=== PATIENT | female | born 1965 | race Caucasian/White ===

== ENCOUNTER 2020-07-02 10:53 | Outpatient (REF) | payer OTHER, SELFPAY | END 2020-07-02 10:54 | disposition home or self-care (01) | LOC: HO.LNP 10:53 | PROVIDERS: Visit Provider Hospitalist | DX: N39.0 Urinary tract infection, site not specified (principal) | CPT/HCPCS: 87086; 87088; 87186 ==

== ENCOUNTER 2020-07-16 09:29 | Outpatient (REF) | payer OTHER, SELFPAY ==
[2020-07-16 18:22] LABS: Glucose Urine UA NEG (NEG); Leukocyte Esterase Urine NEG (NEG); Nitrite Urine NEG (NEG); PH 5.5 (5.0-8.0); Specific Gravity - Urine >= 1.030 (1.005-1.025); Urine Blood 2+ (NEG); Urine Ketones NEG (NEG); Urine Protein NEG (NEG-TRACE)
[2020-07-16 18:29] LABS: Appearance Urine CLOUDY; Color Urine YELLOW
[2020-07-16 18:34] LABS: Amorphous Sediment Urine 3+ /LPF; WBC Urine 0 /HPF (0-4)
== END 2020-07-16 09:30 | disposition home or self-care (01) ==
LOC: HO.LNP 09:29
PROVIDERS: PCP Hospitalist; Referring Provider Hospitalist; Visit Provider Internal Medicine Gastroenterology
DX: R13.10 Dysphagia, unspecified (principal); E66.9 Obesity, unspecified; K21.00 Gastro-esophageal reflux disease with esophagitis, without bleeding
CPT/HCPCS: 81001

== ENCOUNTER 2020-08-14 08:00 | Outpatient (REF) | payer OTHER, SELFPAY ==
[2020-08-14 09:04] LABS: Glucose Urine UA NEG (NEG); Leukocyte Esterase Urine NEG (NEG); Nitrite Urine NEG (NEG); Urine Blood 1+ (NEG); Urine Ketones NEG (NEG); Urine Protein NEG (NEG-TRACE)
[2020-08-14 09:06] LABS: Appearance Urine CLEAR; Color Urine YELLOW
[2020-08-14 09:11] LABS: Mucus Urine 1+ /LPF; Squamous Epithelial Cell Urine 1+ /LPF; WBC Urine 0-2 /HPF (0-4)
== END 2020-08-14 08:01 | disposition home or self-care (01) ==
LOC: HO.LAB 08:00
PROVIDERS: PCP Hospitalist; Visit Provider Internal Medicine Endocrinology, Diabetes & Metabolism
DX: E66.9 Obesity, unspecified (principal); N39.0 Urinary tract infection, site not specified
CPT/HCPCS: 81001; 81003; 82533

== ENCOUNTER 2020-09-30 12:16 | Outpatient (REF) | payer OTHER, SELFPAY ==
[2020-09-30 12:45] LABS: COVID-19 Test Negative (Negative); IDNOW Serial# 55D5AD1C
== END 2020-09-30 12:17 | disposition home or self-care (01) ==
LOC: HO.EMPCOV 12:16
PROVIDERS: Visit Provider Internal Medicine
DX: Z20.828 Contact with and (suspected) exposure to other viral communicable diseases (principal)
CPT/HCPCS: 87635; C9803

== ENCOUNTER 2020-11-29 11:59 | Outpatient (REF) | payer OTHER, SELFPAY ==
[2020-11-29 12:21] LABS: COVID-19 Test Negative (Negative)
== END 2020-11-29 12:00 | disposition home or self-care (01) ==
LOC: HO.EMPCOV 11:59
PROVIDERS: Visit Provider Internal Medicine
DX: Z20.822 Contact with and (suspected) exposure to COVID-19 (principal)
CPT/HCPCS: 36415; 87635; C9803

== ENCOUNTER 2021-01-10 07:31 | Outpatient (REF) | payer OTHER, SELFPAY ==
[2021-01-10 08:27] LABS: COVID-19 Test Negative (Negative); IDNOW Serial# 55D5AD1C
== END 2021-01-10 07:32 | disposition home or self-care (01) ==
LOC: HO.EMPCOV 07:31
PROVIDERS: Visit Provider Internal Medicine
DX: Z20.822 Contact with and (suspected) exposure to COVID-19 (principal)
CPT/HCPCS: 36415; 87635; C9803

== ENCOUNTER 2021-04-06 10:53 | Outpatient (REF) | payer OTHER, SELFPAY | END 2021-04-06 10:54 | disposition home or self-care (01) | LOC: HO.HOSX 10:53 | PROVIDERS: Visit Provider Physician Assistant | DX: Z13.89 Encounter for screening for other disorder (principal) ==

== ENCOUNTER 2021-04-20 07:29 | Outpatient (REF) | payer OTHER, SELFPAY ==
--- NOTE | ~2021-04-20 | XR_ITS ---
EXAMINATION: XR ELBOW, LEFT CLINICAL INFORMATION: M25.522 - Pain in left elbow COMPARISON: None TECHNIQUE: AP, lateral, and oblique views of the left elbow. FINDINGS: There is intra-articular fracture central lateral aspect radial head with depression approximately 1.9 mm. There is intracapsular effusion. The remainder of the bony structures appear intact. No dislocation or destructive process. There is a small exostosis from the anteromedial distal humeral shaft measuring 3 mm thickness by 9 mm in length. This merges with the humeral cortex and is approximately 6 cm proximal to the elbow joint. No periostitis. XR/XR elbow LT min 3V IMPRESSION: 1. Intra-articular fracture lateral radial head with mild depression. 2. Small benign-appearing exostosis anterior medial humeral shaft.
== END 2021-04-20 07:30 | disposition home or self-care (01) ==
LOC: HO.HOSX 07:29
PROVIDERS: Visit Provider Physician Assistant
DX: S52.123D Displaced fracture of head of unspecified radius, subsequent encounter for closed fracture with routine healing (principal)
CPT/HCPCS: 73080

== ENCOUNTER 2021-05-18 07:57 | Outpatient (REF) | payer OTHER, SELFPAY | END 2021-05-18 07:58 | disposition home or self-care (01) | LOC: HO.HOSX 07:57 | PROVIDERS: Visit Provider Physician Assistant | DX: Z13.89 Encounter for screening for other disorder (principal) ==

== ENCOUNTER 2021-06-01 07:27 | Outpatient (REF) | payer OTHER, SELFPAY | END 2021-06-01 07:28 | disposition home or self-care (01) | LOC: HO.HOSX 07:27 | PROVIDERS: Visit Provider Physician Assistant | DX: Z13.89 Encounter for screening for other disorder (principal) ==

== ENCOUNTER 2021-06-03 07:00 | Outpatient (RCR) | payer OTHER, SELFPAY ==
--- NOTE | 2021-06-03 07:25 | MHC.OT.DC ---
[address] [phone] F: [phone] Occupational Therapy Discharge Note Provider: Luis E Benz Diagnosis: Left radial head fx Date of Evaluation: 05/13/21 Date of Discharge: 06/03/21 Treatments to Date: 5 Discharge Status: Achieved Goals Improved Function Independent with HEP Discharge Summary: Minda is about 2 months s/p fall w/ left radial head fx. She is progressing well w/ strength and range, all goals met and Ind w/ home program. No difficulty w/ daily activities, still avoiding heavy lifting. Electronically Signed By: Joanna Rodriguez OTR/L Please Sign and return to therapist, thank you for your referral.
== END 2021-06-03 07:27 | disposition home or self-care (01) ==
LOC: HO.OT 07:00
PROVIDERS: Visit Provider Physician Assistant
DX: S52.122D Displaced fracture of head of left radius, subsequent encounter for closed fracture with routine healing (principal)
CPT/HCPCS: 97110; 97140; 97165

== ENCOUNTER 2021-06-22 08:25 | Outpatient (REF) | payer OTHER, SELFPAY ==
[2021-06-22 09:22] LABS: C Reactive Protein 1.78 mg/dL (< or = 0.50)
[2021-06-22 09:47] LABS: TSH reflex Free T4 1.37 uIU/mL (0.32-4.0)
[2021-06-22 09:51] LABS: Glucose Fasting 112 mg/dL (60-99)
[2021-06-22 09:54] LABS: Erythrocyte Sedimentation Rate 23 MM/HR (0-20)
[2021-06-22 10:32] LABS: Glucose 1 Hour 168 mg/dL
[2021-06-22 11:31] LABS: Appearance Urine CLEAR; Color Urine YELLOW; Glucose Urine UA NEG (NEG); Leukocyte Esterase Urine NEG (NEG); Nitrite Urine NEG (NEG); PH 5.5 (5.0-8.0); Specific Gravity - Urine 1.025 (1.005-1.025); UACC Culture Trigger NO; Urine Blood 2+ (NEG); Urine Ketones NEG (NEG); Urine Protein NEG (NEG-TRACE)
[2021-06-22 12:05] LABS: Glucose 2 Hour 139 mg/dL
[2021-06-22 12:40] LABS: Glucose 3 Hour 122 mg/dL
[2021-06-22 12:48] LABS: Squamous Epithelial Cell Urine TRACE /LPF
[2021-06-22 12:50] LABS: WBC Urine 0-2 /HPF (0-4)
[2021-06-22 12:51] LABS: Bacteria Urine TRACE /LPF; Mucus Urine TRACE /LPF
[2021-06-24 05:25] LABS: Insulin Level Total 7.2 uIU/mL; Thyroid Peroxidase Antibodies <1 IU/mL (<9)
[2021-06-28 16:35] LABS: Vitamin D 25-OH, D2 <4 ng/mL; Vitamin D 25-OH, D3 11 ng/mL; Vitamin D 25-OH, Total 11 ng/mL (30-100)
== END 2021-06-22 08:26 | disposition home or self-care (01) ==
LOC: HO.LAB 08:25
PROVIDERS: PCP Hospitalist; Visit Provider Hospitalist
DX: R63.5 Abnormal weight gain (principal); M06.9 Rheumatoid arthritis, unspecified; S52.122D Displaced fracture of head of left radius, subsequent encounter for closed fracture with routine healing
CPT/HCPCS: 36415; 81001; 82306; 82533; 82951; 83525; 84443; 85652; 86140; 86376

== ENCOUNTER 2021-09-20 17:46 | Outpatient (REF) | payer OTHER, SELFPAY | END 2021-09-20 17:47 | disposition home or self-care (01) | LOC: HO.LNP 17:46 | PROVIDERS: Visit Provider Hospitalist | DX: R31.9 Hematuria, unspecified (principal); N30.90 Cystitis, unspecified without hematuria | CPT/HCPCS: 87086 ==

== ENCOUNTER 2022-03-02 13:18 | Outpatient (REF) | payer OTHER, SELFPAY ==
[2022-03-03 13:10] LABS: Influenza A PCR NEGATIVE (Negative); Influenza B PCR NEGATIVE (Negative); Resp Syncy Virus RNA Qual PCR NEGATIVE (Negative); SARS COV2 PCR INHOUSE NEGATIVE (Negative)
== END 2022-03-02 13:19 | disposition home or self-care (01) ==
LOC: HO.LNP 13:18
PROVIDERS: Visit Provider Hospitalist
DX: R53.83 Other fatigue (principal); R51.9 Headache, unspecified; R61 Generalized hyperhidrosis; Z20.822 Contact with and (suspected) exposure to COVID-19
CPT/HCPCS: 0241U

== ENCOUNTER 2022-03-03 08:01 | Outpatient (REF) | payer OTHER, SELFPAY ==
[2022-03-03 11:42] LABS: MANUAL DIFF FLAG NO
[2022-03-03 11:46] LABS: Basophils Percent Auto 0.5 % (0-2); Eosinophils Absolute Auto 0.1 X10*3/uL (0.0-0.4); Eosinophils Percent Auto 2.1 % (0-4); Hematocrit 40.5 % (37.0-47.0); Hemoglobin 13.1 g/dl (12.0-16.0); Imm Gran Abs Auto 0.02 X10*3/uL (0.00-0.03); Imm Gran Pct Auto 0.3 % (0.0-0.4); Lymphocytes Absolute Auto 1.4 X10*3/uL (1.2-4.9); Lymphocytes Percent Auto 23.4 % (20-40); Mean Corpuscular HGB Conc 32.3 g/dl (31.0-35.0); Mean Corpuscular Hemoglobin 29.4 pg (27.0-33.0); Mean Platelet Volume 10.5 fL (9.4-12.3); Monocytes Absolute Auto 0.4 X10*3/uL (0.1-1.2); Monocytes Percent Auto 5.7 % (2-11); Neutrophils Absolute Auto 4.2 x10*3/uL (2.0-8.3); Platelet Count 256 X10*3/uL (160-400); Red Blood Count 4.45 X10*6/uL (4.20-5.50); Red Cell Distribution Width 11.9 % (11.0-16.0); White Blood Count 6.1 X10*3/uL (4.8-10.8)
[2022-03-03 12:14] LABS: TSH reflex Free T4 1.54 uIU/mL (0.32-4.0)
[2022-03-03 12:21] LABS: Magnesium 1.9 mg/dL (1.6-2.6); Phosphorus 3.3 mg/dL (2.7-4.5)
[2022-03-03 12:28] LABS: Rheumatoid Factor < 15.0 IU/mL (<15.0)
[2022-03-03 12:37] LABS: Erythrocyte Sedimentation Rate 18 MM/HR (0-20)
[2022-03-04 09:06] LABS: Lyme Abs Screen <0.90 index
[2022-03-04 14:26] LABS: CRP High Sensitivity >10.0 mg/L
[2022-03-06 09:47] LABS: Anti Nuclear Antibody Screen NEGATIVE (NEGATIVE)
[2022-03-07 16:21] LABS: TS Negative Control Passed; TS Panel A 0; TS Panel B 0; TS Positive Control Passed; TSpotTB Negative (Negative)
[2022-03-09 00:02] LABS: Cyclic Citrullinated Peptide <16 UNITS
== END 2022-03-03 08:02 | disposition home or self-care (01) ==
LOC: HO.WFDLDS 08:01
PROVIDERS: Visit Provider Hospitalist
DX: R63.5 Abnormal weight gain (principal); R53.83 Other fatigue; R61 Generalized hyperhidrosis; R51.9 Headache, unspecified; K21.00 Gastro-esophageal reflux disease with esophagitis, without bleeding; R70.0 Elevated erythrocyte sedimentation rate; R79.82 Elevated C-reactive protein (CRP); M19.90 Unspecified osteoarthritis, unspecified site; R31.9 Hematuria, unspecified
CPT/HCPCS: 36415; 83735; 84100; 84443; 85025; 85652; 86038; 86039; 86141; 86200; 86431; 86481; 86617; 86618

== ENCOUNTER → 2022-03-16 10:28 | Outpatient (BNVA) | payer OTHER, SELFPAY | PROVIDERS: PCP Hospitalist; Referring Provider Hospitalist; Visit Provider Internal Medicine Cardiovascular Disease | DX: R07.9 Chest pain, unspecified (principal); R00.2 Palpitations | CPT/HCPCS: 93005 ==

== ENCOUNTER → 2022-03-17 08:15 | Outpatient (REF) | payer OTHER, SELFPAY ==
--- NOTE | 2022-03-17 08:19 | CA_ITS ---
Transthoracic Echocardiogram Patient (Last, First, Middle): Carole Darby A Gender: Female Date of : 1965 Age: 57 Procedure Date: 03/17/2022 Procedure Type: Transthoracic Echocardiogram Location: OP Height: 162.56 cm Weight: 97.52 kg BSA: 2.02 m2 Heart Rate: bpm BP: 124 / 80 mmHg Protozoologist: SANJANA Referring MD: Taj Caruso MD Symptoms: R07.9 - Chest pain, unspecified Study Quality: Fair/contrast Conclusions: - Normal left ventricular size and systolic function. There is mildly increased left ventricular wall thickness. The visually estimated ejection fraction is between 55-60%. There is no evidence of regional wall motion abnormalities. Diastolic function is normal for age. - Normal right ventricular cavity size and systolic function. - There is no evidence of pericardial effusion. Findings Procedure Information Contrast agent, definity, is being given per protocol without apparent complications. Left Ventricle Normal left ventricular size and systolic function. There is mildly increased left ventricular wall thickness. The visually estimated ejection fraction is between 55-60%. There is no evidence of regional wall motion abnormalities. Diastolic function is normal for age. Right Ventricle Normal right ventricular cavity size and systolic function. Atria Both atria are normal in size. Aortic Valve The aortic valve structure and function is likely normal. There is no aortic valve stenosis. There is no aortic valve regurgitation. Mitral Valve The mitral valve appears normal. There is mild mitral annular calcification. There is no mitral valve regurgitation. There is no mitral valve stenosis. Pulmonic Valve Normal pulmonic valve structure and function. There is trace pulmonic valve regurgitation. Tricuspid Valve Normal tricuspid valve structure and function. There is trace tricuspid valve regurgitation. Normal right atrial pressure. There is no evidence of pulmonary hypertension. Great Vessels All visible segments of the aorta are normal in size. The visualized portions of the pulmonary artery and branches are normal. Venous The inferior vena cava is normal in size and collapses greater than 50% with inspiration. Pericardium/Pleural There is no evidence of pericardial effusion. Prior Study Comparison No prior study available for comparison. Measurements 2D Linear Measurements IVSd: 1.11 0.6-0.9/0.6-1.0 cm LVIDd: 3.98 3.9-5.3/4.2-5.9 cm LVIDd Index: 1.97 2.4-3.2/2.2-3.1 cm/m2 LVIDs: 2.49 2.0-3.6 cm LVPWd: 0.91 0.7-1.1 cm LA Diam: 3.20 2.7-3.8/3.0-4.0 cm LAIDs Index: 1.58 1.5-2.3 cm/m2 LV Mass: 159.19 67-162/88-224 g LV Mass Index: 78.80 43-95/49-115 g/m2 LVOT Diam: 2.00 3.0+(-)1.3 cm 2D Systolic Function EF 4C: 62.90 >55% EF 2C: 70.90 >55% EF BiP: 66.60 >55% Mitral Valve MV Pk E: 0.69 MV PK A: 0.47 MV Decel Time: 184.00 E/A: 1.50 E'Lateral: 7.94 E'Medial: 7.51 E/E' Med: 9.20 E/E' Lat: 8.70 PHT: 54.00 MVA PHT: 4.07 Decel Bulloch: 3.78 Aortic Valve AoV Pk Karl: 1.19 AoV Mn Karl: 0.89 AoV VTI: 0.25 AoV Pk Grad: 6.00 Aov Mn Grad: 3.00 KATHLEEN Cont.VTI: 2.26 LVOT LVOT Pk Karl: 0.80 LVOT Mn Karl: 0.61 LVOT VTI: 0.18 LVOT Pk Grad: 3.00 LVOT Mn Grad: 2.00 LVOT Diam: 2.00 LVOT Area: 3.14 Diastolic Function MV Pk E: 0.69 MV Pk A: 0.47 E/A: 1.50 E'Medial: 7.51 E/E' Med: 9.20 E' Laterial: 7.94 E/E' Lat: 8.70 Tricuspid Valve TR Pk Karl: 2.44 TR Pk Grad: 24.00 RA Press: 8.00 RVSP: 32.00 Great Vessels Aorta Sinus of Valsalva: 2.79 2.0-3.5 cm Ao Asc: 2.90 2.1-3.4 cm Ao Arch: 2.60 Updated in Other Vendor System with Status of Final Lenin Emmanuel MD electronically signed on 03/20/2022 5:48:13 AM with status of Final
== END ==
LOC: HO.CARD 08:15
PROVIDERS: PCP Hospitalist; Visit Provider Internal Medicine Cardiovascular Disease
DX: R07.9 Chest pain, unspecified (principal)
CPT/HCPCS: 93306; Q9957

== ENCOUNTER → 2022-03-21 08:56 | Outpatient (REF) | payer OTHER, SELFPAY ==
--- NOTE | 2022-03-21 09:00 | CA_ITS ---
Acquisition Time: 2022-03-21 09:10:39 Total Exercise Time: 00:06:51 Test Indications: Chest Pain Medications: PANTOPRAZOLE Protocol: MICK Max HR: 164 BPM 100% of Pred: 164 BPM Max BP: 182/082 mmHG Max Work Load: 8.3 METS Exercise stress test with exercise 6 min 51 sec of Mick protocol, achieving 100% MPHR, with mild to mod sob and request to stop, without chest discomfort, without arrythmia, with normotensive response to exercise, without EKG changes meeting criteria for ischemia. In recovery she did report her symptom of racing heart which correlated with normal sinus tachycardia post exercise. Test reviewed with Dr Caruso Referred By: Taj Caruso Overread By: LALI MOLINA
--- NOTE | 2022-03-21 09:00 | HM_ITS ---
Conclusion: 1. Patient was monitored for total period of 5 days and 22 hours 2. Baseline was normal sinus rhythm with average heart rate 86 beats per minute 3. Total of 706 PACs accounting for 0.08% of total beats account for rare PACs 4. 20 supraventricular runs with longest at 18 beats and fastest at 174 beats per minute 5. No significant pauses or bradycardia noted 6. Patient reported 3 events which correlated with sinus rhythm or sinus tachycardia MTDD
== END ==
LOC: HO.CARD 08:56
PROVIDERS: Visit Provider Internal Medicine Cardiovascular Disease
DX: R07.9 Chest pain, unspecified (principal)
CPT/HCPCS: 93017; 93242

== ENCOUNTER 2022-04-06 15:44 | Outpatient (REF) | payer OTHER, SELFPAY ==
--- NOTE | ~2022-04-06 | XR_ITS ---
EXAMINATION: XR ABDOMEN KUB CLINICAL INDICATION: Right lower quadrant pain. COMPARISON: CT scan of the abdomen and pelvis dated 07/21/2019. TECHNIQUE: AP view of the abdomen. FINDINGS: Penetration is suboptimal. There is a nonobstructive bowel gas pattern. Mild gas and stool are seen within the colon distally to the rectum. A radiopaque density overlies the interpolar left kidney measuring 0.6 cm. Mild multilevel degenerative changes are seen in the thoracolumbar spine. XR/XR KUB IMPRESSION: 1. Nonobstructive bowel gas pattern. No significant colonic stool burden. 2. Possible 0.6 cm left intrarenal calculus.
[2022-04-06 16:13] LABS: Hematocrit 39.1 % (37.0-47.0); Hemoglobin 12.7 g/dl (12.0-16.0); Mean Corpuscular HGB Conc 32.5 g/dl (31.0-35.0); Mean Corpuscular Hemoglobin 29.1 pg (27.0-33.0); Mean Corpuscular Volume 89.7 fL (80.0-98.0); Mean Platelet Volume 9.9 fL (9.4-12.3); Platelet Count 265 X10*3/uL (160-400); Red Blood Count 4.36 X10*6/uL (4.20-5.50); Red Cell Distribution Width 12.1 % (11.0-16.0); White Blood Count 8.4 X10*3/uL (4.8-10.8)
[2022-04-06 16:30] LABS: Alanine Aminotransferase 19 U/L (0-31); Albumin Level 4.3 g/dL (3.5-5.0); Alkaline Phosphatase 94 U/L (39-117); Anion Gap 11 (12-20); Aspartate Amino Transferase 21 U/L (5-31); Bilirubin Total 0.4 mg/dL (0.0-1.0); Blood Urea Nitrogen 15 mg/dL (9-16); Calcium 8.7 mg/dL (8.4-10.2); Carbon Dioxide 29 mmol/L (22-29); Chloride 105 mmol/L (96-108); Estimated Glomerular Filt Rate > 60; Glucose Fasting 102 mg/dL (60-99); Sodium 141 mmol/L (135-145); Total Protein 6.7 g/dL (6.5-8.0)
[2022-04-06 17:42] LABS: Appearance Urine HAZY; Color Urine YELLOW; Glucose Urine UA NEG (NEG); Leukocyte Esterase Urine NEG (NEG); Nitrite Urine NEG (NEG); UACC Culture Trigger NO; Urine Blood 3+ (NEG); Urine Ketones NEG (NEG); Urine Protein NEG (NEG-TRACE)
[2022-04-06 18:17] LABS: WBC Urine 0 /HPF (0-4)
[2022-04-06 18:18] LABS: Bacteria Urine 1+ /LPF; Squamous Epithelial Cell Urine 1+ /LPF
== END 2022-04-06 15:45 | disposition home or self-care (01) ==
LOC: HO.LAB 15:44
PROVIDERS: PCP Hospitalist; Visit Provider Hospitalist
DX: Z00.00 Encounter for general adult medical examination without abnormal findings (principal); R10.31 Right lower quadrant pain; R31.9 Hematuria, unspecified
CPT/HCPCS: 36415; 74018; 80053; 81001; 85027; 87086

== ENCOUNTER 2022-04-12 13:33 | Outpatient (AMB) | payer OTHER, SELFPAY ==
--- NOTE | 2022-04-12 13:36 | MHC.OFFVIS ---
Intake Intake Visit Reasons: 1 week follow up per Dr. Rosen Intake Note: Patient is present for follow up Allergist/Immunologist Physician Required: No Accompanied by: Self / Same As Patient Allergies codeine [CODEINE] Allergy (Intermediate, Verified 07/05/23 11:55) NAUSEA hazelnut [HAZELNUT] Allergy (Unknown, Verified 07/05/23 11:55) UNKNOWN Milk Containing Products (Dairy) [MILK CONTAINING PRODUCTS] Allergy (Unknown, Verified 07/05/23 11:55) UNKNOWN nitrofurantoin [From MACROBID] Allergy (Unknown, Verified 07/05/23 11:55) UNKNOWN Penicillins [PENICILLINS] Allergy (Unknown, Verified 07/05/23 11:55) UNKNOWN sesame seed [SESAME SEED] Allergy (Unknown, Verified 07/05/23 11:55) UNKNOWN Sulfa (Sulfonamide Antibiotics) Allergy (Unknown, Verified 07/05/23 11:55) Unknown sulfamethoxazole [From BACTRIM] Allergy (Unknown, Verified 07/05/23 11:55) UNKNOWN trimethoprim [From BACTRIM] Allergy (Unknown, Verified 07/05/23 11:55) UNKNOWN azithromycin [From Zithromax] Adverse Reaction (Intermediate, Unverified 07/05/23 11:55) diarrhea epinephrine [EPINEPHRINE] Adverse Reaction (Intermediate, Verified 07/05/23 11:55) HEART PALPITATIONS beesting Allergy (Unknown, Uncoded 07/05/23 11:55) Unknown HPI HPI Comments History of Present Illness Details Carole CHAVEZ is a very pleasant female. They are a patient of Dr Byrd. They are seen in the office today for the following urologic conditions. - nephrolithiasis - microscopic hematuria Lower left flank pain Imaging with question of stone but not seen Nephrolithiasis/Urolithiasis:?Bladder biopsy 05/20 chronic with focal acute inflammation ?May be in line with other inflammatory findings she is having ?Use of oxybutynin for 3 months. ? Prior imaging includes?07/[address] (computed tomography) scan of the abdomen/pelvis (stone protocol), right kidney normal, left kidney multiple small 3 mm stone. Left kidney with some degree of thinning [facility] Medical History GERD (gastroesophageal reflux disease) USMAN (obstructive sleep apnea) CAD (coronary artery disease) Microscopic hematuria Cystitis Renal atrophy Recurrent UTI Left radial head fracture Obesity Surgical History S/P repair of paraesophageal hernia History of esophagogastroduodenoscopy (EGD) History of lithotripsy History of skin graft History of cystoscopy History of ankle surgery History of ovarian cystectomy History of tonsillectomy History of surgery History of colonoscopy History of endoscopy Family History Father Liver failure ETOH abuse Diabetes Hypertension Anxiety Mother Hypertension Afib CVD (cardiovascular disease) Emphysema lung Social [facility] Alcohol intake: current Alcohol intake frequency: holidays/special occasions only Patient Tobacco Use Status: Never used Tobacco e-Cigarette/Vaping Use: Never Used Second Hand Smoke Exposure: No service: No Current occupational status: employed 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 [employer] [place] needs: No Hearing needs: No Vision needs: Yes Review of Systems Const All systems reviewed & are unremarkable except as noted in HPI and below Reports no additional complaints Resp Reports no additional complaints GI Reports no additional complaints Reports as per HPI Musc Reports no additional complaints Physical Exam Telemedicine evaluation Appropriate responses Regular breathing rate and rhythm HEENT Head: Yes normal to inspection Ears: hearing grossly normal bilaterally Eyes General: appearance normal, both eyes and all related structures Neck Neck: Yes normal visual inspection Chest Chest palpation & inspection: normal inspection of the chest Resp Effort & Inspection: normal respiratory effort and able to speak in complete sentences Assessment & Plan Assessment & Plan (1) Renal calculi: Code(s): N20.0 - Calculus of kidney Plan Six-month follow-up Patient Instructions: Imaging studies, laboratory and physical exam results were discussed and reviewed in detail. No major barriers to patient understanding were identified. An opportunity to ask questions regarding the treatment plan was provided. All questions were answered. The patient expressed understanding and agreement with the above treatment plan. The patient is aware they should contact our office by phone for worsening of their current condition or the appearance of new urologic symptoms. Compliance is encouraged with any medications and followup testing that is ordered. It is a privilege to participate in the urologic care of your patient. If you have any questions or concerns regarding treatment for the above conditions, or other urologic issues, please do not hesitate to contact me. The office telephone contact is [phone]. This note is constructed using voice recognition software. While every effort has been made to ensure accuracy flatbed company driver errors may have been included. Yours sincerely, Dr Errol Rosen MD, [facility] - Urology Providers of Expert, Compassionate Care for the Genitourinary System Telehealth Telehealth Location of provider rendering services: practice address Location of patient: address on file Patient Identification confirmed using: Name, : Yes Telehealth method: voice only Patient verbally consented to treatment: Yes Patient verbally consented to billing insurance company: Yes Patient informed of any privacy concerns related to visit: Yes Coding Level of Care Code Tele Est Pt Level 3 (24402) Diagnoses Renal calculi N20.0
== END 2022-04-12 16:13 | disposition home or self-care (01) ==
LOC: HO.HUSH 13:33
PROVIDERS: PCP Hospitalist; Visit Provider Urology
DX: N20.0 Calculus of kidney (principal)
CPT/HCPCS: 99499

== ENCOUNTER 2022-05-15 11:41 | Outpatient (REF) | payer OTHER, SELFPAY ==
[2022-05-15 11:57] LABS: MANUAL DIFF FLAG NO
[2022-05-15 12:46] LABS: Basophils Percent Auto 0.5 % (0-2); Eosinophils Absolute Auto 0.1 X10*3/uL (0.0-0.4); Eosinophils Percent Auto 1.4 % (0-4); Hematocrit 40.1 % (37.0-47.0); Hemoglobin 13.3 g/dl (12.0-16.0); Imm Gran Abs Auto 0.03 X10*3/uL (0.00-0.03); Imm Gran Pct Auto 0.3 % (0.0-0.4); Lymphocytes Percent Auto 22.6 % (20-40); Mean Corpuscular HGB Conc 33.2 g/dl (31.0-35.0); Mean Corpuscular Hemoglobin 29.8 pg (27.0-33.0); Mean Corpuscular Volume 89.7 fL (80.0-98.0); Mean Platelet Volume 10.4 fL (9.4-12.3); Monocytes Absolute Auto 0.5 X10*3/uL (0.1-1.2); Monocytes Percent Auto 5.7 % (2-11); Neutrophils Percent Auto 69.5 % (45-73); Platelet Count 262 X10*3/uL (160-400); Red Blood Count 4.47 X10*6/uL (4.20-5.50); Red Cell Distribution Width 11.9 % (11.0-16.0); White Blood Count 8.7 X10*3/uL (4.8-10.8)
[2022-05-15 12:55] LABS: Estimated Average Glucose 111 mg/dL; Hemoglobin A1c % 5.5 %
[2022-05-15 13:08] LABS: Alanine Aminotransferase 16 U/L (0-31); Albumin Level 4.2 g/dL (3.5-5.0); Alkaline Phosphatase 96 U/L (39-117); Anion Gap 13 (12-20); Aspartate Amino Transferase 18 U/L (5-31); Bilirubin Total 0.6 mg/dL (0.0-1.0); Blood Urea Nitrogen 16 mg/dL (9-16); Carbon Dioxide 29 mmol/L (22-29); Chloride 105 mmol/L (96-108); Estimated Glomerular Filt Rate > 60; Glucose Random 98 mg/dL (60-115); Potassium 4.4 mmol/L (3.3-5.1); Sodium 143 mmol/L (135-145); Total Protein 6.8 g/dL (6.5-8.0)
== END 2022-05-15 11:42 | disposition home or self-care (01) ==
LOC: HO.LAB 11:41
PROVIDERS: PCP Hospitalist; Visit Provider Surgery
DX: R10.9 Unspecified abdominal pain (principal); E66.9 Obesity, unspecified; K44.9 Diaphragmatic hernia without obstruction or gangrene; Z88.9 Allergy status to unspecified drugs, medicaments and biological substances
CPT/HCPCS: 36415; 80053; 83036; 84134; 85025

== ENCOUNTER 2022-07-27 15:51 | Outpatient (REF) | payer OTHER, SELFPAY ==
--- NOTE | ~2022-07-27 | US_ITS ---
EXAMINATION: US RETROPERITONEAL LIMITED (RENAL ONLY) CLINICAL INFORMATION: History of left-sided renal stones. Left-sided flank pain.. COMPARISON: CT abdomen and pelvis 07/21/2019 TECHNIQUE: Grayscale imaging and color Doppler exam of the kidneys. FINDINGS: RIGHT KIDNEY: 12 6.3 x 6.3 cm (SAG x AP x TRV). The kidney is normal in size, contour, and echogenicity. Renal cortical thickness is normal. No calculi or suspicious focal parenchymal lesions. No hydronephrosis. There is a cortical cyst at the lower pole the right kidney measuring 1.3 cm unchanged since 2019. Small echogenic focus without posterior acoustic shadowing which may be debris at the lower margin of the cyst. LEFT KIDNEY: 10 x 6 x 5 cm (SAG x AP x TRV). There is thinning of the cortex at the mid upper pole of the kidney similar to prior CAT scan of 2019. There is moderate hydronephrosis with distention renal pelvis and calyces and the renal pelvis. This is new since prior study. No calculi are evident. The small stones seen in the left kidney on the prior CAT scan of 2019 are not apparent on this exam. US/US renal BI IMPRESSION: 1. Moderate hydronephrosis of left kidney. No renal calculi are evident. CT stone study may be helpful for further assessment. 2. Cortical thinning of the left kidney. 3. Small cyst at the lower pole of right kidney unchanged since prior CAT scan of 2019. 4. Small stones seen in the left kidney on the prior CAT scan of 2019 are not apparent on this exam.
== END 2022-07-27 15:52 | disposition home or self-care (01) ==
LOC: HO.US 15:51
PROVIDERS: PCP Hospitalist; Visit Provider Internal Medicine
DX: N20.0 Calculus of kidney (principal)
CPT/HCPCS: 76775

== ENCOUNTER 2022-07-28 16:10 | Outpatient (REF) | payer OTHER, SELFPAY ==
--- NOTE | ~2022-07-28 | CT_ITS ---
Indication: Hematuria EXAMINATION: CT of the abdomen pelvis noncontrast. Comparison is made to previous dated 07/21/2019. This CT examination was performed using dose optimization techniques as appropriate, variously including the following: *Automated exposure control *Adjustment of mA and/or kV according to patient size (this includes techniques or standardized protocols for targeted exams where dose is matched to indication/reason for exam; i.e. extremities or head) *Use of iterative reconstruction technique. Axial imaging with coronal and sagittal reformatted images. Radiation dose 863. Findings; The lung bases are grossly clear. Upper abdomen; Liver is grossly within normal limits. Spleen within normal limits. Gallbladder within normal limits. The pancreas is within normal limits. Area the adrenal glands within normal limits. Right kidney is within normal limits. Left kidney does demonstrate hydronephrosis. Prominent ureter. This leads up to calcification in the distal left ureter. This may be several calculi stacked together. Area measures 9 x 3 mm. Left kidney does demonstrate probable scarring and mildly atrophic compared to right kidney. The bowel pattern is nonobstructing. Some diverticular disease but no evidence for diverticulitis. The appendix is normal. The abdominal wall is felt to be within normal limits. Some atherosclerotic disease. No aneurysmal change. There is no bulky adenopathy here. Once again cystic change in the left adnexa. 5.9 x 4.7 cm. Previously 5.2 x 4 cm. No free fluid in the deep pelvis. Review of the bone windows does not demonstrate a suspicious bony finding. CT/CT kidney stone IMPRESSION: Mild to moderate hydronephrosis on the left caused by a long calculus or several calculi stacked together in the distal left ureter approximately 1 to 2 cm from the UVJ. Cystic left adnexal lesion demonstrating enlargement from previous exam. Ultrasonographic workup recommended. This may be done on an outpatient basis.
== END 2022-07-28 16:11 | disposition home or self-care (01) ==
LOC: HO.CT 16:10
PROVIDERS: PCP Hospitalist; Visit Provider Hospitalist
DX: N20.0 Calculus of kidney (principal); R31.9 Hematuria, unspecified; M54.9 Dorsalgia, unspecified
CPT/HCPCS: 74176

== ENCOUNTER → 2022-08-07 15:20 | Outpatient (BNVA) | payer OTHER, SELFPAY | PROVIDERS: PCP Hospitalist; Visit Provider Urology | DX: N20.0 Calculus of kidney (principal); R31.9 Hematuria, unspecified; N20.1 Calculus of ureter; M54.9 Dorsalgia, unspecified | CPT/HCPCS: 51798 ==

== ENCOUNTER 2022-08-08 13:37 | Day surgery (SDC) | payer OTHER, SELFPAY ==
--- NOTE | ~2022-08-08 | FL_ITS ---
PROCEDURE: Retrograde Urography INDICATION: Cystoscopy FLUOROSCOPY: Fluoroscopy Time: 80.5 seconds Dose: 45.57 mGy Images saved: 2 TECHNIQUE: Multiple intraoperative fluoroscopic images were submitted during reported cystoscopy. Correlation with operative report. Evaluation is limited secondary to fluoroscopic technique. FL/FL guidance in OR IMPRESSION: Fluoroscopy was provided by radiology for this procedure. Please refer to the operative report for further information.
[2022-08-08 13:52] VITALS: BMI 35.6
[2022-08-08 14:31] VITALS: BP 148/85; PULSE 77; RESP 18; TEMP 36.6; O2SAT 99
--- NOTE | 2022-08-08 15:02 | P.CONAN_ITS ---
[facility] Active Problems Active Problems: All Active Problems (Updated 07/27/22 @ 08:59 by Jose Francisco Cannon MD) Blood in urine (Acute) Mid back pain on left side (Acute) Renal calculi (Acute) History of PCOS (Acute) CAD (coronary artery disease) (Acute) Dysphagia (Acute) Obesity (Acute) Hiatal hernia (Acute) Multiple allergies (Acute) Exhaustion (Acute) Right lower quadrant pain (Acute) Palpitations (Acute) Chest pain in adult (Acute) Fatigue (Acute) Osteoarthritis (arthritis due to wear and tear of joints) (Acute) Headache (Acute) Unexplained night sweats (Acute) Physical exam, annual (Acute) Cystitis (Acute) Elevated sed rate (Acute) Elevated C-reactive protein (CRP) (Acute) UTI (urinary tract infection) (Acute) Unintended weight gain (Acute) Closed fracture of head of radius with routine healing (Acute) Left radial head fracture (Acute) GERD with esophagitis (Acute) Vitamin D deficiency (Acute) Hematuria (Acute) Past Medical History Medical History Cystitis Esophageal dysphagia Microscopic hematuria Obesity Recurrent UTI Renal atrophy Family History Family History Father Liver failure ETOH abuse Diabetes Hypertension Anxiety Mother Hypertension Afib CVD (cardiovascular disease) Emphysema lung Surgical History Surgical History History of colonoscopy History of endoscopy History of surgery History of Problems with Anesthesia: No Social History Social History Housing: Condominium Alcohol intake: current Alcohol intake frequency: holidays/special occasions only Patient Tobacco Use Status: Never used Tobacco e-Cigarette/Vaping Use: Never Used Second Hand Smoke Exposure: No Use of substances other than those prescribed or required for medical reasons: No Are you DNR?: No Advance Directives: No Advance Directives Information Provided: Yes Current occupational status: employed 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 [employer] [place] Cognitive needs: No Hearing needs: No Vision needs: Yes Meds Allergies Allergy/AdvReac Type Severity Reaction Status Date / Time codeine [CODEINE] Allergy Intermediate NAUSEA Verified 08/07/22 15:39 hazelnut [HAZELNUT] Allergy Unknown UNKNOWN Verified 08/07/22 15:39 lidocaine Allergy Unknown Unknown Verified 08/07/22 15:39 Milk Containing Products Allergy Unknown UNKNOWN Verified 08/07/22 15:39 [MILK CONTAINING PRODUCTS] nitrofurantoin Allergy Unknown UNKNOWN Verified 08/07/22 15:39 [From MACROBID] penicillin G Allergy Unknown Unknown Verified 08/07/22 15:39 penicillin V Allergy Unknown Unknown Verified 08/07/22 15:39 Penicillins [PENICILLINS] Allergy Unknown UNKNOWN Verified 08/07/22 15:39 sesame seed [SESAME SEED] Allergy Unknown UNKNOWN Verified 08/07/22 15:39 Sulfa (Sulfonamide Allergy Unknown Unknown Verified 08/07/22 15:39 Antibiotics) sulfamethoxazole Allergy Unknown UNKNOWN Verified 08/07/22 15:39 [From BACTRIM] trimethoprim [From BACTRIM] Allergy Unknown UNKNOWN Verified 08/07/22 15:39 epinephrine [EPINEPHRINE] AdvReac Intermediate HEART Verified 08/07/22 15:39 PALPITATIONS beesting Allergy Unknown Unknown Uncoded 05/10/22 15:16 Codeine Sulfate Allergy Unknown Unknown Uncoded 05/10/22 15:16 Hazelnuts Allergy Unknown Unknown Uncoded 05/10/22 15:16 Milk Allergy Unknown Unknown Uncoded 05/10/22 15:16 Sesame seeds Allergy Unknown Unknown Uncoded 05/10/22 15:16 sulfa Allergy Unknown Unknown Uncoded 05/10/22 15:16 Home Medications Medication Instructions Recorded Confirmed Last Taken Type pantoprazole 40 mg tablet,delayed 40 mg PO DAILY 07/02/20 07/27/22 Unknown History release fluorometholone 0.1 % eye drp ophthalmic (eye) 03/16/22 07/27/22 Unknown History drops,suspension melatonin 3 mg disintegrating 3 mg PO BEDTIME PRN 05/19/22 07/27/22 Unknown History tablet Exam Exam Date and Time: August 08, 2022 1502 Height,Weight and Vital Signs: Height 5 ft 3 in Weight 91.172 kg Last Vital Signs Temp 97.9 F 08/08/22 14:31 Pulse 77 08/08/22 14:31 Resp 18 08/08/22 14:31 BP 148/85 H 08/08/22 14:31 Pulse Ox 99 08/08/22 14:31 O2 Del Method 08/08/22 14:31 Airway Mallampati Class: III (Small mouth) TM Dist: >3cm Neck ROM: Full Loose/Missing/Broken Teeth: No Heart: RRR Lungs: CTA Assessment and Plan Assessment Anesthesia Assessment: Anesthesia Plan Discussed and Chart Reviewed Final Anesthetic Review History of Problems with Anesthesia: No NPO: Yes ASA Class: II Final Preanesthetic Review: Meds/Allgs Chart Reviewed, Consent Obtained/Reviewed and Anes Risks/Benef Reviewed Patient Risk: Low Procedure Risk: Low Anesthetic Plan Anesthetic Plan: GA Disposition: Standard PACU
--- NOTE | 2022-08-08 18:17 | HO.ANESPROP2 ---
[facility] Active Problems Active Problems: All Active Problems (Updated 08/08/22 @ 15:43 by Faith San MD) Ureteral stone (Acute) Blood in urine (Acute) Mid back pain on left side (Acute) Renal calculi (Acute) History of PCOS (Acute) CAD (coronary artery disease) (Acute) Dysphagia (Acute) Obesity (Acute) Hiatal hernia (Acute) Multiple allergies (Acute) Exhaustion (Acute) Right lower quadrant pain (Acute) Palpitations (Acute) Chest pain in adult (Acute) Fatigue (Acute) Osteoarthritis (arthritis due to wear and tear of joints) (Acute) Headache (Acute) Unexplained night sweats (Acute) Physical exam, annual (Acute) Cystitis (Acute) Elevated sed rate (Acute) Elevated C-reactive protein (CRP) (Acute) UTI (urinary tract infection) (Acute) Unintended weight gain (Acute) Closed fracture of head of radius with routine healing (Acute) Left radial head fracture (Acute) GERD with esophagitis (Acute) Vitamin D deficiency (Acute) Hematuria (Acute) Past Medical History Medical History Cystitis Esophageal dysphagia Microscopic hematuria Obesity Recurrent UTI Renal atrophy Family History Family History Father Liver failure ETOH abuse Diabetes Hypertension Anxiety Mother Hypertension Afib CVD (cardiovascular disease) Emphysema lung Family history of problems with anesthesia: No Surgical History Surgical History History of colonoscopy History of endoscopy History of surgery History of Problems with Anesthesia: No Social History Social History Housing: Condominium Alcohol intake: current Alcohol intake frequency: holidays/special occasions only Patient Tobacco Use Status: Never used Tobacco e-Cigarette/Vaping Use: Never Used Second Hand Smoke Exposure: No Use of substances other than those prescribed or required for medical reasons: No Are you DNR?: No Advance Directives: No Advance Directives Information Provided: Yes Current occupational status: employed 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[facility] [employer] Cognitive needs: No Hearing needs: No Vision needs: Yes Meds Allergies Allergy/AdvReac Type Severity Reaction Status Date / Time codeine [CODEINE] Allergy Intermediate NAUSEA Verified 08/07/22 15:39 hazelnut [HAZELNUT] Allergy Unknown UNKNOWN Verified 08/07/22 15:39 lidocaine Allergy Unknown Unknown Verified 08/07/22 15:39 Milk Containing Products Allergy Unknown UNKNOWN Verified 08/07/22 15:39 [MILK CONTAINING PRODUCTS] nitrofurantoin Allergy Unknown UNKNOWN Verified 08/07/22 15:39 [From MACROBID] penicillin G Allergy Unknown Unknown Verified 08/07/22 15:39 penicillin V Allergy Unknown Unknown Verified 08/07/22 15:39 Penicillins [PENICILLINS] Allergy Unknown UNKNOWN Verified 08/07/22 15:39 sesame seed [SESAME SEED] Allergy Unknown UNKNOWN Verified 08/07/22 15:39 Sulfa (Sulfonamide Allergy Unknown Unknown Verified 08/07/22 15:39 Antibiotics) sulfamethoxazole Allergy Unknown UNKNOWN Verified 08/07/22 15:39 [From BACTRIM] trimethoprim [From BACTRIM] Allergy Unknown UNKNOWN Verified 08/07/22 15:39 epinephrine [EPINEPHRINE] AdvReac Intermediate HEART Verified 08/07/22 15:39 PALPITATIONS beesting Allergy Unknown Unknown Uncoded 05/10/22 15:16 Codeine Sulfate Allergy Unknown Unknown Uncoded 05/10/22 15:16 Hazelnuts Allergy Unknown Unknown Uncoded 05/10/22 15:16 Milk Allergy Unknown Unknown Uncoded 05/10/22 15:16 Sesame seeds Allergy Unknown Unknown Uncoded 05/10/22 15:16 sulfa Allergy Unknown Unknown Uncoded 05/10/22 15:16 Active Medications: Current Medications Albuterol Sulfate (Albuterol Sulfate (0.083%) 2.5 Mg/3 Ml Vial.Neb) 2.5 mg INHALE ONCE PRN PRN Reason: Wheezing Fentanyl (Fentanyl Citrate/Pf 100 Mcg/2 Ml Vial) 25 mcg IVPUSH Q5M PRN; Protocol PRN Reason: Pain, Moderate (Pain Scale 4-6 Promethazine HCl 6.25 mg/ (Sodium Chloride) 50.25 mls @ 201 mls/hr IV ONCE PRN PRN Reason: Nausea and Vomiting Ondansetron HCl (Ondansetron Hcl 4 Mg/2 Ml Vial) 4 mg IVPUSH ONCE PRN PRN Reason: Nausea and Vomiting Oxycodone HCl (Oxycodone Hcl Immed Release 5 Mg Tablet) 5 mg PO ONCE PRN PRN Reason: Pain, Severe (Pain Scale 7-10) Home Medications Medication Instructions Recorded Confirmed Last Taken Type pantoprazole 40 mg tablet,delayed 40 mg PO DAILY 07/02/20 07/27/22 Unknown History release fluorometholone 0.1 % eye drp ophthalmic (eye) 03/16/22 07/27/22 Unknown History drops,suspension melatonin 3 mg disintegrating 3 mg PO BEDTIME PRN 05/19/22 07/27/22 Unknown History tablet Exam Exam Date and Time: August 08, 20221816 Height,Weight and Vital Signs: Height 5 ft 3 in Weight 91.172 kg Last Vital Signs Temp 97.9 F 08/08/22 14:31 Pulse 77 08/08/22 14:31 Resp 18 08/08/22 14:31 BP 148/85 H 08/08/22 14:31 Pulse Ox 99 08/08/22 14:31 O2 Del Method 08/08/22 14:31 Airway Mallampati Class: II TM Dist: >3cm Neck ROM: Full Assessment and Plan Assessment Anesthesia Assessment: Anesthesia Plan Discussed and Chart Reviewed Final Anesthetic Review Family History of Problems with Anesthesia: No History of Problems with Anesthesia: No NPO: Yes ASA Class: III and Emergency Final Preanesthetic Review: No Changes in Pt Med Stat, Meds/Allgs Chart Reviewed, Consent Obtained/Reviewed and Anes Risks/Benef Reviewed Patient Risk: Intermediate Procedure Risk: Low Anesthetic Plan Anesthetic Plan: GA Disposition: Standard PACU
--- NOTE | 2022-08-08 19:43 | W.PM.OPN ---
Operative Note Operative Note Date of Service: 08/08/22 Narrative: PreOperative Diagnosis:?? Left Ureteral Stones, left hydronephrosis Post Operative Diagnosis:?? Left Ureteral Stones, left hydronephrosis Procedure: - cystoscopy, left retrograde, left ureteroscopy laser lithotripsy multiple distal stones; Ureteral stent insertion, 6 Tanzanian by 24cm Surgeon:?Dr Faith San Anesthesia:? General Indications for procedure: Carole has a h/o kidney stones she has had symptoms of flank pain and had imaging done noting multiple calculi in the distal ureter with moderate hydronephrosis. Imaging: [facility] - 07/28/22 Right kidney is within normal limits. Left kidney? hydronephrosis. Prominent ureter leads up to calcification in the distal left ureter. This may be several calculi stacked together. Area measures 9 x 3 mm. Procedure: After informed consent was verified the patient was brought to the operating placed on the OR table in supine position.? General Anesthesia was administered per protocol.? The patient was placed in lithotomy position, prepped and draped in the usual sterile fashion.? Safety pause time-out and side of surgery confirmed.? Antibiotics confirmed. A 22 Tanzanian cystoscope was inserted transurethrally,. The bladder was visualized.?There is scarring noted in the posterior bladder likely from prior bladder biopsy. There are no suspicious bladder lesions. Both ureteric orifices were in normal position. An open-ended ureteral catheter was passed into the Left ureteral orifice and a retrograde examination was performed. There was a filling defect in the distal ureter and dilatation of the proximal ureter and renal pelvis and calices. A guidewire was passed through the ureteral catheter into the kidney. Initially attempts to pass a ureteral stent over the guidewire met with significant resistance due to the positioning of the stones distally. A balloon dilator was then used to dilate the left intramural ureter. The cystoscope was removed, leaving both guidewires in place. The semi rigid ureteroscope was passed transurethrally to the level of the stones in the distal ureter. Laser lithotripsy of the stone was done using the 365 fiber with a settings 0.8 joules by 6 hertz. There was good fragmentation of the stones. The 0 degree basket was passed through the ureteroscope, stone fragments removed to send for analysis. The ureteroscope was removed. The cystoscope was passed over the safety guidewire. A? 6 Tanzanian by 24 cm stent was placed into the ureter and renal pelvis under fluoroscopy. The bladder was emptied.? The rigid cystoscope was removed. ? The patient tolerated the procedure well and was brought to the recovery room in stable condition. Complications: None Drains: Ureteral stent as dictated above
[2022-08-08 19:56] VITALS: BP 144/79; PULSE 84; RESP 15; TEMP 36.1; O2SAT 100
[2022-08-08 20:01] VITALS: BP 137/84; PULSE 85; RESP 16; O2SAT 96
[2022-08-08 20:06] VITALS: BP 130/62; PULSE 86; RESP 16; O2SAT 97
[2022-08-08 20:11] VITALS: BP 121/55; PULSE 81; RESP 16; O2SAT 96
--- NOTE | 2022-08-08 20:16 | PC.NURSE ---
DR. ALEJANDRO AT BEDSIDE TO EVALUATE PATIENT SORE THROAT AREA. NOTED BLOOD TINGED PETICHIAE ON AIRWAY. MD EVALUATED PATIENT AIRWAY CLEARED TO DISCHARGE.
[2022-08-08 20:26] VITALS: BP 126/86; PULSE 85; RESP 18; TEMP 36.2; O2SAT 96
[2022-08-12 13:02] LABS: Stone Source KIDNEY STONE
== END 2022-08-08 20:50 | disposition home or self-care (01) ==
PROVIDERS: Urology; PCP Hospitalist; Visit Provider Urology
PROC: (CPT 52356; principal; 2022-08-08 15:30)
DX: N13.2 Hydronephrosis with renal and ureteral calculous obstruction (principal); Z87.442 Personal history of urinary calculi; M54.9 Dorsalgia, unspecified; R31.9 Hematuria, unspecified; N26.1 Atrophy of kidney (terminal); Z88.0 Allergy status to penicillin; Z88.2 Allergy status to sulfonamides; Z88.8 Allergy status to other drugs, medicaments and biological substances
CPT/HCPCS: 52356; 82365; 88300; C1726; C1769; C2617; J1100; J1956; J2250; J2405; J3010; Q9967

== ENCOUNTER → 2022-08-21 10:26 | Outpatient (BNVA) | payer OTHER, SELFPAY | PROVIDERS: PCP Hospitalist; Visit Provider Urology | DX: N20.0 Calculus of kidney (principal); N26.1 Atrophy of kidney (terminal); N20.1 Calculus of ureter | CPT/HCPCS: 52310 ==

== ENCOUNTER 2022-08-29 14:31 | Outpatient (REF) | payer OTHER, SELFPAY ==
[2022-08-29 17:17] LABS: Influenza A PCR NEGATIVE (Negative); Influenza B PCR NEGATIVE (Negative); Resp Syncy Virus RNA Qual PCR NEGATIVE (Negative); SARS COV2 PCR INHOUSE POSITIVE (Negative)
== END 2022-08-29 14:32 | disposition home or self-care (01) ==
LOC: HO.LAB 14:31
PROVIDERS: Visit Provider Internal Medicine
DX: R43.9 Unspecified disturbances of smell and taste (principal); Z20.822 Contact with and (suspected) exposure to COVID-19
CPT/HCPCS: 0241U

== ENCOUNTER 2022-09-07 10:21 | Outpatient (REF) | payer OTHER, SELFPAY ==
--- NOTE | ~2022-09-07 | FL_ITS ---
EXAMINATION: XR GI SERIES CLINICAL INFORMATION: Diaphragmatic hernia without obstruction. COMPARISON: CT scan of the abdomen and pelvis July 2019. TECHNIQUE: A double-contrast examination was performed. Fluoroscopic evaluation and multiple spot images were obtained. Barium tablet was also ingested and observed for passage. FINDINGS: Barium tablet passed into the stomach without delay. There is a small hiatal hernia with reflux demonstrated on the examination with the patient in supine position. Contrast extended to the level of the thoracic inlet. Esophageal motility and the swallowing mechanism are normal. No mass, ulceration or stricture. The stomach is normal. The duodenal bulb and sweep are normal. FLUOROSCOPY TIME: 1.3 min 45.710 mGy 10.347 Gy-cm2 29 screen save images FL/FL upper GI series IMPRESSION: Small hiatal hernia with reflux.
== END 2022-09-07 10:22 | disposition home or self-care (01) ==
LOC: HO.XRAY 10:21
PROVIDERS: Visit Provider Surgery
DX: E66.9 Obesity, unspecified (principal); K44.9 Diaphragmatic hernia without obstruction or gangrene; Z88.9 Allergy status to unspecified drugs, medicaments and biological substances
CPT/HCPCS: 74240

== ENCOUNTER → 2022-10-05 13:27 | Outpatient (BNVA) | payer OTHER, SELFPAY | PROVIDERS: PCP Hospitalist; Visit Provider Dietitian, Registered | DX: E66.9 Obesity, unspecified (principal) | CPT/HCPCS: 97802 ==

== ENCOUNTER → 2022-10-09 09:31 | Outpatient (BNVA) | payer OTHER, SELFPAY | PROVIDERS: PCP Hospitalist; Visit Provider Internal Medicine | DX: Z13.89 Encounter for screening for other disorder (principal) ==

== ENCOUNTER 2022-10-12 11:28 | Day surgery (SDC) | payer OTHER, SELFPAY ==
--- NOTE | 2022-10-11 12:22 | HO.ANESPROP2 ---
Documented by User: Sarah Zambrano NP 10/11/22 12:26 HPI - Anesthesia Eval Consult details Narrative: 57yo F for Upper Endoscopy with Balloon Dilitation *Multiple Allergies* PMFSH Active Problems Active Problems: All Active Problems (Updated 10/09/22 @ 11:05 by Prema Bhatt MD) GERD (gastroesophageal reflux disease) (Acute) Esophageal dysphagia (Acute) Influenza (Acute) Adnexal cyst (Acute) Pelvic cyst (Acute) Left renal atrophy (Acute) Vitamin K deficiency (Acute) Ureteral stone (Acute) Blood in urine (Acute) Mid back pain on left side (Acute) Renal calculi (Acute) History of PCOS (Acute) CAD (coronary artery disease) (Acute) Dysphagia (Acute) Obesity (Acute) Hiatal hernia (Acute) Multiple allergies (Acute) Exhaustion (Acute) Right lower quadrant pain (Acute) Palpitations (Acute) Chest pain in adult (Acute) Fatigue (Acute) Osteoarthritis (arthritis due to wear and tear of joints) (Acute) Headache (Acute) Unexplained night sweats (Acute) Physical exam, annual (Acute) Cystitis (Acute) Elevated sed rate (Acute) Elevated C-reactive protein (CRP) (Acute) UTI (urinary tract infection) (Acute) Unintended weight gain (Acute) Closed fracture of head of radius with routine healing (Acute) Left radial head fracture (Acute) GERD with esophagitis (Acute) Vitamin D deficiency (Acute) Hematuria (Acute) Past Medical History Medical History Cystitis Esophageal dysphagia Microscopic hematuria Obesity Recurrent UTI Renal atrophy Family History Family History Father Liver failure ETOH abuse Diabetes Hypertension Anxiety Mother Hypertension Afib CVD (cardiovascular disease) Emphysema lung Family history of problems with anesthesia: No Surgical History Surgical History History of colonoscopy History of endoscopy History of surgery History of Problems with Anesthesia: No Social History [facility] Alcohol intake: current Alcohol intake frequency: holidays/special occasions only Patient Tobacco Use Status: Never used Tobacco e-Cigarette/Vaping Use: Never Used Second Hand Smoke Exposure: No Advance Directives: No Advance Directives Information Provided: Yes Current occupational status: employed 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 [place] Cognitive needs: No Hearing needs: No Vision needs: Yes Meds Allergies Allergy/AdvReac Type Severity Reaction Status Date / Time codeine [CODEINE] Allergy Intermediate NAUSEA Verified 10/09/22 09:44 hazelnut [HAZELNUT] Allergy Unknown UNKNOWN Verified 10/09/22 09:44 Milk Containing Products Allergy Unknown UNKNOWN Verified 10/09/22 09:44 [MILK CONTAINING PRODUCTS] nitrofurantoin Allergy Unknown UNKNOWN Verified 10/09/22 09:44 [From MACROBID] Penicillins [PENICILLINS] Allergy Unknown UNKNOWN Verified 10/09/22 09:44 sesame seed [SESAME SEED] Allergy Unknown UNKNOWN Verified 10/09/22 09:44 Sulfa (Sulfonamide Allergy Unknown Unknown Verified 10/09/22 09:44 Antibiotics) sulfamethoxazole Allergy Unknown UNKNOWN Verified 10/09/22 09:44 [From BACTRIM] trimethoprim [From BACTRIM] Allergy Unknown UNKNOWN Verified 10/09/22 09:44 epinephrine [EPINEPHRINE] AdvReac Intermediate HEART Verified 10/09/22 09:44 PALPITATIONS beesting Allergy Unknown Unknown Uncoded 08/16/22 09:25 Home Medications Medication Instructions Recorded Confirmed Last Taken Type fluorometholone 0.1 % eye drp ophthalmic (eye) 03/16/22 09/15/22 Unknown History drops,suspension melatonin 3 mg disintegrating 3 mg PO BEDTIME PRN 05/19/22 09/15/22 Unknown History tablet levofloxacin 250 mg tablet 250 mg PO DAILY 10/09/22 Unknown History metformin 500 mg tablet,extended 500 mg PO BID 10/09/22 Unknown History release 24 hr Exam Exam Date and Time: October 11, 2022 1222 Pertinent Lab Results Pertinent Lab Results: Laboratory Tests 05/15/22 05/15/22 11:56 11:56 WBC 8.7 Hgb 13.3 Hct 40.1 Plt Count 262 Sodium 143 Potassium 4.4 Chloride 105 Carbon Dioxide 29 BUN 16 Creatinine 0.64 Narrative Narrative: Exercise Stress 03/2022 Protocol: DONNIE ? Max HR: 164 BPM? 100% of? Pred: 164 BPM Max BP: 182/082 mmHG Max Work Load: 8.3 METS ? Exercise stress test with exercise 6 min 51 sec of Donnie protocol, achieving ?100% MPHR, with mild to mod sob and request to stop, without chest discomfort, ?without arrythmia, with normotensive response to exercise, without EKG changes ?meeting criteria for ischemia. In recovery she did report her symptom of racing ?heart which correlated with normal sinus tachycardia post exercise. Test ?reviewed with Dr Caruso ECHO 03/2022 Conclusions: - Normal left ventricular size and systolic function. There is ? mildly increased left ventricular wall thickness.? The visually? estimated ejection fraction is between 55-60%.? There is no? ? ? evidence of regional wall motion abnormalities.? Diastolic ? ? ? function is normal for age.? - Normal right ventricular cavity size and systolic function.? ? - There is no evidence of pericardial effusion.? ?? HOLTER 03/2022 Conclusion: 1. Patient was monitored for total period of 5 days and 22 hours 2. Baseline was normal sinus rhythm with average heart rate 86 beats per minute 3. Total of 706 PACs accounting for 0.08% of total beats account for rare PACs 4. 20 supraventricular runs with longest at 18 beats and fastest at 174 beats per minute 5. No significant pauses or bradycardia noted 6. Patient reported 3 events which correlated with sinus rhythm or sinus tachycardia? Assessment and Plan Assessment Anesthesia Assessment: Chart Reviewed Final Anesthetic Review Family History of Problems with Anesthesia: No History of Problems with Anesthesia: No Documented by User: Margoth Chapman MD 10/12/22 11:53 [facility] Past Medical History Medical History Cystitis Esophageal dysphagia Microscopic hematuria Obesity Recurrent UTI Renal atrophy Family History Family History Father Liver failure ETOH abuse Diabetes Hypertension Anxiety Mother Hypertension Afib CVD (cardiovascular disease) Emphysema lung Surgical History Surgical History History of colonoscopy History of endoscopy History of surgery Social History [facility] Alcohol intake: current Alcohol intake frequency: holidays/special occasions only Patient Tobacco Use Status: Never used Tobacco e-Cigarette/Vaping Use: Never Used Second Hand Smoke Exposure: No Advance Directives: No Advance Directives Information Provided: Yes Current occupational status: employed 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[facility] [place] Cognitive needs: No Hearing needs: No Vision needs: Yes Meds Allergies Allergy/AdvReac Type Severity Reaction Status Date / Time codeine [CODEINE] Allergy Intermediate NAUSEA Verified 10/09/22 09:44 hazelnut [HAZELNUT] Allergy Unknown UNKNOWN Verified 10/09/22 09:44 Milk Containing Products Allergy Unknown UNKNOWN Verified 10/09/22 09:44 [MILK CONTAINING PRODUCTS] nitrofurantoin Allergy Unknown UNKNOWN Verified 10/09/22 09:44 [From MACROBID] Penicillins [PENICILLINS] Allergy Unknown UNKNOWN Verified 10/09/22 09:44 sesame seed [SESAME SEED] Allergy Unknown UNKNOWN Verified 10/09/22 09:44 Sulfa (Sulfonamide Allergy Unknown Unknown Verified 10/09/22 09:44 Antibiotics) sulfamethoxazole Allergy Unknown UNKNOWN Verified 10/09/22 09:44 [From BACTRIM] trimethoprim [From BACTRIM] Allergy Unknown UNKNOWN Verified 10/09/22 09:44 epinephrine [EPINEPHRINE] AdvReac Intermediate HEART Verified 10/09/22 09:44 PALPITATIONS beesting Allergy Unknown Unknown Uncoded 08/16/22 09:25 Home Medications Medication Instructions Recorded Confirmed Last Taken Type fluorometholone 0.1 % eye drp ophthalmic (eye) 03/16/22 09/15/22 Unknown History drops,suspension melatonin 3 mg disintegrating 3 mg PO BEDTIME PRN 05/19/22 09/15/22 Unknown History tablet levofloxacin 250 mg tablet 250 mg PO DAILY 10/09/22 Unknown History metformin 500 mg tablet,extended 500 mg PO BID 10/09/22 Unknown History release 24 hr Exam Airway Mallampati Class: II TM Dist: >3cm Neck ROM: Full Heart: rrr Lungs: cta Assessment and Plan Final Anesthetic Review ASA Class: III Final Preanesthetic Review: No Changes in Pt Med Stat, Meds/Allgs Chart Reviewed and Consent Obtained/Reviewed Patient Risk: Low Procedure Risk: Intermediate Anesthetic Plan Anesthetic Plan: MAC: and Agree w/ Assess. and Plan Disposition: Standard PACU
[2022-10-12] MEDS: Lactated Ringers 1,000 ML 100 ML IVCONT ×2 (11:49→12:19)
[2022-10-12 11:51] VITALS: BMI 36.7
[2022-10-12 11:56] VITALS: BP 136/78; PULSE 82; RESP 18; TEMP 36.6; O2SAT 98
[2022-10-12 12:18] LABS: Glucose, Whole Blood 101 mg/dL (60-115)
--- NOTE | 2022-10-12 12:39 | MHC.SHP ---
Pre-Procedural Eval Section A Date of Service: 10/12/22 The patient is an INPATIENT: No The History & Physical has been completed within 30 days and I have reviewed it.: Yes Section B Chief Complaint: Dysphagia, unspecified Allergies: Allergies Allergy/AdvReac Type Severity Reaction Status Date / Time codeine [CODEINE] Allergy Intermediate NAUSEA Verified 10/09/22 09:44 hazelnut [HAZELNUT] Allergy Unknown UNKNOWN Verified 10/09/22 09:44 Milk Containing Products Allergy Unknown UNKNOWN Verified 10/09/22 09:44 [MILK CONTAINING PRODUCTS] nitrofurantoin Allergy Unknown UNKNOWN Verified 10/09/22 09:44 [From MACROBID] Penicillins [PENICILLINS] Allergy Unknown UNKNOWN Verified 10/09/22 09:44 sesame seed [SESAME SEED] Allergy Unknown UNKNOWN Verified 10/09/22 09:44 Sulfa (Sulfonamide Allergy Unknown Unknown Verified 10/09/22 09:44 Antibiotics) sulfamethoxazole Allergy Unknown UNKNOWN Verified 10/09/22 09:44 [From BACTRIM] trimethoprim [From BACTRIM] Allergy Unknown UNKNOWN Verified 10/09/22 09:44 epinephrine [EPINEPHRINE] AdvReac Intermediate HEART Verified 10/09/22 09:44 PALPITATIONS beesting Allergy Unknown Unknown Uncoded 08/16/22 09:25 Plan Diagnosis/Plan: Unchanged I have reviewed the history and physical and performed a pertinent physical examination on my patient. No changes have occurred unless specified. Time Spent With Patient Time: Total time managing care of this patient today ____ minutes.
--- NOTE | 2022-10-12 12:40 | W.PM.OPN ---
Operative Note Operative Note Date of Service: 10/12/22 Narrative: Procedure: Esophagogastroduodenoscopy Endoscopist: Prema Bhatt MD Indication: GERD, dysphagia Anesthesia Provider: Dr Justin? Adela Anesthesia Type: MAC ?? EGD Procedure:?? The procedure, indications, preparation and potential complications were reviewed with the patient, who indicated understanding and gave written informed consent to proceed. A physical exam was performed. The endoscope was introduced through the mouth, and advanced to the second part of duodenum. However shortly after the procedure started within a few minutes, patient went into bronchospasm leading to hypoxia with O2 sats in 40s. The procedure was then terminated. Please see anesthesia flow-sheet for further details. Recommendations: - Was briefly able to note esophagitis, gastritis and duodenitis but extent and severity could not be assessed due to above. - Likely has reflux to thoracic inlet causing reactive airway - Pulmonology referral - EGD will be rescheduled and pt was educated will likely need to be done with GEA - Cont PPI in the meantime - Wedge pillow at night
--- NOTE | 2022-10-12 12:50 | PC.NURSE ---
patient states has not taken metformin in approx. 2-3 weeks states awaiting lab results and f/u with regarding medication.
[2022-10-12 12:52] VITALS: BP 109/58; PULSE 80; RESP 18; TEMP 37; O2SAT 97
[2022-10-12 13:07] VITALS: BP 124/69; PULSE 85; RESP 18; TEMP 37; O2SAT 97
== END 2022-10-12 14:01 | disposition home or self-care (01) ==
PROVIDERS: PCP Hospitalist; Visit Provider Internal Medicine
PROC: (CPT 43235; principal; 2022-10-12 12:40)
DX: R13.10 Dysphagia, unspecified (principal); Z53.8 Procedure and treatment not carried out for other reasons; K21.9 Gastro-esophageal reflux disease without esophagitis; K91.81 Other intraoperative complications of digestive system; J98.01 Acute bronchospasm; R09.02 Hypoxemia; Y65.8 Other specified misadventures during surgical and medical care; Y73.3 Surgical instruments, materials and gastroenterology and urology devices (including sutures) associated with adverse incidents; Y92.234 Operating room of hospital as the place of occurrence of the external cause; Z87.19 Personal history of other diseases of the digestive system; K20.80 Other esophagitis without bleeding; K29.80 Duodenitis without bleeding; K29.70 Gastritis, unspecified, without bleeding; K44.9 Diaphragmatic hernia without obstruction or gangrene; E66.9 Obesity, unspecified; Z79.899 Other long term (current) drug therapy; Z88.0 Allergy status to penicillin; Z88.2 Allergy status to sulfonamides; Z88.8 Allergy status to other drugs, medicaments and biological substances
CPT/HCPCS: 43235; 82947; J1100

== ENCOUNTER 2022-10-26 15:39 | Outpatient (REF) | payer OTHER, SELFPAY ==
--- NOTE | ~2022-10-26 | US_ITS ---
EXAMINATION: US PELVIS CLINICAL INFORMATION: Left lower quadrant pain COMPARISON: None TECHNIQUE: Ultrasound of the pelvis is performed using both transabdominal and transvaginal transducers along with Doppler. Transvaginal imaging is performed due to inadequate visualization transabdominally. FINDINGS: Uterus: The uterus is anteverted, anteflexed and measures 4.3 cm in length, 1.7 mL in AP and 2.8 cm and transverse dimension. There is a trace fluid within the endocervical canal. A small myometrial cyst is seen measuring 0.3 x 0.1 x 0.4 cm. The double wall endometrial thickness is 0.26 cm. The uterus is smooth in contour and has normal myometrial echogenicity. No visible fibroid. Adnexa: Both ovaries are visualized. There is normal color flow to the adnexa. There is no ovarian torsion. There is no pelvic ascites or fluid collection. Right ovary measures 1.4 x 1.1 x 1.1 cm and volume 0.9 mL. It appears unremarkable. Left ovary is not visualized. There is anechoic cyst in the left adnexa measuring 4.8 x 5.1 x 4.3 cm. There is no free fluid in the cul-de-sac. US/US pelvic and transvaginal IMPRESSION: 1. Small myometrial cyst and endocervical fluid. 2. Left ovary is not seen. Unremarkable right ovary 3. There is no free fluid in the cul-de-sac. 4. Left adnexal cyst measuring 5.1 cm
== END 2022-10-26 15:40 | disposition home or self-care (01) ==
LOC: HO.US 15:39
PROVIDERS: Visit Provider Internal Medicine
DX: N94.9 Unspecified condition associated with female genital organs and menstrual cycle (principal)
CPT/HCPCS: 76830; 76856

== ENCOUNTER → 2022-11-02 11:04 | Outpatient (BNVA) | payer OTHER, SELFPAY | PROVIDERS: PCP Hospitalist; Visit Provider Internal Medicine Pulmonary Disease | DX: Z13.89 Encounter for screening for other disorder (principal) ==

== ENCOUNTER 2022-11-02 14:02 | Outpatient (REF) | payer OTHER, SELFPAY ==
--- NOTE | 2022-11-02 15:01 | PFT_ITS ---
FLOWS: FEV1 67% of predicted at 1.71 L. FVC 62% of predicted at 1.72 L. FEV1 to FVC ratio of 0.99. No bronchodilator response. LUNG VOLUMES: Total lung capacity 65% of predicted at 3.21 L. Residual volume 69% of predicted at 1.30 L. Slow vital capacity 63% of predicted at 1.92 L. Expiratory reserve volume 7% of predicted at 0.07 L. Diffusion capacity is mildly decreased, diffusion capacity corrected to normal after adjustment for alveolar ventilation. IMPRESSION: Moderate restrictive ventilatory defect with no bronchodilator response. Decreased expiratory reserve volume suggests extrathoracic restriction likely secondary to abdominal obesity. MD NANCY Weber/MODL / [id number]
== END 2022-11-02 14:03 | disposition home or self-care (01) ==
LOC: HO.RESP 14:02
PROVIDERS: PCP Hospitalist; Visit Provider Internal Medicine Pulmonary Disease
DX: R06.02 Shortness of breath (principal); J45.909 Unspecified asthma, uncomplicated
CPT/HCPCS: 94060; 94727; 94729

== ENCOUNTER 2022-11-06 16:01 | Outpatient (REF) | payer OTHER, SELFPAY ==
--- NOTE | ~2022-11-06 | US_ITS ---
EXAMINATION: US RETROPERITONEAL LIMITED (RENAL ONLY) CLINICAL INFORMATION: Calculus of kidney.. COMPARISON: CT kidneys 07/28/2022 TECHNIQUE: Routine grayscale imaging of kidneys is performed. FINDINGS: RIGHT KIDNEY: 12.3 x 5.9 x 5.0 cm (SAG x AP x TRV). The kidney is normal in size, contour, and echogenicity. Renal cortical thickness is normal. No calculi or focal parenchymal lesions. There is mild pelvic fullness. There is an echogenic complex cyst lower pole measuring 1.9 x 2.0 x 2.0 cm and peripheral calcification. LEFT KIDNEY: 9.5 x 4.9 x 4.6 cm (SAG x AP x TRV). The kidney is normal in size, contour, and echogenicity. There is mild cortical thinning unchanged since previous CT kidney exam. No calculi or focal parenchymal lesions. No hydronephrosis. US/US renal BI IMPRESSION: Complex cyst lower pole right kidney. Mild pelvic fullness. Mild cortical thickening left kidney.
== END 2022-11-06 16:02 | disposition home or self-care (01) ==
LOC: HO.US 16:01
PROVIDERS: PCP Hospitalist; Visit Provider Hospitalist
DX: N20.0 Calculus of kidney (principal); N26.1 Atrophy of kidney (terminal)
CPT/HCPCS: 76775

== ENCOUNTER → 2022-11-14 11:00 | Outpatient (BNVA) | payer OTHER, SELFPAY | PROVIDERS: PCP Hospitalist; Visit Provider Internal Medicine | DX: Z13.89 Encounter for screening for other disorder (principal) ==

== ENCOUNTER 2022-11-21 16:26 | Outpatient (REF) | payer OTHER, SELFPAY ==
[2022-11-22 15:05] LABS: Influenza A PCR NEGATIVE (Negative); Influenza B PCR NEGATIVE (Negative); Resp Syncy Virus RNA Qual PCR NEGATIVE (Negative); SARS COV2 PCR INHOUSE NEGATIVE (Negative)
== END 2022-11-21 16:27 | disposition home or self-care (01) ==
LOC: HO.LAB 16:26
PROVIDERS: Visit Provider Hospitalist
DX: Z20.822 Contact with and (suspected) exposure to COVID-19 (principal); J11.1 Influenza due to unidentified influenza virus with other respiratory manifestations; R51.9 Headache, unspecified
CPT/HCPCS: 0241U

== ENCOUNTER → 2022-11-22 10:54 | Outpatient (BNVA) | payer OTHER, SELFPAY | PROVIDERS: PCP Hospitalist; Visit Provider Internal Medicine Pulmonary Disease | DX: Z13.89 Encounter for screening for other disorder (principal) ==

== ENCOUNTER → 2022-11-23 11:59 | Outpatient (REF) | payer OTHER, SELFPAY | LOC: HO.SL 11:59 | PROVIDERS: PCP Hospitalist; Visit Provider Internal Medicine Pulmonary Disease | DX: G47.33 Obstructive sleep apnea (adult) (pediatric) (principal) | CPT/HCPCS: 95806 ==

== ENCOUNTER 2022-12-05 11:10 | Outpatient (REF) | payer OTHER, SELFPAY | END 2022-12-05 11:11 | disposition home or self-care (01) | LOC: HO.LNP 11:10 | PROVIDERS: PCP Hospitalist; Visit Provider Obstetrics & Gynecology | DX: Z13.89 Encounter for screening for other disorder (principal) ==

== ENCOUNTER 2022-12-05 12:02 | Outpatient (REF) | payer OTHER, SELFPAY ==
[2022-12-07 10:03] LABS: CA-125 7 U/mL (<35)
== END 2022-12-05 12:03 | disposition home or self-care (01) ==
LOC: HO.LAB 12:02
PROVIDERS: PCP Hospitalist; Referring Provider Hospitalist; Visit Provider Obstetrics & Gynecology
DX: N83.209 Unspecified ovarian cyst, unspecified side (principal); R31.29 Other microscopic hematuria
CPT/HCPCS: 36415; 86304; 87086

== ENCOUNTER → 2022-12-06 11:18 | Outpatient (BNVA) | payer OTHER, SELFPAY | PROVIDERS: PCP Hospitalist; Visit Provider Internal Medicine Pulmonary Disease | DX: Z13.89 Encounter for screening for other disorder (principal) ==

== ENCOUNTER → 2022-12-11 14:21 | Outpatient (BNVA) | payer OTHER, SELFPAY | PROVIDERS: PCP Hospitalist; Visit Provider Surgery | DX: Z13.89 Encounter for screening for other disorder (principal) ==

== ENCOUNTER 2022-12-19 10:55 | Outpatient (REF) | payer OTHER, SELFPAY | END 2022-12-19 10:56 | disposition home or self-care (01) | LOC: HO.LNP 10:55 | PROVIDERS: PCP Hospitalist; Visit Provider Obstetrics & Gynecology | DX: R87.618 Other abnormal cytological findings on specimens from cervix uteri (principal); N83.209 Unspecified ovarian cyst, unspecified side | CPT/HCPCS: 58100; 88305 ==

== ENCOUNTER 2022-12-25 10:38 | Outpatient (REF) | payer OTHER, SELFPAY | END 2022-12-25 10:39 | disposition home or self-care (01) | LOC: HO.LNP 10:38 | PROVIDERS: Visit Provider Obstetrics & Gynecology | DX: R87.618 Other abnormal cytological findings on specimens from cervix uteri (principal) | CPT/HCPCS: 58100; 88305 ==

== ENCOUNTER → 2022-12-28 12:48 | Day surgery (SDC) | payer OTHER, SELFPAY ==
--- NOTE | 2022-12-27 08:41 | HO.ANESPROP2 ---
Documented by User: Sarah Zambrano NP 12/27/22 08:46 HPI - Anesthesia Eval Consult details Narrative: 57yo F for Upper Endo Armstrong PH s/p attempted EGD 10/2022 with MAC - likely severe reflux caused bronchospasm, pt to repeat under GA *Multiple Allergies* PMFSH Active Problems Active Problems: All Active Problems (Updated 12/22/22 @ 13:04 by Carolyn Quintana, PATIENCE) Vitamin D deficiency (Acute) Elevated C-reactive protein (CRP) (Acute) Elevated sed rate (Acute) Unexplained night sweats (Acute) Headache (Acute) Osteoarthritis (arthritis due to wear and tear of joints) (Acute) Chest pain in adult (Acute) Palpitations (Acute) Multiple allergies (Acute) Hiatal hernia (Acute) Obesity (Acute) Dysphagia (Acute) CAD (coronary artery disease) (Acute) History of PCOS (Acute) Renal calculi (Acute) Ureteral stone (Acute) Vitamin K deficiency (Acute) Left renal atrophy (Acute) Pelvic cyst (Acute) Adnexal cyst (Acute) GERD (gastroesophageal reflux disease) (Acute) USMAN (obstructive sleep apnea) (Acute) BMI 36.0-36.9,adult (Acute) Bronchitis (Acute) Ovarian cyst (Acute) Microscopic hematuria (Acute) Abnormal Pap smear of cervix (Acute) Restrictive airway disease (Acute) Unexplained endometrial cells on cervical cytology (Acute) Chronic fatigue (Acute) Esophageal dysphagia (Acute) Past Medical History Medical History CAD (coronary artery disease) Cystitis Esophageal dysphagia GERD (gastroesophageal reflux disease) Left radial head fracture Microscopic hematuria Obesity USMAN (obstructive sleep apnea) Recurrent UTI Renal atrophy Family History Family History Father Liver failure ETOH abuse Diabetes Hypertension Anxiety Mother Hypertension Afib CVD (cardiovascular disease) Emphysema lung Family history of problems with anesthesia: No Surgical History Surgical History History of ankle surgery History of colonoscopy History of cystoscopy History of endoscopy History of esophagogastroduodenoscopy (EGD) History of lithotripsy History of ovarian cystectomy History of skin graft History of surgery History of tonsillectomy History of Problems with Anesthesia: No Social History Social [facility] Alcohol intake: current Alcohol intake frequency: holidays/special occasions only Patient Tobacco Use Status: Never used Tobacco e-Cigarette/Vaping Use: Never Used Second Hand Smoke Exposure: No Are you DNR?: No Advance Directives: No Advance Directives Information Provided: Yes Nutrition Risks: No Nutritional Risk service: No Current occupational status: employed 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[employer] [facility] [place] Cognitive needs: No Hearing needs: No Vision needs: Yes Meds Allergies Allergy/AdvReac Type Severity Reaction Status Date / Time codeine [CODEINE] Allergy Intermediate NAUSEA Verified 12/25/22 10:42 hazelnut [HAZELNUT] Allergy Unknown UNKNOWN Verified 12/25/22 10:42 Milk Containing Products Allergy Unknown UNKNOWN Verified 12/25/22 10:42 [MILK CONTAINING PRODUCTS] nitrofurantoin Allergy Unknown UNKNOWN Verified 12/25/22 10:42 [From MACROBID] Penicillins [PENICILLINS] Allergy Unknown UNKNOWN Verified 12/25/22 10:42 sesame seed [SESAME SEED] Allergy Unknown UNKNOWN Verified 12/25/22 10:42 Sulfa (Sulfonamide Allergy Unknown Unknown Verified 12/25/22 10:42 Antibiotics) sulfamethoxazole Allergy Unknown UNKNOWN Verified 12/25/22 10:42 [From BACTRIM] trimethoprim [From BACTRIM] Allergy Unknown UNKNOWN Verified 12/25/22 10:42 epinephrine [EPINEPHRINE] AdvReac Intermediate HEART Verified 12/25/22 10:42 PALPITATIONS beesting Allergy Unknown Unknown Uncoded 12/19/22 11:12 Home Medications Medication Instructions Recorded Confirmed Last Taken Type melatonin 3 mg disintegrating 3 mg PO BEDTIME PRN Insomnia 05/19/22 12/22/22 Unknown History tablet metformin 500 mg tablet,extended 500 mg PO BID 10/09/22 12/22/22 Unknown History release 24 hr Exam Exam Date and Time: December 27, 2022 0841 Pertinent Lab Results Pertinent Lab Results: Laboratory Tests 05/15/22 05/15/22 11:56 11:56 WBC 8.7 Hgb 13.3 Hct 40.1 Plt Count 262 Sodium 143 Potassium 4.4 Chloride 105 Carbon Dioxide 29 BUN 16 Creatinine 0.64 Narrative Narrative: Exercise Stress 03/2022 Protocol: DONNIE ? Max HR: 164 BPM? 100% of? Pred: 164 BPM Max BP: 182/082 mmHG Max Work Load: 8.3 METS ? Exercise stress test with exercise 6 min 51 sec of Donnie protocol, achieving ?100% MPHR, with mild to mod sob and request to stop, without chest discomfort, ?without arrythmia, with normotensive response to exercise, without EKG changes ?meeting criteria for ischemia. In recovery she did report her symptom of racing ?heart which correlated with normal sinus tachycardia post exercise. Test ?reviewed with Dr Caruso ECHO 03/2022 Conclusions: - Normal left ventricular size and systolic function. There is ? mildly increased left ventricular wall thickness.? The visually? estimated ejection fraction is between 55-60%.? There is no? ? ? evidence of regional wall motion abnormalities.? Diastolic ? ? ? function is normal for age.? - Normal right ventricular cavity size and systolic function.? ? - There is no evidence of pericardial effusion.? ?? HOLTER 03/2022 Conclusion: 1. Patient was monitored for total period of 5 days and 22 hours 2. Baseline was normal sinus rhythm with average heart rate 86 beats per minute 3. Total of 706 PACs accounting for 0.08% of total beats account for rare PACs 4. 20 supraventricular runs with longest at 18 beats and fastest at 174 beats per minute 5. No significant pauses or bradycardia noted 6. Patient reported 3 events which correlated with sinus rhythm or sinus tachycardia? Assessment and Plan Assessment Anesthesia Assessment: Chart Reviewed Final Anesthetic Review Family History of Problems with Anesthesia: No History of Problems with Anesthesia: No Documented by User: Courtney Larsen MD 12/28/22 14:00 [facility] Past Medical History Medical History CAD (coronary artery disease) Cystitis Esophageal dysphagia GERD (gastroesophageal reflux disease) Left radial head fracture Microscopic hematuria Obesity USMAN (obstructive sleep apnea) Recurrent UTI Renal atrophy Family History Family History Father Liver failure ETOH abuse Diabetes Hypertension Anxiety Mother Hypertension Afib CVD (cardiovascular disease) Emphysema lung Surgical History Surgical History History of ankle surgery History of colonoscopy History of cystoscopy History of endoscopy History of esophagogastroduodenoscopy (EGD) History of lithotripsy History of ovarian cystectomy History of skin graft History of surgery History of tonsillectomy Social History Social History Housing: [facility] Alcohol intake: current Alcohol intake frequency: holidays/special occasions only Patient Tobacco Use Status: Never used Tobacco e-Cigarette/Vaping Use: Never Used Second Hand Smoke Exposure: No Are you DNR?: No Advance Directives: No Advance Directives Information Provided: Yes Nutrition Risks: No Nutritional Risk service: No Current occupational status: employed 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[employer] [facility] [place] Cognitive needs: No Hearing needs: No Vision needs: Yes Meds Allergies Allergy/AdvReac Type Severity Reaction Status Date / Time codeine [CODEINE] Allergy Intermediate NAUSEA Verified 12/25/22 10:42 hazelnut [HAZELNUT] Allergy Unknown UNKNOWN Verified 12/25/22 10:42 Milk Containing Products Allergy Unknown UNKNOWN Verified 12/25/22 10:42 [MILK CONTAINING PRODUCTS] nitrofurantoin Allergy Unknown UNKNOWN Verified 12/25/22 10:42 [From MACROBID] Penicillins [PENICILLINS] Allergy Unknown UNKNOWN Verified 12/25/22 10:42 sesame seed [SESAME SEED] Allergy Unknown UNKNOWN Verified 12/25/22 10:42 Sulfa (Sulfonamide Allergy Unknown Unknown Verified 12/25/22 10:42 Antibiotics) sulfamethoxazole Allergy Unknown UNKNOWN Verified 12/25/22 10:42 [From BACTRIM] trimethoprim [From BACTRIM] Allergy Unknown UNKNOWN Verified 12/25/22 10:42 epinephrine [EPINEPHRINE] AdvReac Intermediate HEART Verified 12/25/22 10:42 PALPITATIONS beesting Allergy Unknown Unknown Uncoded 12/19/22 11:12 Home Medications Medication Instructions Recorded Confirmed Last Taken Type melatonin 3 mg disintegrating 3 mg PO BEDTIME PRN Insomnia 05/19/22 12/22/22 Unknown History tablet metformin 500 mg tablet,extended 500 mg PO BID 10/09/22 12/22/22 Unknown History release 24 hr Exam Airway Mallampati Class: II TM Dist: >3cm Neck ROM: Full Heart: rr Lungs: cta Assessment and Plan Final Anesthetic Review NPO: Yes ASA Class: II Final Preanesthetic Review: No Changes in Pt Med Stat, Meds/Allgs Chart Reviewed, Consent Obtained/Reviewed and Anes Risks/Benef Reviewed Patient Risk: Low Procedure Risk: Low Anesthetic Plan Anesthetic Plan: MAC: Disposition: Standard PACU
--- NOTE | 2022-12-28 13:08 | MHC.SHP ---
Pre-Procedural Eval Section A Date of Service: 12/28/22 Section B Chief Complaint: Dysphagia, unspecified Details of Present Illness: PMH: Cystitis Esophageal dysphagia Microscopic hematuria Obesity Recurrent UTI Renal atrophy Surgical History: History of colonoscopy History of endoscopy History of surgery Present Medications: see Short Stay Collaborative assessment Allergies: Allergies Allergy/AdvReac Type Severity Reaction Status Date / Time codeine [CODEINE] Allergy Intermediate NAUSEA Verified 12/25/22 10:42 hazelnut [HAZELNUT] Allergy Unknown UNKNOWN Verified 12/25/22 10:42 Milk Containing Products Allergy Unknown UNKNOWN Verified 12/25/22 10:42 [MILK CONTAINING PRODUCTS] nitrofurantoin Allergy Unknown UNKNOWN Verified 12/25/22 10:42 [From MACROBID] Penicillins [PENICILLINS] Allergy Unknown UNKNOWN Verified 12/25/22 10:42 sesame seed [SESAME SEED] Allergy Unknown UNKNOWN Verified 12/25/22 10:42 Sulfa (Sulfonamide Allergy Unknown Unknown Verified 12/25/22 10:42 Antibiotics) sulfamethoxazole Allergy Unknown UNKNOWN Verified 12/25/22 10:42 [From BACTRIM] trimethoprim [From BACTRIM] Allergy Unknown UNKNOWN Verified 12/25/22 10:42 epinephrine [EPINEPHRINE] AdvReac Intermediate HEART Verified 12/25/22 10:42 PALPITATIONS beesting Allergy Unknown Unknown Uncoded 12/19/22 11:12 Review of Systems Review of Systems Comment: Ten point ROS negative Exam Exam Comment: Gen appear: No acute distress HEENT: no icterus Chest: No overt resp distress Abd: soft, nontender, nondistended Psych: Stable affect, answering questions appropriately Neuro: A/Ox3 noted to move all extremities spontaneously Ext: no peripheral edema Plan I have reviewed the history and physical and performed a pertinent physical examination on my patient. No changes have occurred unless specified. Time Spent With Patient Time: Total time managing care of this patient today ____ minutes.
[2022-12-28 13:11] VITALS: BMI 36.7
[2022-12-28] MEDS: Lactated Ringers 1,000 ML 100 ML IVCONT (13:26)
[2022-12-28 13:36] VITALS: BP 136/91; PULSE 89; RESP 18; TEMP 37; O2SAT 98
[2022-12-28 13:46] LABS: Glucose, Whole Blood 85 mg/dL (60-115)
--- NOTE | 2022-12-28 14:59 | P.OP_ITS ---
Operative Note Operative Note Date of Service: 12/28/22 Narrative: Procedure: Esophagogastroduodenoscopy Endoscopist: Prema Bhatt MD Indication: GERD Anesthesia Provider: Dr Courtney Larsen Anesthesia Type: General anesthesia ?? EGD Procedure:?? The procedure, indications, preparation and potential complications were re viewed with the patient, who indicated understanding and gave written informed consent to proceed. A physical exam was performed. The patient was electively intubated for airway protection the anesthesiologist. The endoscope was introduced through the mouth, and advanced to the second part of duodenum. The mucosa was carefully examined on slow withdrawal of the endoscope. The patient tolerated the procedure well. There were no immediate complications.? ? EGD Findings:? * Esophagus:? Normal mucosa noted in the entire esophagus. The Z line was at 36 cm. Middle and lower esophagus forceps biopsies were obtained to rule out eosinophilic esophagitis. * Stomach:? Normal mucosa was noted in the stomach. * Duodenum:? Normal mucosa was noted in the whole of the examined duodenum. Additional intervention: The Armstrong capsule was then prepped in the usual fashion and synced with its recorder. The capsule was then deployed at 30 cm (i.e 6 cm above GEJ). The correct capsule placement was then confirmed endoscopically as well. Initial pH check was 4.8. ? EGD Impressions:? * Normal esophagus (biopsy) (Armstrong capsule) * Normal stomach (biopsy) * Normal duodenum (biopsy) ?? Recommendations:?? * Patient has been instructed on symptom monitoring and diary keeping. * She is to CONTINUE PPI therapy on this test. * Results will be available to review within 7-10 days of return of equipment. Above has been reviewed with the patient.
[2022-12-28 15:08] VITALS: BP 107/59; PULSE 78; RESP 12; TEMP 36.1; O2SAT 100
[2022-12-28 15:13] VITALS: BP 110/64; PULSE 84; RESP 16; O2SAT 97
[2022-12-28 15:18] VITALS: BP 103/56; PULSE 85; RESP 16; O2SAT 96
[2022-12-28 15:23] VITALS: BP 106/53; PULSE 82; RESP 16; O2SAT 96
[2022-12-28 15:39] VITALS: BP 113/65; PULSE 72; RESP 16; TEMP 36.1; O2SAT 97
== END | disposition home or self-care (01) ==
PROVIDERS: PCP Hospitalist; Visit Provider Internal Medicine
PROC: (CPT 43239; principal; 2022-12-28 14:40)
DX: R13.10 Dysphagia, unspecified (principal); K21.9 Gastro-esophageal reflux disease without esophagitis; G47.33 Obstructive sleep apnea (adult) (pediatric); N26.1 Atrophy of kidney (terminal); N30.90 Cystitis, unspecified without hematuria; R31.29 Other microscopic hematuria; I25.10 Atherosclerotic heart disease of native coronary artery without angina pectoris; R07.9 Chest pain, unspecified; R70.0 Elevated erythrocyte sedimentation rate; E66.9 Obesity, unspecified; Z68.36 Body mass index [BMI] 36.0-36.9, adult; Z79.84 Long term (current) use of oral hypoglycemic drugs; Z79.899 Other long term (current) drug therapy; Z88.0 Allergy status to penicillin; Z88.2 Allergy status to sulfonamides; Z88.8 Allergy status to other drugs, medicaments and biological substances; Z87.442 Personal history of urinary calculi
CPT/HCPCS: 43239; 82947; 88305; J0330; J1100; J2250; J2370; J2405; J2765; J3010

== ENCOUNTER → 2023-01-05 09:36 | Outpatient (BNVA) | payer OTHER, SELFPAY | PROVIDERS: PCP Hospitalist; Visit Provider Surgery | DX: K44.9 Diaphragmatic hernia without obstruction or gangrene (principal); K21.9 Gastro-esophageal reflux disease without esophagitis; R13.10 Dysphagia, unspecified | CPT/HCPCS: 99202 ==

== ENCOUNTER → 2023-01-09 10:25 | Outpatient (BNVA) | payer OTHER, SELFPAY | PROVIDERS: PCP Hospitalist; Visit Provider Obstetrics & Gynecology | DX: Z13.89 Encounter for screening for other disorder (principal) ==

== ENCOUNTER 2023-01-19 10:15 | Day surgery (SDC) | payer OTHER, SELFPAY ==
[2023-01-16 11:31] VITALS: BMI 36.7
--- NOTE | 2023-01-18 09:55 | HO.ANESPROP2 ---
Documented by User: Sraah Zambrano NP 01/18/23 09:56 HPI - Anesthesia Eval Consult details Narrative: 57yo F for D&C Hysteroscopy ,possible myomectomy/polypectomy s/p EGD 01/05/23 with GA (bronchospasm with previous EGD/MAC) *Multiple Allergies* PMFSH Active Problems Active Problems: All Active Problems (Updated 01/16/23 @ 14:50 by Veronica Fields NP) USMAN (obstructive sleep apnea) (Acute) Cystitis (Acute) Hiatal hernia (Acute) Dysphagia (Acute) GERD (gastroesophageal reflux disease) (Acute) CAD (coronary artery disease) (Acute) Palpitations (Acute) Restrictive airway disease (Acute) Bronchitis (Acute) USMAN (obstructive sleep apnea) (Acute) BMI 36.0-36.9,adult (Acute) Obesity (Acute) History of PCOS (Acute) Osteoarthritis (arthritis due to wear and tear of joints) (Acute) Multiple allergies (Acute) Headache (Acute) Vitamin D deficiency (Acute) Vitamin K deficiency (Acute) Elevated C-reactive protein (CRP) (Acute) Elevated sed rate (Acute) Unexplained night sweats (Acute) Renal calculi (Acute) Ureteral stone (Acute) Left renal atrophy (Acute) Pelvic cyst (Acute) Adnexal cyst (Acute) Ovarian cyst (Acute) Microscopic hematuria (Acute) Abnormal Pap smear of cervix (Acute) Unexplained endometrial cells on cervical cytology (Acute) Chronic fatigue (Acute) Past Medical History Medical History (Updated 01/16/23 @ 14:50 by Veronica Fields NP) CAD (coronary artery disease) Cystitis GERD (gastroesophageal reflux disease) Left radial head fracture Microscopic hematuria Obesity USMAN (obstructive sleep apnea) Recurrent UTI Renal atrophy Family History Family History Father Liver failure ETOH abuse Diabetes Hypertension Anxiety Mother Hypertension Afib CVD (cardiovascular disease) Emphysema lung Family history of problems with anesthesia: No Surgical History Surgical History History of ankle surgery History of colonoscopy History of cystoscopy History of endoscopy History of esophagogastroduodenoscopy (EGD) History of lithotripsy History of ovarian cystectomy History of skin graft History of surgery History of tonsillectomy History of Problems with Anesthesia: No Social History Social History Housing: Condominium Alcohol intake: current Alcohol intake frequency: holidays/special occasions only Patient Tobacco Use Status: Never used Tobacco e-Cigarette/Vaping Use: Never Used Second Hand Smoke Exposure: No Use of substances other than those prescribed or required for medical reasons: No Are you DNR?: No Advance Directives: No Advance Directives Information Provided: Yes service: No Current occupational status: employed 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[employer] [place] needs: No Hearing needs: No Vision needs: Yes Meds Allergies Allergy/AdvReac Type Severity Reaction Status Date / Time codeine [CODEINE] Allergy Intermediate NAUSEA Verified 01/16/23 14:45 hazelnut [HAZELNUT] Allergy Unknown UNKNOWN Verified 01/16/23 14:45 Milk Containing Products Allergy Unknown UNKNOWN Verified 01/16/23 14:45 [MILK CONTAINING PRODUCTS] nitrofurantoin Allergy Unknown UNKNOWN Verified 01/16/23 14:45 [From MACROBID] Penicillins [PENICILLINS] Allergy Unknown UNKNOWN Verified 01/16/23 14:45 sesame seed [SESAME SEED] Allergy Unknown UNKNOWN Verified 01/16/23 14:45 Sulfa (Sulfonamide Allergy Unknown Unknown Verified 01/16/23 14:45 Antibiotics) sulfamethoxazole Allergy Unknown UNKNOWN Verified 01/16/23 14:45 [From BACTRIM] trimethoprim [From BACTRIM] Allergy Unknown UNKNOWN Verified 01/16/23 14:45 epinephrine [EPINEPHRINE] AdvReac Intermediate HEART Verified 01/16/23 14:45 PALPITATIONS beesting Allergy Unknown Unknown Uncoded 01/16/23 14:45 Home Medications Medication Instructions Recorded Confirmed Last Taken Type melatonin 3 mg disintegrating 3 mg PO BEDTIME PRN Insomnia 05/19/22 01/05/23 Unknown History tablet metformin 500 mg tablet,extended 500 mg PO BID 10/09/22 01/05/23 Unknown History release 24 hr Exam Exam Date and Time: January 18, 2023 0955 Height,Weight and Vital Signs: Height 5 ft 4 in Weight 97.069 kg Pertinent Lab Results Pertinent Lab Results: Laboratory Tests 05/15/22 05/15/22 11:56 11:56 WBC 8.7 Hgb 13.3 Hct 40.1 Plt Count 262 Sodium 143 Potassium 4.4 Chloride 105 Carbon Dioxide 29 BUN 16 Creatinine 0.64 Narrative Narrative: Exercise Stress 03/2022 Protocol: DONNIE ? Max HR: 164 BPM? 100% of? Pred: 164 BPM Max BP: 182/082 mmHG Max Work Load: 8.3 METS ? Exercise stress test with exercise 6 min 51 sec of Donnie protocol, achieving ?100% MPHR, with mild to mod sob and request to stop, without chest discomfort, ?without arrythmia, with normotensive response to exercise, without EKG changes ?meeting criteria for ischemia. In recovery she did report her symptom of racing ?heart which correlated with normal sinus tachycardia post exercise. Test ?reviewed with Dr Caruso ECHO 03/2022 Conclusions: - Normal left ventricular size and systolic function. There is ? mildly increased left ventricular wall thickness.? The visually? estimated ejection fraction is between 55-60%.? There is no? ? ? evidence of regional wall motion abnormalities.? Diastolic ? ? ? function is normal for age.? - Normal right ventricular cavity size and systolic function.? ? - There is no evidence of pericardial effusion.? ?? HOLTER 03/2022 Conclusion: 1. Patient was monitored for total period of 5 days and 22 hours 2. Baseline was normal sinus rhythm with average heart rate 86 beats per minute 3. Total of 706 PACs accounting for 0.08% of total beats account for rare PACs 4. 20 supraventricular runs with longest at 18 beats and fastest at 174 beats per minute 5. No significant pauses or bradycardia noted 6. Patient reported 3 events which correlated with sinus rhythm or sinus tachycardia? Assessment and Plan Assessment Anesthesia Assessment: Chart Reviewed Final Anesthetic Review Family History of Problems with Anesthesia: No History of Problems with Anesthesia: No Documented by User: Almas Aquino MD 01/19/23 12:39 [facility] Past Medical History Medical History (Updated 01/16/23 @ 14:50 by Veronica Fields NP) CAD (coronary artery disease) Cystitis GERD (gastroesophageal reflux disease) Left radial head fracture Microscopic hematuria Obesity USMAN (obstructive sleep apnea) Recurrent UTI Renal atrophy Family History Family History Father Liver failure ETOH abuse Diabetes Hypertension Anxiety Mother Hypertension Afib CVD (cardiovascular disease) Emphysema lung Surgical History Surgical History History of ankle surgery History of colonoscopy History of cystoscopy History of endoscopy History of esophagogastroduodenoscopy (EGD) History of lithotripsy History of ovarian cystectomy History of skin graft History of surgery History of tonsillectomy Social History [facility] Alcohol intake: current Alcohol intake frequency: holidays/special occasions only Patient Tobacco Use Status: Never used Tobacco e-Cigarette/Vaping Use: Never Used Second Hand Smoke Exposure: No Use of substances other than those prescribed or required for medical reasons: No Are you DNR?: No Advance Directives: No Advance Directives Information Provided: Yes service: No Current occupational status: employed 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[employer] [place] Cognitive needs: No Hearing needs: No Vision needs: Yes Meds Allergies Allergy/AdvReac Type Severity Reaction Status Date / Time codeine [CODEINE] Allergy Intermediate NAUSEA Verified 01/16/23 14:45 hazelnut [HAZELNUT] Allergy Unknown UNKNOWN Verified 01/16/23 14:45 Milk Containing Products Allergy Unknown UNKNOWN Verified 01/16/23 14:45 [MILK CONTAINING PRODUCTS] nitrofurantoin Allergy Unknown UNKNOWN Verified 01/16/23 14:45 [From MACROBID] Penicillins [PENICILLINS] Allergy Unknown UNKNOWN Verified 01/16/23 14:45 sesame seed [SESAME SEED] Allergy Unknown UNKNOWN Verified 01/16/23 14:45 Sulfa (Sulfonamide Allergy Unknown Unknown Verified 01/16/23 14:45 Antibiotics) sulfamethoxazole Allergy Unknown UNKNOWN Verified 01/16/23 14:45 [From BACTRIM] trimethoprim [From BACTRIM] Allergy Unknown UNKNOWN Verified 01/16/23 14:45 epinephrine [EPINEPHRINE] AdvReac Intermediate HEART Verified 01/16/23 14:45 PALPITATIONS beesting Allergy Unknown Unknown Uncoded 01/16/23 14:45 Home Medications Medication Instructions Recorded Confirmed Last Taken Type melatonin 3 mg disintegrating 3 mg PO BEDTIME PRN Insomnia 05/19/22 01/05/23 Unknown History tablet metformin 500 mg tablet,extended 500 mg PO BID 10/09/22 01/05/23 Unknown History release 24 hr Exam Airway Heart: rrr Lungs: cta Assessment and Plan Final Anesthetic Review NPO: Yes ASA Class: III Final Preanesthetic Review: No Changes in Pt Med Stat, Meds/Allgs Chart Reviewed, Consent Obtained/Reviewed and Anes Risks/Benef Reviewed Patient Risk: Intermediate Procedure Risk: Intermediate Anesthetic Plan Anesthetic Plan: GA and Agree w/ Assess. and Plan Disposition: Standard PACU
[2023-01-19] VITALS (7 sets, daily range): BP systolic 122–152; BP diastolic 57–84; PULSE 71–80; RESP 15–18; TEMP 36.3–37.3; O2SAT 97–98; BMI 36.8
[2023-01-19 11:02] LABS: Glucose, Whole Blood 104 mg/dL (60-115)
[2023-01-19] MEDS: Lactated Ringers 1,000 ML 100 ML IVCONT (11:13)
--- NOTE | 2023-01-19 12:06 | MHC.SHP ---
Pre-Procedural Eval Section A Date of Service: 01/19/23 The patient is an INPATIENT: No Changes since office visit: No Cold of Flu in the past 2 weeks, No New Medical Problems, No Changes in Medication and No Patient answered all questions The History & Physical has been completed within 30 days and I have reviewed it.: Yes Section B Chief Complaint: Other abnormal cytological findings on specimens Allergies: Allergies Allergy/AdvReac Type Severity Reaction Status Date / Time codeine [CODEINE] Allergy Intermediate NAUSEA Verified 01/16/23 14:45 hazelnut [HAZELNUT] Allergy Unknown UNKNOWN Verified 01/16/23 14:45 Milk Containing Products Allergy Unknown UNKNOWN Verified 01/16/23 14:45 [MILK CONTAINING PRODUCTS] nitrofurantoin Allergy Unknown UNKNOWN Verified 01/16/23 14:45 [From MACROBID] Penicillins [PENICILLINS] Allergy Unknown UNKNOWN Verified 01/16/23 14:45 sesame seed [SESAME SEED] Allergy Unknown UNKNOWN Verified 01/16/23 14:45 Sulfa (Sulfonamide Allergy Unknown Unknown Verified 01/16/23 14:45 Antibiotics) sulfamethoxazole Allergy Unknown UNKNOWN Verified 01/16/23 14:45 [From BACTRIM] trimethoprim [From BACTRIM] Allergy Unknown UNKNOWN Verified 01/16/23 14:45 epinephrine [EPINEPHRINE] AdvReac Intermediate HEART Verified 01/16/23 14:45 PALPITATIONS beesting Allergy Unknown Unknown Uncoded 01/16/23 14:45 Plan Diagnosis/Plan: Unchanged I have reviewed the history and physical and performed a pertinent physical examination on my patient. No changes have occurred unless specified. Time Spent With Patient Time: Total time managing care of this patient today ____ minutes.
--- NOTE | 2023-01-19 12:54 | P.BOP_ITS ---
Brief Operative Note Date of Service: 01/19/23 Pre-op diagnosis: Unexplained endometrial cells on cytology with endometrial polyp on EMB pathology Post-op diagnosis: same (Endometrial polyp) Procedure: Hysteroscopy D&C, endocervical curettage, Polypectomy Surgeon: Gabino House MD Anesthesia: GLMA Was an [employer] used for this Procedure?: No Estimated blood loss (mL): 0 Pathology: other (Endometrial Scrapping. Endocervical curettage, Polyp) Condition: stable Disposition: PACU
--- NOTE | 2023-01-19 12:55 | P.OP_ITS ---
Operative Note Operative Note Date of Service: 01/19/23 Narrative: Preop Diagnosis: Unexplained endometrial cells on cytology with Endometrial polyp on EMB pathology Operation: Diagnostic Hysteroscopy, endocervical curettage, Dilataion & Curettage and polypectomy Post Op Diagnosis: Endometrial Polyp QBL: Minimal Anesthesia: GLMA Surgeon: Gabino House MD Senior Payroll Administrator: None Complication: None Pathology: Endometrial Scrapings, endocervical curettage, Endometrial polyp Procedure: The patient was put in the dorsal lithotomy position, scrubbed, and draped in the usual manner. A sterile speculum was inserted in the patient's vagina. The anterior lip of the cervix was grasped with a single tooth tenaculum. The cervix was dilated up to 5 mm, then the scope was inserted in the patient's uterus. Inspection revealed endometrial polyp. The Myosure Reach device was used; it was introduced through the operative channel and polypectomy done with no complications. The scope was then taken out from the uterine cavity, sharp curettings was carried on with minimal to moderate amount of tissu es retrieved, then endocervical curettage was carried on from the 4 quadrants of the endocervical. At the end of the procedure, all instruments were taken out of the patient uterine and vaginal cavity. The single tooth tenaculum was removed and homeostasis was assured using pressure,. The patient tolerated the procedure well and was transferred to the PACU in a stable condition.
== END 2023-01-19 14:00 | disposition home or self-care (01) ==
PROVIDERS: PCP Hospitalist; Visit Provider Obstetrics & Gynecology
PROC: 0UDB8ZZ Extraction of Endometrium, Via Natural or Artificial Opening Endoscopic (ICD-10-PCS; CPT 58558; principal; 2023-01-19 12:30)
DX: N84.0 Polyp of corpus uteri (principal); I25.10 Atherosclerotic heart disease of native coronary artery without angina pectoris; K21.9 Gastro-esophageal reflux disease without esophagitis; N26.1 Atrophy of kidney (terminal); Z87.440 Personal history of urinary (tract) infections; R31.29 Other microscopic hematuria; N30.90 Cystitis, unspecified without hematuria; Z87.442 Personal history of urinary calculi; G47.33 Obstructive sleep apnea (adult) (pediatric); E66.9 Obesity, unspecified; Z68.36 Body mass index [BMI] 36.0-36.9, adult; Z79.84 Long term (current) use of oral hypoglycemic drugs; Z79.899 Other long term (current) drug therapy; Z88.0 Allergy status to penicillin; Z88.2 Allergy status to sulfonamides; Z88.8 Allergy status to other drugs, medicaments and biological substances
CPT/HCPCS: 58558; 82947; 88305; J3010

== ENCOUNTER 2023-01-26 11:25 | Outpatient (REF) | payer OTHER, SELFPAY ==
--- NOTE | ~2023-01-26 | US_ITS ---
EXAMINATION: US PELVIS CLINICAL INFORMATION: Ovarian cyst COMPARISON: None available. TECHNIQUE: Ultrasound of the pelvis is performed using both transabdominal and transvaginal transducers along with Doppler. Transvaginal imaging is performed due to inadequate visualization transabdominally. FINDINGS: UTERUS: The uterus is anteverted, anteflexed and measures 5.3 x 1.8 x 2.9 cm. The double wall endometrial thickness is 0.4 cm. The uterus is smooth in contour and has normal myometrial echogenicity. No visible fibroid. There is a small nabothian cyst in the lower uterine segment measuring 0.3 x 0.3 x 0.4 cm. There is small amount of fluid in the lower endometrial canal. ADNEXA: Both ovaries are not visualized. There is an anechoic cyst, left adnexa, measuring 5.9 x 4.3 x 4.6 cm. It probably is an ovarian cyst. Previously measured 4.8 x 5.1 x 4.3 cm. The ovary itself is not seen. US/US pelvic and transvaginal IMPRESSION: 1. Both ovaries are not seen with certainty. 2. There is a left adnexal cyst, minimally increased, likely left ovarian cyst. 3. Small amount of free fluid in the lower uterine segment. 4. Small nabothian cysts in the lower uterine segment with largest cyst measuring 0.3 x 0.3 x 0.4 cm.
== END 2023-01-26 11:26 | disposition home or self-care (01) ==
LOC: HO.US 11:25
PROVIDERS: PCP Hospitalist; Visit Provider Obstetrics & Gynecology
DX: N83.209 Unspecified ovarian cyst, unspecified side (principal)
CPT/HCPCS: 76830; 76856

== ENCOUNTER → 2023-01-31 15:15 | Outpatient (BNVA) | payer OTHER, SELFPAY | PROVIDERS: PCP Hospitalist; Visit Provider Urology ==

== ENCOUNTER 2023-02-06 08:39 | Outpatient (REF) | payer OTHER, SELFPAY | END 2023-02-06 08:40 | disposition home or self-care (01) | LOC: HO.LNP 08:39 | PROVIDERS: PCP Hospitalist; Visit Provider Obstetrics & Gynecology | DX: R31.29 Other microscopic hematuria (principal); R87.618 Other abnormal cytological findings on specimens from cervix uteri; N94.9 Unspecified condition associated with female genital organs and menstrual cycle | CPT/HCPCS: 87086 ==

== ENCOUNTER → 2023-02-20 10:04 | Outpatient (BNVA) | payer OTHER, SELFPAY | PROVIDERS: PCP Hospitalist; Referring Provider Hospitalist; Visit Provider Internal Medicine ==

== ENCOUNTER → 2023-02-28 14:26 | Outpatient (BNVA) | payer OTHER, SELFPAY | PROVIDERS: PCP Hospitalist; Visit Provider Internal Medicine Pulmonary Disease ==

== ENCOUNTER 2023-05-03 07:45 | Outpatient (AMB) | payer OTHER, SELFPAY ==
--- NOTE | 2023-05-03 07:47 | A.OFFPC_ITS ---
Intake Visit Reasons: sore throat, congested Allergies codeine [CODEINE] Allergy (Intermediate, Verified 02/28/23 14:30) NAUSEA hazelnut [HAZELNUT] Allergy (Unknown, Verified 02/28/23 14:30) UNKNOWN Milk Containing Products (Dairy) [MILK CONTAINING PRODUCTS] Allergy (Unknown, Verified 02/28/23 14:30) UNKNOWN nitrofurantoin [From MACROBID] Allergy (Unknown, Verified 02/28/23 14:30) UNKNOWN Penicillins [PENICILLINS] Allergy (Unknown, Verified 02/28/23 14:30) UNKNOWN sesame seed [SESAME SEED] Allergy (Unknown, Verified 02/28/23 14:30) UNKNOWN Sulfa (Sulfonamide Antibiotics) Allergy (Unknown, Verified 02/28/23 14:30) Unknown sulfamethoxazole [From BACTRIM] Allergy (Unknown, Verified 02/28/23 14:30) UNKNOWN trimethoprim [From BACTRIM] Allergy (Unknown, Verified 02/28/23 14:30) UNKNOWN epinephrine [EPINEPHRINE] Adverse Reaction (Intermediate, Verified 02/28/23 14:30) HEART PALPITATIONS beesting Allergy (Unknown, Uncoded 02/20/23 10:11) Unknown Tobacco use date assessed: 01/16/23 HPI sore throat, congested HPI Details 58-year-old obese female with nephrolithiasis mild obstructive sleep apnea coronary artery disease GERD coming in for an acute problem. This is 1st time seeing. Three days of feverish sore throat with hoarseness. No shortness of breath no bowel bladder symptoms. This is printed for consultation. [facility] Medical History (Updated 05/03/23 @ 08:48 by Tirso Edwards MD) CAD (coronary artery disease) Cystitis GERD (gastroesophageal reflux disease) Left radial head fracture Microscopic hematuria Obesity USMAN (obstructive sleep apnea) Recurrent UTI Renal atrophy Surgical History (Updated 05/03/23 @ 08:42 by Tirso Edwards MD) History of ankle surgery History of colonoscopy History of cystoscopy History of endoscopy History of esophagogastroduodenoscopy (EGD) History of lithotripsy History of ovarian cystectomy History of skin graft History of surgery History of tonsillectomy S/P repair of paraesophageal hernia Family History Father Liver failure ETOH abuse Diabetes Hypertension Anxiety Mother Hypertension Afib CVD (cardiovascular disease) Emphysema lung Social History Housing: Condominium Alcohol intake: current Alcohol intake frequency: holidays/special occasions only Patient Tobacco Use Status: Never used Tobacco e-Cigarette/Vaping Use: Never Used Second Hand Smoke Exposure: No service: No Current occupational status: employed 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 [employer] [facility] [place] Cognitive needs: No Hearing needs: No Vision needs: Yes Questionnaire Thrive Questionnaire Date Thrive assessed: 11/14/22 JANETH-7 AMB Questionnaire JANETH-7 Date JANETH - 7 assessed: 11/14/22 Source: Developed by Drs. Anjum Spivey, Rose Maher, Bright Nguyen and colleagues, with an educational rodri from [employer]. Physical exam (Primary Care) Tobacco/Smoking Status: Tobacco use Status Tobacco use date assessed 01/16/23 05/03/23 07:47 Patient Tobacco Use Status Never used Tobacco 05/03/23 07:47 e-Cigarette/Vaping Use Never Used 05/03/23 07:47 Thrive Assessment: Date of Thrive Assessment Date Thrive assessed 11/14/22 05/03/23 07:47 Const Other: Posterior pharyngeal wall erythematous with swelling General: alert; No acute distress Eyes Conjunctivae: conjunctivae normal Results AMB Rapid Strep AMB Rapid Strep Negative Last Edit by Marleni Lamar CMA on 05/03/23 07:48 Results Reviewed Results Reviewed: Laboratory Last Values Strep Scn Rapid Clinic Negative 05/03/23 07:47 Assessment and Plan Assessment & Plan (1) Sore throat: Code(s): J02.9 - Acute pharyngitis, unspecified Plan: Will send patient for testing Orders: Orders SARS-COV-2 IgG Lionel, Semi-Qnt Today J02.9 - Acute pharyngitis, unspecified AMB Rapid Strep Screen Today Z13.9 - Encounter for screening, unspecified Coding Level of Care Code Est Pt Level 3 (52624) Diagnoses Sore throat J02.9
== END 2023-05-03 09:27 | disposition home or self-care (01) ==
LOC: HO.HMGH 07:45
PROVIDERS: PCP Hospitalist; Visit Provider Internal Medicine
DX: Z13.9 Encounter for screening, unspecified (principal); J02.9 Acute pharyngitis, unspecified
CPT/HCPCS: 87880; 99213

== ENCOUNTER 2023-05-03 09:17 | Outpatient (REF) | payer OTHER, SELFPAY ==
[2023-05-03 10:28] LABS: Influenza A PCR NEGATIVE (Negative); Influenza B PCR NEGATIVE (Negative); Resp Syncy Virus RNA Qual PCR NEGATIVE (Negative); SARS COV2 PCR INHOUSE NEGATIVE (Negative)
== END 2023-05-03 09:18 | disposition home or self-care (01) ==
LOC: HO.LAB 09:17
PROVIDERS: PCP Hospitalist; Visit Provider Internal Medicine
DX: J02.9 Acute pharyngitis, unspecified (principal); R09.89 Other specified symptoms and signs involving the circulatory and respiratory systems; Z20.822 Contact with and (suspected) exposure to COVID-19
CPT/HCPCS: 0241U

== ENCOUNTER 2023-05-11 09:15 | Outpatient (REF) | payer OTHER, SELFPAY ==
--- NOTE | ~2023-05-11 | XR_ITS ---
EXAMINATION: XR LUMBOSACRAL SPINE CLINICAL INFORMATION: Low back pain COMPARISON: CT abdomen pelvis July 20, 2022 TECHNIQUE: Three views of the lumbosacral spine. FINDINGS: There is minimal levoscoliosis of the lumbar spine which is possibly positional. Lumbar vertebral body heights are maintained. There is mild narrowing of the L5/S1 disc space height. There are degenerative changes of the posterior elements of the lower lumbar spine. Sacroiliac joints are symmetric. XR/XR lumbar spine 2-3V IMPRESSION: Mild degenerative changes of the lower lumbar spine. No compression deformity.
== END 2023-05-11 09:16 | disposition home or self-care (01) ==
LOC: HO.XRAY 09:15
PROVIDERS: PCP Internal Medicine; Visit Provider Internal Medicine
DX: M54.50 Low back pain, unspecified (principal); Z91.81 History of falling
CPT/HCPCS: 72100

== ENCOUNTER 2023-06-01 08:29 | Outpatient (AMB) | payer OTHER, SELFPAY ==
--- NOTE | 2023-06-01 08:33 | A.OFFVIS_ITS ---
Intake Vital Signs 06/01/23 08:34 Height 5 ft 4 in Weight 183 lb BMI 31.4 BP 120/80 Blood Pressure Location Lt brachial Position Sitting Pulse 77 Intake Visit Reasons: 1 year follow up Intake Note: 1 year follow-up with ekg feeling good Sustainable Landscape Architect Required: No Allergies codeine [CODEINE] Allergy (Intermediate, Verified 02/28/23 14:30) NAUSEA hazelnut [HAZELNUT] Allergy (Unknown, Verified 02/28/23 14:30) UNKNOWN Milk Containing Products (Dairy) [MILK CONTAINING PRODUCTS] Allergy (Unknown, Verified 02/28/23 14:30) UNKNOWN nitrofurantoin [From MACROBID] Allergy (Unknown, Verified 02/28/23 14:30) UNKNOWN Penicillins [PENICILLINS] Allergy (Unknown, Verified 02/28/23 14:30) UNKNOWN sesame seed [SESAME SEED] Allergy (Unknown, Verified 02/28/23 14:30) UNKNOWN Sulfa (Sulfonamide Antibiotics) Allergy (Unknown, Verified 02/28/23 14:30) Unknown sulfamethoxazole [From BACTRIM] Allergy (Unknown, Verified 02/28/23 14:30) UNKNOWN trimethoprim [From BACTRIM] Allergy (Unknown, Verified 02/28/23 14:30) UNKNOWN azithromycin [From Zithromax] Adverse Reaction (Intermediate, Unverified 05/10/23 11:59) diarrhea epinephrine [EPINEPHRINE] Adverse Reaction (Intermediate, Verified 02/28/23 14:30) HEART PALPITATIONS beesting Allergy (Unknown, Uncoded 02/20/23 10:11) Unknown Medication List - Last Reconciled 06/01/23 by Taj Caruso MD pyridoxine (vitamin B6) 100 mg PO DAILY rosuvastatin 20 mg PO DAILY HPI HPI Comments History of Present Illness Details Carole comes for follow-up. She is in good state of health at this point time since her surgery for hiatal hernia. She says she feels a lot better. A lot of for gastric symptoms have improved. She does not have any significant cardiac symptoms at this point time. She has lost about 30 lb and exercise on a regular basis. Comes for follow-up. No recent lipid panel. Uses a CPAP regularly. Also tries to walk about 3 miles every other day. [facility] Medical History CAD (coronary artery disease) Cystitis GERD (gastroesophageal reflux disease) Left radial head fracture Microscopic hematuria Obesity USMAN (obstructive sleep apnea) Recurrent UTI Renal atrophy Surgical History History of ankle surgery History of colonoscopy History of cystoscopy History of endoscopy History of esophagogastroduodenoscopy (EGD) History of lithotripsy History of ovarian cystectomy History of skin graft History of surgery History of tonsillectomy S/P repair of paraesophageal hernia Family History Father Liver failure ETOH abuse Diabetes Hypertension Anxiety Mother Hypertension Afib CVD (cardiovascular disease) Emphysema lung Social [facility] Alcohol intake: current Alcohol intake frequency: holidays/special occasions only Patient Tobacco Use Status: Never used Tobacco e-Cigarette/Vaping Use: Never Used Second Hand Smoke Exposure: No service: No Current occupational status: employed 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 [employer] [facility] [place] Cognitive needs: No Hearing needs: No Vision needs: Yes Review of Systems Const Denies chills, Denies fatigue, Denies fever(s), Denies frequent falls, Denies weakness, Denies weight gain and Denies weight loss ENT Denies dizziness Card Denies chest pain, Denies leg edema, Denies lightheadedness, Denies palpitations, Denies dyspnea, Denies dyspnea on exertion, Denies orthopnea and Denies other (loss of consciousness) Resp Denies cough, Denies dyspnea and Denies dyspnea on exertion GI Denies hematochezia and Denies change in stool character Musc Denies abnormal gait, Denies muscle weakness, Denies numbness, Denies radiating pain into limb and Denies tingling Neuro Denies Abnormal speech present, Denies abnormal gait, Denies dizziness, Denies f requent falls, Denies numbness, Denies tingling and Denies weakness Endo Denies fatigue and Denies palpitations Physical Exam Vital Signs: Last Vital Signs Pulse 77 06/01/23 08:34 BP 120/80 06/01/23 08:34 BMI result Body Mass Index 31.4 Const General: cooperative, comfortable, no acute distress, alert, awake, Physically active and well groomed Nutritional Appearance: overweight Orientation/consciousness: patient oriented x3 Limitations: no limitations Neck Neck: Yes trachea midline, Yes supple and Yes no JVD Resp Effort & Inspection: normal respiratory effort Auscultation: clear to auscultation bilaterally Cardio Jugular venous distension: no JVD Palpation: normal PMI Rate: regular rate Rhythm: regular rhythm Heart sounds: S1 normal heart sound present, S2 normal heart sound present, no click, no gallops, no murmurs and no rubs Neuro General: patient oriented x3 and no focal motor deficits Speech: No Abnormal speech present Extrem General: Yes no clubbing, cyanosis or edema Office Procedures EKG Details: EKG shows normal sinus rhythm with rightward axis otherwise normal EKG [id number], Complete Assessment & Plan Assessment & Plan (1) CAD (coronary artery disease): Comment: Elevated coronary calcium score in the LAD of 17 suggestive underlying atherosclerosis. Nonobstructive as a stress test is normal Code(s): I25.10 - Atherosclerotic heart disease of [place] coronary artery without angina pectoris Plan: CAD with nonobstructive disease stable with no cardiac symptoms. Continue aggressive risk factor modification. Agree with high-intensity statin therapy. Advised lipid panel near future with target goal LDL closer to 60 mg/dL. Continue maintain heart healthy lifestyle and continue participate in weight loss program as as regular physical activity. Importance of this was discussed with her in details. She understands and agrees. Will follow up in the clinic in couple years. Thank you for allowing me to partake in the care Coding Level of Care Code Est Pt Level 3 (73448) Diagnoses CAD (coronary artery disease) I25.10 CPT Codes EKG - CPT: 40381-[id number], Complete ([id number])
[2023-06-01 08:34] VITALS: BP 120/80; PULSE 77; BMI 31.4
== END 2023-06-01 08:55 | disposition home or self-care (01) ==
PROVIDERS: PCP Internal Medicine; Referring Provider Internal Medicine; Visit Provider Internal Medicine Cardiovascular Disease
DX: I25.10 Atherosclerotic heart disease of native coronary artery without angina pectoris (principal)
CPT/HCPCS: 93010; 99213

== ENCOUNTER → 2023-06-01 08:29 | Outpatient (BNVA) | payer OTHER, SELFPAY | PROVIDERS: PCP Internal Medicine; Referring Provider Internal Medicine; Visit Provider Internal Medicine Cardiovascular Disease | DX: I25.10 Atherosclerotic heart disease of native coronary artery without angina pectoris (principal) | CPT/HCPCS: 93005 ==

== ENCOUNTER 2023-06-13 17:00 | Outpatient (RCR) | payer OTHER, SELFPAY ==
--- NOTE | 2023-05-15 13:50 | MHC.PT.EP ---
[facility] [place] [facility] [place] [facility] [place] Office [address] Samuel Dwyer [address] [phone] F: [phone] F: [phone] F: [phone] F: [phone] Physical Therapy Plan of Care Date of Evaluation: Date of Surgery: N/A Diagnosis: Low back pain, unspecified Assessment: Pt is a very pleasant and motivated 58yo F who presents to PT with R low back pain after slipping last Sunday. She presents to PT with current impairments in pain, decreased lumbar ROM, soft tissue restrictions, decreased core stabilization, decreased hip/glute strength, impaired posture and impaired gait mechanics. She is limited functionally by sitting>standing, getting in/out of bed, walking on an incline, stairs, and bending. She is an excellent candidate for skilled PT in order to address current impairments to facilitate return to PLOF. She is recommended to be seen 2x/week for 4 weeks and will be reassessed at that time. Frequency and Duration: The patient will be seen 2x/week for 4 weeks Short Term Goals: Pt will be I with HEP to promote self management of symptoms Pt will demonstrate improvements in postural awareness noted throughout the day Pt will perform sit<>stands with proper technique with pain < 3/10 Director Trust Goals: Pt will achieve full, pain-free ROM all planes of lumbar spine Pt will perform supine<>sit with log roll technique independently with pain < 2/10 Pt will demonstrate improvements in function as evidenced by statistically significant improvement in Modified Oswestry Low Back Pain Disability Index Questionnaire Treatment Plan: Modalities to reduce pain, spasms and effusion. Manual therapy to restore motion and function. Therapeutic exercise to improve strength and flexibility. Neuromuscular re-education for posture and balance. Therapeutic activities to return to functional activities of daily living. Electronically signed by: Patricia Choudhury, PT, DPT Please sign and return to therapist. Thank you for your referral.
--- NOTE | 2023-06-13 18:04 | MHC.PT.DC ---
[facility] [place] [facility] [place] Office [place] Office [address] Samuel Dwyer [address] [phone] F: [phone] F: [phone] F: [phone] F: [phone] Physical Therapy Discharge Report Diagnosis: Low back pain, unspecified Date of Surgery: N/A Date of Evaluation: 05/15/23 Date of Discharge: 06/13/23 Treatments to Date: 9 Cancellations to Date: No Shows to Date: Discharge Status: Achieved Goals Improved Function Independent with HEP Discharge Summary: The patient overall has minimal to no low back pain. She is able to perform bed mobility with little difficulty or pain at this time. She is independent with her home exercise program which we reviewed today. She reported she no longer uses the TENS machine and uses her heating pad less often. Her gait assessment today reveals improved left lateral pelvic shift but still some hesitancy of left leg during heel strike which improved with verbal cueing. She is discharged from this physical therapy plan of care to her home exercise program at this time. Electronically signed by: Geena Dc PT, DPT Please sign and return to therapist. Thank you for your referral.
== END 2023-06-13 18:04 | disposition home or self-care (01) ==
LOC: HO.PT 17:00
PROVIDERS: PCP Internal Medicine; Visit Provider Internal Medicine
DX: M54.50 Low back pain, unspecified (principal)
CPT/HCPCS: 97014; 97110; 97112; 97140; 97161

== ENCOUNTER 2023-07-05 11:54 | Outpatient (AMB) | payer OTHER, SELFPAY ==
--- NOTE | 2023-07-05 11:54 | MHC.OFFVIS ---
Intake Intake Visit Reasons: u/s results Drainage Design Coordinator Required: No Information Interpreted: non-clinical & clinical Allergies codeine [CODEINE] Allergy (Intermediate, Verified 07/05/23 11:55) NAUSEA hazelnut [HAZELNUT] Allergy (Unknown, Verified 07/05/23 11:55) UNKNOWN Milk Containing Products (Dairy) [MILK CONTAINING PRODUCTS] Allergy (Unknown, Verified 07/05/23 11:55) UNKNOWN nitrofurantoin [From MACROBID] Allergy (Unknown, Verified 07/05/23 11:55) UNKNOWN Penicillins [PENICILLINS] Allergy (Unknown, Verified 07/05/23 11:55) UNKNOWN sesame seed [SESAME SEED] Allergy (Unknown, Verified 07/05/23 11:55) UNKNOWN Sulfa (Sulfonamide Antibiotics) Allergy (Unknown, Verified 07/05/23 11:55) Unknown sulfamethoxazole [From BACTRIM] Allergy (Unknown, Verified 07/05/23 11:55) UNKNOWN trimethoprim [From BACTRIM] Allergy (Unknown, Verified 07/05/23 11:55) UNKNOWN azithromycin [From Zithromax] Adverse Reaction (Intermediate, Unverified 07/05/23 11:55) diarrhea epinephrine [EPINEPHRINE] Adverse Reaction (Intermediate, Verified 07/05/23 11:55) HEART PALPITATIONS beesting Allergy (Unknown, Uncoded 07/05/23 11:55) Unknown Post menopausal: Yes HPI HPI Comments History of Present Illness Details The patient scheduled tele health visit for a 2nd opinion regarding the results of pelvic ultrasound done in [place], [place] on 06/18/2023 which showed a normal appearance to the uterus and endometrium right ovary unremarkable and left ovary replaced by large simple ovarian cyst measuring 6.5 x 4.5 x 4.9 cm. OVA1 done at [place] , [place] 125 was 8.1, the OVA1 results was in the low risk= 2.3% for ovarian malignant. Patient saw a rail track layer who recommended laparoscopic of bilateral salpingo oophorectomy. The patient has been complaining of pelvic pain , more so on the left side with no other associated symptoms REPLACED BY [facility] Medical History GERD (gastroesophageal reflux disease) USMAN (obstructive sleep apnea) CAD (coronary artery disease) Microscopic hematuria Cystitis Renal atrophy Recurrent UTI Left radial head fracture Obesity Surgical History S/P repair of paraesophageal hernia History of esophagogastroduodenoscopy (EGD) History of lithotripsy History of skin graft History of cystoscopy History of ankle surgery History of ovarian cystectomy History of tonsillectomy History of surgery History of colonoscopy History of endoscopy Family History Father Liver failure ETOH abuse Diabetes Hypertension Anxiety Mother Hypertension Afib CVD (cardiovascular disease) Emphysema lung Social History [facility]: [facility] Alcohol intake: current Alcohol intake frequency: holidays/special occasions only Patient Tobacco Use Status: Never used Tobacco e-Cigarette/Vaping Use: Never Used Second Hand Smoke Exposure: No service: No Current occupational status: employed 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 [employer] [facility] [place] Cognitive needs: No Hearing needs: No Vision needs: Yes Review of Systems Const All systems reviewed & are unremarkable except as noted in HPI and below Reports as per HPI and Reports no additional complaints GI Reports no additional complaints Reports no additional complaints Assessment & Plan Assessment & Plan (1) Ovarian cyst: Code(s): N83.209 - Unspecified ovarian cyst, unspecified side Plan: Discussed with the patient the the finding on a pelvic ultrasound showing a simple ovarian cyst with no evidence of suspicious features, with a size of less than 10 cm that has grown over the last few months. Discussed the patient the limitation of pelvic ultrasound to differentiate between benign and malignant ovarian cyst. Explained to the patient that pelvic Ultrasound characteristics of benign masses include simple appearance: thin, smooth cervantes; and the absence of solid components, septations, or internal blood flow on color Doppler ultrasound imaging. These simple cysts are highly likely to be benign in any age group. Studies have shown that spontaneous resolution occurs in more than 2/3 of cases. Simple cysts are almost always universally benign, regardless of menopausal status or cyst size, with malignancy rates in most series of 0?1%. CA 125=8.1, part of OVA1 done on 06/26/2023, ovarian cancer serum marker test, is indicated to evaluate like with of malignancy and need for surgery. Elevated levels in combination with other findings can be useful to distinguish between benign and malignant adnexal masses. Specificity and positive predictive value of CA 125 levels are consistently higher in postmenopausal woman compared to premenopausal woman. Although CA 125 level measurement is less valuable in predicting cancer risk in premenopausal woman thin in postmenopausal woman extreme values increase suspicion for a malignant process. The overall sensitivity of [place] 125 in distinguish in benign from malignant adnexal mass ranges be 61-91 % and negative for active value ranges from 67-90%. OVA1 done at [place] was in the low risk = 2.3%, it has the sensitivity of 79% and specificity of 82%. Since the patient is having pain and the ovarian cyst have grown over the last few months, recommend laparoscopic bilateral salpingo oophorectomies with frozen section in a tertiary care center where customer solutions teammate Oncology service are available. All questions answered, the patient verbalized understanding. I spent a total of 20 minutes reviewing the chart, talking to the patient via video and documenting in the medical record. Telehealth Telehealth Location of provider rendering services: practice address Location of patient: other (work) Patient Identification confirmed using: Name, : Yes Telehealth method: video Patient verbally consented to treatment: Yes Patient verbally consented to billing insurance company: Yes Patient informed of any privacy concerns related to visit: Yes Coding Level of Care Code Tele Est Pt Level 3 (53241) Diagnoses Ovarian cyst N83.209
== END 2023-07-05 15:18 | disposition home or self-care (01) ==
LOC: HO.HWS 11:54
PROVIDERS: PCP Internal Medicine; Visit Provider Obstetrics & Gynecology
DX: N83.209 Unspecified ovarian cyst, unspecified side (principal)
CPT/HCPCS: 99213

== ENCOUNTER → 2023-07-05 11:54 | Outpatient (BNVA) | payer OTHER, SELFPAY | PROVIDERS: PCP Internal Medicine; Visit Provider Obstetrics & Gynecology ==

== ENCOUNTER 2024-02-05 16:37 | Outpatient (AMB) | payer OTHER, SELFPAY ==
[2024-02-05 16:45] VITALS: BP 104/62; PULSE 77; O2SAT 98; BMI 27.6
--- NOTE | 2024-02-05 16:45 | A.OFFPC_ITS ---
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 : No Allergies codeine [CODEINE] Allergy (Intermediate, Verified 02/05/24 16:45) NAUSEA hazelnut [HAZELNUT] Allergy (Unknown, Verified 02/05/24 16:45) UNKNOWN Milk Containing Products (Dairy) [MILK CONTAINING PRODUCTS] Allergy (Unknown, Verified 02/05/24 16:45) UNKNOWN nitrofurantoin [From MACROBID] Allergy (Unknown, Verified 02/05/24 16:45) UNKNOWN Penicillins [PENICILLINS] Allergy (Unknown, Verified 02/05/24 16:45) UNKNOWN sesame seed [SESAME SEED] Allergy (Unknown, Verified 02/05/24 16:45) UNKNOWN Sulfa (Sulfonamide Antibiotics) Allergy (Unknown, Verified 02/05/24 16:45) Unknown sulfamethoxazole [From BACTRIM] Allergy (Unknown, Verified 02/05/24 16:45) UNKNOWN trimethoprim [From BACTRIM] Allergy (Unknown, Verified 02/05/24 16:45) UNKNOWN azithromycin [From Zithromax] Adverse Reaction (Intermediate, Verified 02/05/24 16:45) diarrhea epinephrine [EPINEPHRINE] Adverse Reaction (Intermediate, Verified 02/05/24 16:45) HEART PALPITATIONS beesting Allergy (Unknown, Uncoded 02/05/24 16:45) Unknown Medication List - Last Reconciled 02/05/24 by Tirso Edwards MD cholecalciferol (vitamin D3) 25 mcg PO DAILY coenzyme Q10 (Co Q-10) 10 mg PO TID mecobalamin (vitamin B12) 1,000 mcg PO DAILY pyridoxine (vitamin B6) 100 mg PO DAILY Tobacco use date assessed: 02/05/24 Dental Screening Dental Screen Date: 02/05/24 Did you have a dental visit in the last 12 months?: Yes Did you have a dental problem in the last 6 months where you did not have access to dental care?: No Was dental information given to patient?: Patient has dentist 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 Review of the notes had blood work for CA 125 8.1 2.3% risk of malignancy. 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 Patient also sees cardiology history of hiatal hernia surgery obstructive sleep apnea on CPAP coronary artery calcium score of lad 17 suggestive of atherosclerosis nonobstructive stress test target LDL of closer to 60 mg noted also on x-ray done in May 2023 mild degenerative lumbar spine no compression deformity.. March 2023 note from the thoracic surgeon 02/07/2023 the [facility] laparoscopic paraesophageal hernia repair with Randall fundoplication patient also follows up with Pulmonary January 2023 for the obstructive sleep apnea. Patient also has seen Urology left hydronephrosis due to obstructing distal ureteral stone August 2022 status post ureteroscopy laser lithotripsy and stent placement any sent removal March 2023. Advised to limit low oxalate diet green leafy vegetables not Tea and was advised to take B6 100 mg once a day. September 03, 2023 [facility] Medical History (Updated 02/05/24 @ 17:12 by Tirso Edwards MD) Ureteral stone Renal calculi Sore throat USMAN (obstructive sleep apnea) Cystitis Dysphagia Palpitations Restrictive airway disease Bronchitis BMI 36.0-36.9,adult Multiple allergies Headache Vitamin K deficiency Elevated C-reactive protein (CRP) Elevated sed rate Unexplained night sweats Pelvic cyst Adnexal cyst Microscopic hematuria Abnormal Pap smear of cervix Unexplained endometrial cells on cervical cytology Chronic fatigue GERD (gastroesophageal reflux disease) CAD (coronary artery disease) Microscopic hematuria Renal atrophy Recurrent UTI Left radial head fracture Obesity Surgical History (Updated 02/05/24 @ 17:12 by Tirso Edwards MD) S/P DONNA-BSO S/P repair of paraesophageal hernia History of esophagogastroduodenoscopy (EGD) History of lithotripsy History of skin graft History of cystoscopy History of ankle surgery History of ovarian cystectomy History of tonsillectomy History of surgery History of colonoscopy History of endoscopy Family History (Updated 02/05/24 @ 17:14 by Tirso Edwards MD) Father Liver failure ETOH abuse Diabetes Hypertension Anxiety Prostate cancer Mother Hypertension Afib CVD (cardiovascular disease) Emphysema lung Melanoma Paternal Aunt Breast cancer Social History (Updated 02/05/24 @ 17:15 by Tirso Edwards MD) Housing: Condominium Alcohol intake: current Alcohol intake frequency: holidays/special occasions only Comment: 2 glasses in a month Patient Tobacco Use Status: Never used Tobacco Years Smoked: smoked in college. 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 [id number] - PHQ-9 Billing: Patient declined-do not bill Source: Developed by Drs. Anjum Spivey, Rose Maher, Bright Nguyen and colleagues, with an educational rodri from [employer]. Thrive Questionnaire Date Thrive assessed: 02/05/24 I am a: Patient What is your living situation today?: I have a steady place to live Within the past 12 months, did the food you bought not last and you didn't have the money to get more?: Never true Within the past 12 months, did you worry whether your food would run out before you got money to buy more?: Never true Do you have trouble paying for medicines?: No Do you have trouble getting transportation to medical appointments?: No Do you have trouble paying your heating and electricity bill?: No Do you have trouble taking care of your child, family member or friend?: No Do you have trouble with day-to-day activities such as bathing, preparing meals, shopping, managing finances, etc.?: No Are you currently unemployed and looking for a job?: No Are you interested in more education?: No Please select the resources that you would like help with: None THRIVE Score: 0 AUDIT C Alcohol Use Questionnaire (AUDIT-C) 1. How often do you have a drink containing alcohol?: Monthly or less 2. How many drinks containing alcohol do you have on a typical day when you are drinking?: 1 or 2 3. How often do you have six or more drinks on one occasion?: Never Total Score: 1 JANETH-7 AMB Questionnaire JANETH-7 Date JANETH - 7 assessed: 02/05/24 Source: Developed by Drs. Anjum Spivey, Rose Maher, Bright Nguyen and colleagues, with an educational rodri from [employer]. JNAETH-7 Assessment Billing JANETH-7 Assessment Tool: pt declined-do not bill Physical exam (Primary Care) Vital Signs: Last Vital Signs Pulse 77 02/05/24 16:45 BP 104/62 02/05/24 16:45 Pulse Ox 98 02/05/24 16:45 Oxygen Delivery Method Room Air 02/05/24 16:45 BMI result Body Mass Index 27.6 Tobacco/Smoking Status: Tobacco use Status Tobacco use date assessed 02/05/24 02/05/24 16:46 Patient Tobacco Use Status Never used Tobacco 02/05/24 17:15 e-Cigarette/Vaping Use Never Used 02/05/24 17:15 Thrive Assessment: Date of Thrive Assessment Date Thrive assessed 02/05/24 02/05/24 16:48 Const General: alert; No acute distress Eyes Conjunctivae: conjunctivae normal Resp Auscultation: clear to auscultation bilaterally Cardio Rate: regular rate Rhythm: regular rhythm GI Inspection: Yes normal to inspection Extrem General: Yes normal to inspection and No edema Immunizations pneumoc 20-chanelle conj-dip cr(PF) 0.5 mL IM syringe Performing Provider: Tirso Edwards MD Performing Location: [facility] Administered by: DAKOTA Choi on 02/05/24 17:40 Dose Route Admin Location Dispensed Lot Number Expiration Date NDC Tripoler 0.5 mL IM Left Deltoid 0.5 mL [id number] 01/29/25 [employer] VIS Given Date VIS Provided VIS Publication Date 02/05/24 Single Vaccine 21 Eligibility Eligibility Date Funding Source Not [facility] Eligible 02/05/24 Private Assessment and Plan Assessment & Plan (1) Ovarian cyst: Code(s): N83.209 - Unspecified ovarian cyst, unspecified side Plan: Patient has been follow-up with gynecology and has a planned laparoscopic bilateral salpingo-oophorectomy (2) USMAN (obstructive sleep apnea): Comment: (Mild USMAN with AHI 12 with significant hypoxemia- 12/01/22 sleep test) Since loss of weight - no more CPAP 01/2024 Code(s): G47.33 - Obstructive sleep apnea (adult) (pediatric) Plan: Continue to use the CPAP more than 4 hours a night and benefits from this. (3) CAD (coronary artery disease): Comment: Elevated coronary calcium score in the LAD of 17 suggestive underlying atherosclerosis. Nonobstructive as a stress test is normal Code(s): I25.10 - Atherosclerotic heart disease of [place] coronary artery without angina pectoris Plan: Control the cholesterol, weight, blood pressure (4) GERD (gastroesophageal reflux disease): Code(s): K21.9 - Gastro-esophageal reflux disease without esophagitis Plan: Avoid the foods that causes that usually spicy foods, tomato products, juices, coffee, soda and foods that your sensitive to. After eating do not lie down, allow 3-4 hours before in lie down. And keep the head of bed above 30 degrees to avoid the acid from going up. (5) History of renal calculi: Code(s): Z87.442 - Personal history of urinary calculi Plan: Advised to keep well hydrated take vitamin B6 discussed about avoidance of high oxalate food. (6) S/P repair of paraesophageal hernia: Comment: January 2023 Randall Fundoplication Code(s): Z98.890 - Other specified postprocedural states; Z87.19 - Personal history of other diseases of the digestive system Orders: Orders Comprehensive Met. Panel Today I25.10 - Atherosclerotic heart disease of [place] coronary artery without angina pectoris Free T4 (Free Thyroxine) Today I25.10 - Atherosclerotic heart disease of [place] coronary artery without angina pectoris Hepatitis B,C Profile Today I25.10 - Atherosclerotic heart disease of [place] coronary artery without angina pectoris, R79.89 - Other specified abnormal findings of blood chemistry CRP High Sensitivity Today I25.10 - Atherosclerotic heart disease of [place] coronary artery without angina pectoris Erythrocyte Sedimentation Rate Today I25.10 - Atherosclerotic heart disease of [place] coronary artery without angina pectoris Hemoglobin A1c Today I25.10 - Atherosclerotic heart disease of [place] coronary artery without angina pectoris Complete Blood Count Auto Diff Today I25.10 - Atherosclerotic heart disease of [place] coronary artery without angina pectoris Lipid Panel Today E78.00 - Pure hypercholesterolemia, unspecified, I25.10 - Atherosclerotic heart disease of [place] coronary artery without angina pectoris Thyroid Stimulating Hormone Today I25.10 - Atherosclerotic heart disease of [place] coronary artery without angina pectoris Vitamin B12 and Folate Today I25.10 - Atherosclerotic heart disease of [place] coronary artery without angina pectoris Vitamin D 25-OH Total Today I25.10 - Atherosclerotic heart disease of [place] coronary artery without angina pectoris UA CC w/rflx Micro + Cult Today I25.10 - Atherosclerotic heart disease of [place] coronary artery without angina pectoris, R30.0 - Dysuria Pneumococcal 20 Immunization Today Z23 - Encounter for immunization Medications: New pneumoc 20-chanelle conj-dip cr(PF) 0.5 mL IM ONCE 0.5 mL 0RF Z23 - Encounter for immunization Coding Level of Care Code New Pt Level 4 (59717) Diagnoses Ovarian cyst N83.209 USMAN (obstructive sleep apnea) G47.33 CAD (coronary artery disease) I25.10 GERD (gastroesophageal reflux disease) K21.9 History of renal calculi Z87.442 S/P repair of paraesophageal hernia Z98.890; Z87.19
== END 2024-02-05 17:42 | disposition home or self-care (01) ==
PROVIDERS: PCP Internal Medicine; Visit Provider Internal Medicine
DX: Z23 Encounter for immunization (principal); N83.209 Unspecified ovarian cyst, unspecified side; G47.33 Obstructive sleep apnea (adult) (pediatric); I25.10 Atherosclerotic heart disease of native coronary artery without angina pectoris; K21.9 Gastro-esophageal reflux disease without esophagitis; Z87.442 Personal history of urinary calculi; Z87.19 Personal history of other diseases of the digestive system
CPT/HCPCS: 90471; 90677; 99214

== ENCOUNTER 2024-03-17 08:41 | Outpatient (REF) | payer OTHER, SELFPAY ==
[2024-03-17 09:12] LABS: MANUAL DIFF FLAG NO
[2024-03-17 09:31] LABS: Basophils Percent Auto 0.4 % (0-2); Eosinophils Absolute Auto 0.1 X10*3/uL (0.0-0.4); Eosinophils Percent Auto 1.3 % (0-4); Hematocrit 41.5 % (37.0-47.0); Hemoglobin 13.8 g/dl (12.0-16.0); Imm Gran Abs Auto 0.01 X10*3/uL (0.00-0.03); Imm Gran Pct Auto 0.2 % (0.0-0.4); Lymphocytes Absolute Auto 1.3 X10*3/uL (1.2-4.9); Lymphocytes Percent Auto 24.9 % (20-40); Mean Corpuscular HGB Conc 33.3 g/dl (31.0-35.0); Mean Corpuscular Hemoglobin 30.1 pg (27.0-33.0); Mean Corpuscular Volume 90.4 fL (80.0-98.0); Mean Platelet Volume 10.3 fL (9.4-12.3); Monocytes Absolute Auto 0.3 X10*3/uL (0.1-1.2); Monocytes Percent Auto 5.4 % (2-11); Neutrophils Absolute Auto 3.5 x10*3/uL (2.0-8.3); Neutrophils Percent Auto 67.8 % (45-73); Platelet Count 238 X10*3/uL (160-400); Red Blood Count 4.59 X10*6/uL (4.20-5.50); Red Cell Distribution Width 11.8 % (11.0-16.0); White Blood Count 5.2 X10*3/uL (4.8-10.8)
[2024-03-17 09:40] LABS: Estimated Average Glucose 111 mg/dL; Hemoglobin A1c % 5.5 % (<6.0)
[2024-03-17 10:08] LABS: Alanine Aminotransferase 10 U/L (0-31); Albumin Level 4.2 g/dL (3.5-5.0); Alkaline Phosphatase 97 U/L (39-117); Anion Gap 11 (12-20); Aspartate Amino Transferase 16 U/L (5-31); Bilirubin Total 0.6 mg/dL (0.0-1.0); Blood Urea Nitrogen 16 mg/dL (9-16); Calcium 9.2 mg/dL (8.4-10.2); Carbon Dioxide 28 mmol/L (22-29); Chloride 108 mmol/L (96-108); Cholesterol 185 mg/dL (<200); Estimated Glomerular Filt Rate > 60; Glucose Random 108 mg/dL (60-115); HDL Cholesterol 62 mg/dL (>40); LDL Cholesterol Calculated 108 mg/dL (<100); Potassium 4.3 mmol/L (3.3-5.1); Sodium 143 mmol/L (135-145); Triglycerides 76 mg/dL (<150)
[2024-03-17 10:11] LABS: Erythrocyte Sedimentation Rate 14 MM/HR (0-20)
[2024-03-17 10:17] LABS: Free T4 (Free Thyroxine) 0.95 ng/dL (0.71-1.85); HBS Num1 88.65 mIU/mL (0-7.99); HBc Num1 0.15 S/CO (0.00-0.79); HBsAGNum1 0.24 S/CO (0.00-0.99); Hepatitis B Core Antibody Nonreactive (Nonreactive); Hepatitis B Surface Antigen Negative (Negative); Thyroid Stimulating Hormone 1.02 uIU/mL (0.32-4.0); Vitamin D 25-OH Total 26.2 ng/mL (>30); ~HepC Num1 0.09 S/CO (0.00-0.79); ~Hepatitis B Surface Antibody REACTIVE (Nonreactive); ~Hepatitis C Antibody Nonreactive (Nonreactive)
[2024-03-17 10:53] LABS: Vitamin B12 538 pg/mL (200-900)
[2024-03-17 11:05] LABS: Appearance Urine Cloudy; Color Urine Yellow; Glucose Urine UA Negative (Negative); Leukocyte Esterase Urine Small (1+) (Negative); Nitrite Urine Negative (Negative); UMIC TRIGGER UACC YES; Urine Blood Moderate (2+) (Negative); Urine Ketones Negative (Negative); Urine Protein Negative (Neg-Trace)
[2024-03-17 11:18] LABS: Bacteria Urine None Seen (None Seen); Calcium Oxalate Crystals Urine Present; Hyaline Casts Urine 0-2 /LPF (0-2); RBC Urine 0-2 /HPF (0-2); UACC Culture Trigger YES; WBC Urine 0-5 /HPF (0-5)
[2024-03-18 11:59] LABS: CRP High Sensitivity 7.3 mg/L
== END 2024-03-17 08:42 | disposition home or self-care (01) ==
LOC: HO.LAB 08:41
PROVIDERS: Absent Provider Internal Medicine; PCP Internal Medicine; Visit Provider Internal Medicine Cardiovascular Disease
DX: I25.10 Atherosclerotic heart disease of native coronary artery without angina pectoris (principal); E78.00 Pure hypercholesterolemia, unspecified; R79.89 Other specified abnormal findings of blood chemistry
CPT/HCPCS: 36415; 80053; 80061; 81001; 81003; 82306; 82607; 82746; 83036; 84439; 84443; 85025; 85652; 86141; 86704; 86706; 86803; 87086; 87340

== ENCOUNTER 2024-03-28 09:21 | Outpatient (AMB) | payer OTHER, SELFPAY ==
--- NOTE | 2024-03-28 09:22 | A.OFFPC_ITS ---
Vital Signs 03/28/24 09:23 Height 5 ft 4 in Weight 158 lb BMI 27.1 BP 100/68 Blood Pressure Location Lt brachial Position Sitting Pulse 71 Pulse Source Pulse Oximeter Pulse Oximetry (%) 99 Oxygen Delivery Method Room Air Intake Visit Reasons: follow up on labs Intake Note: frozen shoulder, massages, inflimation. 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 Allergies codeine [CODEINE] Allergy (Intermediate, Verified 03/28/24 09:23) NAUSEA hazelnut [HAZELNUT] Allergy (Unknown, Verified 03/28/24 09:23) UNKNOWN Milk Containing Products (Dairy) [MILK CONTAINING PRODUCTS] Allergy (Unknown, Verified 03/28/24 09:23) UNKNOWN nitrofurantoin [From MACROBID] Allergy (Unknown, Verified 03/28/24 09:23) UNKNOWN Penicillins [PENICILLINS] Allergy (Unknown, Verified 03/28/24 09:23) UNKNOWN sesame seed [SESAME SEED] Allergy (Unknown, Verified 03/28/24 09:23) UNKNOWN Sulfa (Sulfonamide Antibiotics) Allergy (Unknown, Verified 03/28/24 09:23) Unknown sulfamethoxazole [From BACTRIM] Allergy (Unknown, Verified 03/28/24 09:23) UNKNOWN trimethoprim [From BACTRIM] Allergy (Unknown, Verified 03/28/24 09:23) UNKNOWN azithromycin [From Zithromax] Adverse Reaction (Intermediate, Verified 03/28/24 09:23) diarrhea epinephrine [EPINEPHRINE] Adverse Reaction (Intermediate, Verified 03/28/24 09:23) HEART PALPITATIONS beesting Allergy (Unknown, Uncoded 03/28/24 09:23) Unknown Tobacco use date assessed: 02/05/24 Dental Screening Dental Screen Date: 02/05/24 HPI follow up on labs HPI Details 59-year-old overweight female with a his tory of obstructive sleep apnea coronary artery disease GERD history of renal calculi coming in for follow-up. Patient has had repair of the paraesophageal hernia also last seen in 02/05/2024. Blood work done and is here for follow-up. Up-to-date with colonoscopy up-to-date with mammogram. [facility] Medical History (Updated 03/28/24 @ 10:11 by Tirso Edwards MD) Ureteral stone Renal calculi Sore throat USMAN (obstructive sleep apnea) Cystitis Dysphagia Palpitations Restrictive airway disease Bronchitis BMI 36.0-36.9,adult Multiple allergies Headache Vitamin K deficiency Elevated C-reactive protein (CRP) Elevated sed rate Unexplained night sweats Pelvic cyst Adnexal cyst Microscopic hematuria Abnormal Pap smear of cervix Unexplained endometrial cells on cervical cytology Chronic fatigue GERD (gastroesophageal reflux disease) CAD (coronary artery disease) Microscopic hematuria Renal atrophy Recurrent UTI Left radial head fracture Obesity Surgical History (Updated 02/05/24 @ 17:12 by Tirso Edwards MD) S/P DONNA-BSO S/P repair of paraesophageal hernia History of esophagogastroduodenoscopy (EGD) History of lithotripsy History of skin graft History of cystoscopy History of ankle surgery History of ovarian cystectomy History of tonsillectomy History of surgery History of colonoscopy History of endoscopy Family History (Updated 02/05/24 @ 17:14 by Tirso Edwards MD) Father Liver failure ETOH abuse Diabetes Hypertension Anxiety Prostate cancer Mother Hypertension Afib CVD (cardiovascular disease) Emphysema lung Melanoma Paternal Aunt Breast cancer Social History (Updated 02/05/24 @ 17:15 by Tirso Edwards MD) Housing: Condominium Alcohol intake: current Alcohol intake frequency: holidays/special occasions only Comment: 2 glasses in a month Patient Tobacco Use Status: Never used Tobacco Years Smoked: smoked in college. 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 How often do you have a drink containing alcohol?: Monthly or less 2. How many drinks containing alcohol do you have on a typical day when you are drinking?: 1 or 2 3. How often do you have six or more drinks on one occasion?: Never Total Score: 1 JANETH-7 AMB Questionnaire JANETH-7 Date JANETH - 7 assessed: 02/05/24 Source: Developed by Drs. Anjum Spivey, Rose Maher, Bright Nguyen and colleagues, with an educational rodri from [employer]. Physical exam (Primary Care) Vital Signs: Last Vital Signs Pulse 71 03/28/24 09:23 BP 100/68 03/28/24 09:23 Pulse Ox 99 03/28/24 09:23 Oxygen Delivery Method Room Air 03/28/24 09:23 BMI result Body Mass Index 27.1 Tobacco/Smoking Status: Tobacco use Status Tobacco use date assessed 02/05/24 03/28/24 09:23 Patient Tobacco Use Status Never used Tobacco 03/28/24 09:23 e-Cigarette/Vaping Use Never Used 03/28/24 09:23 Thrive Assessment: Date of Thrive Assessment Date Thrive assessed 02/05/24 03/28/24 09:23 Const General: alert; No acute distress Eyes Conjunctivae: conjunctivae normal Resp Auscultation: clear to auscultation bilaterally Cardio Rate: regular rate Rhythm: regular rhythm GI Inspection: Yes normal to inspection Extrem General: Yes normal to inspection and No edema Assessment and Plan Assessment & Plan (1) CAD (coronary artery disease): Comment: Elevated coronary calcium score in the LAD of 17 suggestive underlying atherosclerosis. Nonobstructive as a stress test is normal Code(s): I25.10 - Atherosclerotic heart disease of [place] coronary artery without angina pectoris Plan: Control the cholesterol, weight, blood pressure and has started to take the rosuvastatin again to get LDL low. (2) GERD (gastroesophageal reflux disease): Code(s): K21.9 - Gastro-esophageal reflux disease without esophagitis Plan: Avoid the foods that causes that usually spicy foods, tomato products, juices, coffee, soda and foods that your sensitive to. After eating do not lie down, allow 3-4 hours before in lie down. And keep the head of bed above 30 degrees to avoid the acid from going up. (3) Hypercholesterolemia: Code(s): E78.00 - Pure hypercholesterolemia, unspecified Plan: Avoid fried foods, chicken skin, eggs, butter margarine, pastries and meat. Be it pork or beef they have a lot of cholesterol LDL goal of less than 70 and triglyceride of less than 150. Patient has started rosuvastatin. (4) Hematuria: Code(s): R31.9 - Hematuria, unspecified Plan: Patient denies any urinary symptoms. With the hematuria will send in for cytology (5) Strain of left trapezius muscle: Code(s): S46.812A - Strain of other muscles, fascia and tendons at shoulder and upper arm level, left arm, initial encounter Orders: Orders Lipid Panel 3 Months E78.00 - Pure hypercholesterolemia, unspecified Comprehensive Met. Panel 3 Months E78.00 - Pure hypercholesterolemia, unspecified Urine Cytology Today R31.9 - Hematuria, unspecified Medications: Refilled rosuvastatin 20 mg PO DAILY 90 tabs 3RF Coding Level of Care Code Est Pt Level 4 (23796) Diagnoses CAD (coronary artery disease) I25.10 GERD (gastroesophageal reflux disease) K21.9 Hypercholesterolemia E78.00 Hematuria R31.9 Strain of left trapezius muscle S46.811D
[2024-03-28 09:23] VITALS: BP 100/68; PULSE 71; O2SAT 99; BMI 27.1
== END 2024-03-28 13:59 | disposition home or self-care (01) ==
PROVIDERS: PCP Internal Medicine; Visit Provider Internal Medicine
DX: I25.10 Atherosclerotic heart disease of native coronary artery without angina pectoris (principal); K21.9 Gastro-esophageal reflux disease without esophagitis; E78.00 Pure hypercholesterolemia, unspecified; R31.9 Hematuria, unspecified; S46.812A Strain of other muscles, fascia and tendons at shoulder and upper arm level, left arm, initial encounter
CPT/HCPCS: 99214

== ENCOUNTER 2024-05-12 13:34 | Outpatient (AMB) | payer OTHER, SELFPAY ==
--- NOTE | 2024-05-12 13:44 | A.OFFVIS_ITS ---
Vital Signs 05/12/24 13:46 Height 5 ft 4 in Weight 154 lb 5.177 oz BMI 26.5 BP 143/74 H Blood Pressure Location Lt brachial Position Sitting Pulse 84 Intake Visit Reasons: 1 year f/u GERD Intake Note: Carole presents in the office as a 1 year follow up. CC: She states that she loves to eat salad but she finds that she will get LLQ pains - she then will get diarrhea until the pain passes. She states that she notices when she has salads and this occurs. She avoids milk and gluten. Not sure if she has diverticulitis. Since hernia and hysterectomy surgery she is not able to eat as much. First Aid Trainer Required: No Allergies codeine [CODEINE] Allergy (Intermediate, Verified 05/12/24 13:47) NAUSEA hazelnut [HAZELNUT] Allergy (Unknown, Verified 05/12/24 13:47) UNKNOWN Milk Containing Products (Dairy) [MILK CONTAINING PRODUCTS] Allergy (Unknown, Verified 05/12/24 13:47) UNKNOWN nitrofurantoin [From MACROBID] Allergy (Unknown, Verified 05/12/24 13:47) UNKNOWN Penicillins [PENICILLINS] Allergy (Unknown, Verified 05/12/24 13:47) UNKNOWN sesame seed [SESAME SEED] Allergy (Unknown, Verified 05/12/24 13:47) UNKNOWN Sulfa (Sulfonamide Antibiotics) Allergy (Unknown, Verified 05/12/24 13:47) Unknown sulfamethoxazole [From BACTRIM] Allergy (Unknown, Verified 05/12/24 13:47) UNKNOWN trimethoprim [From BACTRIM] Allergy (Unknown, Verified 05/12/24 13:47) UNKNOWN azithromycin [From Zithromax] Adverse Reaction (Intermediate, Verified 05/12/24 13:47) diarrhea epinephrine [EPINEPHRINE] Adverse Reaction (Intermediate, Verified 05/12/24 13:47) HEART PALPITATIONS beesting Allergy (Unknown, Uncoded 05/12/24 13:47) Unknown HPI Comments Details: This is of 57-year-old female with PMH of erosive GERD with HH s/p fundoplicat ion 01/2023 who is here to follow-up for lower abd sx. 05/12/24: Here for follow up. Reports LLQ pain after eating salads. With that also gets massive diarrhea within 20-30 mins. reports bloating with this. As soon as she has BM sx resolves. Has been noticing this on and off for almost a year. Avoiding salads for the past 6 months. Last colonoscopy 2019: Hyperplastic rectal polyp. [facility] Medical History Hx of hiatal hernia Ureteral stone Renal calculi Sore throat USMAN (obstructive sleep apnea) Cystitis Dysphagia Palpitations Restrictive airway disease Bronchitis BMI 36.0-36.9,adult Multiple allergies Headache Vitamin K deficiency Elevated C-reactive protein (CRP) Elevated sed rate Unexplained night sweats Pelvic cyst Adnexal cyst Microscopic hematuria Abnormal Pap smear of cervix Unexplained endometrial cells on cervical cytology Chronic fatigue GERD (gastroesophageal reflux disease) CAD (coronary artery disease) Microscopic hematuria Renal atrophy Recurrent UTI Left radial head fracture Obesity Surgical History Hx of hysterectomy S/P DONNA-BSO S/P repair of paraesophageal hernia History of esophagogastroduodenoscopy (EGD) History of lithotripsy History of skin graft History of cystoscopy History of ankle surgery History of ovarian cystectomy History of tonsillectomy History of surgery History of colonoscopy History of endoscopy Family History Father Liver failure ETOH abuse Diabetes Hypertension Anxiety Prostate cancer Mother Hypertension Afib CVD (cardiovascular disease) Emphysema lung Melanoma Paternal Aunt Breast cancer Social History Housing: Condominium Alcohol intake: current Alcohol intake frequency: holidays/special occasions only Comment: 2 glasses in a month Patient Tobacco Use Status: Never used Tobacco Years Smoked: smoked in college. 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[facility] [place] Cognitive needs: No Hearing needs: No Vision needs: Yes Review of Systems Const All systems reviewed & are unremarkable except as noted in HPI and below Physical Exam Vital Signs: Last Vital Signs Pulse 84 05/12/24 13:46 BP 143/74 H 05/12/24 13:46 BMI result Body Mass Index 26.5 No apparent distress Nonicteric Abdomen soft, nondistended Alert and oriented x3, normal gait Assessment & Plan Assessment & Plan (1) LLQ abdominal pain: Code(s): R10.32 - Left lower quadrant pain Category: Medical (2) Bloating: Code(s): R14.0 - Abdominal distension (gaseous) Category: Medical (3) Diarrhea: Code(s): R19.7 - Diarrhea, unspecified Category: Medical Plan DDx include SIBO, IBS, diverticulosis, food intolerance. Plan: - Trial of rifaximin which will help with both SIBO and IBS-D - If no improvement, will proceed with colo for luminal eval Follow up contingent on above Medications: New rifaximin 550 mg PO TID 14 days 42 tabs 0RF Coding Level of Care Code Est Pt Level 4 (20491) Diagnoses LLQ abdominal pain R10.32 Bloating R14.0 Diarrhea R19.7
[2024-05-12 13:46] VITALS: BP 143/74; PULSE 84; BMI 26.5
== END 2024-05-12 14:22 | disposition home or self-care (01) ==
PROVIDERS: PCP Internal Medicine; Visit Provider Internal Medicine
DX: R10.32 Left lower quadrant pain (principal); R14.0 Abdominal distension (gaseous); R19.7 Diarrhea, unspecified
CPT/HCPCS: 99214

== ENCOUNTER → 2024-05-12 13:34 | Outpatient (BNVA) | payer OTHER, SELFPAY | PROVIDERS: PCP Internal Medicine; Visit Provider Internal Medicine ==

== ENCOUNTER 2024-06-30 16:00 | Outpatient (RCR) | payer OTHER, SELFPAY ==
--- NOTE | 2024-05-21 16:19 | MHC.PT.EP ---
[facility] [place] [facility] [place] [facility] [place] Office [address] Samuel Dwyer [address] [phone] F: [phone] F: [phone] F: [phone] F: [phone] Physical Therapy Plan of Care Date of Evaluation: 05/21/24 Date of Surgery: N/A Diagnosis: Neck Pain (L trapezius strain) (RS) Assessment: Pt tolerated PT session well. Pt presents w/ L sided neck pain which has been ongoing for about 9 weeks. Though pain is mild, pt has difficulty w/ completing occupational duties such as turning head to make phone calls, speaking into phone (has to use speaker), and driving to work. Pt also has difficulty w/ personal care such as drying hair as well as ADLs such as putting items away in higher cabinets and lifting items off floor, pt also mentions difficulty sleeping. Postural assessment reveals forward head posture, rounded shoulders, increased thoracic kyphosis, and L shoulder/scapular elevation. Cervical flexion to the L as well as cervical extension produced pain, shoulder motions such as GH flexion and ER also produced mild neck pain. STM revealed tightness in L suboccipitals, scalenes, and SCM, as well as UT B, pt had trigger point in L suboccipitals, which was TTP, though pain subsided w/ additional massage. Pt was educated on gentle posture improving exercises, pt has limited scapular mobility and needed many verbal and tactile cues to adduct scapula, pt was also able to do chin tucks and UT stretch w/o pain. Pt was given printout of HEP, pt was educated on maintaining proper posture at computer/avoided excessive cervical flexion. Pt had no further questions. Future sessions will include STM, periscapular strengthening, and cervical musc strengthening to improve posture/reduce neck pain. Frequency and Duration: The patient will be seen 2 x week 6 weeks Short Term Goals: In 2 weeks: Pt will improve NDI score by at least 7.5% to allow for improved ability to put dishes/items away in higher shelf in household. Pt will report pain no higher than 2/10 at worst to allow for improved ability to sleep soundly throughout the night. Pt will improve neck lateral flexion to L ROM by 5 degrees to allow for improved ability to answer phone at work. Field Representative Goals: In 3 weeks: Pt will be pain free to allow for improved ability to drive/check blind spots. Pt will have 5/5 strength B in UE to allow for improved ability to complete personal care (doing hair, etc.) Pt will have cervical ROM WNLs to allow for improved ability to reach for items on floor. Treatment Plan: Modalities to reduce pain, spasms and effusion. Manual therapy to restore motion and function. Therapeutic exercise to improve strength and flexibility. Neuromuscular re-education for posture and balance. Therapeutic activities to return to functional activities of daily living. Electronically signed by: Lito Montero, PT, DPT Please sign and return to therapist. Thank you for your referral.
--- NOTE | 2024-09-05 15:06 | MHC.PT.DC ---
[facility] [place] Office [place] Office [place] Office [address] Samuel Dwyer [address] [phone] F: [phone] F: [phone] F: [phone] F: [phone] Physical Therapy Discharge Report Diagnosis: Neck Pain (L trapezius strain) (RS) Date of Surgery: N/A Date of Evaluation: 05/21/24 Date of Discharge: 09/05/24 Treatments to Date: 7 Cancellations to Date: 1 No Shows to Date: 1 Discharge Status: Independent with HEP Patient Elected to Stop Discharge Summary: Carole reported reduction of pain and demonstrated improved cervical mobility with PT interventions. She was last treated in PT on 06/30/24. The assessment on that date reads, As last session was most helpful, I continued with modalities and manual therapy. She had reduced tenderness and reduced tissue tension in L upper cervical spine, improved joint mobility into sidebending and rotation. She does not c/o pain with active cervical rotation to end session. She ceased attending after this visit and is discharged from PT at this time. Electronically signed by: Lito Montero, PT, DPT Please sign and return to therapist. Thank you for your referral.
== END 2024-09-05 15:05 | disposition home or self-care (01) ==
LOC: HO.PT 16:00
PROVIDERS: PCP Internal Medicine; Visit Provider Internal Medicine
DX: M54.2 Cervicalgia (principal)
CPT/HCPCS: 97110; 97140; 97161; 97535

== ENCOUNTER 2024-11-07 14:35 | Outpatient (REF) | payer OTHER, SELFPAY ==
--- OUTSIDE RECORDS SUMMARY | 2024-11-07 15:39 | XMS_ITS | Encounter Summary ---
Author Organization [facility] [employer] and [facility] Address [address] [place] [phone] Care Team Providers Care Instructor Ground Services Name Role Phone Mary Spencer Primary Care Provider Encounter Details Date Type Department Care Team (Late Contact Info) Description 05/11/2016 Scanned Document [facility] [id number] [place] [address] External, Provider Social History Tobacco Use Types Packs/Day Years Used Date Smoking Tobacco: Never Alcohol Use Standard Drinks/Week Comments No 0 (1 standard drink = 0.6 oz pur e alcohol) 1-2 times per month or less Comments Unknown Sex and Gender Information Value Date Recorded Sex Assigned at Not on file Legal Sex Female 8:04 AM EST Gender Identity Not on file Sexual Orientation Not on file documented as of this encounter Plan of Treatment Upcoming Encounters Date Type Department Care Team (Late Contact Info) Description 01/09/2025 1:00 PM EDT Procedure visit [facility] Center at [address] [place] [address] 01/09/2025 3:45 PM EDT Appointment [facility] [place] [facility] [address] [place] [address] Maggie Obando MD 60 [facility] [address] [place] [address] documented as of this encounter Procedures Procedure Name Priority Date/Time Associated Diagnosis Comments STONERISK(R) DIAGNOSTIC PROF ILE (LMW Q) Routine 07/06/2013 documented in this encounter Results * Stonerisk(R) diagnostic profile (Q) (07/06/2013) Urine specimen (specimen) us Provider External URINE ORDERABLES Final Result Performing Organization Address City/State/[facility] [[email or web address]] Co de Phone Number [facility] documented in this encounter Visit Diagnoses Not on filedocumented in this encounter Care Teams Instructor Ground Services Relationship Specialty Start Date End Date Mary Spencer PA PCP - General Internal Medicine 08/03/15 documented as of this encounter
--- OUTSIDE RECORDS SUMMARY | 2024-11-07 15:39 | XMS_ITS | Clinical Summary ---
Author Organization [facility] Address [address] [place] [address] Care Team Providers Care Preform Machine Operator Name Role Phone Demetra Pantoja MD Primary Care Provider [phone] Allergies Active Allergy Reactions Criticality Noted Date Comments Codeine Vomiting 03/18/2014 Hazelnut Other 04/04/2021 Milk Other 04/04/2021 Oxycodone Vomiting 03/18/2014 Penicillins Hives,Itching 03/18/2014 Sesame Seed Other 04/04/2021 Sulfa (Sulfonamide Antibiotics) Fever,Hives Sulfamethoxazole-Trimethoprim Other 2013 Medications No known medications Immunizations Immunization Administration Dates Next Due TD (ADULT), 5 LF TETANUS TOX OID, PRESERVATIVE FREE, ABSORBED 08/22/2006 Social History Tobacco Use Types Packs/Day Years Used Date Smoking Tobacco: Never Smokeless Tobacco: Never Comments Unknown Sex and Gender Information Value Date Recorded Sex Assigned at Not on file Legal Sex Female 1:23 PM EST Gender Identity Not on file Sexual Orientation Not on file Last Filed Vital Signs Vital Sign Reading Time Taken Comments Blood Pressure 132/87 04/04/2021 9:41 AM EDT Pulse 87 04/04/2021 9:41 AM EDT Temperature 36.8 ??C (98.2 ??F) 04/04/2021 9:41 AM ED T Respiratory Rate - - Oxygen Saturation 97% 04/04/2021 9:41 AM EDT Inhaled Oxygen Concentration - - Weight 91.6 kg (202 lb) 04/04/2021 9:41 AM EDT Height 162.6 cm (5' 4 ) 04/04/2021 9:41 AM EDT Body Mass Index 34.67 04/04/2021 9:41 AM EDT Plan of Treatment Health Maintenance Due Date Last Done Comments CT Colonography 1966 FIT-DNA 1966 FIT 1966 FOBT 1966 Mammogram 1966 Sigmoidoscopy 1966 Annual Physical Exam 1984 Pap Smear 1987 Cervical Cancer Screening 1996 HPV/Cotest 1996 Pneumococcal Vaccine: 50+ Years (1 of 1 - PCV) 2016 Zoster Vaccines (1 of 2) 2016 Tdap and Td Vaccines Adult 08/22/2016 08/22/2006 Colonoscopy 04/19/2022 04/19/2012 Colorectal Cancer Screening 04/19/2022 COVID-19 Vaccine (3 - 2023-2 5 season) 2024 01/21/2021, 12/29/2020 Influenza Vaccine (#1) 2024 10/01/2014 HIB Vaccines Aged Out No longer eligi ble based on patient's age to complete this topic HPV Vaccines Aged Out No longer eligi ble based on patient's age to complete this topic Hepatitis A Vaccines Aged Out No long er eligible based on patient's age to complete this topic IPV Vaccines Aged Out No longer eligi ble based on patient's age to complete this topic Meningococcal Vaccine Aged Out No malcolm grace eligible based on patient's age to complete this topic Pneumococcal Vaccine: Peds ( 0 to 5 Yrs) and At-Risk Pts (6 to 49 Yrs) Aged Out No longer eligible b ased on patient's age to complete this topic RSV <20 Months Aged Out No longer eddie gible based on patient's age to complete this topic Procedures Procedure Name Priority Date/Time Associated Diagnosis Comments COLONOSCOPY Routine 04/19/2012 12:00 AM EDT from Last 3 Months or Most Recently Relevant to Health Maintenance Results * Colonoscopy (04/19/2012 12:00 AM EDT) Anatomical Region Laterality Modality Endoscopy 04/19/2012 Result [facility] MD GI PROCEDURE OR DERABLES Final Result from Last 3 Months or Most Recently Relevant to Health Maintenance Insurance [facility] Care Teams Preform Machine Operator Relationship Specialty Start Date End Date Demetra Pantoja MD [address] [place] [phone] PCP - General 10/06/19
--- OUTSIDE RECORDS SUMMARY | 2024-11-07 15:39 | XMS_ITS | Encounter Summary ---
Author Organization [facility] [email or web address] and [facility] Address [address] [place] [phone] Care Team Providers Care Second Floor Operator Name Role Phone Mary Spencer Primary Care Provider Encounter Details Date Type Department Care Team (Late Contact Info) Description 05/04/2016 Scanned Document [facility] 789 [facility] [address] [place] [address] External, Provider Social History Tobacco Use Types Packs/Day Years Used Date Smoking Tobacco: Never Alcohol Use Standard Drinks/Week Comments No 0 (1 standard drink = 0.6 oz pur e alcohol) Comments Unknown Sex and Gender Information Value Date Recorded Sex Assigned at Not on file Legal Sex Female 8:04 AM EST Gender Identity Not on file Sexual Orientation Not on file documented as of this encounter Plan of Treatment Upcoming Encounters Date Type Department Care Team (Late Contact Info) Description 01/09/2025 1:00 PM EDT Procedure visit [facility] at [address] [place] [address] 01/09/2025 3:45 PM EDT Appointment [facility] [place] [facility] [address] [place] [address] Maggie Obando MD 60 [facility] [address] [place] [address] documented as of this encounter Visit Diagnoses Not on filedocumented in this encounter Care Teams Second Floor Operator Relationship Specialty Start Date End Date Mary Spencer PA PCP - General Internal Medicine 08/03/15 documented as of this encounter
--- OUTSIDE RECORDS SUMMARY | 2024-11-07 15:39 | XMS_ITS | Encounter Summary ---
Author Organization [facility] [employer] and [facility] Address [address] [place] [phone] Care Team Providers Care Actuarial Internship Name Role Phone Mary Spencer Primary Care Provider Encounter Details Date Type Department Care Team (Late st Contact Info) Description 08/04/2016 Scanned Document [facility] 789 [facility] [address] [place] [address] Kelsey Hutchinson MD [address] [place] [phone] Social History Tobacco Use Types Packs/Day Years [...] Encounters Date Type Department Care Team (Late st Contact Info) Description 01/09/2025 1:00 PM EDT Procedure visit [facility] at [address] [place] [address] 01/09/2025 3:45 PM EDT Appointment [facility] [address] [place] [phone] Maggie Obando MD 60 [facility] [address] [place] [address] documented as of this encounter Procedures Procedure Name Priority Date/Time Associated Diagnosis Comments LAB SCAN Routine 07/17/2016 documented in this encounter Results * Lab Scan (07/17/2016) Blood specimen (specimen) us Kelsey Hutchinson MD LAB BLOOD ORDERABLES Final Resul t Performing Organization Address City/State/[facility] Co de Phone Number [facility] [place], [place], [facility] documented in this encounter Visit Diagnoses Not on filedocumented in this encounter Care Teams Actuarial Internship Relationship Specialty Start Date End Date Mary Spencer PA PCP - General Internal Medicine 08/03/15 documented as of this encounter
--- OUTSIDE RECORDS SUMMARY | 2024-11-07 15:39 | XMS_ITS | Encounter Summary ---
Author Organization [facility] [employer] and [facility] Address [address] [place] [phone] Care Team Providers Care Embryology Teacher Name Role Phone Mary Spencer Primary Care Provider Encounter Details Date Type Department Care Team (Late Contact Info) Description 09/01/2016 Scanned Document [facility] [phone] [place] [address] External, Provider Social History Tobacco Use Types [...] PM EDT Procedure visit [facility] Center at [address] [place] [address] 01/09/2025 3:45 PM EDT Appointment [facility] [address] [place] [address] Maggie Obando MD 60 [facility] 201 [place] [address] documented as of this encounter Procedures Procedure Name Priority Date/Time Associated Diagnosis Comments LAB SCAN Routine 01/21/2014 documented in this encounter Results * Lab Scan (01/21/2014) Blood specimen (specimen) us Provider External LAB BLOOD ORDERABLES Final Res ult Performing Organization Address [facility] Co de Phone Number [facility] documented in this encounter Visit Diagnoses Not on filedocumented in this encounter Care Teams Embryology Teacher Relationship Specialty Start Date End Date Mary Spencer PA PCP - General Internal Medicine 08/03/15 documented as of this encounter
--- OUTSIDE RECORDS SUMMARY | 2024-11-07 15:39 | XMS_ITS | Encounter Summary ---
Author Organization [facility] [employer] and [facility] Address [address] [place] [phone] Care Team Providers Care Kier Boiler Name Role Phone Mary Spencer Primary Care Provider Encounter Details Date Type Department Care Team (Late Contact Info) Description 09/11/2016 Scanned Document [facility] [phone] [place] [address] External, Provider Social History Tobacco Use Types [...] PM EDT Procedure visit [facility] Center at [address] [place] [address] 01/09/2025 3:45 PM EDT Appointment [facility] [address] [place] [address] Maggie Obando MD 60 [facility] 201 [place] [address] documented as of this encounter Procedures Procedure Name Priority Date/Time Associated Diagnosis Comments ZZZCTX COLLAGEN C-TELOPEPTIDE (BH) Routine 07/19/2016 documented in this encounter Results * CTX collagen C-telopeptide (BH) (07/19/2016) Blood specimen (specimen) us Provider External LAB BLOOD ORDERABLES Final Res ult Performing Organization Address City/State/[facility] Co de Phone Number [facility] documented in this encounter Visit Diagnoses Not on filedocumented in this encounter Care Teams Kier Boiler Relationship Specialty Start Date End Date Mary Spencer PA PCP - General Internal Medicine 08/03/15 documented as of this encounter
--- OUTSIDE RECORDS SUMMARY | 2024-11-07 15:39 | XMS_ITS | Clinical Summary ---
Author Organization [facility] Address [address] [place] [address] Care Team Providers Care Mobile Sales Assistant Name Role Phone Unavailable Primary Care Provider Unavailabl e Social History Tobacco Use Types Packs/Day Years Used Date Smoking Tobacco: Never Assessed Sex and Gender Information Value Date Recorded Sex Assigned at Not on file Gender Identity Not on file Sexual Orientation Not on file Plan of Treatment Health Maintenance Due Date Last Done Comments Hepatitis C Virus Screening 1966 HIV Screening 1979 DTaP/Tdap/Td Vaccines (1 - Tdap) 1985 Hepatitis B Vaccines (1 of 3 - 19+ 3-dose series) 1985 Pneumococcal Vaccines 50+ (1 of 1 - PCV) 2016 Zoster (Shingles) Vaccine (1 of 2) 2016 COVID-19 Vaccine ( - 2023-2 5 season) 2024 Pneumococcal Vaccine: Pediat ally (0-5 Years) and At-Risk Patients (6 to 49 Years) Aged Out No longer eligible b ased on patient's age to complete this topic
--- OUTSIDE RECORDS SUMMARY | 2024-11-07 15:39 | XMS_ITS | Encounter Summary ---
Author Organization [facility] [employer] and [facility] Address [address] [place] [phone] Care Team Providers Care Machine Engraver Name Role Phone Mary Spencer Primary Care Provider Encounter Details Date Type Department Care Team (Late Contact Info) Description 06/20/2016 Scanned Document [facility] [phone] [place] [address] External, Provider Social History Tobacco Use Types [...] PM EDT Procedure visit Bone Center at [address] [place] [address] 01/09/2025 3:45 PM EDT Appointment [facility] [place] [facility] [address] [place] [address] Maggie Obando MD 60 [facility] [address] [place] [address] documented as of this encounter Procedures Procedure Name Priority Date/Time Associated Diagnosis Comments LAB SCAN Routine 12/09/2015 BONE DENSITY RESULT SCAN Routine 09/28/2015 documented in this encounter Results * Lab Scan (12/09/2015) Blood specimen (specimen) us Provider External LAB BLOOD ORDERABLES Final Res ult Performing Organization Address [facility] Co de Phone Number [facility] * Bone Density Result Scan (09/28/2015) us Provider External IMG SCAN REPORTS Final Result Performing Organization Address [facility] de Phone Number [facility] documented in this encounter Visit Diagnoses Not on filedocumented in this encounter Care Teams Machine Engraver Relationship Specialty Start Date End Date Mary Spencer PA PCP - General Internal Medicine 08/03/15 documented as of this encounter
--- OUTSIDE RECORDS SUMMARY | 2024-11-07 15:39 | XMS_ITS | Clinical Summary ---
Author Organization [facility] 111 [facility] Address [address] [place] [address] Care Team Providers Care Clay Press Operator Name Role Phone Mary Spencer Primary Care Provider Allergies Active Allergy Reactions Criticality Noted Date Comments Codeine Nausea And Vomiting,Vomiting 04/13/2011 Hazelnut GI Upset,Other (See Comments) Medium 04/04/2021 Lactose GI Upset 08/27/2023 Metronidazole Nausea,Headache Low 08/27/2023 Milk Other (See Comments) Medium 04/04/2021 Oxycodone Nausea And Vomiting,Vomiting 11/07/2011 Penicillins Hives,Itching High 04/13/2011 Sesame Seed GI Upset,Other (See Comments) Medium 04/04/2021 Sulfa (Sulfonamide Antibiotics) Hives,Fever High 04/13/2011 Sulfamethoxazole-Trimethoprim Hives,Othe r (See Comments) High 04/13/2011 No SOB Medications lactobacillus rhamnosus, GG, (CULTURELLE) 10 billion cell capsule Take 1 capsule by mouth daily. Active rosuvastatin (CRESTOR) 20 mg tablet Take 1 tablet (20 mg total) by mouth daily. Active pyridoxine HCl, vitamin B6, (VITAMIN B-6 ORAL) Take by mouth. Active calcium carbonate/vitam in D3 (VITAMIN D-3 ORAL) Take by mouth. Active Active Problems Problem Noted Date Diagnosed Date Osteopenia 05/11/2016 Family History Medical History Relation Name Comments Hip fracture Father Nephrolithiasis Father Osteoporosis Mother Lupus Sister Relation Name Status Comments Father Mother Sister Social History Tobacco Use Types Packs/Day Years Used Date Smoking Tobacco: Never Alcohol Use Standard Drinks/Week Comments No 0 (1 standard drink = 0.6 oz pur e alcohol) 1-2 times per month or less Interpersonal Safety Answer Date Record ed Is there anyone in your life that is hurting or threatening you in anyway? Not on file 09/03/2023 Physical Indicators of Abuse No evidence of phys ical abuse 09/03/2023 Comments Unknown Sex and Gender Information Value Date Recorded Sex Assigned at Not on file Legal Sex Female 8:04 AM EST Gender Identity Not on file Sexual Orientation Not on file Last Filed Vital Signs Vital Sign Reading Time Taken Comments Blood Pressure 121/70 09/03/2023 2:30 PM EST Pulse 71 09/03/2023 2:30 PM EST Temperature 36.7 ??C (98 ??F) 09/03/2023 2:30 PM EST Respiratory Rate 18 09/03/2023 2:30 PM EST Oxygen Saturation 98% 09/03/2023 2:30 PM EST Inhaled Oxygen Concentration - - Weight 77.1 kg (170 lb) 09/03/2023 6:51 AM EST Height 162.6 cm (5' 4 ) 09/03/2023 6:51 AM EST Body Mass Index 29.18 09/03/2023 6:51 AM EST Plan of Treatment Upcoming Encounters Date Type Department Care Team (Late st Contact Info) Description 01/09/2025 1:00 PM EDT Procedure visit [facility] at [address] [address] 01/09/2025 3:45 PM EDT Appointment [facility] [address] [place] [address] Maggie Obando MD 60 [facility] 201 [place] [address] Health Maintenance Due Date Last Done Comments HIV screening 1979 Hepatitis C screening 1984 Tetanus adult (Td q 10,TDAP once) 1986 Lipid disorder screening 2006 Colon cancer screening, Colonoscopy 2011 Shingles vaccine (Shingrix) (1 of 2 - Shingrix (RZV) 2 Dose Standard Series) 2016 Diabetes screening 06/03/2016 06/03/2013, 04/13/2011 Influenza vaccine 05/01/2024 08/01/2018, , 10/01/2014 Covid-19 vaccine series ( season) 2024 01/21/2021, 12/30/2020, 12/29/2020, Additional history exists Breast cancer screening 01/03/2026 01/04/20 24, 12/29/2022, 09/19/2021, Additional history exists Cervical cancer screening 11/13/2027 11/13/2022, 05/2015 RSV Discussion (1 - 1-dose 75+ series) 2041 Meningococcal Vaccine Aged Out No malcolm grace eligible based on patient's age to complete this topic Pneumococcal Vaccine Aged Out No long er eligible based on patient's age to complete this topic Procedures Procedure Name Priority Date/Time Associated Diagnosis Comments MAMMO SCREENING MOMO BILATERAL Routine 01/04/2024 4:02 PM EDT Encounter for screening mammogram for malignant neoplasm of breast CYTOLOGY ARTIFICIAL CANDY MAKER CASES () Routine 09/07/2015 8:10 PM EST GLUCOSE (BH GH LMW Q Y) Routine 06/03/2013 10:25 AM EDT from Last 3 Months or Most Recently Relevant to Health Maintenance Results * Mammography Screening Momo Bilateral (01/04/2024 4:02 PM EDT) Anatomical Region Laterality Modality Breast Bilateral Mammography Impressions 01/28/2024 2:31 PM EDT BI-RADS 2 - Benign There is no mammographic evidence of malignancy. ?? RECOMMENDATION: Screening mammogram in 1 year is recommended. The patient was informed by letter of the results. Patricia Ramos MD Narrative 01/28/2024 2:31 PM EDT EXAM: Mammography Screening Momo Bilateral on 01/04/24 INDICATION: Screening TECHNIQUE: Digital breast tomosynthesis was performed and used in the interpretation of images. C-View (synthesized 2D) mammography was utilized. Current study was evaluated with a Computer Aided Detection (CAD) system. COMPARISON: 12/29/2022 Mammography Screening Momo Bilateral, 09/19/2021 Mammography Screening Momo Bilateral, 08/27/2020 Mammography Screening Momo Bilateral, and 05/03/2019 Mammography Screening Momo Bilateral BREAST DENSITY: The breasts have scattered areas of fibroglandular density. FINDINGS: Bilateral Biopsy clip is present in the left breast. ??There are stable bilateral circumscribed masses. ??There is no evidence of suspicious masses, calcifications, or other abnormal findings. ?? us Maggie Obando MD IM MAMMOGRAPHY ORDERABLE S Final Result * Cytology bmw service technician cases () (09/07/2015 8:10 PM EST) Cytology Computer Equipment Installer Cases ?CYTOLOGY REPORT ? Procedures/Addenda Attached Patient: NANCY CHAVEZ ?MR #: [id number] ?Submitted by: Megan Perez M.D. FINAL DIAGNOSIS SUREPATH PAP SMEAR: ? Primary Diagnosis: ? NEGATIVE FOR INTRAEPITHELIAL LESION OR MALIGNANCY. ? Additional Findings: NO ENDOCERVICAL CELLS SEEN. CYTOLYSIS PRESENT. HIGH RISK HPV CO-TESTING HAS BEEN PERFORMED AND THE RESULT IS NEGATIVE. Specimen Adequacy: THIS SPECIMEN IS SATISFACTORY FOR EVALUATION. ? This specimen was manually screened with the assistance of the [employer]AFINOS) [employer] Imaging System. Recommendation: According to the current ASCCP guidelines for managing abnormal cervical cancer screening tests, women, with negative cytology (including those lacking an adequate endocervical/trans itional zone component) and negative HPV as well as a history of negative screens, should be followed according to the routine screening schedule such as 3 year screening with cytology alone or every 5 years with cytology and high risk HPV cotesting. ??(Jose Raul et al. J Low Genital Tract Disease. 2013; 17: S1) NOTE: ??Cervical/vaginal cytology is a screening tool for cervical carcinoma and its precursor lesions with an inherent false negative rate. ??It is an inaccurate test for detection of endometrial lesions and should not be used to evaluate suspected endometrial abnormalities. ??(The [employer] System, 2001) ?? 09/10/2015 12:46 ?* Report Electronically Signed Out * ? This electronic signature indicates that the pathologist has personally reviewed the available gross and/or microscopic material and has based the diagnosis on that evaluation. ? Specimen(s) Received: SUREPATH PAP SMEAR Clinical History and Impression: {Not Available} ?? Procedures/Addenda MOLECULAR DX: HR HPV SCREENING ? Ordered: ? 09/07/2015 ? Status: ? Signed Out ? Reported: ? 09/10/2015 ? Pathologist: ? [facility] ? Interpretation Specimen: SUREPATH PAP SMEAR BELOW CUTOFF FOR HIGH RISK HPV HPV types 16, 18, 31, 33, 35, 39, 45, 51, 52, 56, 58, 59, 66, and 68 DNA were either considered NEGATIVE, undetectable,or below the pre-set threshold. This test was performed at [facility] Department of Pathology, [address] [place] [id number], CLIA# [id number] using the Yola christy 4800 HPV Test System and is only approved by the Food and Drug Administration (FDA) for use oncervicalspecimen s collected in Cytyc Preservcyt Solution (ThinPrep). When using ThinPrep liquid based samples for non-cervical specimens, SurePath liquid based samples, or formalin fixed paraffin embedded tissue, the performance characteristics have been determined by [facility]. Although testing on samples that are not cervical in origin, and/or in any other medium besides ThinPrep, has not been cleared or approved by the FDA, the FDA has determined that such clearance or approval is not necessary. ? [facility] 09/07/2015 8:10 PM EST Comment:SUREPATH PAP SMEAR+ HPV us Megan Perez MD PATHOLOGY/CYTOLOGY ORDERABLES Final Result Performing Organization Address City/[facility]/ZIP Co de Phone Number [facility] Department of Pathology [address] [place] [address] [place] [phone] * Glucose ( GH Q YH) (06/03/2013 10:25 AM EDT) Glucose 100 70 - 100 mg/dL [facility] 06/03/2013 10:2 5 AM EDT Narrative [facility] - 06/03/2013 3:45 PM EDT Performed by: [facility] [address] [place] [address] ??(CLIA #[id number], [id number]) us Jocelin Alcantara MD LAB BLOOD ORDERABLES F inal Result Performing Organization Address City/[facility] Co de Phone Number [facility] [address] [place] [phone] from Last 3 Months or Most Recently Relevant to Health Maintenance Insurance BS Care Teams Clay Press Operator Relationship Specialty Start Date End Date Mary Spencer PA PCP - General Internal Medicine 08/03/15
--- OUTSIDE RECORDS SUMMARY | 2024-11-07 15:39 | XMS_ITS | Encounter Summary ---
Author Organization [facility] [employer] and [facility] Address [address] [place] [phone] Care Team Providers Care Oil Plant Operator Name Role Phone Mary Spencer Primary Care Provider Encounter Details Date Type Department Care Team (Late Contact Info) Description 12/10/2015 Scanned Document [facility] [phone] [place] [address] External, Provider Social History Tobacco Use Types [...] PM EDT Procedure visit Bone Center at [address] [place] [address] 01/09/2025 3:45 PM EDT Appointment [facility] [place] [facility] [address] [place] [address] Maggie Obando MD 60 [facility] 201 [place] [address] documented as of this encounter Visit Diagnoses Not on filedocumented in this encounter Care Teams Oil Plant Operator Relationship Specialty Start Date End Date Mary Spencer PA PCP - General Internal Medicine 08/03/15 documented as of this encounter
[2024-11-07 18:02] LABS: Appearance Urine Cloudy; Color Urine Yellow; Glucose Urine UA Negative (Negative); Leukocyte Esterase Urine Small (1+) (Negative); Nitrite Urine Negative (Negative); PH 5.5 (5.0-9.0); UMIC TRIGGER UACC YES; Urine Blood Moderate (2+) (Negative); Urine Ketones Negative (Negative); Urine Protein 30 (1+) mg/dL (Neg-Trace)
[2024-11-07 18:28] LABS: Bacteria Urine None Seen (None Seen); Calcium Oxalate Crystals Urine Present; Hyaline Casts Urine 0-2 /LPF (0-2); RBC Urine >20 /HPF (0-2); Squamous Epithelial Cell Urine 0-2 /HPF (0-2); UACC Culture Trigger YES; WBC Urine >50 /HPF (0-5)
== END 2024-11-07 14:36 | disposition home or self-care (01) ==
LOC: HO.LAB 14:35
PROVIDERS: PCP Internal Medicine; Visit Provider Nurse Practitioner Family
DX: R39.15 Urgency of urination (principal); R35.0 Frequency of micturition; R31.9 Hematuria, unspecified; N83.202 Unspecified ovarian cyst, left side; Z87.442 Personal history of urinary calculi
CPT/HCPCS: 81001; 81003; 87086; 96127

== ENCOUNTER 2024-11-07 14:54 | Outpatient (AMB) | payer OTHER, SELFPAY ==
[2024-11-07 14:56] VITALS: BP 110/74; PULSE 63; TEMP 36.2; O2SAT 97; BMI 26.2
--- NOTE | 2024-11-07 14:56 | MHC.PC.OV ---
Vital Signs 11/07/24 14:56 Height 5 ft 4 in Weight 152 lb 6 oz BMI 26.2 BP 110/74 Blood Pressure Location Lt brachial Position Sitting Pulse 63 Pulse Source Pulse Oximeter Temp 97.1 F Temp Source Temporal Artery Scan Pulse Oximetry (%) 97 Oxygen Delivery Method Room Air Intake Visit Reasons: uti Intake Note: Pt is here for UTI symptoms for the past few days. Meat Products Demonstrator Required: No Accompanied by: Self / Same As Patient Allergies codeine [CODEINE] Allergy (Intermediate, Verified 11/07/24 14:56) NAUSEA hazelnut [HAZELNUT] Allergy (Unknown, Verified 11/07/24 14:56) UNKNOWN Milk Containing Products (Dairy) [MILK CONTAINING PRODUCTS] Allergy (Unknown, Verified 11/07/24 14:56) UNKNOWN nitrofurantoin [From MACROBID] Allergy (Unknown, Verified 11/07/24 14:56) UNKNOWN Penicillins [PENICILLINS] Allergy (Unknown, Verified 11/07/24 14:56) UNKNOWN sesame seed [SESAME SEED] Allergy (Unknown, Verified 11/07/24 14:56) UNKNOWN Sulfa (Sulfonamide Antibiotics) Allergy (Unknown, Verified 11/07/24 14:56) Unknown sulfamethoxazole [From BACTRIM] Allergy (Unknown, Verified 11/07/24 14:56) UNKNOWN trimethoprim [From BACTRIM] Allergy (Unknown, Verified 11/07/24 14:56) UNKNOWN azithromycin [From Zithromax] Adverse Reaction (Intermediate, Verified 11/07/24 14:56) diarrhea epinephrine [EPINEPHRINE] Adverse Reaction (Intermediate, Verified 11/07/24 14:56) HEART PALPITATIONS beesting Allergy (Unknown, Uncoded 11/07/24 14:56) Unknown Tobacco use date assessed: 11/07/24 Dental Screening Dental Screen Date: 11/07/24 Did you have a dental visit in the last 12 months?: Yes Did you have a dental problem in the last 6 months where you did not have access to dental care?: No Was dental information given to patient?: Patient has dentist HPI HPI Comments History of Present Illness Details 59 y/o female patient who presents to the clinic for the same day visit. Pt c/o urinary frequency and urgency. Pt also c/o foul odor urine and cloudy in color. There is slight blood in the urine also. Denies fevers, chills, nausea, vomiting, low back pain or abdominal cramping. H/o Endometrial Bx, D&C and Polypectomy 12/2022. Pelvic U/S 12/2022 showed: IMPRESSION: 1. Both ovaries are not seen with certainty. 2. There is a left adnexal cyst, minimally increased, likely left ovarian cyst. 3. Small amount of free fluid in the lower uterine segment. 4. Small nabothian cysts in the lower uterine segment with largest cyst measuring 0.3 x 0.3 x 0.4 cm. H/o Hematuria, work up with Renal U/S showed: IMPRESSION: Complex cyst lower pole right kidney. Mild pelvic fullness. Mild cortical thickening left kidney. Pt asking to have repeat U/S pelvic to r/o cysts, tumors or Fibroids. [facility] Medical History Hx of hiatal hernia Ureteral stone Renal calculi Sore throat USMAN (obstructive sleep apnea) Cystitis Dysphagia Palpitations Restrictive airway disease Bronchitis BMI 36.0-36.9,adult Multiple allergies Headache Vitamin K deficiency Elevated C-reactive protein (CRP) Elevated sed rate Unexplained night sweats Pelvic cyst Adnexal cyst Microscopic hematuria Abnormal Pap smear of cervix Unexplained endometrial cells on cervical cytology Chronic fatigue GERD (gastroesophageal reflux disease) CAD (coronary artery disease) Microscopic hematuria Renal atrophy Recurrent UTI Left radial head fracture Obesity Surgical History Hx of hysterectomy S/P DONNA-BSO S/P repair of paraesophageal hernia History of esophagogastroduodenoscopy (EGD) History of lithotripsy History of skin graft History of cystoscopy History of ankle surgery History of ovarian cystectomy History of tonsillectomy History of surgery History of colonoscopy History of endoscopy Family History Father Liver failure ETOH abuse Diabetes Hypertension Anxiety Prostate cancer Mother Hypertension Afib CVD (cardiovascular disease) Emphysema lung Melanoma Paternal Aunt Breast cancer Social History [facility] Alcohol intake: current Alcohol intake frequency: holidays/special occasions only Comment: 2 glasses in a month Patient Tobacco Use Status: Never used Tobacco Years Smoked: smoked in college. 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 [employer] [facility] Cognitive needs: No Hearing needs: No Vision needs: Yes Questionnaire PHQ-9 Over the last 2 weeks, how often have you been bothered by any of the following problems? 35599 - PHQ-9 Billing: Patient declined-do not bill Source: Developed by Drs. Anjum Spivey, Rose Maher, Bright Nguyen and colleagues, with an educational rodri from [employer]. Thrive Questionnaire Date Thrive assessed: 11/07/24 I am a: Patient What is your living situation today?: I have a steady place to live Within the past 12 months, did the food you bought not last and you didn't have the money to get more?: Never true Within the past 12 months, did you worry whether your food would run out before you got money to buy more?: Never true Do you have trouble paying for medicines?: No Do you have trouble getting transportation to medical appointments?: No Do you have trouble paying your heating and electricity bill?: No Do you have trouble taking care of your child, family member or friend?: No Do you have trouble with day-to-day activities such as bathing, preparing meals, shopping, managing finances, etc.?: No Are you currently unemployed and looking for a job?: No Are you interested in more education?: No Please select the resources that you would like help with: None Currently or been in a relationship where the following occur: No concerns reported THRIVE Score: 0 AUDIT C Alcohol Use Questionnaire (AUDIT-C) 1. How often do you have a drink containing alcohol?: Monthly or less 2. How many drinks containing alcohol do you have on a typical day when you are drinking?: 1 or 2 3. How often do you have six or more drinks on one occasion?: Never Total Score: 1 JAENTH-7 AMB Questionnaire JANETH-7 Date JANETH - 7 assessed: 11/07/24 Feeling nervous, anxious, or on edge: 0 = Not at all Not being able to stop or control worryin = Not at all Worrying too much about different things: 0 = Not at all Trouble relaxin = Not at all Being so restless that it is hard to sit still: 0 = Not at all Becoming easily annoyed or irritable: 0 = Not at all Feeling afraid as if something awful might happen: 0 = Not at all Total JANETH-7 score (0-4 normal; 5-9 mild; 10-14 moderate; 15-21 severe): 0 Source: Developed by Drs. Anjum Spivey, Rose Maher, Bright Nguyen and colleagues, with an educational rodri from [employer]. JANETH-7 Assessment Billing JANETH-7 Assessment Tool: JANETH-7 Assessment 54621 Review of Systems Const All systems reviewed & are unremarkable except as noted in HPI and below Physical exam (Primary Care) Vital Signs: Last Vital Signs Temp 97.1 F 11/07/24 14:56 Pulse 63 11/07/24 14:56 BP 110/74 11/07/24 14:56 Pulse Ox 97 11/07/24 14:56 Oxygen Delivery Method Room Air 11/07/24 14:56 BMI result Body Mass Index 26.2 Tobacco/Smoking Status: Tobacco use Status Tobacco use date assessed 11/07/24 11/07/24 14:57 Patient Tobacco Use Status Never used Tobacco 11/07/24 14:57 e-Cigarette/Vaping Use Never Used 11/07/24 14:57 Thrive Assessment: Date of Thrive Assessment Date Thrive assessed 11/07/24 11/07/24 15:04 Currently or been in a relationship where the following occur: No concerns reported Const General: cooperative and no acute distress Nutritional Appearance: obese Orientation/consciousness: patient oriented x3 Resp Effort & Inspection: normal respiratory effort Auscultation: clear to auscultation bilaterally Cardio Heart sounds: S1 normal heart sound present and S2 normal heart sound present Other: Pelvic exam deferred. General: Yes no CVA tenderness Back/Spine/Pelvis Back: no CVA tenderness Neuro General: patient oriented x3, gait normal and moves all extremities Psych Speech and movement: Normal speech and movement present Affect: Anxious affect present Results AMB Urinalysis, Automated UA Leukoctes 125 Andi/uL Last Edit by KAY Pendleton on 11/07/24 15:11 UA Nitrite Negative Last Edit by KAY Pendleton on 11/07/24 15:11 UA Urobilinogen 0 mg/dL Last Edit by KAY Pendleton on 11/07/24 15:11 UA Protein 30 mg/dL Last Edit by KAY Pendleton on 11/07/24 15:11 UA pH 6.0 Last Edit by KAY Pendleton on 11/07/24 15:11 UA Blood 200 Chin/uL Last Edit by KAY Pendleton on 11/07/24 15:11 UA Specific [place] 1.030 Last Edit by KAY Pendleton on 11/07/24 15:11 UA Ketone Negative Last Edit by KAY Pendleton on 11/07/24 15:11 UA Bilirubin 0 mg/dL Last Edit by KAY Pendleton on 11/07/24 15:11 UA Glucose 0 mg/dL Last Edit by KAY Pendleton on 11/07/24 15:11 Results Reviewed Results Reviewed: Laboratory Last Values Urine pH (Auto) 6.0 11/07/24 15:08 Specific [place] (Auto) 1.030 11/07/24 15:08 Urine Protein (Auto) 30 mg/dL 11/07/24 15:08 Glucose (UA)(Auto) 0 mg/dL 11/07/24 15:08 Urine Ketones (Auto) Negative 11/07/24 15:08 Urine Blood (Auto) 200 Chin/uL 11/07/24 15:08 Urine Nitrite (Auto) Negative 11/07/24 15:08 Urine Bilirubin (Auto) 0 mg/dL 11/07/24 15:08 Urine Urobilinogen (Auto) 0 mg/dL 11/07/24 15:08 Leukocyte Esterase (Auto) 125 Andi/uL 11/07/24 15:08 Coding Level of Care Code Est Pt Level 4 (44890) Diagnoses Urinary urgency R39.15 Cyst of ovary, unspecified laterality N83.209 Laterality: unspecified laterality Additional Codes JANETH-7 Assessment Billing - JANETH-7 Assessment Tool: JANETH-7 Assessment 71811 ([id number]) Time Spent (min) 20 Assessment & Plan Assessment & Plan (1) Urinary urgency: Code(s): R39.15 - Urgency of urination Plan: Ordered Urinalysis and culture Ordered Ciproflaxin U/A positive for Leuco and Red Blood cells. Prior h/o Hematuria and Kidney stones. Will repeat Urinalysis after Abx completion If Hematuria persists will consider Urology referral for Bladder U/S (2) Ovarian cyst: Code(s): N83.209 - Unspecified ovarian cyst, unspecified side Category: Medical Qualifiers: Laterality: unspecified laterality Qualified Code(s): N83.209 - Unspecified ovarian cyst, unspecified side Plan: Ordered U/S pelvic and Transvaginal due to prior h/o Cyst Orders: Orders AMB Urinalysis Automated Today N39.0 - Urinary tract infection, site not specified US pelvic and transvaginal Today N83.209 - Unspecified ovarian cyst, unspecified side UA CC w/rflx Micro + Cult Today R30.0 - Dysuria, R31.9 - Hematuria, unspecified Medications: New ciprofloxacin HCl 500 mg PO BID 7 days 14 tabs 0RF R39.15 - Urgency of urination
== END 2024-11-07 15:29 | disposition home or self-care (01) ==
PROVIDERS: PCP Internal Medicine; Visit Provider Nurse Practitioner Family
DX: R39.15 Urgency of urination (principal); N83.209 Unspecified ovarian cyst, unspecified side; N39.0 Urinary tract infection, site not specified

== ENCOUNTER 2024-11-25 15:50 | Outpatient (REF) | payer OTHER, SELFPAY ==
--- NOTE | ~2024-11-25 | US_ITS ---
EXAMINATION: US PELVIS TRANSABDOMINAL AND TRANSVAGINAL HISTORY: N83.209 - Unspecified ovarian cyst, unspecified side COMPARISON: Comparison is made with the prior examination dated 01/26/2023. TECHNIQUE: Transabdominal and endovaginal real-time 2D gonzalez-scale ultrasound was performed. FINDINGS: Uterus: The patient is status post hysterectomy. Right ovary: The right ovary is not identified, and may be surgically absent. Left ovary: The left ovary is not identified, and may be surgically absent. Pelvic fluid: none. US/US pelvic and transvaginal IMPRESSION: Status post hysterectomy. The ovaries are not visualized and may be surgically absent. Clinical correlation is recommended. Electronically signed by: Anjum Grey MD 11/26/2024 07:53 AM [facility]
--- NOTE | ~2024-11-25 | US_ITS ---
EXAMINATION: US RETROPERITONEUM HISTORY: R31.9 - Hematuria, unspecified TECHNIQUE: Real-time grayscale ultrasound imaging of the kidneys was performed and images were reviewed. COMPARISON: Comparison is made with the prior examination dated 11/06/2022. FINDINGS: Right kidney: The right kidney measures 12.3 x 5.5 x 3.9 cm. Renal parenchymal echotexture and thickness are normal. There are no masses. There is mild fullness of the renal pelvis. No calculi are identified. Left Kidney: The left kidney measures 9.6 x 3.5 x 4.0 cm. There is renal cortical thinning and increased echogenicity. There are no masses. There is no hydronephrosis or renal calculi. The urinary bladder is unremarkable. Bilateral ureteral jets are identified. Before voiding, the urinary bladder measured 6.7 x 5.9 x 8.8 cm, for an estimated volume of 182 mL. After voiding, the urinary bladder measured 3.0 x 1.7 x 4.1 cm, for an estimated volume of 10.5 mL. US/US retroperitoneal comp IMPRESSION: 1. Mild fullness of the right renal pelvis, of uncertain significance. Given the history of hematuria, CT urography should be considered. 2. Left renal cortical thinning and increased echotexture compatible with chronic medical renal disease.. 3. Post void bladder residual of 10.5 mL. Electronically signed by: Anjum Grey MD 11/26/2024 07:57 AM [facility]
--- OUTSIDE RECORDS SUMMARY | 2024-11-25 19:31 | XMS_ITS | Clinical Summary ---
Author Organization [facility] 111 [facility] Address [address] [place] [address] Care Team Providers Care Repacker Name Role Phone Mary Spencer Primary Care [...] PM EDT Procedure visit [facility] Center at [address] [address] 01/09/2025 3:45 PM EDT Appointment [facility] [address] [place] [address] Maggie Obando MD 60 [facility] [address] [place] [address] Health Maintenance Due Date Last [...] exists Cervical cancer screening 11/13/2027 11/13/2022, 05/2015 Pneumococcal Vaccine (50+ years) (1 of 1 - PCV) 2031 RSV Discussion (1 - 1-dose 75+ series) 2041 Meningococcal Vaccine Aged Out No malcolm grace eligible based on patient's age to complete this topic Pneumococcal Vaccine (2 - 49 years) Aged Out No longer eligible based on patient's age to complete this topic Procedures Procedure Name Priority Date/Time Associated Diagnosis Comments MAMMO SCREENING MOMO BILATERAL Routine 01/04/2024 4:02 PM EDT Encounter for screening mammogram for malignant neoplasm of breast CYTOLOGY RECEIVING DOCK CHECKER CASES () Routine 09/07/2015 8:10 PM EST GLUCOSE ( GH LMW Q Y) Routine 06/03/2013 10:25 [...] abnormal findings. ?? us Maggie Obando MD IMG MAMMOGRAPHY ORDERABLE S Final Result * Cytology therapeutic strategy lead cases () (09/07/2015 8:10 PM EST) Cytology Director Of Premium Seat Sales Cases ?CYTOLOGY REPORT ? Procedures/Addenda Attached Patient: NANCY CHAVEZ ?MR #: [id number] ?Submitted by: Megan Perez M.D. FINAL DIAGNOSIS SUREPATH PAP SMEAR: ? Primary Diagnosis: ? NEGATIVE FOR INTRAEPITHELIAL LESION OR MALIGNANCY. ? Additional Findings: NO ENDOCERVICAL CELLS SEEN. CYTOLYSIS PRESENT. HIGH RISK HPV CO-TESTING HAS BEEN PERFORMED AND THE RESULT IS NEGATIVE. Specimen Adequacy: THIS SPECIMEN IS SATISFACTORY FOR EVALUATION. ? This specimen was manually screened with the assistance of the [employer] Imaging System. Recommendation: According to the current [...] used to evaluate suspected endometrial abnormalities. ??(The [place] System, 2001) ?? 09/10/2015 12:46 ?* Report [...] ? Reported: ? 09/10/2015 ? Pathologist: ? [facility] ? Interpretation Specimen: SUREPATH PAP SMEAR BELOW CUTOFF FOR HIGH RISK HPV HPV types 16, 18, 31, 33, 35, 39, 45, 51, 52, 56, 58, 59, 66, and 68 DNA were either considered NEGATIVE, undetectable,or below the pre-set threshold. This test was performed at [facility] Department of Pathology, [address] [place] [id number], CLIA# [id number] using the Yola christy 4800 HPV Test System and is only approved by the Food and Drug Administration (FDA) for use oncervicalspecimen s collected in Cytyc Preservcyt Solution (ThinPrep). When using ThinPrep liquid based samples for non-cervical specimens, SurePath liquid based samples, or formalin fixed paraffin embedded tissue, the performance characteristics have been determined by [facility]. Although testing on samples that are not cervical in origin, and/or in any other medium besides ThinPrep, has not been cleared or approved by the FDA, the FDA has determined that such clearance or approval is not necessary. ? [facility] 09/07/2015 8:10 PM EST Comment:SUREPATH PAP SMEAR+ HPV us Megan Perez MD PATHOLOGY/CYTOLOGY ORDERABLES Final Result [facility] Department of Pathology [address] [place] [address] [phone] [place] [address] * Glucose ( GH Q YH) (06/03/2013 10:25 AM EDT) Glucose 100 70 - 100 mg/dL [facility] 06/03/2013 10:2 5 AM EDT Narrative [facility] - 06/03/2013 3:45 PM EDT Performed by: [facility] [address] [place] [phone] ??(CLIA #[id number], [id number]) Jocelin Alcantara MD LAB BLOOD ORDERABLES F inal Result [facility] [address] [place] [phone] from Last 3 Months or Most Recently Relevant to Health Maintenance Insurance [employer] Care Teams Repacker Relationship Specialty Start Date End Date Mary Spencer PA PCP - General Internal Medicine 08/03/15
--- OUTSIDE RECORDS SUMMARY | 2024-11-25 19:31 | XMS_ITS | Encounter Summary ---
Author Organization [facility] [employer] [facility] and [facility] Address [address] [place] [phone] Care Team Providers Care Automotive Service Cashier Name Role Phone Mary Spencer Primary Care Provider Encounter Details Date Type Department Care Team (Late Contact Info) Description 05/04/2016 Scanned Document [facility] [address] [facility] [address] [place] [address] External, Provider Social History Tobacco Use Types [...] PM EDT Procedure visit Bone Center at [address] [place] [address] 01/09/2025 3:45 PM EDT Appointment [facility] [place] [facility] [address] [place] [address] Maggie Obando MD 60 [facility] 201 [place] [address] documented as of this encounter Visit Diagnoses Not on filedocumented in this encounter Care Teams Automotive Service Cashier Relationship Specialty Start Date End Date Mary Spencer PA PCP - General Internal Medicine 08/03/15 documented as of this encounter
--- OUTSIDE RECORDS SUMMARY | 2024-11-25 19:31 | XMS_ITS | Data Portability ---
Author Organization [place] - [facility]'s [facility], [facility] Address [id number] [place] [address] Assessment No assessment recorded. Plan of Treatment Reminders Order Date Submit Date Provider Last Modified By Organization Details Last Modified Time Details Appointments None recorded. Lab pap, IG + HPV 2023 024 [facility], [address] [place], [address] 4 20:45:04 Referral None recorded. Procedures None recorded. Surgeries None recorded. Imaging MAMMO, screening, digital, bilateral 2023 024 [email or web address] [facility], [address] [place] [address], [address], 4 11:29:47 bone density 2023 024 [email or web address] [facility], [address] [place], [address], 4 11:29:47 Medication Orders Colace 100 mg capsule 2022 024 [facility][id number], [address], [place], [address], 4 13:56:52 tramadol 50 mg tablet 2022 023 [email or web address] [id number], [address], [place], [address], 4 13:56:44 Patient TargetsNo targets recorded. Patient Instructions Encounter Date Encounter Id Patient Instructions Last Modified By Organization Details Last Modified Time 06/19/2023 [id number] Telehealth visit - [employer]. Pt with GERARDO cyst presents to review US results and next steps. US shows the cyst has grown again in 5 months but is similar appearing. Pt also with new possible PMB. EMS 3mm and pt had hscopy D&C earlier this year. Reviewed of prior records shows possible CA-125 but result not available during visit. - During visit, recommended OVA-1 testing and pt will get kit on Sunday. Following visit, pt had ca-125 level sent which was 7 in November and pt messaged with results. - Discussed enlarging cyst in postmenopausal patient and again recommended removal. We discussed hysterectomy as well given h/o NAILA to help with cervical cancer prevention and will removal both ovaries and tubes. Discussed postop recovery and restrictions. Discussed laparoscopic surgery. Pt in agreement and would like to proceed. Pt going to [place] end of Jul through mid Aug. D/w pt that we can wait until after trip, but should be done before end 2022. Discussed that cyst will likely continue to grow until removed. - Reviewed possible PMB. Discussed that pt had hscopy already that was negative and EMS thin yesterday. D/w pt hysterectomy also recommended for this reason given prior pap with endometrial cells earlier this year. Procedure: total laparoscopic hysterectomy, bilateral salpingoophorectom y, cystoscopy Indication: left ovarian cyst, NAILA exposure Estimated length of procedure: 4hr Preop labs needed: none Preop clearance needed: none ililes Not available 06/20/2023 04:45:56 08/22/2023 [id number] Pt presents for preop exam for left ovarian cyst and history of NAILA. Pt had hscopy D&C ealier this year and possible PMB last month. Reviewed with pt that would recommend hysterectomy with bilateral BSO since cyst has been growing and pt with risks for cancer. Discussed laparoscopic procedure. Discussed frozen section during surgery and if positive possible staging with AIRCRAFT DELIVERY CHECKER ONC to include possible lymph node biopsy/dissection, omental and peritoneal biopsies while sleep. Discussed that if frozen negative, final pathology could show malignancy and pt may need further procedures in future. Pt with with several questions re: prolapse and incontinence (which are not present currently). Discussed procedure, preop, and postop expectations in detail. - Consent obtained. Risks benefits and alternatives discussed with patient including bleeding, transfusion, infection, injury to surrounding structures (bladder/intestine s/ovaries/ureters/ blood vessels/nerves; recognized and not), vaginal cuff breakdown, hernia, scar tissue, further procedures. All questions and concerns were addressed. - Preop: Medications reviewed and none on AM of surgery. Patient was asked to stop Aspirin/NSAIDS 7 days prior to surgery. We discussed restriction of food after midnight on day of surgery; cessation of clear liquids 2 hours prior to arrival day of surgery. - Postop: Pt request tramadol and will send with colace to pharmacy. Pt would like to avoid ibuprofen to preserve kidney. Advised to take tylenol. Restrictions including pelvic rest, baths, and heavy lifting reviewed. Postop visit 2 weeks after surgery. - Reviewed ERAS protocols Procedure: total laparoscopic hysterectomy, bilateral salpingoophorectom y, cystoscopy, possible staging Indication: left ovarian cyst, NAILA exposure Estimated length of procedure: 4hr Preop labs needed: none Preop clearance needed: none Total time spent on day of encounter including review of prior notes/labs, history, physical, orders, counseling and coordination of care for patient's ovarian cyst, NAILA exposure, PMB, postop pain: 32 minutes ililes Not available 08/27/2023 09:29:30 09/18/2023 [id number] Pt presents for 2wk postop visit after TLH, BSO, CYSTO , recovering well. Pt given benign pathology report and images. - C/w routine postop care - no heavy lifting and pelvic rest - Pain well controllled c/w ibuprofen and tylenol prn - Can drive as long as no pain - Given work letter to restart 09/25 with lifting restrictions RTO in 4 wks for postop visit ililes Not available 09/18/2023 08:53:01 10/19/2023 [id number] Pt presents for 2wk postop visit after TLH, BSO, CYSTO , recovering well. Pt given benign pathology report and images. - Can resume all activities except intercourse which can resume in 2 weeks - Advised to start slow with exercise RTO in 3 months for annual with vaginal pap ililes Not available 10/19/2023 15:17:17 01/25/2024 [id number] Pt presents for annual exam. No current AIRCRAFT DELIVERY CHECKER concerns.. Pt is a NAILA daughter. S/p tlh, bso. Cuff intact. No bleeding Health Maintenance: - Pap: performed given NAILA - Mammogram: due and ordered - Breast self awareness reviewed - Colon cancer screening: UTD per pt - DEXA: UTD Sexual Health - Safe Sex Practices/STI Screening: declines Nutrition and Fitness - Increased exercise advised - Lifestyle modifications including dietary changes and increased calcium and vitamin D recommended for age category Mental Health & Substance Abuse - Mental Health: low risk score reviewed - Tobacco Counseling: avoidance recommended - Alcohol Counselindrink/day for women Other Items addressed: - BRCA2 fhx- neg testing ililes Not available 01/25/2024 15:25:17 Reason for Referral None Reported. Results Created Date Observation Date Name Description Value Unit Range Abnormal Flag Note LastModifiedBy Organization Detail LastModifiedTime 01/25/20 24 01/28/2024 THINP REP TIS PAP AND HPV MRNA E6/E7 WITH REFLE X TO HPV 16,18 /45 clinical information: normal None given Not Available [facility] [address], [address], 01/28/2024 20:45:04 01/25/20 24 01/28/2024 THINP REP TIS PAP AND HPV MRNA E6/E7 WITH REFLE X TO HPV 16,18 /45 LMP: normal NONE GIVEN Not Available [facility] [address], [address], 01/28/2024 20:45:04 01/25/20 24 01/28/2024 THINP REP TIS PAP AND HPV MRNA E6/E7 WITH REFLE X TO HPV 16,18 /45 prev. Pap: normal NONE GIVEN Not Available [facility] [address], [address], 01/28/2024 20:45:04 01/25/20 24 01/28/2024 THINP REP TIS PAP AND HPV MRNA E6/E7 WITH REFLE X TO HPV 16,18 /45 prev. BX: normal NONE GIVEN Not Available [facility] [address], [address], 01/28/2024 20:45:04 01/25/20 24 01/28/2024 THINP REP TIS PAP AND HPV MRNA E6/E7 WITH REFLE X TO HPV 16,18 /45 source: normal Vagin a Not Available [facility] [address], [place], [address], 01/28/2024 20:45:04 01/25/20 24 01/28/2024 THINP REP TIS PAP AND HPV MRNA E6/E7 WITH REFLE X TO HPV 16,18 /45 statement of adequacy: normal SATIS FACTO RY FOR EVALU ATION Not Available [facility] [address], [place], [address], 01/28/2024 20:45:04 01/25/20 24 01/28/2024 THINP REP TIS PAP AND HPV MRNA E6/E7 WITH REFLE X TO HPV 16,18 /45 interpretati on/result: normal Cytol ogy Resul ts: Negat jennifer for intra epith elial lesio n or jennifer haley . Not Available [facility] [address], [place], [address], 01/28/2024 20:45:04 01/25/20 24 01/28/2024 THINP REP TIS PAP AND HPV MRNA E6/E7 WITH REFLE X TO HPV 16,18 /45 comment: normal This Pap test has been evalu ated with compu ter david barrington [employer] ology . Not Available [facility] [address] [place] [address], [address], 01/28/2024 20:45:04 01/25/20 24 01/28/2024 THINP REP TIS PAP AND HPV MRNA E6/E7 WITH REFLE X TO HPV 16,18 /45 cytotechnolo gist: normal GSG, CT( CP) CT scree cristy locat ion: [facility] [address], [place] [address] Not Available [facility] [address], [address], 01/28/2024 20:45:04 01/25/20 24 01/28/2024 THINP REP TIS PAP AND HPV MRNA E6/E7 WITH REFLE X TO HPV 16,18 /45 comment EXPLA NATOR Y NOTE: The Pap is a scree cristy test for cervi raphael cance r. It is not a diagn ostic test and is subje ct to false negat jennifer and false posit jennifer resul ts. It is most relia ble when a satis facto ry sampl e, regul maryann obtai wing, is submi tted with relev ant clini raphael findi ngs and histo ry, and when the Pap resul t is evalu ated along with histo ally and curre nt clini raphael infor thomas n. Not Available [facility] [address], [place], [address], 01/28/2024 20:45:04 01/25/20 24 01/28/2024 THINP REP TIS PAP AND HPV MRNA E6/E7 WITH REFLE X TO HPV 16,18 /45 HPV MRNA E6/E7 Not Detect ed not detect ed normal Metho dolog y: Trans cript ion-M ediat ed Ampli ficat ion This assay detec ts E6/E7 viral messe nger RNA (mRNA ) from 14 high- risk HPV types (16,1 8,31, 33,35 ,39,4 5,51, 52,56 ,58,5 9,66, 68). Cervi raphael sourc es are requi red for HPV testi ng. If a vagin al sourc e from a patie nt who has had a total hyste recto my with remov al of cervi x was submi tted, pleas e conta ct the testi ng labor atory for alter nativ e testi ng optio ns. For addit ional infor matio n, pleas e refer to http: //german vaughan stdia gn[employer].c om/fa q/FAQ 129v1 (This link if provi ded for infor thomas flores/ raisa felder purpo ses only. ) Not Available [facility] [address], [place], [address], 01/28/2024 20:45:04 06/18/20 23 06/18/2023 US, trans vagin al No observ ation record ed. [email or web address] [facility] [address] [address], [place], [address], 06/27/2023 09:02:11 06/18/20 23 06/18/2023 US, trans vagin al No observ ation record ed. ililes [facility] [address], [address], 06/19/2023 13:03:16 01/28/20 24 01/28/2024 MAMMO , scree cristy, digit al, bilat eral No observ ation record ed. [email or web address] [facility] [address] [place] [address], [address], 01/29/2024 08:28:45 Result Notes None recorded. Problems Name Problem SNOMED Code Status Onset Date Resolution Date Notes Provider Name and Address Organization Details Recorded Time History of suspected exposure to biologica l agent 005630458769 06 Active 2015 NAILA exposure MEGAN SULLIVAN MD 175 [facility], [address] [place] [address], [address], [place] - [facility] 6 19:09:19 Obesity 498026146 Active 2015 bmi 36.7 MEGAN SULLIVAN MD 175 [facility], [address] [place] [address], [address], [place] - [facility] 8 09:21:31 Microscop ic hematuria 323151972 Active 2015 MEGAN SULLIVAN MD [address], [place], [address], [facility] 6 21:36:06 Osteopeni a 983591595 Active 2015 Spine T score -2.4 MEGAN SULLIVAN MD [address], [place], [address], [facility] 6 21:37:06 Family history of breast cancer 525718122 Active 2016 2 paternal aunts MEGAN SULLIVAN MD [address], [place], [address], [facility] 7 22:27:43 Exposure to potential ly harmful entity Active 2022 BINA SOLARES MD 175 [facility], [address] [place] [address], [place], [address], [facility] 3 12:48:43 Problem Notes None recorded. Procedures Surgical History Date Name Laterality Status Provider Name and Address Organization Details Recorded Time 09/03/20 Hysterectomy completed BINA SOLARES MD 175 [facility], [address] [place] [address], [address], [facility] 09/18/2023 08:53:36 06/19/20 23 Telemedicine Visit completed BINA SOLARES MD 175 [facility], [address] [place] [address], [place], [address], [facility] 06/19/2023 12:57:31 02/08/20 23 hernia repair completed BINA SOLARES MD 175 [facility], [address] [place] [address], [address], [facility] 08/22/2023 16:15:44 12/30/19 23 Date of Last Mammogram completed Sonya Painter [facility] 05/29/2023 08:54:45 11/13/19 23 [id number] completed Ltizy Guzman [facility] 11/13/2022 09:30:44 11/13/19 23 [id number] completed Litzy Guzman CT - [facility] 11/13/2022 09:30:44 11/13/19 23 Date of Last Pap Smear completed Sonya Painter CT - [facility] 05/29/2023 08:54:03 10/01/19 20 Date of Last Colonoscopy completed Eula White CT - [facility] 10/31/2021 09:00:51 09/12/20 16 [id number] completed MEGAN SULLIVAN MD [address], [place], [address], [facility] 09/12/2016 21:29:53 09/12/20 16 [id number] completed MEGAN SULLIVAN MD [address], [place], [address], [facility] 09/12/2016 21:30:04 09/12/20 16 [id number] completed MEGAN SULLIVAN MD [address], [place], [address], [facility] - [facility] 09/12/2016 21:30:13 09/12/20 16 [id number] completed MEGAN SULLIVAN MD [address], [place], [address], [facility] - [facility] 09/12/2016 21:30:01 09/12/20 16 [id number] completed MEGAN SULLIVAN MD [address], [place], [address], [facility] 09/12/2016 21:29:50 09/12/20 16 [id number] completed MEGAN SULLIVAN MD [address] [place], [address], [facility] 09/12/2016 21:30:25 Tonsillectomy completed Michelle Sultana CT [facility] 08/29/2016 15:33:34 Ankle arthroscopy/surge ry [facility] 10/31/2021 08:53:50 Laparoscopy completed BINA SOLARES MD 175 [facility], [address] [place] [address], [address], [place] - [facility] 06/08/2023 08:49:59 Breast Biopsy completed [facility] - [facility] 10/31/2021 08:53:50 Imaging Results Imaging Date Name Status LastModified by Organization Details LastModified Time 06/18/2023 US, transvaginal completed [email or web address] [facility] 2 [facility] [address], [place], [address], 06/27/2023 09:02:11 06/18/2023 US, transvaginal completed ililes [facility] 2 [facility], [place], [address], 06/19/2023 13:03:16 01/28/2024 MAMMO, screening, digital, bilateral completed [email or web address] [facility] [address] [place] [address], [address], 01/29/2024 08:28:45 Procedure Notes None recorded. Medical Equipment None Reported. Allergies Allergen ID Allergen Name Allergen Category Reaction Reaction Severity Criticality Documentation Date Start Date Code Code System Note Provider Name and Address Organization Details Recorded Time [id number] metronida zole medicatio n Not available Not available Not available 08/22/2023 6922 RxNorm hives , dry heavi ng BINA SOLARES MD 175 [facility], [address] [facility], [place], [address], [facility] - [facility] 16:24:45 445134 Product containin g penicilli n (product) medicatio n hives itching Not available Not available Not available 08/29/2016 56141 8001 SNOMED had kefle x w/o issue s BINA SOLARES MD 175 [facility], [address] [facility], [place], [address], [facility] 3 16:13:37 597740 Substance with sulfonami de structure and antibacte rial mechanism of action (substanc e) medicatio n fever hives Not available Not available Not available 08/29/2016 90989 8003 SNOMED Michelle Sultana null, [facility] 6 15:18:44 666218 codeine medicatio n vomiting Not available Not available 08/29/2016 2670 RxNorm Michelle Sultana null, [facility] 6 15:18:54 492437 oxycodone medicatio n vomiting Not available Not available 08/29/2016 7804 RxNorm Michelle Sultana null, [facility] 6 15:19:04 Medications Name Sig Start Date Stop Date Status Note LastModified by Organization Details LastModified Time amoxicilli n 500 mg capsule 09/18 completed Not Available Not Available Not Available metformin 500 mg tablet TAKE 1 TABLET BY MOUTH EVERY DAY WITH A MEAL 11/12 completed Not Available Not Available Not Available Colace 100 mg capsule Take 1 capsule twice a day by oral route for 30 days. 01/24 completed Not Available Not Available Not Available oxybutynin chloride ER 10 mg tablet,ext ended release 24 hr 10/30 completed Not Available Not Available Not Available azithromyc in 250 mg tablet TAKE 2 TABLETS BY MOUTH TODAY, THEN TAKE 1 TABLET DAILY FOR 4 DAYS 06/08 completed Not Available Not Available Not Available ibuprofen 800 mg tablet 09/18 completed Not Available Not Available Not Available senna 8.6 mg tablet TAKE 1 TABLET BY MOUTH TWICE A DAY NEEDED CONSTIPAT ION 06/08 completed Not Available Not Available Not Available sucralfate 1 gram tablet TAKE 1 TABLET BY MOUTH 4 TIMES A DAY BEFORE MEALS AND BED FOR 1 MONTH 06/08 completed Not Available Not Available Not Available ciprofloxa chichi 250 mg tablet 09/20 completed Not Available Not Available Not Available levofloxac in 250 mg tablet TAKE 1 TABLET BY MOUTH EVERY DAY FOR 3 DAYS 11/12 completed Not Available Not Available Not Available tramadol 50 mg tablet Take 1 tablet every 6 hours by oral route. 01/24 completed Not Available Not Available Not Available triamcinol one acetonide 0.1 % topical cream APPLY TWICE A DAY TO HANDS 01/24 completed Not Available Not Available Not Available meloxicam 7.5 mg tablet 06/08 completed Not Available Not Available Not Available lorazepam 0.5 mg tablet 09/18 completed Not Available Not Available Not Available dexamethas one 1 mg tablet 09/12 completed Not Available Not Available Not Available benzonatat e 100 mg capsule 09/18 completed Not Available Not Available Not Available pantoprazo le 40 mg tablet,del ayed release TAKE 1 TABLET BY MOUTH EVERY DAY 01/24 completed not using Not Available Not Available Not Available esomeprazo le magnesium 40 mg capsule,de layed release TAKE 1 CAPSULE BY MOUTH EVERY MORNING (BEFORE BREAKFAST ) FOR 90 DAYS. 08/22 completed Not Available Not Available Not Available fluorometh olone 0.1 % eye drops,susp ension INSTILL 1 DROP IN EACH EYE THREE TIMES A DAY 11/12 completed Not Available Not Available Not Available oxybutynin chloride ER 5 mg tablet,ext ended release 24 hr 09/20 completed Not Available Not Available Not Available pyridoxine (vitamin B6) 50 mg tablet TAKE 2 TABLETS BY MOUTH EVERY DAY 01/24 completed Not Available Not Available Not Available sertraline 25 mg tablet 09/18 completed Not Available Not Available Not Available codeine 10 mg-guaifen esin 100 mg/5 mL oral liquid TAKE 2 TEASPOONS FUL BY MOUTH EVERY 4 TO 6 HOURS NEEDED FOR COUGH FOR 10 DAYS 06/08 completed Not Available Not Available Not Available pravastati n 20 mg tablet TAKE 1 TABLET BY MOUTH AT BEDTIME 08/22 completed Not Available Not Available Not Available epinephrin e 0.3 mg/0.3 mL injection, auto-injec tor PLEASE SEE ATTACHED FOR DETAILED DIRECTION S 11/12 completed Not Available Not Available Not Available ondansetro n 4 mg disintegra ting tablet TAKE 1 TABLET BY MOUTH EVERY 6 HOURS NEEDED FOR NAUSEA 06/08 completed Not Available Not Available Not Available acetaminop hen 500 mg/15 mL oral liquid 1000 MG/30 ML BY MOUTH EVERY 6 HOURS NEEDED FOR PAIN -- DO NOT EXCEED 120 ML IN A 24 HR PERIOD 06/08 completed Not Available Not Available Not Available metformin ER 500 mg tablet,ext ended release 24 hr TAKE 1 TABLET BY MOUTH TWICE A DAY WITH A MEAL 06/08 completed Not Available Not Available Not Available cyclobenza juan 5 mg tablet 06/08 completed Not Available Not Available Not Available rosuvastat in 20 mg tablet TAKE 1 TABLET BY MOUTH EVERY DAY 01/24 completed QPM Not Available Not Available Not Available nitrofuran toin monohydrat e/macrocry stals 100 mg capsule 09/20 completed Not Available Not Available Not Available melatonin 06/08 completed Not Available Not Available Not Available cholecalci ferol (vitamin D3) 50 mcg (2,000 unit) capsule TAKE 1 CAPSULE BY MOUTH EVERY DAY 01/24 completed Not Available Not Available Not Available Probiotic Theralac 06/08 completed Not Available Not Available Not Available Prepopik 10 mg-3.5 gram-12 gram oral powder packet 09/12 completed Not Available Not Available Not Available Vitals Date Recorded Body height Body mass index (BMI) Body weight Systolic blood pressure Diastolic blood pressure Provider Name and Address Organization Details Last Updated DateTime 08/22/2023 161.29 cm 29.5 kg/m2 33714.11 g 124 mm[Hg] 80 mm[Hg] Jag Goss [facility] 3 15:50:50 Date Recorded Body height Body mass index (BMI) Body weight Systolic blood pressure Diastolic blood pressure Provider Name and Address Organization Details Last Updated DateTime 09/18/2023 161.29 cm 29.1 kg/m2 20340.93 g 130 mm[Hg] 82 mm[Hg] Jag Goss [facility] 3 08:31:43 Date Recorded Body height Systolic blood pressure Diastolic blood pressure Provider Name and Address Organization Details Last Updated DateTime 10/19/2023 161.29 cm 120 mm[Hg] 82 mm[Hg] Sonya Painter [facility] 10/19/2023 14:14:54 Date Recorded Body height Body mass index (BMI) Body weight Systolic blood pressure Diastolic blood pressure Provider Name and Address Organization Details Last Updated DateTime 01/25/2024 161.29 cm 27.9 kg/m2 41786.78 g 100 mm[Hg] 72 mm[Hg] Krys Hand [facility] 13:57:53 Social History Question Answer Notes LastModified by Organizat ion Details LastModified Time Tobacco Smoking Status Never Smoker Michelle Chuaisaias ruby, [facility] 08/29/2016 15:32:56 What Is Your Level Of Alcohol Consumption? Occasional Information not available 08/29/2016 Education Post Graduate Information not available 11/13/2022 What Is The Highest Grade Or Level Of School You Have Completed Or The Highest Degree You Have Received? [id number] Information not available 10/31/2021 What Is Your Occupation? [id number] Information not available 06/08/2023 Do You Have Any Children? No Information not available 08/29/2016 Does Your Partner Physically Hurt You Or Threaten To Hurt You? No Information not available 09/18/2017 Has Your Partner Forced You To Have Sex Or Perform Sex Acts When You Did Not Want To? No Information not available 09/18/2017 Does Your Partner Insult, Scream At Or Talk Down To You? No Information not available 09/18/2017 Does Your Partner Control You Or Any Part Of Your Life? No Information not available 09/18/2017 Are You Afraid Of Your Partner? No Information not available 09/18/2017 Drug Use? No Information no t available 08/29/2016 Do You Feel Safe At Home? Yes Information not available 09/12/2016 What Was The Date Of Your Most Recent Tobacco Screening? 09/20/2018 Information not available 11/13/2022 How Many Children Do You Have? 0 Information not available 08/29/2016 Are There Any Occupational Health Risks Where You Work? Working FT Information not available 11/13/2022 How Much Tobacco Do You Smoke? No Information not available 11/13/2022 General Stress Level High Information not available 11/13/2022 Have You Recently Traveled Abroad? No Information not available 11/13/2022 Have You Recently (within The Last 12 Weeks, Or During A Current ) Traveled To Or Lived In A Zika-affected Area? No Information not available 11/13/2022 Sex: Female Functional Status Question Answer Note LastModified by Organization D etails LastModified Time What is your exercise level? Moderate Information not available 09/12/2016 Mental Status None recorded. Family History Relationship Description Onset Age of this Age Resolved Age Notes LastModified by Organization Details LastModified Time Paternal Aunt Malignant tumor of breast Not available 2015 15:30:23 Unspecified Relation Diabetes mellitus Matern al side Not available 08/29/2016 15:30:35 Maternal Uncle Coronary arterioscler osis Not available 2015 15:30:43 Maternal Uncle Myocardial infarction DWD [email or web address] Not available 10/31 08:53:50 Mother Hypercholest erolemia [email or web address] Not available 2021 08:53:50 Mother Osteoporosis Not avail able 10/31/2021 08:53:50 Mother Dementia develo ping Not available 10/31/2021 08:53:50 Mother Heart disease [email or web address] Not available 2016 14:11:29 Mother Malignant melanoma [email or web address]-13 Not available 2016 14:11:29 Father Hypertensive disorder Not available 2015 15:31:18 Father Carcinoma of prostate [email or web address] Not available 2021 08:53:50 Father Substance abuse [email or web address] Not available 2021 08:53:50 Father Toxic effect of ethyl alcohol [email or web address] Not available 2021 08:53:50 Father Toxic cirrhosis 78 [email or web address] Not available 2021 08:53:50 Sister Lupus erythematosu s [email or web address] Not available 2021 08:53:50 Medical History Condition Response Other Y Kidney Stones Y *No Diseases or Conditions N Breast Cancer N Blood clots N Benign breast disease N Colon cancer N Depression N Lung Disease N Defects or Inherited Disease N Anesthesia Complications N Neurological Disorder N Headaches/Migraines N Have you ever been on isolation N Anxiety Disorder N Arthritis N HSV N Infertility N Interstitial Cystitis N Acid Reflux (GERD) Y Cancer N Stroke N Endometriosis N Fibromyalgia N Spina Bifida N HIV N Heart Problems N Sexual Dysfunction N Hypogonadism N Autoimmune disorder N Thyroid Problems N Kidney or Bladder Problems N GI Problems N Eating Disorder N Anemia N Multiple Sclerosis N Psychiatric Illness N Ovarian Cancer N Diabetes N Blood Transfusions N Bladder disease N None reported by patient N History of MRSA N Abnormal Uterine Bleeding N Hyperlipidemia N BrCa positive N Diverticulitis N Abuse/Domestic Violence N Asthma N Bladder Cancer N Hepatitis N Hypertension N Osteoporosis Y Thrombophilias N Gynecological History Statement/Question Response Date of Last Mammogram 12/29/2022 Infertility N Breast Biopsy Yes HPV Vaccine N Endometriosis N Current Control Method None Fibroids N Cervical Cancer N If Post Menopausal, Age at Menopause 41 Uterine Cancer N Ovarian Cancer N Date of Last Colonoscopy 10/01/2019 Date of last DEXA 12/29/2022 Breast Cancer N Sexually Active? N Sexual Problems? N Date of Last Pap Smear 11/13/2022 Obstetrics History GPAL:G 0 P 0 0 0 0 Type Value Living 0 Total 0 Immunizations Vaccine Type Date Status Note Provider Nam e and Address Organization Details Recorded Time COVID-19, mRNA, LNP-S, PF, 30 mcg/0.3 mL dose 1 completed Sonya Painter null, [facility] 10/19/2023 14:10:26 COVID-19, mRNA, LNP-S, PF, 30 mcg/0.3 mL dose 1 completed Sonya Painter null, [facility] 10/19/2023 14:10:26 SARS-COV-2 (COVID-19) vaccine, UNSPECIFIED 1 completed Sonya Painter null, [facility] 10/19/2023 14:10:26 SARS-COV-2 (COVID-19) vaccine, UNSPECIFIED 1 completed Sonya Painter null, [facility] 10/19/2023 14:10:26 influenza, unspecified formulation 5 completed Sonya Painter null, [facility] 10/19/2023 14:10:26 Influenza, split virus, quadrivalent, preservative 8 completed Sonya Painter [facility], [place] - [facility] 10/19/2023 14:10:25 Past Encounters Encounter ID Performer Location Encounter Start Date Encounter Closed Date Diagnosis/Indication Diagnosis SNOMED-CT Code Diagnosis ICD10 Code Diagnosis Note [id number] MEGAN SULLIVAN MD [facility] [address] [place] [address] 09/12/2016 16:02:21 09/13/2016 11:03:00 Gynecologic examination 57447150 Z01.419 Screening for malignant neoplasm of cervix 033782164 Z12.4 Screening mammography 24 454094 Z12.31 Diet education 99882347 Z71.3 Screening for malignant neoplasm of colon 770313894 Z12.11 History of suspected exposure to biological agent 7280110993 9106 Z77.29 NAILA Microscopic hematuria 19 0897830 R31.21 Obesity 246762199 E66.9 BMI 35.6 Osteopenia 248728345 M85 .80 [id number] MEGAN SULLIVAN MD [facility] [address] [place] [address] 09/18/2017 14:03:13 09/18/2017 16:58:59 Gynecologic examination 33888903 Z01.419 Screening for malignant neoplasm of cervix 428458763 Z12.4 Screening mammography 24 232260 Z12.31 Diet education 85299028 Z71.3 Microscopic hematuria 19 6188429 R31.21 Obesity 095999906 E66.9 BMI 35.6 History of suspected exposure to biological agent 7325816577 9106 Z77.29 NAILA Osteopenia 017333510 M85 .80 Spine and FN Family his tory of breast cancer 613003885 Z80.3 [id number] MEGAN SULLIVAN MD [facility] [address] [place] [address] 09/20/2018 09:01:13 09/30/2018 12:48:46 Gynecologic examination 75967328 Z01.419 Screening for malignant neoplasm of cervix 142599997 Z12.4 Screening mammography 24 268080 Z12.31 Screening for osteoporosis 255773692 Z13.820 Diet education 38795393 Z71.3 Family his tory of breast cancer 998145033 Z80.3 Osteopenia 821198634 M85 .80 Spine and FN History of suspected exposure to biological agent 0924022847 9106 Z77.29 NAILA Obesity 391236680 E66.9 BMI 35.7 [id number] BINA SOLARES MD [facility] [address] [place] [address] 10/31/2021 08:45:30 11/01/2021 09:38:57 Gynecologic examination 46234971 Z01.419 Osteopenia 218841747 M85 .80 Depression screening 171 028550 Z13.31 Obese 325719933 E66.9 Screening mammography 24 065863 Z12.31 Screening for malignant neoplasm of cervix 072196791 Z12.4 Family his tory of breast cancer 2 gene mutation 126372749 Z84.81 Vaginal dryness 03776781 N89.8 Family his tory of breast cancer 228041882 Z80.3 History of suspected exposure to biological agent 6757935183 9106 Z77.29 Microscopic hematuria 19 6458285 R31.29 [id number] BINA SOLARES MD [facility] [address] [place] [address] 11/13/2022 09:26:17 11/15/2022 09:58:48 Gynecologic examination 70518820 Z01.419 Family his tory of breast cancer 2 gene mutation 176158834 Z84.81 Osteopenia 588012804 M85 .80 Depression screening 171 230331 Z13.31 Obese 530540361 E66.9 Screening mammography 24 152827 Z12.31 Vaginal dryness 39339836 N89.8 Family his tory of breast cancer 577068255 Z80.3 Screening for malignant neoplasm of cervix 547344025 Z12.4 History of suspected exposure to biological agent 2994460525 9106 Z77.29 Postmenopausal state 764 84590 Z78.0 Exposure t o potentially harmful entity 056342397 Z77.9 NAILA daughter [id number] BINA SOLARES MD [facility] [address] [place] [address] 06/08/2023 08:18:37 06/10/2023 10:31:08 Cyst of left ovary 8078729922 3983320 N83.202 History of suspected exposure to biological agent 0454346294 9106 Z77.29 Family his tory of breast cancer 049360947 Z80.3 [id number] BINA SOLARES MD [facility] [address] [place] [address] 06/19/2023 09:33:26 06/25/2023 14:17:29 Cyst of left ovary 3581731740 8317083 N83.202 History of suspected exposure to biological agent 9605459811 9106 Z77.29 Family his tory of breast cancer 234822618 Z80.3 Postmenopa usal bleeding 65430812 N95.0 [id number] BINA SOLARES MD [facility] [address] [place] [address] 08/22/2023 15:42:40 08/27/2023 15:17:17 Pre-surgery evaluation 423067901 Z01.818 Postoperative pain 92547 9007 G89.18 Cyst of left ovary 72657 72177 5279035 N83.202 History of suspected exposure to biological agent 9926463703 9106 Z77.29 Family his tory of breast cancer 960477051 Z80.3 Postmenopa usal bleeding 56351954 N95.0 [id number] BINA SOLARES MD [facility] [address] [place] [address] 09/18/2023 08:18:11 09/20/2023 11:27:12 Postoperative visit 170853717 Z09 History of total hysterectomy 548846615 Z90.710 Cyst of left ovary 28300 77640 5260587 N83.202 [id number] BINA SOLARES MD [facility] [address] [place] [address] 10/19/2023 14:05:51 10/22/2023 16:45:39 Postoperative visit 135886608 Z09 History of total hysterectomy 620670457 Z90.710 Cyst of left ovary 89479 59402 7035953 N83.202 [id number] BINA SOLARES MD [facility] [address] [place] [address] 01/25/2024 13:45:42 01/31/2024 11:29:46 Gynecologic examination 94946230 Z01.411 Z01.419 Depression screening 171 514731 Z13.31 Family his tory of breast cancer 2 gene mutation 994836193 Z84.81 Osteopenia 005815182 M85 .80 Obese 405954620 E66.9 Screening mammography 24 334075 Z12.31 Vaginal dryness 79979308 N89.8 Family his tory of breast cancer 178617972 Z80.3 Screening for malignant neoplasm of cervix 117990432 Z12.4 History of suspected exposure to biological agent 6325591655 9106 Z77.29 Postmenopausal state 764 [address]3906 Z78.0 Exposure t o potentially harmful entity 853133300 Z77.9 NAILA daughter History of total hysterectomy 887490384 Z90.710 Health Concerns Section Related Observation LastModified by Organization Detai ls LastModified Time None Recorded Concern Status LastModified by Organization Details LastModified Time None Recorded Advance Directives Directive None Recorded Payers Encounter Date Sequence Insurance Name Policy Number Policy Leggett Covered Member ID Leggett Member ID Guarantor Name 06/19/2023 1 [employer] [place] [id number] Carole A Rynne [id number] 223 Carole Rynne 08/22/2023 1 [employer] [place] [id number] Carole A Rynne [id number] 223 Carole Rynne 09/18/2023 1 [employer] [place] [id number] Carole A Rynne [id number] 223 Carole Rynne 10/19/2023 1 [employer] [place] [id number] Carole A Rynne [id number] 223 Carole Rynne 01/25/2024 1 [employer] [place] [id number] Carole A Rynne [id number] 223 Carole Rynne Notes Date Note Type Note Provider Name and Address Organization Details Recorded Time 06/19/2023 text/html Telehealth Visit Pt presents to review US from yesterday. Pt again reports no pelvic pain or pressure. Pt reports that on Sunday, noticed pink tinged spotting on underwear that has stopped. No cramping. Has similar discharge with kidney stones bu tno symptoms of stones. W/u:US: 06/2023 uterus 6x1.8x3cm, homogeneous, EMS 3mm, ROV wnl. GERARDO 6.5X4.5X4.9cm simple (prior was 5.9cm in December and 5/1 cm in Oct)CA-125: 11/2022 - 7 BINA SOLARES MD [address] [place] [address], [address] Floor, [place], [address], [place] [facility] 06/20/2023 04:47:11 08/22/2023 text/html Pt presents for preop exam. Pt planned for TLH, BSO, cysto on 09/03. Since last visit, no changes. Continues to not have pain. No further bleeding since last visit in Jun. Would like to continue to proceed. Issues with anesthesia: may choke with anesthesia, but needs to be intubatedClimb a flight of stairs: yesSleep apnea: no W/u:US: 06/2023 uterus 6x1.8x3cm, homogeneous, EMS 3mm, ROV wnl. GERARDO 6.5X4.5X4.9cm simple (prior was 5.9cm in December and 5/1 cm in Oct)CA-125: 11/2022 - hscopy D&C - benign endometrial/endocerv ical polyp after EMBx showed polyp on w/u for pap with endometrial cellsOvarian cyst with nml ca 125 per mmxamg18/2023 neg/ HPV neg, + endometrial cells Consult 06/08 Pt with known h/o left ovarian cyst presents to discuss management. US as below. Since last visit US, pt met with [employer]CRAFT DELIV[employer] CHECKER in [place]. Per pt had several EMBx for pap with endometrioal cells and ? of polyp. Pt reports going under sedation for removal of endometrial tissue. Pt had rpt US in 12/2022 showing the cyst had grown. She reports having BW with her [employer] DELIV[employer] showing 13% risk which was acceptable. Pt didn't get the tumor markers I had asked her to get previously. Pt wanted to have surgery but needed hiatal hernia repair and AIRCRA[employer] DELIVERY CHECKER would not do ovary at that time. Pt underwent robotic hiatal hernia repair in January 2023 and has recovered. Pt tried to f/u with [employer]CRA[employer] DELIVERY CHECKER who wants to repeat the US in Aug. and consider surgery next year. Pt very concerned about growing ovarian cyst and requesting removal. No pain. No vaginal bleeding. Pt has h/o NAILA exposure as a child. Pt FHx signifiant for breast cancer but had negative genetic testing. Since surgery, has lost 35#, would like to get down to 140#. US:12/2022 US: AV UTERUS 5.3x1.8x2.9cm, ems 4mm, ovaries not seen, left adnexal anechoic cyst 5.9cm (prior 5.1cm)10/2022 US: L ovary with 5.1cm cyst BINA SOLARES MD [address] [place] [address], [phone], [place] - [facility] 08/27/2023 09:30:26 09/18/2023 text/html Pt presents 2wks s/p TLH, BS0, cysto. Doing ok. Pain well controlled, abbey PO, ambulating, voiding well. Having regular BM. Denies N/V, fevers, chills. No bleeding. Bowels back to normal. Going back to work on 09/25. Pathology:benign GERARDO cyst (rete), benign uterus and ROV and tube, neg washings BINA SOLARES MD [address] [place] [address], [phone], [place] - [facility] 09/18/2023 08:53:13 10/19/2023 text/html Pt presents 6wks s/p TLH, BS0, cysto. Doing ok. Pain well controlled, abbey PO, ambulating, voiding well. Having regular BM. Denies N/V, fevers, chills. No bleeding. Bowels back to normal. Back at work. Pathology:benign GERARDO cyst (rete), benign uterus and ROV and tube, neg washings BINA SOLARES MD [address] [place] [address], [address] [place] [address], [phone], [facility] 10/19/2023 15:17:20 01/25/2024 text/html Presents for leigh ann ual exam. Denies PMB. Denies additional [employer] DELIV[employer]ER, , or breast complaints.. Changes in PMH, PSH, Fhx:No incontinence. S/p TLH, BSO, cysto 08/2023. May have light bleeding on pantiliner Sexually active noMenopausal symptoms: noHistory of HRT use: noIncontinence: noHistory of abnormal paps: neg Nutrition/vitamins: yesLives with alone. Denies physical or sexual assault. 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
--- OUTSIDE RECORDS SUMMARY | 2024-11-25 19:31 | XMS_ITS | Encounter Summary ---
Author Organization [facility] and [facility] Address [address] [place] [phone] Care Team Providers Care Senior Foreman Name Role Phone Mary Spencer Primary Care Provider Encounter Details Date Type Department Care Team (Late Contact Info) Description 12/10/2015 Scanned Document [facility] [id number] [place] [address] External, Provider Social History Tobacco Use Types [...] EDT Procedure visit [facility] at [address] [place] [address] 01/09/2025 3:45 PM EDT Appointment [facility] [place] [facility] [address] [place] [address] Maggie Obando MD 60 [facility] [address] [place] [address] documented as of this encounter Visit Diagnoses Not on filedocumented in this encounter Care Teams Senior Foreman Relationship Specialty Start Date End Date Mary Spencer PA PCP - General Internal Medicine 08/03/15 documented as of this encounter
--- OUTSIDE RECORDS SUMMARY | 2024-11-25 19:31 | XMS_ITS | Encounter Summary ---
Author Organization [facility] [employer] [facility] and [facility] Address [address] [place] [phone] Care Team Providers Care Supervisor Grain And Ye[employer] Plants Name Role Phone Mary Spencer Primary Care Provider Encounter Details Date Type Department Care Team (Late st Contact Info) Description 08/04/2016 Scanned Document [facility] [address] [facility] [address] [place] [address] Kelsey Hutchinson MD [address] [place] [phone] Social History Tobacco Use Types Packs/Day [...] EDT Procedure visit [facility] at [address] [place] [address] 01/09/2025 3:45 PM EDT Appointment [facility] M[facility]ography [address] [place] [phone] Maggie Obando MD 60 [facility] [address] [place] [address] documented as of this encounter Procedures Procedure Name Priority Date/Time Associated Diagnosis Comments LAB SCAN Routine 07/17/2016 documented in this encounter Results * Lab Scan (07/17/2016) Blood specimen (specimen) us Kelsey Hutchinson MD LAB BLOOD ORDERABLES Final Resul t Performing Organization Address City/State/[facility] Co de Phone Number [facility] [place], [place], [place] documented in this encounter Visit Diagnoses Not on filedocumented in this encounter Care Teams Supervisor Grain And Ye[employer] Plants Relationship Specialty Start Date End Date Mary Spencer PA PCP - General Internal Medicine 08/03/15 documented as of this encounter
--- OUTSIDE RECORDS SUMMARY | 2024-11-25 19:31 | XMS_ITS | Clinical Summary ---
Author Organization [employer] Address [address] [place] [address] Care Team Providers Care Radiology Scheduler Name Role Phone Demetra Pantoja MD Primary Care Provider [phone] Allergies Active Allergy Reactions Criticality Noted Date [...] Anatomical Region Laterality Modality Endoscopy 04/19/2012 Result [facility] MD GI PROCEDURE OR DERABLES Final Result from Last 3 Months or Most Recently Relevant to Health Maintenance Insurance [facility] Care Teams Radiology Scheduler Relationship Specialty Start Date End Date Demetra Pantoja MD [address] [place] [id number] PCP - General 10/06/19
--- OUTSIDE RECORDS SUMMARY | 2024-11-25 19:31 | XMS_ITS | Encounter Summary ---
Author Organization [facility] and [facility] Address [address] [place] [phone] Care Team Providers Care Oracle Hrms Developer Name Role Phone Mary Spencer Primary Care Provider Encounter Details Date Type Department Care Team (Late Contact Info) Description 09/11/2016 Scanned Document [facility] [phone] [place] [address] External, Provider Social History Tobacco Use Types [...] PM EDT Procedure visit [facility] at [address] [place] [address] 01/09/2025 3:45 PM EDT Appointment [facility] [place] [facility] [address] [place] [address] Maggie Obando MD 60 [facility] [address] [place] [address] documented as of this encounter Procedures Procedure Name Priority Date/Time Associated Diagnosis Comments ZZZCTX COLLAGEN C-TELOPEPTIDE (BH) Routine 07/19/2016 documented in this encounter Results * CTX collagen C-telopeptide (BH) (07/19/2016) Blood specimen (specimen) us Provider External LAB BLOOD ORDERABLES Final Res ult Performing Organization Address City/State/[facility] Co de Phone Number [facility] documented in this encounter Visit Diagnoses Not on filedocumented in this encounter Care Teams Oracle Hrms Developer Relationship Specialty Start Date End Date Mary Spencer PA PCP - General Internal Medicine 08/03/15 documented as of this encounter
--- OUTSIDE RECORDS SUMMARY | 2024-11-25 19:31 | XMS_ITS | Continuity of Care Document ---
Author Organization [facility] Address [address] [facility] [address] [place] [address] Phone [phone] Social History Type Date Description Comments Sex Unknown Medical Devices Description No Information Available Encounters Description No Information Available Assessments Description No Information Available Plan of Treatment No Information Available Functional Status Description No Information Available Mental Status Description No Information Available Referrals Description No Information Available
--- OUTSIDE RECORDS SUMMARY | 2024-11-25 19:31 | XMS_ITS | Clinical Summary ---
Author Organization [facility] Address [address] [place] [address] Care Team Providers Care Aquaculture And Fisheries Professor Name Role Phone Unavailable Primary Care Provider [...]
--- OUTSIDE RECORDS SUMMARY | 2024-11-25 19:31 | XMS_ITS | Encounter Summary ---
Author Organization [facility] [employer] [facility] and [facility] Address [address] [place] [phone] Care Team Providers Care Informatics Nurse Name Role Phone Mary Spencer Primary Care Provider Encounter Details Date Type Department Care Team (Late Contact Info) Description 05/11/2016 Scanned Document [facility] [phone] [place] [address] External, Provider Social History Tobacco Use Types [...] PM EDT Procedure visit [facility] at [address] [place] [address] 01/09/2025 3:[address] [facility] [place] [facility] [address] [place] [address] Maggie Obando MD 60 [facility] 201 [place] [address] documented as of this encounter Procedures Procedure Name Priority Date/Time Associated Diagnosis Comments STONERISK(R) DIAGNOSTIC PROF ILE (LMW Q) Routine 07/06/2013 documented in this encounter Results * Stonerisk(R) diagnostic profile (Q) (07/06/2013) Urine specimen (specimen) us Provider External URINE ORDERABLES Final Result Performing Organization Address City/State/[facility] Co de Phone Number [facility] documented in this encounter Visit Diagnoses Not on filedocumented in this encounter Care Teams Informatics Nurse Relationship Specialty Start Date End Date Mary Spencer PA PCP - General Internal Medicine 08/03/15 documented as of this encounter
--- OUTSIDE RECORDS SUMMARY | 2024-11-25 19:31 | XMS_ITS | Encounter Summary ---
Author Organization [facility] [employer] and [facility] Address [address] [place] [id number] Care Team Providers Care Director Of National Sales Name Role Phone Mary Spencer Primary Care Provider Encounter Details Date Type Department Care Team (Late Contact Info) Description 06/20/2016 Scanned Document [facility] [phone] [place] [address] External, Provider Social History Tobacco Use Types [...] EDT Procedure visit [facility] at [address] [place] [address] 01/09/2025 3:45 PM EDT Appointment [facility] [address] [place] [address] Maggie Obando MD 60 [facility] [address] [place] [address] documented as of this encounter Procedures Procedure Name Priority Date/Time Associated Diagnosis Comments LAB SCAN Routine 12/09/2015 BONE DENSITY RESULT SCAN Routine 09/28/2015 documented in this encounter Results * Lab Scan (12/09/2015) Blood specimen (specimen) us Provider External LAB BLOOD ORDERABLES Final Res ult Performing Organization Address [facility] Co de Phone Number [facility] * Bone Density Result Scan (09/28/2015) us Provider External IMG SCAN REPORTS Final Result Performing Organization Address [facility] de Phone Number [facility] documented in this encounter Visit Diagnoses Not on filedocumented in this encounter Care Teams Director Of National Sales Relationship Specialty Start Date End Date Mary Spencer PA PCP - General Internal Medicine 08/03/15 documented as of this encounter
--- OUTSIDE RECORDS SUMMARY | 2024-11-25 19:31 | XMS_ITS | Encounter Summary ---
Author Organization [facility] [employer] and [facility] Address [address] [place] [phone] Care Team Providers Care Wood Crew Supervisor Name Role Phone Mary Spencer Primary Care Provider Encounter Details Date Type Department Care Team (Late Contact Info) Description 09/01/2016 Scanned Document [facility] [id number] [place] [address] External, Provider Social History Tobacco Use Types [...] PM EDT Procedure visit [facility] at [address] [place] [address] 01/09/2025 3:45 PM EDT Appointment [facility] [address] [place] [address] Maggie Obando MD 60 [facility] [address] [place] [address] documented as of this encounter Procedures Procedure Name Priority Date/Time Associated Diagnosis Comments LAB SCAN Routine 01/21/2014 documented in this encounter Results * Lab Scan (01/21/2014) Blood specimen (specimen) us Provider External LAB BLOOD ORDERABLES Final Res ult Performing Organization Address [facility] Co de Phone Number [facility] documented in this encounter Visit Diagnoses Not on filedocumented in this encounter Care Teams Wood Crew Supervisor Relationship Specialty Start Date End Date Mary Spencer PA PCP - General Internal Medicine 08/03/15 documented as of this encounter
== END 2024-11-25 15:51 | disposition home or self-care (01) ==
LOC: HO.US 15:50
PROVIDERS: PCP Internal Medicine; Referring Provider Nurse Practitioner Family; Visit Provider Nurse Practitioner Family
DX: N83.209 Unspecified ovarian cyst, unspecified side (principal); R31.9 Hematuria, unspecified; N28.1 Cyst of kidney, acquired; Z87.442 Personal history of urinary calculi
CPT/HCPCS: 76770; 76830; 76856

== ENCOUNTER → 2024-11-25 15:52 | Outpatient (BNV) | payer OTHER, SELFPAY | PROVIDERS: PCP Internal Medicine; Referring Provider Nurse Practitioner Family; Visit Provider Radiology Diagnostic Radiology | DX: N83.209 Unspecified ovarian cyst, unspecified side (principal); R31.9 Hematuria, unspecified | CPT/HCPCS: 76770; 76830; 76856 ==

== ENCOUNTER 2024-12-10 13:32 | Outpatient (AMB) | payer OTHER, SELFPAY ==
[2024-12-10 13:42] VITALS: BP 118/70; PULSE 80; O2SAT 98; BMI 25.6
--- NOTE | 2024-12-10 13:42 | A.OFFPC_ITS ---
Vital Signs 12/10/24 13:42 Height 5 ft 4 in Weight 149 lb BMI 25.6 BP 118/70 Blood Pressure Location Lt brachial Position Sitting Pulse 80 Pulse Source Pulse Oximeter Pulse Oximetry (%) 98 Oxygen Delivery Method Room Air Intake Visit Reasons: annual exam Allergies codeine [CODEINE] Allergy (Intermediate, Verified 12/10/24 13:48) NAUSEA hazelnut [HAZELNUT] Allergy (Unknown, Verified 12/10/24 13:48) UNKNOWN Milk Containing Products (Dairy) [MILK CONTAINING PRODUCTS] Allergy (Unknown, Verified 12/10/24 13:48) UNKNOWN nitrofurantoin [From MACROBID] Allergy (Unknown, Verified 12/10/24 13:48) UNKNOWN Penicillins [PENICILLINS] Allergy (Unknown, Verified 12/10/24 13:48) UNKNOWN sesame seed [SESAME SEED] Allergy (Unknown, Verified 12/10/24 13:48) UNKNOWN Sulfa (Sulfonamide Antibiotics) Allergy (Unknown, Verified 12/10/24 13:48) Unknown sulfamethoxazole [From BACTRIM] Allergy (Unknown, Verified 12/10/24 13:48) UNKNOWN trimethoprim [From BACTRIM] Allergy (Unknown, Verified 12/10/24 13:48) UNKNOWN azithromycin [From Zithromax] Adverse Reaction (Intermediate, Verified 12/10/24 13:48) diarrhea epinephrine [EPINEPHRINE] Adverse Reaction (Intermediate, Verified 12/10/24 13: 48) HEART PALPITATIONS beesting Allergy (Unknown, Uncoded 12/10/24 13:48) Unknown Medication List - Last Reconciled 12/10/24 by Tirso Edwards MD cholecalciferol (vitamin D3) 25 mcg PO DAILY Tobacco use date assessed: 11/07/24 Dental Screening Dental Screen Date: 11/07/24 HPI annual exam HPI Details states had 2 episodes of dizziness.. PFSH Medical History Hx of hiatal hernia Ureteral stone Renal calculi Sore throat USMAN (obstructive sleep apnea) Cystitis Dysphagia Palpitations Restrictive airway disease Bronchitis BMI 36.0-36.9,adult Multiple allergies Headache Vitamin K deficiency Elevated C-reactive protein (CRP) Elevated sed rate Unexplained night sweats Pelvic cyst Adnexal cyst Microscopic hematuria Abnormal Pap smear of cervix Unexplained endometrial cells on cervical cytology Chronic fatigue GERD (gastroesophageal reflux disease) CAD (coronary artery disease) Microscopic hematuria Renal atrophy Recurrent UTI Left radial head fracture Obesity Surgical History Hx of hysterectomy S/P DONNA-BSO S/P repair of paraesophageal hernia History of esophagogastroduodenoscopy (EGD) History of lithotripsy History of skin graft History of cystoscopy History of ankle surgery History of ovarian cystectomy History of tonsillectomy History of surgery History of colonoscopy History of endoscopy Family History Father Liver failure ETOH abuse Diabetes Hypertension Anxiety Prostate cancer Mother Hypertension Afib CVD (cardiovascular disease) Emphysema lung Melanoma Paternal Aunt Breast cancer Social History Housing: Condominium Alcohol intake: current Alcohol intake frequency: holidays/special occasions only Comment: 2 glasses in a month Patient Tobacco Use Status: Never used Tobacco Tobacco use type: Cigarette Years Smoked: smoked in college. 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 1. Little interest or pleasure in doing things: not at all 2. Feeling down, depressed, or hopeless: not at all 3. Trouble falling or staying asleep, or sleeping too much: not at all 4. Feeling tired or having little energy: not at all 5. Poor appetite or overeating: not at all 6. Feeling bad about yourself - or that you are a failure or have let yourself or your family down: not at all 7. Trouble concentrating on things, such as reading the newspaper or watching television: not at all 8. Moving or speaking so slowly that other people could have noticed. Or the opposite - being so fidgety or restless that you have been moving around a lot more than usual: not at all 9. Thoughts that you would be better off or of hurting yourself in some way: not at all Total score: 0 Depression Screening Interpretation: Negative Depression Screening Done: Yes Source: Developed by Drs. Anjum Spivey, Rose Maher, Bright Nguyen and colleagues, with an educational rodri from [email or web address]. Thrive Questionnaire Date Thrive assessed: 12/10/24 I am a: Patient What is your living situation today?: I have a steady place to live Within the past 12 months, did the food you bought not last and you didn't have the money to get more?: Never true Within the past 12 months, did you worry whether your food would run out before you got money to buy more?: Never true Do you have trouble paying for medicines?: No Do you have trouble getting transportation to medical appointments?: No Do you have trouble paying your heating and electricity bill?: No Do you have trouble taking care of your child, family member or friend?: No Do you have trouble with day-to-day activities such as bathing, preparing meals, shopping, managing finances, etc.?: No Are you currently unemployed and looking for a job?: No Are you interested in more education?: No Please select the resources that you would like help with: None Currently or been in a relationship where the following occur: No concerns reported THRIVE Score: 0 AUDIT C Alcohol Use Questionnaire (AUDIT-C) 1. How often do you have a drink containing alcohol?: Monthly or less 2. How many drinks containing alcohol do you have on a typical day when you are drinking?: 1 or 2 3. How often do you have six or more drinks on one occasion?: Never Total Score: 1 JANETH-7 AMB Questionnaire JANETH-7 Date JANETH - 7 assessed: 12/10/24 Feeling nervous, anxious, or on edge: 1 = Several days Not being able to stop or control worryin = Not at all Worrying too much about different things: 0 = Not at all Trouble relaxin = Not at all Being so restless that it is hard to sit still: 0 = Not at all Becoming easily annoyed or irritable: 0 = Not at all Feeling afraid as if something awful might happen: 0 = Not at all Total JANETH-7 score (0-4 normal; 5-9 mild; 10-14 moderate; 15-21 severe): 1 Source: Developed by Rose PatelW. Gunnar, Bright Nguyen and colleagues, with an educational rodri from [email or web address]. Physical exam (Primary Care) Vital Signs: Last Vital Signs Pulse 80 12/10/24 13:42 BP 118/70 12/10/24 13:42 Pulse Ox 98 12/10/24 13:42 Oxygen Delivery Method Room Air 12/10/24 13:42 BMI result Body Mass Index 25.6 Tobacco/Smoking Status: Tobacco use Status Tobacco use date assessed 11/07/24 12/10/24 13:46 Patient Tobacco Use Status Never used Tobacco 12/10/24 13:46 Tobacco use type Cigarette 12/10/24 13:58 e-Cigarette/Vaping Use Never Used 12/10/24 13:46 PHQ-9: PHQ-9 Score PHQ-9: Total score 0 12/10/24 14:08 Depression Screening Interpretation: Negative Thrive Assessment: Date of Thrive Assessment Date Thrive assessed 12/10/24 12/10/24 13:58 Currently or been in a relationship where the following occur: No concerns reported Const General: alert; No acute distress Eyes Conjunctivae: conjunctivae normal Resp Auscultation: clear to auscultation bilaterally Cardio Rate: regular rate Rhythm: regular rhythm GI Inspection: Yes normal to inspection Extrem General: Yes normal to inspection and No edema Results AMB Hemoglobin A1c AMB Hemoglobin A1c 4.6 % Last Edit by DAKOTA cMgee on 12/10/24 14 :06 Results Reviewed Results Reviewed: Laboratory Last Values Hgb A1c (Clinic) 4.6 % (4.0-6.0) 12/10/24 13:42 Coding Level of Care Code Est Pt Level 4 (21509) Diagnoses Hematuria R31.9 Hypercholesterolemia E78.00 S/P repair of paraesophageal hernia Z98.890; Z87.19 CAD (coronary artery disease) I25.10 Osteopenia M85.80 Assessment & Plan Assessment & Plan (1) Hematuria: Code(s): R31.9 - Hematuria, unspecified Category: Medical Plan: Patient is having the CT urography in a couple of days. (2) Hypercholesterolemia: Code(s): E78.00 - Pure hypercholesterolemia, unspecified Category: Medical Plan: Avoid fried foods, chicken skin, eggs, butter margarine, pastries and meat. Be it pork or beef they have a lot of cholesterol on rosuvastatin 20 mg once a day (3) S/P repair of paraesophageal hernia: Comment: January 2023 Randall Fundoplication Code(s): Z98.890 - Other specified postprocedural states; Z87.19 - Personal history of other diseases of the digestive system Category: Surgical Plan: Stable. Avoid the foods that causes that usually spicy foods, tomato products, juices, coffee, soda and foods that your sensitive to. After eating do not lie down, allow 3-4 hours before in lie down. And keep the head of bed above 30 degrees to avoid the acid from going up. (4) CAD (coronary artery disease): Comment: Elevated coronary calcium score in the LAD of 17 suggestive underlying atherosclerosis. Nonobstructive as a stress test is normal Code(s): I25.10 - Atherosclerotic heart disease of [place] coronary artery without angina pectoris Category: Medical Plan: Control the cholesterol, weight, blood pressure, (5) Osteopenia: Code(s): M85.80 - Other specified disorders of bone density and structure, unspecified site Category: Medical Plan History of Present Illness The patient is a 59-year-old female presenting for follow-up care addressing current chronic health issues, including osteoarthritis, obstructive sleep apnea, coronary artery disease, GERD, and recently noted left lower quadrant abdominal pain. While being managed for these chronic issues, she reports a weight loss of 3 pounds. Her previous medical history includes a hysterectomy, paraesophageal hernia repair, and monitoring of chronic medical renal conditions characterized by mild renal fullness and cortical thinning. Imaging in November displayed non-visualization of the ovaries, and her renal region revealed mild fullness, pending further review through an upcoming CT urography. Acute symptoms like hematuria are currently being investigated, and geographical reflux issues are managed pharmacologically alongside cholesterol, with rosuvastatin for coronary complications. She engages actively in physical exercise but reports concerns over chronic stress affecting her health. Previous episodes of diverticulitis, triggered by diet, lend to her current dietary adjustments, particularly with fiber intake, demonstrating her proactive approach to health management. Health Maintenance - Mammogram scheduled for next month. - Bone density scan due. - Colonoscopy up to date as of August 2019. - Recent blood work in March 2024 showing normal uric acid and thyroid levels. - Ongoing cholesterol management with rosuvastatin 20 mg daily. - Patient received flu and pneumonia vaccines; shingles vaccine discussed but not administered. Social History - Alcohol consumption reported as minimal, with less than a drink per month to manage risk related to family history of alcoholism. - Reports previous smoking in college but no tobacco use for over 40 years. - Maintains an active lifestyle, engaging in running or treadmill exercises 2-3 times a week. - Dietary habits include avoidance of wheat due to sensitivity, preference for gluten-free meals, and careful management of fiber intake primarily due to a history of diverticulitis. - Stresses mindful lifestyle management to control levels of stress, largely stemming from work-related and personal commitments. Review of Systems - Gastrointestinal: Reports changes in bowel habits, including intermittent diarrhea and constipation. - Neurological: Denies recent episodes of dizziness or syncope. - Respiratory: Denies shortness of breath or new respiratory issues. - Musculoskeletal: Denies new joint pain or changes in osteoarthritis symptoms. - Cardiovascular: Denies chest pain or shortness of breath. Physical Exam - Eyes- No abnormalities detected. - Ears- Intact, no pain on palpation noted, clear. - Cardiovascular- Regular heart rate and rhythm. - Respiratory- Breathing unlabored; lungs clear to auscultation. - Abdomen- Tenderness noted in the left lower quadrant without organomegaly or masses. - Musculoskeletal- Normal range of motion and strength, symmetric reflexes. Results - Labs: High EBV antigen IgG detected in bloodwork. - Imaging: Previous ultrasound of the abdomen and pelvis indicating mild renal fullness; ovaries not visualized due to hysterectomy. - Scheduled CT urography for further evaluation of kidney condition and hematuria. Plan Chronic conditions including osteoarthritis, obstructive sleep apnea, and coronary artery disease will be managed with ongoing medication adherence and lifestyle modifications. Scheduled CT urography aims to address current concerns with renal health and hematuria. Dietary management to minimize diverticulitis symptoms is crucial,fiber strategies are suggested to optimize nutritional balance. Cholesterol is under effective management without rosuvastatin, and addressing stress through lifestyle alterations is encouraged with continued support in monitoring EBV activity. Patient was informed and verbally consented to the use of an ambient scribe for clinic note documentation during this visit. Discussion Notes During the visit, I discussed the importance of ongoing management for the chronic conditions, including osteoarthritis, obstructive sleep apnea, and coronary artery disease. I emphasized the need for the adherence to the cholesterol management plan and medication. I reviewed the findings related to the renal condition and hematuria, and scheduled a CT urography to gain further insights. We examined dietary habits, recommending cautious dietary fiber introduction and substitutions for foods that mitigate symptoms of diverticulitis. Stress management was a significant focus to improve overall well-being, and we reviewed current exercise regimes beneficial for her health. Consent was obtained to proceed with recommended tests, and we discussed follow- up plans, ensuring that necessary interventions continue seamlessly. Patient Instructions - - Maintain your exercise routine, aiming for 2-3 days a week of physical activity. - Monitor your diet for foods that may trigger diverticulitis, focusing on glut en-free options and avoiding certain salad dressings. - Attend scheduled CT urography appointment to assess renal health and the cause of hematuria. - Track stress levels and implement stress-reducing activities as needed. - Follow-up on any prescribed tests and convey any significant changes in symptoms immediately. - Consult promptly for any adverse symptoms or considerations related to your ongoing conditions. Orders: Orders AMB Hemoglobin A1c Today Z13.9 - Encounter for screening, unspecified Urine Cytology Today R31.9 - Hematuria, unspecified Cortisol Random Today K21.9 - Gastro-esophageal reflux disease without esophagitis UA CC w/rflx Micro + Cult Today K21.9 - Gastro-esophageal reflux disease without esophagitis, R30.0 - Dysuria Vitamin D 25-OH Total Today K21.9 - Gastro-esophageal reflux disease without esophagitis Complete Blood Count Auto Diff Today K21.9 - Gastro-esophageal reflux disease without esophagitis Lipid Panel Today E78.00 - Pure hypercholesterolemia, unspecified, K21.9 - Gastro-esophageal reflux disease without esophagitis Thyroid Stimulating Hormone Today K21.9 - Gastro-esophageal reflux disease without esophagitis AMB Urinalysis Automated Today R31.9 - Hematuria, unspecified, Z13.9 - Encounter for screening, unspecified XR DEXA axial skeleton Today M81.0 - Age-related osteoporosis without current pathological fracture, M85.80 - Other specified disorders of bone density and structure, unspecified site Free T4 (Free Thyroxine) Today K21.9 - Gastro-esophageal reflux disease without esophagitis
--- OUTSIDE RECORDS SUMMARY | 2024-12-10 15:58 | XMS_ITS | Clinical Summary ---
Author Organization [facility] Address [address] [place] [address] Care Team Providers Care Battery Mechanic Name Role Phone Unavailable Primary Care Provider [...]
--- OUTSIDE RECORDS SUMMARY | 2024-12-10 15:58 | XMS_ITS | Continuity of Care Document ---
Author Organization [facility] Address [address] [facility] [address] [place] [address] Phone [phone] Social History Type Date Description Comments Sex Unknown Medical Devices Description No Information Available Encounters Description No Information Available Assessments Description No Information Available Plan of Treatment No Information Available Functional Status Description No Information Available Mental Status Description No Information Available Referrals Description No Information Available
--- OUTSIDE RECORDS SUMMARY | 2024-12-10 15:58 | XMS_ITS | Clinical Summary ---
Author Organization [facility] Address [address] [place] [id number] Care Team Providers Care Sterile Process Coordinator Name Role Phone Demetra Pantoja MD Primary Care Provider [phone] Allergies Active Allergy Reactions Criticality Noted Date [...] Anatomical Region Laterality Modality Endoscopy 04/19/2012 Result [facility] MD GI PROCEDURE OR DERABLES Final Result from Last 3 Months or Most Recently Relevant to Health Maintenance Insurance [facility] Care Teams Sterile Process Coordinator Relationship Specialty Start Date End Date Demetra Pantoja MD [address] [place] [id number] PCP - General 10/06/19
== END 2024-12-10 14:52 | disposition home or self-care (01) ==
LOC: HO.HMCH 13:33
PROVIDERS: PCP Internal Medicine; Visit Provider Internal Medicine
DX: R31.9 Hematuria, unspecified (principal); E78.00 Pure hypercholesterolemia, unspecified; Z98.890 Other specified postprocedural states; Z87.19 Personal history of other diseases of the digestive system; I25.10 Atherosclerotic heart disease of native coronary artery without angina pectoris; M85.80 Other specified disorders of bone density and structure, unspecified site; Z13.9 Encounter for screening, unspecified

== ENCOUNTER → 2024-12-10 13:32 | Outpatient (BNVA) | payer OTHER, SELFPAY | PROVIDERS: PCP Internal Medicine; Visit Provider Internal Medicine | DX: R31.9 Hematuria, unspecified (principal); E78.00 Pure hypercholesterolemia, unspecified; I25.10 Atherosclerotic heart disease of native coronary artery without angina pectoris; M85.80 Other specified disorders of bone density and structure, unspecified site; Z87.19 Personal history of other diseases of the digestive system; Z98.890 Other specified postprocedural states; Z79.899 Other long term (current) drug therapy | CPT/HCPCS: 83036; 96127 ==

== ENCOUNTER 2024-12-11 09:10 | Outpatient (REF) | payer OTHER, SELFPAY ==
[2024-12-11 09:22] LABS: MANUAL DIFF FLAG NO
[2024-12-11 09:36] LABS: Urine Cytology See Pathology rpt
[2024-12-11 09:39] LABS: Basophils Percent Auto 0.7 % (0-2); Eosinophils Absolute Auto 0.1 X10*3/uL (0.0-0.4); Eosinophils Percent Auto 1.7 % (0-4); Hematocrit 42.1 % (37.0-47.0); Hemoglobin 13.8 g/dl (12.0-16.0); Imm Gran Abs Auto 0.01 X10*3/uL (0.00-0.03); Imm Gran Pct Auto 0.2 % (0.0-0.4); Lymphocytes Absolute Auto 1.4 X10*3/uL (1.2-4.9); Lymphocytes Percent Auto 23.5 % (20-40); Mean Corpuscular HGB Conc 32.8 g/dl (31.0-35.0); Mean Corpuscular Hemoglobin 29.9 pg (27.0-33.0); Mean Corpuscular Volume 91.3 fL (80.0-98.0); Mean Platelet Volume 9.9 fL (9.4-12.3); Monocytes Absolute Auto 0.3 X10*3/uL (0.1-1.2); Monocytes Percent Auto 5.6 % (2-11); Neutrophils Percent Auto 68.3 % (45-73); Platelet Count 246 X10*3/uL (160-400); Red Blood Count 4.61 X10*6/uL (4.20-5.50); Red Cell Distribution Width 11.9 % (11.0-16.0); White Blood Count 5.9 X10*3/uL (4.8-10.8)
[2024-12-11 09:46] LABS: Appearance Urine Clear; Color Urine Yellow; Glucose Urine UA Negative (Negative); Leukocyte Esterase Urine Negative (Negative); Nitrite Urine Negative (Negative); UMIC TRIGGER UACC YES; Urine Blood Moderate (2+) (Negative); Urine Ketones Negative (Negative); Urine Protein Negative (Neg-Trace)
[2024-12-11 09:51] LABS: Bacteria Urine None Seen (None Seen); Hyaline Casts Urine 0-2 /LPF (0-2); Squamous Epithelial Cell Urine 0-2 /HPF (0-2); WBC Urine 0-5 /HPF (0-5)
[2024-12-11 10:09] LABS: Alanine Aminotransferase 12 U/L (0-31); Albumin Level 4.3 g/dL (3.5-5.0); Alkaline Phosphatase 101 U/L (39-117); Anion Gap 11 (12-20); Aspartate Amino Transferase 16 U/L (5-31); Bilirubin Total 0.6 mg/dL (0.0-1.0); Blood Urea Nitrogen 19 mg/dL (9-16); Calcium 9.4 mg/dL (8.4-10.2); Carbon Dioxide 30 mmol/L (22-29); Chloride 106 mmol/L (96-108); Cholesterol 195 mg/dL (<200); Estimated Glomerular Filt Rate > 60; Glucose Random 102 mg/dL (60-115); HDL Cholesterol 75 mg/dL (>40); LDL Cholesterol Calculated 109 mg/dL (<100); Potassium 5.3 mmol/L (3.3-5.1); Sodium 142 mmol/L (135-145); Total Protein 7.4 g/dL (6.5-8.0); Triglycerides 57 mg/dL (<150)
--- OUTSIDE RECORDS SUMMARY | 2024-12-11 10:34 | XMS_ITS | Clinical Summary ---
Author Organization [facility] Address [address] [place] [address] Care Team Providers Care Fermentation Operator Name Role Phone Unavailable Primary Care Provider [...]
--- OUTSIDE RECORDS SUMMARY | 2024-12-11 10:34 | XMS_ITS | Continuity of Care Document ---
Author Organization [facility] Address [address] [facility] [address] [place] [address] Phone [phone] Social History Type Date Description Comments Sex Unknown Medical Devices Description No Information Available Encounters Description No Information Available Assessments Description No Information Available Plan of Treatment No Information Available Functional Status Description No Information Available Mental Status Description No Information Available Referrals Description No Information Available
--- OUTSIDE RECORDS SUMMARY | 2024-12-11 10:34 | XMS_ITS | Clinical Summary ---
Author Organization [facility] [employer] Address [address] [place] [id number] Care Team Providers Care Nurse Prn Name Role Phone Demetra Pantoja MD Primary Care Provider [phone] Allergies Active Allergy Reactions Criticality Noted Date [...] Anatomical Region Laterality Modality Endoscopy 04/19/2012 Result [facility] MD GI PROCEDURE OR DERABLES Final Result from Last 3 Months or Most Recently Relevant to Health Maintenance Insurance [facility] Care Teams Nurse Prn Relationship Specialty Start Date End Date Demetra Pantoja MD [address] [place] [id number] PCP - General 10/06/19
--- OUTSIDE RECORDS SUMMARY | 2024-12-11 10:34 | XMS_ITS | Data Portability ---
Author Organization [place] - [facility], [facility] Address [address] [place] [address] Assessment No assessment recorded. Plan of Treatment Reminders Order Date Submit Date Provider Last Modified By Organization Details Last Modified Time Details Appointments None recorded. Lab pap, IG + HPV 2023 024 [facility], [address] [place], [address] 4 20:45:04 Referral None recorded. Procedures None recorded. Surgeries None recorded. Imaging MAMMO, screening, digital, bilateral 2023 024 [email or web address] [facility], [address] [place] [address], [address], 4 11:29:47 bone density 2023 024 [email or web address] [facility], [address] [place], [address], 4 11:29:47 Medication Orders Colace 100 mg capsule 2022 024 [id number], [address], [place], [address], 4 13:56:52 tramadol 50 mg tablet 2022 023 [email or web address] [id number], [address], [place], [address], 4 13:56:44 Patient TargetsNo targets recorded. Patient Instructions Encounter Date Encounter Id Patient Instructions Last Modified By Organization Details Last Modified Time 06/19/2023 [id number] Telehealth visit - [employer] video [employer]. Pt with GERARDO cyst presents [...] would like to proceed. Pt going to reading end of Jul through mid Aug. D/w [...] none ililes Not available 06/20/2023 04:45:56 08/22/2023 [id number] Pt presents for preop exam for left ovarian cyst and history of NAILA. Pt had hscopy D&C ealier this year and possible PMB last month. Reviewed with pt that would recommend hysterectomy with bilateral BSO since cyst has been growing and pt with risks for cancer. Discussed laparoscopic procedure. Discussed frozen section during surgery and if positive possible staging with [employer] ONC to include possible lymph node biopsy/dissection, [...] minutes ililes Not available 08/27/2023 09:29:30 09/18/2023 [id number] Pt presents for 2wk postop visit after [...] visit ililes Not available 09/18/2023 08:53:01 10/19/2023 [id number] Pt presents for 2wk postop visit after TLH, BSO, CYSTO , recovering well. Pt given benign pathology report and images. - Can resume all activities except intercourse which can resume in 2 weeks - Advised to start slow with exercise RTO in 3 months for annual with vaginal pap ililes Not available 10/19/2023 15:17:17 01/25/2024 [id number] Pt presents for annual exam. No current [employer] concerns.. Pt is a NAILA daughter. S/p [...] clinical information: normal None given Not Available [facility] [address], [address], 01/28/2024 20:45:04 01/25/20 24 01/28/2024 THINP REP TIS PAP AND HPV MRNA E6/E7 WITH REFLE X TO HPV 16,18 /45 LMP: normal NONE GIVEN Not Available [facility] [address], [address], 01/28/2024 20:45:04 01/25/20 24 01/28/2024 THINP REP TIS PAP AND HPV MRNA E6/E7 WITH REFLE X TO HPV 16,18 /45 prev. Pap: normal NONE GIVEN Not Available [facility] [address], [address], 01/28/2024 20:45:04 01/25/20 24 01/28/2024 THINP REP TIS PAP AND HPV MRNA E6/E7 WITH REFLE X TO HPV 16,18 /45 prev. BX: normal NONE GIVEN Not Available [facility] [address], [address], 01/28/2024 20:45:04 01/25/20 24 01/28/2024 THINP REP TIS PAP AND HPV MRNA E6/E7 WITH REFLE X TO HPV 16,18 /45 source: normal Vagin a Not Available [facility] [address], [place], [address], 01/28/2024 20:45:04 01/25/20 24 01/28/2024 THINP REP TIS PAP AND HPV MRNA E6/E7 WITH REFLE X TO HPV 16,18 /45 statement of adequacy: normal SATIS FACTO RY FOR EVALU ATION Not Available [facility] [address], [place], [address], 01/28/2024 20:45:04 01/25/20 24 01/28/2024 THINP REP TIS PAP AND HPV MRNA E6/E7 WITH REFLE X TO HPV 16,18 /45 interpretati on/result: normal Cytol ogy Resul ts: Negat jennifer for intra epith elial lesio n or jennifer haley . Not Available [facility] [address], [place], [address], 01/28/2024 20:45:04 01/25/20 24 01/28/2024 THINP REP TIS PAP AND HPV MRNA E6/E7 WITH REFLE X TO HPV 16,18 /45 comment: normal This Pap test has been evalu ated with compu ter david barrington techn ology . Not Available [facility] [address] [place] [address], [address], 01/28/2024 20:45:04 01/25/20 24 01/28/2024 THINP REP TIS PAP AND HPV MRNA E6/E7 WITH REFLE X TO HPV 16,18 /45 cytotechnolo gist: normal GSG, CT( CP) CT scree cristy locat ion: [facility] [address], [place] [address] Not Available [facility] [address], [address], 01/28/2024 20:45:04 01/25/20 24 01/28/2024 THINP REP [...] clini raphael infor thomas n. Not Available [facility] [address], [place], [address], 01/28/2024 20:45:04 01/25/20 24 01/28/2024 THINP REP [...] felder purpo ses only. ) Not Available [facility] [address] Alex B, [place], [address], 01/28/2024 20:45:04 06/18/20 23 06/18/2023 US, trans vagin al No observ ation record ed. [email or web address] [facility] [address] [address], [place], [address], 06/27/2023 09:02:11 06/18/20 23 06/18/2023 US, trans vagin al No observ ation record ed. ililes [facility] [address], [address], 06/19/2023 13:03:16 01/28/20 24 01/28/2024 MAMMO , scree cristy, digit al, bilat eral No observ ation record ed. [email or web address] [facility] [address] [place] [address], [address], 01/29/2024 08:28:45 Result Notes None recorded. Problems Name Problem SNOMED Code Status Onset Date Resolution Date Notes Provider Name and Address Organization Details Recorded Time History of suspected exposure to biologica l agent 850344712619 06 Active 2015 NAILA exposure MEGAN SULLIVAN MD [facility], [address] [place] [address], [address], [place] - [facility] 6 19:09:19 Obesity 719752421 Active 2015 bmi 36.7 MEGAN SULLIVAN MD [facility], [address] [place] [address], [address], [place] - [facility] 8 09:21:31 Microscop ic hematuria 980728950 Active 2015 MEGAN SULLIVAN MD [address], [place], [address], [facility] 6 21:36:06 Osteopeni a 649888231 Active 2015 Spine T score -2.4 MEGAN SULLIVAN MD [address], [place], [address], [facility] 6 21:37:06 Family history of breast cancer 634307928 Active 2016 2 paternal aunts MEGAN SULLIVAN MD [address], [place], [address], [facility] 7 22:27:43 Exposure to potential ly harmful entity Active 2022 BINA SOLARES MD [facility], [address] [place] [address], [place], [address], [facility] 3 12:48:43 Problem Notes None recorded. Procedures Surgical History Date Name Laterality Status Provider Name and Address Organization Details Recorded Time 09/03/20 Hysterectomy completed BINA SOLARES MD [facility], [address] [place] [address], [address], [facility] 09/18/2023 08:53:36 06/19/20 23 Telemedicine Visit completed BINA SOLARES MD [facility], [address] [place] [address], [place], [address], [facility] 06/19/2023 12:57:31 02/08/20 23 hernia repair completed BINA SOLARES MD [facility], [address] [place] [address], [address], [facility] 08/22/2023 16:15:44 12/30/19 23 Date of Last Mammogram completed Sonya Painter [facility] 05/29/2023 08:54:45 11/13/19 23 J1Z-SVHCM completed Litzy Guzman [facility] 11/13/2022 09:30:44 11/13/19 23 E1E-WPT completed Litzy Guzman [place] - [facility] 11/13/2022 09:30:44 11/13/19 23 Date of Last Pap Smear completed Sonya Painter CT - [facility] 05/29/2023 08:54:03 10/01/19 20 Date of Last Colonoscopy completed Eula White CT - [facility] 10/31/2021 09:00:51 09/12/20 16 E0H-FZZEMTKN completed MEGAN SULLIVAN MD [address], [place], [address], [facility] 09/12/2016 21:29:53 09/12/20 16 B6P-FMF completed MEGAN SULLIVAN MD [address], [place], [address], [facility] 09/12/2016 21:30:04 09/12/20 16 R0W-YRU completed MEGAN SULLIVAN MD [address], [place], [address], [facility] - [facility] 09/12/2016 21:30:13 09/12/20 16 O1C-BYK completed MEGAN SULLIVAN MD [address], [place], [address], [facility] - [facility] 09/12/2016 21:30:01 09/12/20 16 L9Z-HCZSBLF completed MEGAN SULLIVAN MD [address], [place], [address], [facility] 09/12/2016 21:29:50 09/12/20 16 W1Z-XBJVOG completed MEGAN SULLIVAN MD [address] [place], [address], [facility] 09/12/2016 21:30:25 Tonsillectomy completed Michelle Sultana CT [facility] 08/29/2016 15:33:34 Ankle arthroscopy/surge ry [facility] 10/31/2021 08:53:50 Laparoscopy completed BINA SOLARES MD [facility], [address] [place] [address], [address], [place] - [facility] 06/08/2023 08:49:59 Breast Biopsy completed [facility] - [facility] 10/31/2021 08:53:50 Imaging Results Imaging Date Name Status LastModified by Organization Details LastModified Time 06/18/2023 US, transvaginal completed [email or web address] [facility] 2 [facility] [address], [place], [address], 06/27/2023 09:02:11 06/18/2023 US, transvaginal completed ililes [facility] 2 [facility] [address], [place], [address], 06/19/2023 13:03:16 01/28/2024 MAMMO, screening, digital, bilateral completed [email or web address] [facility] [address] [place] [address], [address], 01/29/2024 08:28:45 Procedure Notes None recorded. Medical Equipment None Reported. Allergies Allergen ID Allergen Name Allergen Category Reaction Reaction Severity Criticality Documentation Date Start Date Code Code System Note Provider Name and Address Organization Details Recorded Time 2071092 metronida zole medicatio n Not available Not available Not available 08/22/2023 6922 RxNorm hives , dry heavi ng BINA SOLARES MD [facility], [address] [facility], [place], [address], [facility] - [facility] 16:24:45 503920 Product containin g penicilli n (product) medicatio n hives itching Not available Not available Not available 08/29/2016 78777 8001 SNOMED had kefle x w/o issue s BINA SOLARES MD [address] [facility], [address] [facility], [place], [address], [facility] 3 16:13:37 460270 Substance with sulfonami de structure and antibacte rial mechanism of action (substanc e) medicatio n fever hives Not available Not available Not available 08/29/2016 32042 8003 SNOMED Michelle Sultana null, [facility] 6 15:18:44 861345 codeine medicatio n vomiting Not available Not available 08/29/2016 2670 RxNorm Michelle Sultana null, [facility] 6 15:18:54 547668 oxycodone medicatio n vomiting Not available Not available 08/29/2016 7804 RxNorm Michelle Sultana null, [facility] 6 15:19:04 Medications Name Sig Start Date [...] Updated DateTime 08/22/2023 161.29 cm 29.5 kg/m2 28545.11 g 124 mm[Hg] 80 mm[Hg] Jag Goss [facility] 3 15:50:50 Date Recorded Body height Body mass index (BMI) Body weight Systolic blood pressure Diastolic blood pressure Provider Name and Address Organization Details Last Updated DateTime 09/18/2023 161.29 cm 29.1 kg/m2 18009.93 g 130 mm[Hg] 82 mm[Hg] Jag Goss [facility] 3 08:31:43 Date Recorded Body height Systolic blood pressure Diastolic blood pressure Provider Name and Address Organization Details Last Updated DateTime 10/19/2023 161.29 cm 120 mm[Hg] 82 mm[Hg] Sonya Painter [facility] 10/19/2023 14:14:54 Date Recorded Body height Body mass index (BMI) Body weight Systolic blood pressure Diastolic blood pressure Provider Name and Address Organization Details Last Updated DateTime 01/25/2024 161.29 cm 27.9 kg/m2 49970.78 g 100 mm[Hg] 72 mm[Hg] Krys Hand [facility] 13:57:53 Social History Question Answer Notes LastModified by Organizat ion Details LastModified Time Tobacco Smoking Status Never Smoker Michelle Chuaisaias ruby, [facility] 08/29/2016 15:32:56 What Is Your Level Of Alcohol Consumption? Occasional Information not available 08/29/2016 Education Post Graduate Information not available 11/13/2022 What Is The Highest Grade Or Level Of School You Have Completed Or The Highest Degree You Have Received? [id number] Information not available 10/31/2021 What Is Your [...] N Breast Cancer N Blood clots N Colon cancer N Benign breast disease N Depression N Lung Disease N Defects or Inherited Disease N Anesthesia Complications N Headaches/Migraines N Neurological Disorder N Have you ever been on isolation N Anxiety Disorder N HSV N Arthritis N Infertility N Interstitial Cystitis N Acid Reflux (GERD) Y Cancer N Stroke N Endometriosis N Fibromyalgia N Spina Bifida N HIV N Heart Problems N Sexual Dysfunction N Hypogonadism N Autoimmune disorder N Thyroid Problems N Kidney or Bladder Problems N GI Problems N Eating Disorder N Anemia N Multiple Sclerosis N Psychiatric Illness N Diabetes N Ovarian Cancer N Blood Transfusions N Bladder disease N History of MRSA N None reported by patient N Abnormal Uterine Bleeding N Hyperlipidemia N BrCa positive N Abuse/Domestic Violence N Diverticulitis N Asthma N Bladder Cancer N Hepatitis [...] mL dose 1 completed Sonya Painter null, [facility] 10/19/2023 14:10:26 COVID-19, mRNA, LNP-S, PF, 30 mcg/0.3 mL dose 1 completed Sonya Painter null, [facility] 10/19/2023 14:10:26 SARS-COV-2 (COVID-19) vaccine, UNSPECIFIED 1 completed Sonya Painter null, [facility] 10/19/2023 14:10:26 SARS-COV-2 (COVID-19) vaccine, UNSPECIFIED 1 completed Sonya Painter null, [facility] 10/19/2023 14:10:26 influenza, unspecified formulation 5 completed Sonya Painter null, [facility] 10/19/2023 14:10:26 Influenza, split virus, quadrivalent, preservative 8 completed Sonya Painter [facility], [place] - [facility] 10/19/2023 14:10:25 Past Encounters Encounter ID Performer Location Encounter Start Date Encounter Closed Date Diagnosis/Indication Diagnosis SNOMED-CT Code Diagnosis ICD10 Code Diagnosis Note [id number] MEGAN SULLIVAN MD [facility] [address] [place] [address] 09/12/2016 16:02:21 09/13/2016 11:03:00 Gynecologic examination 62223263 Z01.419 Screening for malignant neoplasm of cervix 361901403 Z12.4 Screening mammography 24 465641 Z12.31 Diet education 84844471 Z71.3 Screening for malignant neoplasm of colon 612494080 Z12.11 History of suspected exposure to biological agent 6152409463 9106 Z77.29 NAILA Microscopic hematuria 19 5062666 R31.21 Obesity 675197027 E66.9 BMI 35.6 Osteopenia 486943018 M85 .80 [id number] MEGAN SULLIVAN MD [facility] [address] [place] [address] 09/18/2017 14:03:13 09/18/2017 16:58:59 Gynecologic examination 27985980 Z01.419 Screening for malignant neoplasm of cervix 445815603 Z12.4 Screening mammography 24 674523 Z12.31 Diet education 49271585 Z71.3 Microscopic hematuria 19 2034449 R31.21 Obesity 851042860 E66.9 BMI 35.6 History of suspected exposure to biological agent 9159735038 9106 Z77.29 NAILA Osteopenia 523363153 M85 .80 Spine and FN Family his tory of breast cancer 034969149 Z80.3 [id number] MEGAN SULLIVAN MD [facility] [address] [place] [address] 09/20/2018 09:01:13 09/30/2018 12:48:46 Gynecologic examination 55854267 Z01.419 Screening for malignant neoplasm of cervix 840101179 Z12.4 Screening mammography 24 475354 Z12.31 Screening for osteoporosis 793830843 Z13.820 Diet education 15417208 Z71.3 Family his tory of breast cancer 209481672 Z80.3 Osteopenia 806548352 M85 .80 Spine and FN History of suspected exposure to biological agent 1356416776 9106 Z77.29 NAILA Obesity 258898851 E66.9 BMI 35.7 [id number] BINA SOLARES MD [facility] [address] [place] [address] 10/31/2021 08:45:30 11/01/2021 09:38:57 Gynecologic examination 97827982 Z01.419 Osteopenia 153896885 M85 .80 Depression screening 171 381505 Z13.31 Obese 142686226 E66.9 Screening mammography 24 610066 Z12.31 Screening for malignant neoplasm of cervix 568310319 Z12.4 Family his tory of breast cancer 2 gene mutation 527150571 Z84.81 Vaginal dryness 82630133 N89.8 Family his tory of breast cancer 867401980 Z80.3 History of suspected exposure to biological agent 5936714778 9106 Z77.29 Microscopic hematuria 19 0778801 R31.29 [id number] BINA SOLARES MD [facility] [address] [place] [address] 11/13/2022 09:26:17 11/15/2022 09:58:48 Gynecologic examination 00761372 Z01.419 Family his tory of breast cancer 2 gene mutation 718684642 Z84.81 Osteopenia 141127704 M85 .80 Depression screening 171 667762 Z13.31 Obese 597836255 E66.9 Screening mammography 24 842610 Z12.31 Vaginal dryness 06633760 N89.8 Family his tory of breast cancer 411431681 Z80.3 Screening for malignant neoplasm of cervix 523224016 Z12.4 History of suspected exposure to biological agent 6745157465 9106 Z77.29 Postmenopausal state 764 99381 Z78.0 Exposure t o potentially harmful entity 607430204 Z77.9 NAILA daughter [id number] BINA SOLARES MD [facility] [address] [place] [address] 06/08/2023 08:18:37 06/10/2023 10:31:08 Cyst of left ovary 8327580285 8477563 N83.202 History of suspected exposure to biological agent 6638253666 9106 Z77.29 Family his tory of breast cancer 019112073 Z80.3 [id number] BINA SOLARES MD [facility] [address] [place] [address] 06/19/2023 09:33:26 06/25/2023 14:17:29 Cyst of left ovary 6792049591 8614281 N83.202 History of suspected exposure to biological agent 5168687247 9106 Z77.29 Family his tory of breast cancer 020236128 Z80.3 Postmenopa usal bleeding 84698587 N95.0 [id number] BINA SOLARES MD [facility] [address] [place] [address] 08/22/2023 15:42:40 08/27/2023 15:17:17 Pre-surgery evaluation 148102339 Z01.818 Postoperative pain 20519 9007 G89.18 Cyst of left ovary 87714 43215 6320039 N83.202 History of suspected exposure to biological agent 5112878643 9106 Z77.29 Family his tory of breast cancer 374839847 Z80.3 Postmenopa usal bleeding 22655869 N95.0 [id number] BINA SOLARES MD [facility] [address] [place] [address] 09/18/2023 08:18:11 09/20/2023 11:27:12 Postoperative visit 177042840 Z09 History of total hysterectomy 509447496 Z90.710 Cyst of left ovary 51104 57176 6383000 N83.202 [id number] BINA SOLARES MD [facility] [address] [place] [address] 10/19/2023 14:05:51 10/22/2023 16:45:39 Postoperative visit 837537693 Z09 History of total hysterectomy 936568996 Z90.710 Cyst of left ovary 10063 80354 0292773 N83.202 [id number] BINA SOLARES MD [facility] [address] [place] [address] 01/25/2024 13:45:42 01/31/2024 11:29:46 Gynecologic examination 19386204 Z01.411 Z01.419 Depression screening 171 423023 Z13.31 Family his tory of breast cancer 2 gene mutation 840338536 Z84.81 Osteopenia 856181915 M85 .80 Obese 812319428 E66.9 Screening mammography 24 052362 Z12.31 Vaginal dryness 52317791 N89.8 Family his tory of breast cancer 595274982 Z80.3 Screening for malignant neoplasm of cervix 020008655 Z12.4 History of suspected exposure to biological agent 3850896217 9106 Z77.29 Postmenopausal state 764 [address] Z78.0 Exposure t o potentially harmful entity 408314065 Z77.9 NAILA daughter History of total hysterectomy 907046266 Z90.710 Health Concerns Section Related Observation LastModified by Organization Detai ls LastModified Time None Recorded Concern Status LastModified by Organization Details LastModified Time None Recorded Advance Directives Directive None Recorded Payers Encounter Date Sequence Insurance Name Policy Number Policy Leggett Covered Member ID Leggett Member ID Guarantor Name 06/19/2023 1 [employer] [place] [id number] Carole A Rynne [id number] 223 Carole Rynne 08/22/2023 1 [employer] [place] [id number] Carole A Rynne [id number] Carole Rynne 09/18/2023 1 [employer] [place] [id number] Carole A Rynne [id number] 223 Carole Rynne 10/19/2023 1 [employer] [place] [id number] Carole A Rynne [id number] 223 Carole Rynne 01/25/2024 1 [employer] [place] [id number] Carole A Rynne [id number] 223 Carole Rynne Notes Date Note Type [...] Oct)CA-125: 11/2022 - 7 BINA SOLARES MD [address] [place] [address], [address] Floor, [place], [address], [place] [facility] 06/20/2023 04:47:11 08/22/2023 text/html Pt presents for [...] cellsOvarian cyst with nml ca 125 per /2023 neg/ HPV neg, + endometrial cells Consult 06/08 Pt with known h/o left ovarian cyst presents to discuss management. US as below. Since last visit US, pt met with [facility] in [place]. Per pt had several EMBx for pap with endometrioal cells and ? of polyp. Pt reports going under sedation for removal of endometrial tissue. Pt had rpt US in 12/2022 showing the cyst had grown. She reports having BW with her [employer] showing 13% risk which was acceptable. Pt didn't get the tumor markers I had asked her to get previously. Pt wanted to have surgery but needed hiatal hernia repair and [employer] [facility] would not do ovary at that time. Pt underwent robotic hiatal hernia repair in January 2023 and has recovered. Pt tried to f/u with [employer] [employer] who wants to repeat the US in [...] ovary with 5.1cm cyst BINA SOLARES MD [address] [place] [address], [address], [place] - [facility] 08/27/2023 09:30:26 09/18/2023 text/html Pt presents 2wks s/p TLH, BS0, cysto. Doing ok. Pain well controlled, abbey PO, ambulating, voiding well. Having regular BM. Denies N/V, fevers, chills. No bleeding. Bowels back to normal. Going back to work on 09/25. Pathology:benign GERARDO cyst (rete), benign uterus and ROV and tube, neg washings BINA SOLARES MD [address] [place] [address], [address], [place] - [facility] 09/18/2023 08:53:13 10/19/2023 text/html Pt presents 6wks s/p TLH, BS0, cysto. Doing ok. Pain well controlled, abbey PO, ambulating, voiding well. Having regular BM. Denies N/V, fevers, chills. No bleeding. Bowels back to normal. Back at work. Pathology:benign GERARDO cyst (rete), benign uterus and ROV and tube, neg washings BINA SOLARES MD [address] [place] [address], [address] [place] [address], [address], [facility] - [facility] 10/19/2023 15:17:20 01/25/2024 text/html Presents for leigh ann ual exam. Denies PMB. Denies additional [employer], , or breast complaints.. 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
[2024-12-11 10:38] LABS: Free T4 (Free Thyroxine) 1.04 ng/dL (0.71-1.85); Thyroid Stimulating Hormone 1.24 uIU/mL (0.32-4.0); Vitamin D 25-OH Total 12.7 ng/mL (>30)
[2024-12-11 11:04] LABS: Cortisol Random 6.1 ug/dL
== END 2024-12-11 09:11 | disposition home or self-care (01) ==
LOC: HO.LAB 09:10
PROVIDERS: PCP Internal Medicine; Visit Provider Internal Medicine
DX: E78.00 Pure hypercholesterolemia, unspecified (principal); R31.9 Hematuria, unspecified; K21.9 Gastro-esophageal reflux disease without esophagitis; R82.90 Unspecified abnormal findings in urine
CPT/HCPCS: 36415; 80053; 80061; 81001; 82306; 82533; 84439; 84443; 85025; 88112

== ENCOUNTER 2024-12-12 14:12 | Outpatient (REF) | payer OTHER, SELFPAY ==
--- NOTE | ~2024-12-12 | CT_ITS ---
CLINICAL HISTORY: R31.9 - Hematuria, unspecified CT abdomen and pelvis with and without contrast Comparison: None Findings: The lung bases are clear. There is scarring of the left kidney with deformed calices. 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 There is a right renal cyst in the midpole measuring 1.7 cm. The gallbladder is normal. The rest of the solid organs are normal. Dilated small bowel loops are seen in the left upper quadrant and pelvis without a discrete site of transition. Rest of the bowel is unremarkable. The patient is status post hysterectomy. Normal appendix. Chronic compression deformities superior endplates of T11 and L1. IMPRESSION: 1. Chronic left renal scarring. Likely chronically deformed left renal calyces. 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 2. Dilated small bowel loops without a discrete zone of transition. Findings likely represent ileus. This document has been electronically signed by: Pravin Watson MD on 12/13/2024 09:39:23
--- OUTSIDE RECORDS SUMMARY | 2024-12-12 15:57 | XMS_ITS | Clinical Summary ---
Author Organization [facility] Address [address] [place] [address] Care Team Providers Care Display Maker Name Role Phone Unavailable Primary Care Provider [...]
--- OUTSIDE RECORDS SUMMARY | 2024-12-12 15:57 | XMS_ITS | Clinical Summary ---
Author Organization [employer] Address [address] [place] [address] Care Team Providers Care Construction Lineman Name Role Phone Demetra Pantoja MD Primary Care Provider Allergies Active Allergy Reactions [...] Anatomical Region Laterality Modality Endoscopy 04/19/2012 Result [facility] MD GI PROCEDURE OR DERABLES Final Result from Last 3 Months or Most Recently Relevant to Health Maintenance Insurance [facility] Care Teams Construction Lineman Relationship Specialty Start Date End Date Demetra Pantoja MD [address] [place] [phone] PCP - General 10/06/19
--- OUTSIDE RECORDS SUMMARY | 2024-12-12 15:57 | XMS_ITS | Continuity of Care Document ---
Author Organization [facility] Address [address] [facility] [address] [place] [address] Phone [phone] Social History Type Date Description Comments Sex Unknown Medical Devices Description No Information Available Encounters Description No Information Available Assessments Description No Information Available Plan of Treatment No Information Available Functional Status Description No Information Available Mental Status Description No Information Available Referrals Description No Information Available
== END 2024-12-12 14:13 | disposition home or self-care (01) ==
LOC: HO.CT 14:12
PROVIDERS: PCP Internal Medicine; Visit Provider Internal Medicine
DX: R31.9 Hematuria, unspecified (principal)
CPT/HCPCS: 74178

== ENCOUNTER → 2024-12-12 14:15 | Outpatient (BNV) | payer OTHER, SELFPAY | PROVIDERS: PCP Internal Medicine; Visit Provider Radiology Diagnostic Radiology | DX: N26.9 Renal sclerosis, unspecified (principal) | CPT/HCPCS: 74178 ==

== ENCOUNTER 2024-12-16 07:50 | Outpatient (AMB) | payer OTHER, SELFPAY ==
--- OUTSIDE RECORDS SUMMARY | 2024-12-16 07:53 | XMS_ITS | Clinical Summary ---
Author Organization [facility] Address [address] [place] [address] Care Team Providers Care Wound/Ostomy Nurse Name Role Phone Unavailable Primary Care Provider [...]
--- OUTSIDE RECORDS SUMMARY | 2024-12-16 07:53 | XMS_ITS | Clinical Summary ---
Author Organization [employer] Address [address] [place] [address] Care Team Providers Care Hemodialysis Technician Name Role Phone Demetra Pantoja MD Primary Care Provider [phone] Allergies Active Allergy Reactions Criticality Noted Date [...] Most Recently Relevant to Health Maintenance Insurance [facility] Care Teams Hemodialysis Technician Relationship Specialty Start Date End Date Demetra Pantoja MD [address] [place] [phone] PCP - General 10/06/19
--- OUTSIDE RECORDS SUMMARY | 2024-12-16 07:53 | XMS_ITS | Clinical Summary ---
Author Organization [facility] [address] [facility] Address [address] [place] [address] Care Team Providers Care Admissions Counselor Name Role Phone Mary Spencer Primary Care [...] PM EDT Procedure visit [facility] at [address] [address] 01/09/2025 3:45 PM EDT Appointment [facility] [address] [place] [address] Maggie Obando MD 60 [facility] 201 [place] [address] Health Maintenance Due Date Last [...] mammogram for malignant neoplasm of breast CYTOLOGY ELECTROLYTIC DE SCALER CASES () Routine 09/07/2015 8:10 PM EST [...] MAMMOGRAPHY ORDERABLE S Final Result * Cytology program paraprofessional cases () (09/07/2015 8:10 PM EST) Cytology Coin Machine Supervisor Cases ?CYTOLOGY REPORT ? Procedures/Addenda Attached Patient: NANCY CHAVEZ ?MR #: [id number] ?Submitted by: Megan Perez M.D. FINAL DIAGNOSIS SUREPATH PAP SMEAR: ? Primary Diagnosis: ? NEGATIVE FOR INTRAEPITHELIAL LESION OR MALIGNANCY. ? Additional Findings: NO ENDOCERVICAL CELLS SEEN. CYTOLYSIS PRESENT. HIGH RISK HPV CO-TESTING HAS BEEN PERFORMED AND THE RESULT IS NEGATIVE. Specimen Adequacy: THIS SPECIMEN IS SATISFACTORY FOR EVALUATION. ? This specimen was manually screened with the assistance of the [employer](nCino Imaging System. Recommendation: According to the current [...] used to evaluate suspected endometrial abnormalities. ??(The [place] System, 2001) ?? 09/10/2015 12:46 ?* Report [...] ? Reported: ? 09/10/2015 ? Pathologist: ? [facility] ? Interpretation Specimen: SUREPATH PAP SMEAR BELOW CUTOFF FOR HIGH RISK HPV HPV types 16, 18, 31, 33, 35, 39, 45, 51, 52, 56, 58, 59, 66, and 68 DNA were either considered NEGATIVE, undetectable,or below the pre-set threshold. This test was performed at [facility] Department of Pathology, [address] [place] [id number], CLIA# [id number] using the Yola christy 4800 HPV Test System and is only approved by the Food and Drug Administration (FDA) for use oncervicalspecimen s collected in Cytyc Preservcyt Solution (ThinPrep). When using ThinPrep liquid based samples for non-cervical specimens, SurePath liquid based samples, or formalin fixed paraffin embedded tissue, the performance characteristics have been determined by [facility]. Although testing on samples that are not cervical in origin, and/or in any other medium besides ThinPrep, has not been cleared or approved by the FDA, the FDA has determined that such clearance or approval is not necessary. ? [facility] 09/07/2015 8:10 PM EST Comment:SUREPATH PAP SMEAR+ HPV us Megan Perez MD PATHOLOGY/CYTOLOGY ORDERABLES Final Result [facility] Department of Pathology [address] [place] [address] [address] [place] [address] * Glucose ( GH Q YH) (06/03/2013 10:25 AM EDT) Glucose 100 70 - 100 mg/dL [facility] 06/03/2013 10:2 5 AM EDT Narrative [facility] - 06/03/2013 3:45 PM EDT Performed by: [facility] [address] [place] [phone] ??(CLIA #[id number], [id number]) Jocelin Alcantara MD LAB BLOOD ORDERABLES F inal Result [facility] [address] [place] [phone] from Last 3 Months or Most Recently Relevant to Health Maintenance Insurance [employer] Care Teams Admissions Counselor Relationship Specialty Start Date End Date Mary Spencer PA PCP - General Internal Medicine 08/03/15
--- OUTSIDE RECORDS SUMMARY | 2024-12-16 07:54 | XMS_ITS | Encounter Summary ---
Author Organization [facility] [employer] and [facility] Address [address] [place] [phone] Care Team Providers Care Parts Washer Name Role Phone Mary Spencer Primary Care Provider Encounter Details Date Type Department Care Team (Late Contact Info) Description 09/11/2016 Scanned Document [facility] [phone] [place] [address] External, Provider Social History Tobacco Use Types [...] EDT Procedure visit [facility] at [address] [place] [address] 01/09/2025 3:45 PM EDT Appointment [facility] [address] [place] [address] Maggie Obando MD 60 [facility] 201 [place] [address] documented as of this encounter Procedures Procedure Name Priority Date/Time Associated Diagnosis Comments ZZZCTX COLLAGEN C-TELOPEPTIDE (BH) Routine 07/19/2016 documented in this encounter Results * CTX collagen C-telopeptide (BH) (07/19/2016) Blood specimen (specimen) us Provider External LAB BLOOD ORDERABLES Final Res ult Performing Organization Address City/State/[facility] Co de Phone Number [facility] documented in this encounter Visit Diagnoses Not on filedocumented in this encounter Care Teams Parts Washer Relationship Specialty Start Date End Date Mary Spencer PA PCP - General Internal Medicine 08/03/15 documented as of this encounter
--- OUTSIDE RECORDS SUMMARY | 2024-12-16 07:54 | XMS_ITS | Encounter Summary ---
Author Organization [facility] [employer] [facility] and [facility] Address [address] [place] [phone] Care Team Providers Care Americanization Teacher Name Role Phone Mary Spencer Primary Care Provider Encounter Details Date Type Department Care Team (Late Contact Info) Description 09/01/2016 Scanned Document [facility] [phone] [place] [address] External, Provider Social History Tobacco Use Types [...] PM EDT Procedure visit [facility] at [address] [place] [address] 01/09/2025 3:45 PM EDT Appointment [facility] [address] [place] [address] Maggie Obando MD 60 [facility] 201 [place] [address] documented as of this encounter Procedures Procedure Name Priority Date/Time Associated Diagnosis Comments LAB SCAN Routine 01/21/2014 documented in this encounter Results * Lab Scan (01/21/2014) Blood specimen (specimen) us Provider External LAB BLOOD ORDERABLES Final Res ult Performing Organization Address [facility] Co de Phone Number [facility] documented in this encounter Visit Diagnoses Not on filedocumented in this encounter Care Teams Americanization Teacher Relationship Specialty Start Date End Date Mary Spencer PA PCP - General Internal Medicine 08/03/15 documented as of this encounter
--- OUTSIDE RECORDS SUMMARY | 2024-12-16 07:54 | XMS_ITS | Encounter Summary ---
Author Organization [facility] [facility] and [facility] Address [address] [place] [phone] Care Team Providers Care Chief Recordist Name Role Phone Mary Spencer Primary Care Provider Encounter Details Date Type Department Care Team (Late Contact Info) Description 06/20/2016 Scanned Document [facility] [phone] [place] [address] External, Provider Social History Tobacco Use Types [...] PM EDT Procedure visit [facility] at [address] [place] [address] 01/09/2025 3:45 PM EDT Appointment [facility] [address] [place] [address] Maggie Obando MD 60 [facility] 201 [place] [address] documented as of this encounter Procedures Procedure Name Priority Date/Time Associated Diagnosis Comments LAB SCAN Routine 12/09/2015 BONE DENSITY RESULT SCAN Routine 09/28/2015 documented in this encounter Results * Lab Scan (12/09/2015) Blood specimen (specimen) us Provider External LAB BLOOD ORDERABLES Final Res ult Performing Organization Address [facility] Co de Phone Number [facility] * Bone Density Result Scan (09/28/2015) us Provider External IMG SCAN REPORTS Final Result Performing Organization Address [facility] de Phone Number [facility] documented in this encounter Visit Diagnoses Not on filedocumented in this encounter Care Teams Chief Recordist Relationship Specialty Start Date End Date Mary Spencer PA PCP - General Internal Medicine 08/03/15 documented as of this encounter
--- OUTSIDE RECORDS SUMMARY | 2024-12-16 07:54 | XMS_ITS | Continuity of Care Document ---
Author Organization [facility] Address [address] [facility] [place] [address] [place] [address] Phone [phone] Social History Type Date Description Comments Sex Unknown Medical Devices Description No Information Available Encounters Description No Information Available Assessments Description No Information Available Plan of Treatment No Information Available Functional Status Description No Information Available Mental Status Description No Information Available Referrals Description No Information Available
--- OUTSIDE RECORDS SUMMARY | 2024-12-16 07:54 | XMS_ITS | Encounter Summary ---
Author Organization [facility] [employer] and [facility] Address [address] [place] [phone] Care Team Providers Care Maintenance Carpenter Name Role Phone Mary Spencer Primary Care Provider Encounter Details Date Type Department Care Team (Late st Contact Info) Description 08/04/2016 Scanned Document [facility] [address] [facility] [address] [place] [address] Kelsey Hutchinson MD [address] [place] [phone] Social History Tobacco Use Types Packs/Day [...] PM EDT Procedure visit [facility] at [address] [address] 01/09/2025 3:45 PM EDT Appointment [facility] [address] [place] [phone] Maggie Obando MD 60 [facility] 201 [place] [address] documented as of this encounter Procedures Procedure Name Priority Date/Time Associated Diagnosis Comments LAB SCAN Routine 07/17/2016 documented in this encounter Results * Lab Scan (07/17/2016) Blood specimen (specimen) us Kelsey Hutchinson MD LAB BLOOD ORDERABLES Final Resul t Performing Organization Address City/State/[facility] Co de Phone Number [facility] [place], [place], [facility] documented in this encounter Visit Diagnoses Not on filedocumented in this encounter Care Teams Maintenance Carpenter Relationship Specialty Start Date End Date Mary Spencer PA PCP - General Internal Medicine 08/03/15 documented as of this encounter
--- OUTSIDE RECORDS SUMMARY | 2024-12-16 07:54 | XMS_ITS | Encounter Summary ---
Author Organization [facility] [employer] and [facility] Address [address] [place] [phone] Care Team Providers Care Lead Caster Name Role Phone Mary Spencer Primary Care Provider Encounter Details Date Type Department Care Team (Late Contact Info) Description 05/04/2016 Scanned Document [facility] 789 [facility] [address] [place] [address] External, Provider Social History Tobacco Use Types [...] PM EDT Procedure visit [facility] at [address] [place] [address] 01/09/2025 3:45 PM EDT Appointment [facility] [address] [place] [address] Maggie Obando MD 60 [facility] 201 [place] [address] documented as of this encounter Visit Diagnoses Not on filedocumented in this encounter Care Teams Lead Caster Relationship Specialty Start Date End Date Mary Spencer PA PCP - General Internal Medicine 08/03/15 documented as of this encounter
--- OUTSIDE RECORDS SUMMARY | 2024-12-16 07:54 | XMS_ITS | Data Portability ---
Author Organization [place] - [facility], [facility] Address [address] [place] [address] Assessment No assessment recorded. Plan of Treatment Reminders Order Date Submit Date Provider Last Modified By Organization Details Last Modified Time Details Appointments None recorded. Lab pap, IG + HPV 2023 024 [facility], [address] [place], [address] 4 20:45:04 Referral None recorded. Procedures None recorded. Surgeries None recorded. Imaging MAMMO, screening, digital, bilateral 2023 024 [email or web address] [facility], [address] [place] [address], [address], 4 11:29:47 bone density 2023 024 [email or web address] [facility], [address] [place], [address], 4 11:29:47 Medication Orders Colace 100 [address] capsule [address] [id number], [address], [place], [address], 4 13:56:52 tramadol 50 mg tablet 2022 023 [email or web address] [id number], [address], [place], [address], 4 13:56:44 Patient TargetsNo targets recorded. Patient Instructions Encounter Date Encounter Id Patient Instructions Last Modified By Organization Details Last Modified Time 06/19/2023 [id number] Telehealth visit - [employer] video platform. Pt with GERARDO cyst presents [...] would like to proceed. Pt going to [place] end of Jul through mid Aug. D/w [...] none ililes Not available 06/20/2023 04:45:56 08/22/2023 [id number] Pt presents for preop exam for left ovarian cyst and history of NAILA. Pt had hscopy D&C ealier this year and possible PMB last month. Reviewed with pt that would recommend hysterectomy with bilateral BSO since cyst has been growing and pt with risks for cancer. Discussed laparoscopic procedure. Discussed frozen section during surgery and if positive possible staging with SURGICAL GARMENT INSPECTOR ONC to include possible lymph node biopsy/dissection, [...] minutes ililes Not available 08/27/2023 09:29:30 09/18/2023 [id number] Pt presents for 2wk postop visit after [...] visit ililes Not available 09/18/2023 08:53:01 10/19/2023 [id number] Pt presents for 2wk postop visit after TLH, BSO, CYSTO , recovering well. Pt given benign pathology report and images. - Can resume all activities except intercourse which can resume in 2 weeks - Advised to start slow with exercise RTO in 3 months for annual with vaginal pap ililes Not available 10/19/2023 15:17:17 01/25/2024 [id number] Pt presents for annual exam. No current SURGICAL GARMENT INSPECTOR concerns.. Pt is a NAILA daughter. S/p [...] clinical information: normal None given Not Available [facility] [address], [address], 01/28/2024 20:45:04 01/25/20 24 01/28/2024 THINP REP TIS PAP AND HPV MRNA E6/E7 WITH REFLE X TO HPV 16,18 /45 LMP: normal NONE GIVEN Not Available [facility] [address], [address], 01/28/2024 20:45:04 01/25/20 24 01/28/2024 THINP REP TIS PAP AND HPV MRNA E6/E7 WITH REFLE X TO HPV 16,18 /45 prev. Pap: normal NONE GIVEN Not Available [facility] [address], [address], 01/28/2024 20:45:04 01/25/20 24 01/28/2024 THINP REP TIS PAP AND HPV MRNA E6/E7 WITH REFLE X TO HPV 16,18 /45 prev. BX: normal NONE GIVEN Not Available [facility] [address], [address], 01/28/2024 20:45:04 01/25/20 24 01/28/2024 THINP REP TIS PAP AND HPV MRNA E6/E7 WITH REFLE X TO HPV 16,18 /45 source: normal Vagin a Not Available [facility] [address], [place], [address], 01/28/2024 20:45:04 01/25/20 24 01/28/2024 THINP REP TIS PAP AND HPV MRNA E6/E7 WITH REFLE X TO HPV 16,18 /45 statement of adequacy: normal SATIS FACTO RY FOR EVALU ATION Not Available [facility] [address], [place], [address], 01/28/2024 20:45:04 01/25/20 24 01/28/2024 THINP REP TIS PAP AND HPV MRNA E6/E7 WITH REFLE X TO HPV 16,18 /45 interpretati on/result: normal Cytol ogy Resul ts: Negat jennifer for intra epith elial lesio n or jennifer haley . Not Available [facility] [address], [place], [address], 01/28/2024 20:45:04 01/25/20 24 01/28/2024 THINP REP TIS PAP AND HPV MRNA E6/E7 WITH REFLE X TO HPV 16,18 /45 comment: normal This Pap test has been evalu ated with compu ter david barrington techn ology . Not Available [facility] [address] [place] [address], [address], 01/28/2024 20:45:04 01/25/20 24 01/28/2024 THINP REP TIS PAP AND HPV MRNA E6/E7 WITH REFLE X TO HPV 16,18 /45 cytotechnolo gist: normal GSG, CT( CP) CT scree cristy locat ion: [facility] [address], [place] [address] Not Available [facility] [address], [address], 01/28/2024 20:45:04 01/25/20 24 01/28/2024 THINP REP [...] clini raphael infor thomas n. Not Available [facility] [address], [place], [address], 01/28/2024 20:45:04 01/25/20 24 01/28/2024 THINP REP [...] felder purpo ses only. ) Not Available [facility] [address], [place], [address], 01/28/2024 20:45:04 06/18/20 23 06/18/2023 US, trans vagin al No observ ation record ed. [email or web address] [facility] [address] [address], [place], [address], 06/27/2023 09:02:11 06/18/20 23 06/18/2023 US, trans vagin al No observ ation record ed. ililes [facility] [address], [address], 06/19/2023 13:03:16 01/28/20 24 01/28/2024 MAMMO , scree cristy, digit al, bilat eral No observ ation record ed. [email or web address] [facility] [address] [place] [address], [address], 01/29/2024 08:28:45 Result Notes None recorded. Problems Name Problem SNOMED Code Status Onset Date Resolution Date Notes Provider Name and Address Organization Details Recorded Time History of suspected exposure to biologica l agent 400629439539 06 Active 2015 NAILA exposure MEGAN SULLIVAN MD 175 [facility], [address] [place] [address], [address], [place] - [facility] 6 19:09:19 Obesity 428273752 Active 2015 bmi 36.7 MEGAN SULLIVAN MD 175 [facility], [address] [place] [address], [address], [place] - [facility] 8 09:21:31 Microscop ic hematuria 757752916 Active 2015 MEGAN SULLIVAN MD [address], [place], [address], [facility] 6 21:36:06 Osteopeni a 666276976 Active 2015 Spine T score -2.4 MEGAN SULLIVAN MD [address], [place], [address], [facility] 6 21:37:06 Family history of breast cancer 861389655 Active 2016 2 paternal aunts MEGAN SULLIVAN MD [address], [place], [address], [facility] 7 22:27:43 Exposure to potential ly harmful entity Active 2022 BINA SOLARES MD 175 [facility], [address] [place] [address], [place], [address], [facility] 3 12:48:43 Problem Notes None recorded. Procedures Surgical History Date Name Laterality Status Provider Name and Address Organization Details Recorded Time 09/03/20 Hysterectomy completed BINA SOLARES MD 175 [facility], [address] [place] [address], [address], [facility] 09/18/2023 08:53:36 06/19/20 23 Telemedicine Visit completed BINA SOLARES MD 175 [facility], [address] [place] [address], [place], [address], [facility] 06/19/2023 12:57:31 02/08/20 23 hernia repair completed BINA SOLARES MD 175 [facility], [address] [place] [address], [address], [facility] 08/22/2023 16:15:44 12/30/19 23 Date of Last Mammogram completed Sonya Painter [facility] 05/29/2023 08:54:45 11/13/19 23 R6B-JTCPW completed Litzy Guzman [facility] 11/13/2022 09:30:44 11/13/19 23 D5V-ORV completed Litzy Guzman [place] - [facility] 11/13/2022 09:30:44 11/13/19 23 Date of Last Pap Smear completed Sonya Painter CT - [facility] 05/29/2023 08:54:03 10/01/19 20 Date of Last Colonoscopy completed Eula White CT - [facility] 10/31/2021 09:00:51 09/12/20 16 [id number]-[id number] completed MEGAN SULLIVAN MD [address], [place], [address], [facility] 09/12/2016 21:29:53 09/12/20 16 X6J-DLM completed MEGAN SULLIVAN MD [address], [place], [address], [facility] 09/12/2016 21:30:04 09/12/20 16 Y0V-CJL completed MEGAN SULLIVAN MD [address], [place], [address], [facility] - [facility] 09/12/2016 21:30:13 09/12/20 16 K6E-JFJ completed MEGAN SULLIVAN MD [address], [place], [address], [facility] - [facility] 09/12/2016 21:30:01 09/12/20 16 L8O-MLSQNUN completed MEGAN SULLIVAN MD [address], [place], [address], [facility] 09/12/2016 21:29:50 09/12/20 16 I1X-TQTWQP completed MEGAN SULLIVAN MD [address] [place], [address], [facility] 09/12/2016 21:30:25 Tonsillectomy completed Michelle Sultana [facility] 08/29/2016 15:33:34 [facility]le arthroscopy/surge [facility] 10/31/2021 08:53:50 Laparoscopy completed BINA SOLARES MD 175 [facility], [address] [place] [address], [address], [place] - [facility] 06/08/2023 08:49:59 Breast Biopsy completed [facility] - [facility] 10/31/2021 08:53:50 Imaging Results Imaging Date Name Status LastModified by Organization Details LastModified Time 06/18/2023 US, transvaginal completed [email or web address] [facility] 2 [facility] [address], [place], [address], 06/27/2023 09:02:11 06/18/2023 US, transvaginal completed ililes [facility] 2 [facility] [address], [place], [address], 06/19/2023 13:03:16 01/28/2024 MAMMO, screening, digital, bilateral completed [email or web address] [facility] [address] [place] [address], [address], 01/29/2024 08:28:45 Procedure Notes None recorded. Medical Equipment None Reported. Allergies Allergen ID Allergen Name Allergen Category Reaction Reaction Severity Criticality Documentation Date Start Date Code Code System Note Provider Name and Address Organization Details Recorded Time 1028222 metronida zole medicatio n Not available Not available Not available 08/22/2023 6922 RxNorm hives , dry heavi ng BINA SOLARES MD 175 [facility], [address] [facility], [place], [address], [facility] - [facility] 16:24:45 389635 Product containin g penicilli n (product) medicatio n hives itching Not available Not available Not available 08/29/2016 03128 8001 SNOMED had kefle x w/o issue s BINA SOLARES MD 175 [facility], [address] [facility], [place], [address], [facility] 3 16:13:37 672948 Substance with sulfonami de structure and antibacte rial mechanism of action (substanc e) medicatio n fever hives Not available Not available Not available 08/29/2016 86179 8003 SNOMED Michelle Sultana null, [facility] 6 15:18:44 238550 codeine medicatio n vomiting Not available Not available 08/29/2016 2670 RxNorm Michelle Sultana null, [facility] 6 15:18:54 787963 oxycodone medicatio n vomiting Not available Not available 08/29/2016 7804 RxNorm Michelle Sultana null, [facility] 6 15:19:04 Medications Name Sig Start [...] Updated DateTime 08/22/2023 161.29 cm 29.5 kg/m2 36764.11 g 124 mm[Hg] 80 mm[Hg] Jag Goss [facility] 3 15:50:50 Date Recorded Body height Body mass index (BMI) Body weight Systolic blood pressure Diastolic blood pressure Provider Name and Address Organization Details Last Updated DateTime 09/18/2023 161.29 cm 29.1 kg/m2 62158.93 g 130 mm[Hg] 82 mm[Hg] Jag Goss [facility] 3 08:31:43 Date Recorded Body height [...] Updated DateTime 01/25/2024 161.29 cm 27.9 kg/m2 67057.78 g 100 mm[Hg] 72 mm[Hg] Krys Hand [facility] 13:57:53 Social History Question Answer Notes LastModified by Organizat ion Details LastModified Time Tobacco Smoking Status Never Smoker Michelle Chuaisaias ruby, [facility] 08/29/2016 15:32:56 What Is Your Level Of Alcohol Consumption? Occasional Information not available 08/29/2016 Education Post Graduate Information not available 11/13/2022 What Is The Highest Grade Or Level Of School You Have Completed Or The Highest Degree You Have Received? [id number] Information not available 10/31/2021 What Is Your [...] Stones Y *No Diseases or Conditions N Blood clots N Breast Cancer N Benign breast disease N Colon cancer N Lung Disease N Depression N Defects or Inherited Disease N Anesthesia Complications N Neurological Disorder N Headaches/Migraines N Have you ever been on isolation N Anxiety Disorder N Arthritis N HSV N Infertility N Interstitial Cystitis N Acid Reflux (GERD) Y Cancer N Stroke N Endometriosis N Fibromyalgia N Spina Bifida N HIV N Heart Problems N Sexual Dysfunction N Hypogonadism N Autoimmune disorder N Kidney or Bladder Problems N Thyroid Problems N GI Problems N Eating Disorder [...] mL dose 1 completed Sonya Painter null, [facility] 10/19/2023 14:10:26 COVID-19, mRNA, LNP-S, PF, 30 mcg/0.3 mL dose 1 completed Sonya Painter null, [facility] 10/19/2023 14:10:26 SARS-COV-2 (COVID-19) vaccine, UNSPECIFIED 1 completed Sonya Painter null, [facility] 10/19/2023 14:10:26 SARS-COV-2 (COVID-19) vaccine, UNSPECIFIED 1 completed Sonya Painter null, [facility] 10/19/2023 14:10:26 influenza, unspecified formulation 5 completed Sonya Painter null, [facility] 10/19/2023 14:10:26 Influenza, split virus, quadrivalent, preservative 8 completed Sonya Painter [facility], [place] - [facility] 10/19/2023 14:10:25 Past Encounters Encounter ID Performer Location Encounter Start Date Encounter Closed Date Diagnosis/Indication Diagnosis SNOMED-CT Code Diagnosis ICD10 Code Diagnosis Note [id number] MEGAN SULLIVAN MD [facility] [address] [place] [address] 09/12/2016 16:02:21 09/13/2016 11:03:00 Gynecologic examination 96370333 Z01.419 Screening for malignant neoplasm of cervix 519130200 Z12.4 Screening mammography 24 620997 Z12.31 Diet education 15684635 Z71.3 Screening for malignant neoplasm of colon 726188882 Z12.11 History of suspected exposure to biological agent 5354358904 9106 Z77.29 NAILA Microscopic hematuria 19 7062530 R31.21 Obesity 797216428 E66.9 BMI 35.6 Osteopenia 246339493 M85 .80 [id number] MEGAN SULLIVAN MD [facility] [address] [place] [address] 09/18/2017 14:03:13 09/18/2017 16:58:59 Gynecologic examination 98525622 Z01.419 Screening for malignant neoplasm of cervix 600553534 Z12.4 Screening mammography 24 508332 Z12.31 Diet education 72367784 Z71.3 Microscopic hematuria 19 5160368 R31.21 Obesity 523040920 E66.9 BMI 35.6 History of suspected exposure to biological agent 7914396043 9106 Z77.29 NAILA Osteopenia 400075297 M85 .80 Spine and FN Family his tory of breast cancer 301905864 Z80.3 [id number] MEGAN SULLIVAN MD [facility] [address] [place] [address] 09/20/2018 09:01:13 09/30/2018 12:48:46 Gynecologic examination 83613781 Z01.419 Screening for malignant neoplasm of cervix 864757196 Z12.4 Screening mammography 24 538100 Z12.31 Screening for osteoporosis 404322344 Z13.820 Diet education 62717446 Z71.3 Family his tory of breast cancer 538312877 Z80.3 Osteopenia 023186810 M85 .80 Spine and FN History of suspected exposure to biological agent 3193619158 9106 Z77.29 NAILA Obesity 462900439 E66.9 BMI 35.7 [id number] BINA SOLARES MD [facility] [address] [place] [address] 10/31/2021 08:45:30 11/01/2021 09:38:57 Gynecologic examination 31166672 Z01.419 Osteopenia 361361348 M85 .80 Depression screening 171 939024 Z13.31 Obese 837439703 E66.9 Screening mammography 24 929048 Z12.31 Screening for malignant neoplasm of cervix 706720548 Z12.4 Family his tory of breast cancer 2 gene mutation 125879800 Z84.81 Vaginal dryness 41506061 N89.8 Family his tory of breast cancer 218937883 Z80.3 History of suspected exposure to biological agent 2493763095 9106 Z77.29 Microscopic hematuria 19 0549291 R31.29 [id number] BINA SOLARES MD [facility] [address] [place] [address] 11/13/2022 09:26:17 11/15/2022 09:58:48 Gynecologic examination 79824716 Z01.419 Family his tory of breast cancer 2 gene mutation 300242403 Z84.81 Osteopenia 639581384 M85 .80 Depression screening 171 062747 Z13.31 Obese 648259984 E66.9 Screening mammography 24 370187 Z12.31 Vaginal dryness 76983919 N89.8 Family his tory of breast cancer 612407753 Z80.3 Screening for malignant neoplasm of cervix 659666985 Z12.4 History of suspected exposure to biological agent 4140888156 9106 Z77.29 Postmenopausal state 764 [address] Z78.0 Exposure t o potentially harmful entity 721624221 Z77.9 NAILA daughter [id number] BINA SOLARES MD [facility] [address] [place] [address] 06/08/2023 08:18:37 06/10/2023 10:31:08 Cyst of left ovary 7869380762 2482298 N83.202 History of suspected exposure to biological agent 7037823205 9106 Z77.29 Family his tory of breast cancer 772918469 Z80.3 [id number] BINA SOLARES MD [facility] [address] [place] [address] 06/19/2023 09:33:26 06/25/2023 14:17:29 Cyst of left ovary 4314917147 1769771 N83.202 History of suspected exposure to biological agent 0728333594 9106 Z77.29 Family his tory of breast cancer 396195644 Z80.3 Postmenopa usal bleeding 97663530 N95.0 [id number] BINA SOLARES MD [facility] [address] [place] [address] 08/22/2023 15:42:40 08/27/2023 15:17:17 Pre-surgery evaluation 063549674 Z01.818 Postoperative pain 67966 9007 G89.18 Cyst of left ovary 49792 03374 7619396 N83.202 History of suspected exposure to biological agent 8637924975 9106 Z77.29 Family his tory of breast cancer 740825393 Z80.3 Postmenopa usal bleeding 74199600 N95.0 [id number] BINA SOLARES MD [facility] [address] [place] [address] 09/18/2023 08:18:11 09/20/2023 11:27:12 Postoperative visit 906327293 Z09 History of total hysterectomy 163479075 Z90.710 Cyst of left ovary 91092 60695 9242656 N83.202 [id number] BINA SOLARES MD [facility] [address] [place] [address] 10/19/2023 14:05:51 10/22/2023 16:45:39 Postoperative visit 858225676 Z09 History of total hysterectomy 204239636 Z90.710 Cyst of left ovary 06638 93785 0574719 N83.202 [id number] BINA SOLARES MD [facility] [address] [place] [address] 01/25/2024 13:45:42 01/31/2024 11:29:46 Gynecologic examination 46576140 Z01.411 Z01.419 Depression screening 171 949624 Z13.31 Family his tory of breast cancer 2 gene mutation 906143186 Z84.81 Osteopenia 748418521 M85 .80 Obese 615537313 E66.9 Screening mammography 24 704539 Z12.31 Vaginal dryness 35859086 N89.8 Family his tory of breast cancer 807201686 Z80.3 Screening for malignant neoplasm of cervix 517676674 Z12.4 History of suspected exposure to biological agent 1502437429 9106 Z77.29 Postmenopausal state 764 [address] Z78.0 Exposure t o potentially harmful entity 627830380 Z77.9 NAILA daughter History of total hysterectomy 466168289 Z90.710 Health Concerns Section Related Observation LastModified by Organization Detai ls LastModified Time None Recorded Concern Status LastModified by Organization Details LastModified Time None Recorded Advance Directives Directive None Recorded Payers Encounter Date Sequence Insurance Name Policy Number Policy Leggett Covered Member ID Leggett Member ID Guarantor Name 06/19/2023 1 [employer] [place] [id number] Carole A Rynne [id number] 223 Carole Rynne 08/22/2023 1 [employer] [place] [id number] Carole A Rynne [id number] 223 Carole Rynne 09/18/2023 1 [employer] [place] [id number] Carole A Rynne [id number] 223 Carole Rynne 10/19/2023 1 [employer] [place] [id number] Carole A Rynne [id number] 223 Carole Rynne 01/25/2024 1 [employer] [place] [id number] Carole A Rynne [id number] 223 Carole Rynne Notes Date Note Type [...] Oct)CA-125: 11/2022 - 7 BINA SOLARES MD [address] [place] [address], [address], [place], [address], [place] [facility] 06/20/2023 04:47:11 08/22/2023 text/html Pt presents for [...] Since last visit US, pt met with SURGICAL GARMENT INSPECTOR in [place]. Per pt had several EMBx for pap with endometrioal cells and ? of polyp. Pt reports going under sedation for removal of endometrial tissue. Pt had rpt US in 12/2022 showing the cyst had grown. She reports having BW with her SURGICAL GARMENT INSPECTOR showing 13% risk which was acceptable. Pt didn't get the tumor markers I had asked her to get previously. Pt wanted to have surgery but needed hiatal hernia repair and SURGICAL GARMENT INSPECTOR would not do ovary at that time. Pt underwent robotic hiatal hernia repair in January 2023 and has recovered. Pt tried to f/u with SURGICAL GARMENT INSPECTOR who wants to repeat the US in [...] US: L ovary with 5.1cm cyst BINA OSLARES MD [address] [place] [address], [address], [place] - [facility] 08/27/2023 09:30:26 09/18/2023 text/html Pt presents 2wks s/p TLH, BS0, cysto. Doing ok. Pain well controlled, abbey PO, ambulating, voiding well. Having regular BM. Denies N/V, fevers, chills. No bleeding. Bowels back to normal. Going back to work on 09/25. Pathology:benign GERARDO cyst (rete), benign uterus and ROV and tube, neg washings BINA SOLARES MD [address] [place] [address], [address], [place] - [facility] 09/18/2023 08:53:13 10/19/2023 text/html Pt presents 6wks s/p TLH, BS0, cysto. Doing ok. Pain well controlled, abbey PO, ambulating, voiding well. Having regular BM. Denies N/V, fevers, chills. No bleeding. Bowels back to normal. Back at work. Pathology:benign GERARDO cyst (rete), benign uterus and ROV and tube, neg washings BINA SOLARES MD [address] [place] [address], [address] [place] [address], [address], [facility] - [facility] 10/19/2023 15:17:20 01/25/2024 text/html Presents for leigh ann ual exam. Denies PMB. Denies additional SURGICAL GARMENT INSPECTOR, , or breast complaints.. 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
--- OUTSIDE RECORDS SUMMARY | 2024-12-16 07:54 | XMS_ITS | Encounter Summary ---
Author Organization [facility] [employer] [facility] and [facility] Address [address] [place] [phone] Care Team Providers Care Courtroom Deputy Name Role Phone Mary Spencer Primary Care Provider Encounter Details Date Type Department Care Team (Late Contact Info) Description 05/11/2016 Scanned Document [facility] [phone] [place] [address] External, Provider Social History Tobacco Use Types [...] EDT Procedure visit [facility] at [address] [place] [address] 01/09/2025 3:45 PM EDT Appointment [facility] [address] [place] [address] Maggie Obando MD 60 [facility] [address] [place] [address] documented as of this encounter Procedures Procedure Name Priority Date/Time Associated Diagnosis Comments STONERISK(R) DIAGNOSTIC PROF ILE (LMW Q) Routine 07/06/2013 documented in this encounter Results * Stonerisk(R) diagnostic profile (Q) (07/06/2013) Urine specimen (specimen) us Provider External URINE ORDERABLES Final Result Performing Organization Address City/State/[facility] Co de Phone Number [facility] documented in this encounter Visit Diagnoses Not on filedocumented in this encounter Care Teams Courtroom Deputy Relationship Specialty Start Date End Date Mary Spencer PA PCP - General Internal Medicine 08/03/15 documented as of this encounter
--- OUTSIDE RECORDS SUMMARY | 2024-12-16 07:54 | XMS_ITS | Encounter Summary ---
Author Organization [facility] [employer] [facility] and [facility] Address [address] [place] [phone] Care Team Providers Care Reconciliation Machine Operator Name Role Phone Mary Spencer Primary Care Provider Encounter Details Date Type Department Care Team (Late Contact Info) Description 12/10/2015 Scanned Document [facility] [phone] [address] [place] [address] External, Provider Social History Tobacco Use Types [...] PM EDT Procedure visit [facility] at [address] [place] [address] 01/09/2025 3:45 PM EDT Appointment [facility] [address] [place] [address] Maggie Obando MD 60 [facility] 201 [place] [address] documented as of this encounter Visit Diagnoses Not on filedocumented in this encounter Care Teams Reconciliation Machine Operator Relationship Specialty Start Date End Date Mary Spencer PA PCP - General Internal Medicine 08/03/15 documented as of this encounter
--- NOTE | 2024-12-16 08:05 | MHC.OFFVIS ---
Intake Visit Reasons: US/hematuria- CT ordered by Dr. Edwards Intake Note: Intake Visit Reasons: Urogram CT/ Retro US Intake Note: follow up for hematuria Medications: none Blood thinners: none Center Sales And Service Associate Required: No Antibiotic Allergies: Macrobid, penicillins, sulfa antibiotics, bactrim, azithromycin Center Sales And Service Associate Required: No Allergies codeine [CODEINE] Allergy (Intermediate, Verified 12/16/24 08:06) NAUSEA hazelnut [HAZELNUT] Allergy (Unknown, Verified 12/16/24 08:06) UNKNOWN Milk Containing Products (Dairy) [MILK CONTAINING PRODUCTS] Allergy (Unknown, Verified 12/16/24 08:06) UNKNOWN nitrofurantoin [From MACROBID] Allergy (Unknown, Verified 12/16/24 08:06) UNKNOWN Penicillins [PENICILLINS] Allergy (Unknown, Verified 12/16/24 08:06) UNKNOWN sesame seed [SESAME SEED] Allergy (Unknown, Verified 12/16/24 08:06) UNKNOWN Sulfa (Sulfonamide Antibiotics) Allergy (Unknown, Verified 12/16/24 08:06) Unknown sulfamethoxazole [From BACTRIM] Allergy (Unknown, Verified 12/16/24 08:06) UNKNOWN trimethoprim [From BACTRIM] Allergy (Unknown, Verified 12/16/24 08:06) UNKNOWN azithromycin [From Zithromax] Adverse Reaction (Intermediate, Verified 12/16/24 08:06) diarrhea epinephrine [EPINEPHRINE] Adverse Reaction (Intermediate, Verified 12/16/24 08:06) HEART PALPITATIONS beesting Allergy (Unknown, Uncoded 12/16/24 08:06) Unknown Medication List - Last Reconciled 12/16/24 by Faith San MD cholecalciferol (vitamin D3) 25 mcg PO DAILY HPI Comments Details: 12/16/24-- History of Present Illness The patient is a 59-year-old female presenting with microscopic hematuria and concern for potential bladder cancer. She has a history of recurrent urinary tract infections and kidney stones. Post-hysterectomy, she noted a faint pink discoloration on her sanitary pad but her runstitching machine operator identified no abnormalities upon examination. Recently, she reported increased urinary urgency and frequency. Dr. Edwards confirmed a urinary tract infection and started treatment, yet recommended further evaluation after noting persistent atypical cells in urine cytology. 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 A urine cytology performed previously also revealed rare atypical cells, raising the possibility of malignancy. The patient has a history of exposure to diethylstilbestrol (NAILA), suspecting this exposure contributes to her renal and gynecological issues. She noticed rapid weight loss consequent to a corrective hernia surgery where stomach repositioning alleviated her unexplained weight gain. She has a minimal history of smoking during her college years. Urinary Symptoms Review - Microscopic hematuria post-hysterectomy - Increased urinary frequency and urgency recently experienced - Occasional pink tint observed on pads - Initially recurring urinary tract infections - Rare atypical cells noted in urine cytology - Confirmed urinary tract infection treated by Dr. 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 I explained the presence of renal scarring and renal papillary necrosis and how these might relate to her symptoms and potential NAILA exposure. I clarified that atypical cells in urine cytology could indicate infection, stones, or other conditions, stressing these findings are nonspecific for cancer. We talked about the necessity and significance of undergoing cystoscopy to closely examine the bladder for abnormalities and, if necessary, performing biopsies. I reassured her of the procedure's safety and addressed her queries regarding discomfort using lidocaine for local numbing. We planned to take a catheterized urine sample for further cytology to avoid contamination. I also confirmed that a repeat urine cytology would be performed to confirm findings. Plan A cystoscopy will be performed to assess the bladder for any anomalies, and biopsies may follow if deemed necessary during the procedure. I plan to use lidocaine as a local anesthetic for the patient's comfort. A repeat urine cytology with a catheterized sample will ensure accurate results by excluding genital contaminants. If any bladder anomalies are detected upon cystoscopy, arrangements for an outpatient biopsy under anesthesia will be made. Potential differential factors, including infections, stones, and malignancy, have been considered, guiding our management plan based on findings. Patient Instructions - Arrange and prepare for scheduling a cystoscopy as soon as possible. - Understand that a catheterized urine sample will be taken for repeat cytology. - Report any change in symptoms, especially hematuria or urinary frequency. - Await scheduling for outpatient biopsy at hospital if required post-cystoscopy. - Follow proper hygiene to minimize infection risk. - Consider using panty liners as previously due to unexpected urine discoloration. - Reach out for any new symptoms or concerns before the scheduled follow-up. Patient was informed and verbally consented to the use of an ambient scribe for clinic note documentation during this visit. While exposure to Diethylstilbestrol (NAILA) has been linked to increased risks of certain cancers and developmental issues in NAILA daughters,?there is no evidence to suggest a link between NAILA exposure and an increased risk of bladder cancer in either NAILA daughters or sons.? a condition where the renal papillae, the areas where urine flows into the ureters, , often due to ischemia (reduced blood flow).?It can be caused by various factors, including diabetes, analgesic abuse, sickle cell disease, and infections, and can lead to kidney damage and potentially kidney failure.? Causes of Renal Papillary Necrosis: Diabetes:Diabetes mellitus can cause vascular problems that lead to ischemia in the renal papillae.?Analgesic Nephropathy:Overuse or abuse of certain pain medications (analgesics) can damage the kidneys and cause RPN.?Sickle Cell Disease:In sickle cell disease, the abnormal shape of red blood cells can lead to blockages in the small blood vessels of the kidneys, causing ischemia.?Infections:Kidney infections (pyelonephritis) can cause inflammation and damage to the renal papillae.?Other causes:Urinary tract obstruction, kidney transplant rejection, and certain vasculitides can also contribute to RPN.? Symptoms of Renal Papillary Necrosis: Back pain or flank pain Cloudy or bloody urine Tissue pieces in the urine Fever and chills Painful or frequent urination Urinary incontinence Renal colic (severe pain due to obstruction)? 01/31/23--Carole is a 57-year-old female who is here for tele-health visit to discuss 24-hour urine collection test results and renal US. LV--08/21/22--Carole is a 57-year-old female who was evaluated as an inpatient for left hydronephrosis due to obstructing distal ureteral stones. The patient is status post ureteroscopy laser lithotripsy and ureteral stent placement and is here for stent removal. I have reviewed the prior imaging 07/28/22, I have discussed with her that the left kidney had some scarring and was atrophic compared to the right kidney. Also noted was left adnexal cyst which was seen on prior imaging and the patient is aware of this and is following up with her lens mold setter. On evaluation - the stent is removed without difficulty and I have discussed plan for metabolic workup including 24 hour urine collection and will get a renal ultrasound in 4 months for follow-up evaluation of the kidneys. 01/31/23-- Discussed 24 hour urine results-- collected 01/03/23--Total volume 2.36 L, Calcium 192 mg; Oxalate 44 mg, Sodium 207, Citrate 1165 mg. Instructed on importance of fluid intake, Low oxalate diet, low sodium diet. Renal US results reviewed?11/06/22-- Findings of 2 cm cyst in the right kidney with peripheral calcification. CTAP results reviewed--07/28/22-- Findings of mild to moderate hydronephrosis on the left caused by a long calculus or several calculi stacked together in the distal left ureter approximately 1 to 2 cm from the UV. Plan: Discussed to consume 2-2.5 liters of fluid including water and juices, avoiding sodas, high sodium or high sugar content drinks. Discussed to consume low sodium diet and avoiding processed food. Discussed low oxalate diet---green leafy vegetable, nuts, and tea in moderation as they are rich in oxalate. Vitamin B6 100 mg QD was ordered. Repeat renal US in 6 months. [facility] Medical History Hx of hiatal hernia Ureteral stone Renal calculi Sore throat USMAN (obstructive sleep apnea) Cystitis Dysphagia Palpitations Restrictive airway disease Bronchitis BMI 36.0-36.9,adult Multiple allergies Headache Vitamin K deficiency Elevated C-reactive protein (CRP) Elevated sed rate Unexplained night sweats Pelvic cyst Adnexal cyst Microscopic hematuria Abnormal Pap smear of cervix Unexplained endometrial cells on cervical cytology Chronic fatigue GERD (gastroesophageal reflux disease) CAD (coronary artery disease) Microscopic hematuria Renal atrophy Recurrent UTI Left radial head fracture Obesity Surgical History Hx of hysterectomy S/P DONNA-BSO S/P repair of paraesophageal hernia History of esophagogastroduodenoscopy (EGD) History of lithotripsy History of skin graft History of cystoscopy History of ankle surgery History of ovarian cystectomy History of tonsillectomy History of surgery History of colonoscopy History of endoscopy Family History Father Liver failure ETOH abuse Diabetes Hypertension Anxiety Prostate cancer Mother Hypertension Afib CVD (cardiovascular disease) Emphysema lung Melanoma Paternal Aunt Breast cancer Social History Housing: [facility] Alcohol intake: current Alcohol intake frequency: holidays/special occasions only Comment: 2 glasses in a month Patient Tobacco Use Status: Never used Tobacco Tobacco use type: Cigarette Years Smoked: smoked in college. 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 [facility] Cognitive needs: No Hearing needs: No Vision needs: Yes Review of Systems Const All systems reviewed & are unremarkable except as noted in HPI and below Reports no additional complaints Eyes Reports no additional complaints ENT Reports no additional complaints Card Reports no additional complaints Resp Reports no additional complaints GI Reports no additional complaints Reports as per HPI Musc Reports no additional complaints Skin/Breast Reports system reviewed and no additional complaints, except as documented Neuro Reports no additional complaints Psych Reports no additional complaints Endo Reports no additional complaints Glen/Lymph Reports no additional complaints Aller/Immun Reports no additional complaints Results AMB Urinalysis, Automated UA Leukoctes 0 Andi/uL Last Edit by Harshil Elliott LPN on 12/16/24 08:17 UA Nitrite Negative Last Edit by Harshil Elliott LPN on 12/16/24 08:17 UA Urobilinogen 0.2 mg/dL Last Edit by Harshil Elliott LPN on 12/16/24 08:17 UA Protein 15 mg/dL Last Edit by Harshil Elliott LPN on 12/16/24 08:17 UA pH 5.5 Last Edit by Harshil Elliott LPN on 12/16/24 08:17 UA Blood 200 Chin/uL Last Edit by Harshil Elliott LPN on 12/16/24 08:17 UA Specific [place] 1.020 Last Edit by Harshil Elliott LPN on 12/16/24 08:17 UA Ketone Negative Last Edit by Harshil Elliott LPN on 12/16/24 08:17 UA Bilirubin 0 mg/dL Last Edit by Harshil Elliott LPN on 12/16/24 08:17 UA Glucose 0 mg/dL Last Edit by Harshil Elliott LPN on 12/16/24 08:17 Results Reviewed Results Reviewed: Laboratory Last Values Urine pH (Auto) 5.5 12/16/24 08:12 Specific [place] (Auto) 1.020 12/16/24 08:12 Urine Protein (Auto) 15 mg/dL 12/16/24 08:12 Glucose (UA)(Auto) 0 mg/dL 12/16/24 08:12 Urine Ketones (Auto) Negative 12/16/24 08:12 Urine Blood (Auto) 200 Chin/uL 12/16/24 08:12 Urine Nitrite (Auto) Negative 12/16/24 08:12 Urine Bilirubin (Auto) 0 mg/dL 12/16/24 08:12 Urine Urobilinogen (Auto) 0.2 mg/dL 12/16/24 08:12 Leukocyte Esterase (Auto) 0 Andi/uL 12/16/24 08:12 Collected: 12/11/24 Location: .LAB Received: 12/11/24 Diagnosis Urine: Rare atypical urothelial cells. COMMENT: Examination of a monolayer preparation slide shows many benign squamous cells, scattered benign urothelial cells, and rare atypical urothelial cells with increased nuclear:cytoplasmic ratios. There are also occasional inflammatory cells and red blood cells present. Clinical History Hematuria, unspecified Material Received Urine Gross Description Received is 46 cc of slightly cloudy yellow fluid from which a ThinPrep slide is prepared. Date of Service: 12/12/24 CLINICAL HISTORY: R31.9 - Hematuria, unspecified CT abdomen and pelvis with and without contrast Comparison: None Findings: The lung bases are clear. There is scarring of the left kidney with deformed calices. 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 There is a right renal cyst in the midpole measuring 1.7 cm. The gallbladder is normal. The rest of the solid organs are normal. Dilated small bowel loops are seen in the left upper quadrant and pelvis without a discrete site of transition. Rest of the bowel is unremarkable. The patient is status post hysterectomy. Normal appendix. Chronic compression deformities superior endplates of T11 and L1. IMPRESSION: 1. Chronic left renal scarring. Likely chronically deformed left renal calyces. 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 2. Dilated small bowel loops without a discrete zone of transition. Findings likely represent ileus. Date of Service: 11/06/22 EXAMINATION: US RETROPERITONEAL LIMITED (RENAL ONLY) CLINICAL INFORMATION: Calculus of kidney.. COMPARISON: CT kidneys 07/28/2022 TECHNIQUE: Routine grayscale imaging of kidneys is performed. FINDINGS: RIGHT KIDNEY: 12.3 x 5.9 x 5.0 cm (SAG x AP x TRV). The kidney is normal in size, contour, and echogenicity. Renal cortical thickness is normal. No calculi or focal parenchymal lesions. There is mild pelvic fullness. There is an echogenic complex cyst lower pole measuring 1.9 x 2.0 x 2.0 cm and peripheral calcification. LEFT KIDNEY: 9.5 x 4.9 x 4.6 cm (SAG x AP x TRV). The kidney is normal in size, contour, and echogenicity. There is mild cortical thinning unchanged since previous CT kidney exam. No calculi or focal parenchymal lesions. No hydronephrosis. IMPRESSION: Complex cyst lower pole right kidney. Mild pelvic fullness. Mild cortical thickening left kidney. Date of Service: 07/28/22 Indication: Hematuria EXAMINATION: CT of the abdomen pelvis noncontrast. Comparison is made to previous dated 07/21/2019. This CT examination was performed using dose optimization techniques as appropriate, variously including the following: *Automated exposure control *Adjustment of mA and/or kV according to patient size (this includes techniques or standardized protocols for targeted exams where dose is matched to indication/reason for exam; i.e. extremities or head) *Use of iterative reconstruction technique. Axial imaging with coronal and sagittal reformatted images. Radiation dose 863. Findings; The lung bases are grossly clear. Upper abdomen; Liver is grossly within normal limits. Spleen within normal limits. Gallbladder within normal limits. The pancreas is within normal limits. Area the adrenal glands within normal limits. Right kidney is within normal limits. Left kidney does demonstrate hydronephrosis. Prominent ureter. This leads up to calcification in the distal left ureter. This may be several calculi stacked together. Area measures 9 x 3 mm. Left kidney does demonstrate probable scarring and mildly atrophic compared to right kidney. The bowel pattern is nonobstructing. Some diverticular disease but no evidence for diverticulitis. The appendix is normal. The abdominal wall is felt to be within normal limits. Some atherosclerotic disease. No aneurysmal change. There is no bulky adenopathy here. Once again cystic change in the left adnexa. 5.9 x 4.7 cm. Previously 5.2 x 4 cm. No free fluid in the deep pelvis. Review of the bone windows does not demonstrate a suspicious bony finding. IMPRESSION: Mild to moderate hydronephrosis on the left caused by a long calculus or several calculi stacked together in the distal left ureter approximately 1 to 2 cm from the UVJ. ? Cystic left adnexal lesion demonstrating enlargement from previous exam. Ultrasonographic workup recommended. This may be done on an outpatient basis. ? Assessment & Plan Assessment & Plan Orders: Orders Urine Cytology Today N39.0 - Urinary tract infection, site not specified AMB Urinalysis Automated Today R31.9 - Hematuria, unspecified Coding
== END 2024-12-16 09:15 | disposition home or self-care (01) ==
LOC: HO.HUSH 07:51
PROVIDERS: PCP Internal Medicine; Visit Provider Urology
DX: R31.9 Hematuria, unspecified (principal)

== ENCOUNTER 2024-12-16 07:50 | Outpatient (REF) | payer OTHER, SELFPAY ==
[2024-12-16 16:56] LABS: Urine Cytology See Pathology rpt
== END 2024-12-16 07:51 | disposition home or self-care (01) ==
LOC: HO.LAB 07:50
PROVIDERS: PCP Internal Medicine; Visit Provider Urology
DX: N39.0 Urinary tract infection, site not specified (principal)
CPT/HCPCS: 81003; 88112

== ENCOUNTER 2024-12-23 07:55 | Outpatient (REF) | payer OTHER, SELFPAY | END 2024-12-23 07:56 | disposition home or self-care (01) | LOC: HO.LNP 07:55 | PROVIDERS: PCP Internal Medicine; Visit Provider Urology | DX: R82.89 Other abnormal findings on cytological and histological examination of urine (principal); R31.29 Other microscopic hematuria; R31.9 Hematuria, unspecified | CPT/HCPCS: 52000; 81003 ==

== ENCOUNTER 2024-12-23 07:55 | Outpatient (AMB) | payer OTHER, SELFPAY ==
--- OUTSIDE RECORDS SUMMARY | 2024-12-23 08:05 | XMS_ITS | Clinical Summary ---
Author Organization [employer] Address [address] [place] [address] Care Team Providers Care Pole Peeler Name Role Phone Demetra Pantoja MD Primary Care Provider [phone] Allergies Active Allergy Reactions Criticality Noted Date [...] EDT) Anatomical Region Laterality Modality Endoscopy 04/19/2012 [facility] Ambulatory MD GI PROCEDURE OR DERABLES Final Result from Last 3 Months or Most Recently Relevant to Health Maintenance Insurance [employer] Care Teams Pole Peeler Relationship Specialty Start Date End Date Demetra Pantoja MD [address] [place] [phone] PCP - General 10/06/19
--- OUTSIDE RECORDS SUMMARY | 2024-12-23 08:05 | XMS_ITS | Encounter Summary ---
Author Organization [facility] [employer] [facility] and [facility] Address [address] [place] [phone] Care Team Providers Care Education Professional Name Role Phone Mary Spencer Primary Care Provider Encounter Details Date Type Department Care Team (Late Contact Info) Description 05/04/2016 Scanned Document [facility] 789 [facility] [address] [place] [address] External, Provider Social History Tobacco Use Types [...] PM EDT Procedure visit [facility] at [address] [place] [address] 01/09/2025 3:45 PM EDT Appointment [facility] [facility] [address] [place] [address] Maggie Obando MD 60 [facility] [address] [place] [address] documented as of this encounter Visit Diagnoses Not on filedocumented in this encounter Care Teams Education Professional Relationship Specialty Start Date End Date Mary Spencer PA PCP - General Internal Medicine 08/03/15 documented as of this encounter
--- OUTSIDE RECORDS SUMMARY | 2024-12-23 08:05 | XMS_ITS | Clinical Summary ---
Author Organization [facility] Address [address] [place] [address] Care Team Providers Care Plate Drying Machine Tender Name Role Phone Unavailable Primary Care Provider [...]
--- OUTSIDE RECORDS SUMMARY | 2024-12-23 08:05 | XMS_ITS | Encounter Summary ---
Author Organization [facility] [employer] [facility] and [facility] Address [address] [place] [phone] Care Team Providers Care Want Ad Supervisor Name Role Phone Mary Spencer Primary Care Provider Encounter Details Date Type Department Care Team (Late st Contact Info) Description 08/04/2016 Scanned Document [facility] 789 [facility] [address] [place] [address] Kelsey Hutchinson MD [address] [place] [phone] Social History Tobacco Use Types Packs/Day [...] PM EDT Procedure visit [facility] at [address] [place] [address] 01/09/2025 3:45 PM EDT Appointment [facility] [address] [place] [address] [phone] Maggie Obando MD 60 [facility] [address] [place] [address] documented as of this encounter Procedures Procedure Name Priority Date/Time Associated Diagnosis Comments LAB SCAN Routine 07/17/2016 documented in this encounter Results * Lab Scan (07/17/2016) Blood specimen (specimen) us Kelsey Hutchinson MD LAB BLOOD ORDERABLES Final Resul t Performing Organization Address City/State/[facility] Co de Phone Number [facility] [place], [place], [facility] documented in this encounter Visit Diagnoses Not on filedocumented in this encounter Care Teams Want Ad Supervisor Relationship Specialty Start Date End Date Mary Spencer PA PCP - General Internal Medicine 08/03/15 documented as of this encounter
--- OUTSIDE RECORDS SUMMARY | 2024-12-23 08:05 | XMS_ITS | Encounter Summary ---
Author Organization [facility] and [facility] Address [address] [place] [phone] Care Team Providers Care Jacker Feeder Name Role Phone Mary Spencer Primary Care Provider Encounter Details Date Type Department Care Team (Late Contact Info) Description 06/20/2016 Scanned Document [facility] [phone] [place] [address] External, Provider Social History Tobacco Use Types [...] PM EDT Procedure visit [facility] at [address] [place] [address] 01/09/2025 3:45 PM EDT Appointment [facility] [place] [facility] [address] [place] [address] Maggie Obando MD 60 [facility] 201 [place] [address] documented as of this encounter Procedures Procedure Name Priority Date/Time Associated Diagnosis Comments LAB SCAN Routine 12/09/2015 BONE DENSITY RESULT SCAN Routine 09/28/2015 documented in this encounter Results * Lab Scan (12/09/2015) Blood specimen (specimen) us Provider External LAB BLOOD ORDERABLES Final Res ult Performing Organization Address [facility] Co de Phone Number [facility] * Bone Density Result Scan (09/28/2015) us Provider External IMG SCAN REPORTS Final Result Performing Organization Address [facility] de Phone Number [facility] documented in this encounter Visit Diagnoses Not on filedocumented in this encounter Care Teams Jacker Feeder Relationship Specialty Start Date End Date Mary Spencer PA PCP - General Internal Medicine 08/03/15 documented as of this encounter
--- OUTSIDE RECORDS SUMMARY | 2024-12-23 08:05 | XMS_ITS | Encounter Summary ---
Author Organization [facility] and [facility] Address [address] [place] [phone] Care Team Providers Care Battery Charger Conveyor Line Name Role Phone Mary Spencer Primary Care Provider Encounter Details Date Type Department Care Team (Late Contact Info) Description 12/10/2015 Scanned Document [facility] [phone] [place] [address] External, Provider Social History Tobacco Use Types [...] PM EDT Procedure visit [facility] at [address] [place] [address] 01/09/2025 3:45 PM EDT Appointment [facility] [place] [facility] [address] [place] [address] Maggie Obando MD 60 [facility] 201 [place] [address] documented as of this encounter Visit Diagnoses Not on filedocumented in this encounter Care Teams Battery Charger Conveyor Line Relationship Specialty Start Date End Date Mary Spencer PA PCP - General Internal Medicine 08/03/15 documented as of this encounter
--- OUTSIDE RECORDS SUMMARY | 2024-12-23 08:05 | XMS_ITS | Encounter Summary ---
Author Organization [facility] [employer] [facility] and [facility] Address [address] [place] [phone] Care Team Providers Care Aeronautical Engineering Technologist Name Role Phone Mary Spencer Primary Care Provider Encounter Details Date Type Department Care Team (Late Contact Info) Description 09/01/2016 Scanned Document [facility] [phone] [place] [address] External, Provider Social History Tobacco Use Types [...] PM EDT Procedure visit [facility] at [address] [place] [address] 01/09/2025 3:45 PM EDT Appointment [facility] [place] [facility] [address] [place] [address] Maggie Obando MD 60 [facility] 201 [place] [address] documented as of this encounter Procedures Procedure Name Priority Date/Time Associated Diagnosis Comments LAB SCAN Routine 01/21/2014 documented in this encounter Results * Lab Scan (01/21/2014) Blood specimen (specimen) us Provider External LAB BLOOD ORDERABLES Final Res ult Performing Organization Address [facility] Co de Phone Number [facility] documented in this encounter Visit Diagnoses Not on filedocumented in this encounter Care Teams Aeronautical Engineering Technologist Relationship Specialty Start Date End Date Mary Spencer PA PCP - General Internal Medicine 08/03/15 documented as of this encounter
--- OUTSIDE RECORDS SUMMARY | 2024-12-23 08:05 | XMS_ITS | Clinical Summary ---
Author Organization [facility] Address [address] [place] [address] Care Team Providers Care Bird Trapper Name Role Phone Mary Spencer Primary Care [...] PM EDT Procedure visit [facility] at [address] [address] 01/09/2025 3:45 PM EDT Appointment [facility] [place] [facility] [address] [place] [address] Maggie Obando MD 60 [facility] 201 [place] [address] Health Maintenance Due Date Last [...] (1 of 1 - PCV) 2031 RSV Immunization (1 - 1-dose 75+ series) 2041 Meningococcal [...] mammogram for malignant neoplasm of breast CYTOLOGY BUSINESS BANKING RELATIONSHIP MANAGER CASES () Routine 09/07/2015 8:10 PM EST [...] MAMMOGRAPHY ORDERABLE S Final Result * Cytology patent chemist cases () (09/07/2015 8:10 PM EST) Cytology Underlay Stitcher Cases ?CYTOLOGY REPORT ? Procedures/Addenda Attached Patient: NANCY CHAVEZ ?MR #: [id number] ?Submitted by: Megan Perez M.D. FINAL DIAGNOSIS SUREPATH PAP SMEAR: ? Primary Diagnosis: ? NEGATIVE FOR INTRAEPITHELIAL LESION OR MALIGNANCY. ? Additional Findings: NO ENDOCERVICAL CELLS SEEN. CYTOLYSIS PRESENT. HIGH RISK HPV CO-TESTING HAS BEEN PERFORMED AND THE RESULT IS NEGATIVE. Specimen Adequacy: THIS SPECIMEN IS SATISFACTORY FOR EVALUATION. ? This specimen was manually screened with the assistance of the [employer] Imaging System. Recommendation: According to the current [...] used to evaluate suspected endometrial abnormalities. ??(The Guy System, 2001) ?? 09/10/2015 12:46 ?* Report [...] ? Reported: ? 09/10/2015 ? Pathologist: ? [facility] ? Interpretation Specimen: SUREPATH PAP SMEAR BELOW CUTOFF FOR HIGH RISK HPV HPV types 16, 18, 31, 33, 35, 39, 45, 51, 52, 56, 58, 59, 66, and 68 DNA were either considered NEGATIVE, undetectable,or below the pre-set threshold. This test was performed at [facility] Department of Pathology, [address] [place] [address], CLIA# [id number] using the Yola christy 4800 HPV Test System and is only approved by the Food and Drug Administration (FDA) for use oncervicalspecimen s collected in Cytyc Preservcyt Solution (ThinPrep). When using ThinPrep liquid based samples for non-cervical specimens, SurePath liquid based samples, or formalin fixed paraffin embedded tissue, the performance characteristics have been determined by [facility]. Although testing on samples that are not cervical in origin, and/or in any other medium besides ThinPrep, has not been cleared or approved by the FDA, the FDA has determined that such clearance or approval is not necessary. ? [facility] 09/07/2015 8:10 PM EST Comment:SUREPATH PAP SMEAR+ HPV us Megan Perez MD PATHOLOGY/CYTOLOGY ORDERABLES Final Result [facility] CYTOLOGY Department of Pathology [address] [place] [address] [phone] [place] [address] * Glucose ( GH Q YH) (06/03/2013 10:25 AM EDT) Glucose 100 70 - 100 mg/dL [facility] 06/03/2013 10:2 5 AM EDT Narrative [facility] - 06/03/2013 3:45 PM EDT Performed by: [facility] [address] [place] [phone] ??(CLIA #[id number], [id number]) Jocelin Alcantara MD LAB BLOOD ORDERABLES F inal Result [facility] [address] [place] [phone] from Last 3 Months or Most Recently Relevant to Health Maintenance Insurance BCBS Care Teams Bird Trapper Relationship Specialty Start Date End Date Mary Spencer PA PCP - General Internal Medicine 08/03/15
--- OUTSIDE RECORDS SUMMARY | 2024-12-23 08:05 | XMS_ITS | Continuity of Care Document ---
Author Organization [facility] Address [address] [facility] [address] [place] [address] Phone [phone] Social History Type Date Description Comments Sex Unknown Medical Devices Description No Information Available Encounters Description No Information Available Assessments Description No Information Available Plan of Treatment No Information Available Functional Status Description No Information Available Mental Status Description No Information Available Referrals Description No Information Available
--- OUTSIDE RECORDS SUMMARY | 2024-12-23 08:05 | XMS_ITS | Encounter Summary ---
Author Organization [facility] [employer] [facility] and [facility] Address [address] [place] [phone] Care Team Providers Care Joint Filler Name Role Phone Mary Spencer Primary Care Provider Encounter Details Date Type Department Care Team (Late Contact Info) Description 09/11/2016 Scanned Document [facility] [phone] [place] [address] External, Provider Social History Tobacco Use Types [...] EDT Procedure visit [facility] at [address] [place] [address] 01/09/2025 3:45 PM EDT Appointment [facility] [place] [facility] [address] [place] [address] Maggie Obando MD 60 [facility] 201 [place] [address] documented as of this encounter Procedures Procedure Name Priority Date/Time Associated Diagnosis Comments ZZZCTX COLLAGEN C-TELOPEPTIDE (BH) Routine 07/19/2016 documented in this encounter Results * CTX collagen C-telopeptide (BH) (07/19/2016) Blood specimen (specimen) us Provider External LAB BLOOD ORDERABLES Final Res ult Performing Organization Address City/State/[facility] Co de Phone Number [facility] documented in this encounter Visit Diagnoses Not on filedocumented in this encounter Care Teams Joint Filler Relationship Specialty Start Date End Date Mary Spencer PA PCP - General Internal Medicine 08/03/15 documented as of this encounter
--- OUTSIDE RECORDS SUMMARY | 2024-12-23 08:05 | XMS_ITS | Encounter Summary ---
Author Organization [facility] and [facility] Address [address] [place] [phone] Care Team Providers Care Morning News Anchor Name Role Phone Mary Spencer Primary Care Provider Encounter Details Date Type Department Care Team (Late Contact Info) Description 05/11/2016 Scanned Document [facility] [phone] [place] [address] External, Provider Social History Tobacco Use Types [...] PM EDT Procedure visit [facility] at [address] [place] [address] 01/09/2025 3:45 PM EDT Appointment [facility] [place] [facility] [address] [place] [address] Maggie Obando MD 60 [facility] 201 [place] [address] documented as of this encounter Procedures Procedure Name Priority Date/Time Associated Diagnosis Comments STONERISK(R) DIAGNOSTIC PROF ILE (LMW Q) Routine 07/06/2013 documented in this encounter Results * Stonerisk(R) diagnostic profile (Q) (07/06/2013) Urine specimen (specimen) us Provider External URINE ORDERABLES Final Result Performing Organization Address City/State/[facility] Co de Phone Number [facility] documented in this encounter Visit Diagnoses Not on filedocumented in this encounter Care Teams Morning News Anchor Relationship Specialty Start Date End Date Mary Spencer PA PCP - General Internal Medicine 08/03/15 documented as of this encounter
--- NOTE | 2024-12-23 08:07 | A.OFFVIS_ITS ---
Intake Visit Reasons: cysto Intake Note: Patient presents to office today for a cystoscopy Urology Medications: none Blood thinners: none Antibiotic Allergies:none Insurance Sales Producer Required: No Allergies codeine [CODEINE] Allergy (Intermediate, Verified 12/23/24 08:09) NAUSEA hazelnut [HAZELNUT] Allergy (Unknown, Verified 12/23/24 08:09) UNKNOWN Milk Containing Products (Dairy) [MILK CONTAINING PRODUCTS] Allergy (Unknown, Verified 12/23/24 08:09) UNKNOWN nitrofurantoin [From MACROBID] Allergy (Unknown, Verified 12/23/24 08:09) UNKNOWN Penicillins [PENICILLINS] Allergy (Unknown, Verified 12/23/24 08:09) UNKNOWN sesame seed [SESAME SEED] Allergy (Unknown, Verified 12/23/24 08:09) UNKNOWN Sulfa (Sulfonamide Antibiotics) Allergy (Unknown, Verified 12/23/24 08:09) Unknown sulfamethoxazole [From BACTRIM] Allergy (Unknown, Verified 12/23/24 08:09) UNKNOWN trimethoprim [From BACTRIM] Allergy (Unknown, Verified 12/23/24 08:09) UNKNOWN azithromycin [From Zithromax] Adverse Reaction (Intermediate, Verified 12/23/24 08:09) diarrhea epinephrine [EPINEPHRINE] Adverse Reaction (Intermediate, Verified 12/23/24 08:09) HEART PALPITATIONS beesting Allergy (Unknown, Uncoded 12/16/24 08:06) Unknown HPI Comments Details: 12/23/24--Here for office cystoscopy: Repeat urine cytology- 12/16/24-- Negative for high-grade urothelial carcinoma. Cellular specimen consisting of occasional single urothelial cells with degenerative changes, squamous cells, relatively numerous red blood cells and few mixed inflammatory cells. Catheterized urine urine obtained and sent for urine FISH. Cystoscopy findings bladder mucosa no suspicious lesions seen. 12/16/24--Carole is a 59-year-old female presenting with microscopic hematuria. History of NAILA baby . She has a history of recurrent urinary tract infections and kidney stones. Post-hysterectomy, she noted a faint pink discoloration on her sanitary pad but her auto dealer identified no abnormalities upon examination. Recently, she reported increased urinary urgency and frequency. Dr. Edwards confirmed a urinary tract infection and started treatment, yet recommended further evaluation after noting persistent atypical cells in urine cytology. 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 A urine cytology performed previously also revealed rare atypical cells, raising the possibility of malignancy. The patient has a history of exposure to diethylstilbestrol (NAILA), suspecting this exposure contributes to her renal and gynecological issues. She noticed rapid weight loss consequent to a corrective hernia surgery where stomach repositioning alleviated her unexplained weight gain. She has a minimal history of smoking during her college years. Discussed renal papillary necrosis- a condition where the renal papillae, the areas where urine flows into the ureters, , often due to ischemia (reduced blood flow); can be caused by various factors, including diabetes, analgesic abuse, sickle cell disease, and infections, and can lead to kidney damage and potentially kidney failure.? Urinary Symptoms Review - Microscopic hematuria post-hysterectomy - Increased urinary frequency and urgency recently experienced - Occasional pink tint observed on pads - Initially recurring urinary tract infections - Rare atypical cells noted in urine cytology - Confirmed urinary tract infection treated by Dr. 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 LV--08/21/22--Andrei blackburn is a 57-year-old female who was evaluated as an inpatient for left hydronephrosis due to obstructing distal ureteral stones. The patient is status post ureteroscopy laser lithotripsy and ureteral stent placement and is here for stent removal. I have reviewed the prior imaging 07/28/22, I have discussed with her that the left kidney had some scarring and was atrophic compared to the right kidney. Also noted was left adnexal cyst which was seen on prior imaging and the patient is aware of this and is following up with her manager building. On evaluation - the stent is removed without difficulty and I have discussed plan for metabolic workup including 24 hour urine collection and will get a renal ultrasound in 4 months for follow-up evaluation of the kidneys. 01/31/23-- Discussed 24 hour urine results-- collected 01/03/23--Total volume 2.36 L, Calcium 192 mg; Oxalate 44 mg, Sodium 207, Citrate 1165 mg. Instructed on importance of fluid intake, Low oxalate diet, low sodium diet. Renal US results reviewed?11/06/22-- Findings of 2 cm cyst in the right kidney with peripheral calcification. CTAP results reviewed--07/28/22-- Findings of mild to moderate hydronephrosis on the left caused by a long calculus or several calculi stacked together in the distal left ureter approximately 1 to 2 cm from the UV. Plan: Discussed to consume 2-2.5 liters of fluid including water and juices, avoiding sodas, high sodium or high sugar content drinks. Discussed to consume low sodium diet and avoiding processed food. Discussed low oxalate diet---green leafy vegetable, nuts, and tea in moderation as they are rich in oxalate. Vitamin B6 100 mg QD was ordered. Repeat renal US in 6 months. [facility] Medical History Microscopic hematuria Hx of hiatal hernia Ureteral stone Renal calculi Sore throat USMAN (obstructive sleep apnea) Cystitis Dysphagia Palpitations Restrictive airway disease Bronchitis BMI 36.0-36.9,adult Multiple allergies Headache Vitamin K deficiency Elevated C-reactive protein (CRP) Elevated sed rate Unexplained night sweats Pelvic cyst Adnexal cyst Abnormal Pap smear of cervix Unexplained endometrial cells on cervical cytology Chronic fatigue GERD (gastroesophageal reflux disease) CAD (coronary artery disease) Microscopic hematuria Renal atrophy Recurrent UTI Left radial head fracture Obesity Surgical History Hx of hysterectomy S/P DONNA-BSO S/P repair of paraesophageal hernia History of esophagogastroduodenoscopy (EGD) History of lithotripsy History of skin graft History of cystoscopy History of ankle surgery History of ovarian cystectomy History of tonsillectomy History of surgery History of colonoscopy History of endoscopy Family History Father Liver failure ETOH abuse Diabetes Hypertension Anxiety Prostate cancer Mother Hypertension Afib CVD (cardiovascular disease) Emphysema lung Melanoma Paternal Aunt Breast cancer Social History [facility] Alcohol intake: current Alcohol intake frequency: holidays/special occasions only Comment: 2 glasses in a month Patient Tobacco Use Status: Never used Tobacco Tobacco use type: Cigarette Years Smoked: smoked in college. 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 [facility] [place] needs: No Hearing needs: No Vision needs: Yes Office Procedures Cystoscopy Consent Discussed risk and benefit or proposed procedure with the patient. Information consent for procedure given to the patient. Discussed technical aspects, risks, benefits and alternatives in full. Addressed all of the patient's questions and concerns regarding the procedure. The patient demonstrated knowledge and understanding. They wish to proceed with this procedure. Preparation The patient was prepped in the usual manner. A flarer was present and in the room. Genitalia was prepped with betadine solution in a sterile manner. Lidocaine Jelly 2% was placed into the urethra and 16Fr flexible Olympus cystoscope was inserted into the meatus after adequate lubrication. Procedure Time out per protocol performed. Bladder Inspection Bladder Inspection: The bladder was inspected in its entirety with utilization retroflexion displaying: Tumor(s): no suspicious bladder lesions visualized Trabeculation: NA Mucosal Erthema: mild Orifices: normal shape and position Urethra: normal Cystoscopy findings: WNL, no suspicious bladder lesions visualized [id number] DISPOSABLE SCOPE URO-G FLEXIBLE SCOPE Procedure code (CPT) selection complete Office Meds lidocaine HCl 2 % mucosal jelly in applicator Performing Provider: Faith San MD [place] [facility] Administered by: Swathi Harvey RN on 12/23/24 08:26 Dose Route Admin Location Dispensed Lot Number Expiration Date [facility] [employer] 10 mL intra-urethral 10 mL ciprofloxacin HCl 500 mg tablet Performing Provider: Faith San MD [place] [facility] [facility] Administered by: Swathi Harvey RN on 12/23/24 08:26 Dose Route Admin Location Dispensed Lot Number Expiration Date [facility] [employer] 500 mg PO 1 tab phenazopyridine 200 mg tablet Performing Provider: Faith San MD Performing [place] [facility] Administered by: Swathi Harvey RN on 12/23/24 08:26 Dose Route Admin Location Dispensed Lot Number Expiration Date [employer] [employer] 200 mg PO 1 tab Results Reviewed Results Reviewed: Collected: 12/16/24 Location: [facility] Received: 12/17/24 Diagnosis Urine: Negative for high-grade urothelial carcinoma. See comment. COMMENT: Cellular specimen consisting of occasional single urothelial cells with degenerative changes, squamous cells, relatively numerous red blood cells and few mixed inflammatory cells. Clinical History Urinary tract infection, site not specified Material Received Urine Gross Description Received is 40 cc of cloudy yellow fluid from which a ThinPrep slide is prepared. Collected: 12/11/24 [facility] Received: 12/11/24 Diagnosis Urine: Rare atypical urothelial cells. COMMENT: Examination of a monolayer preparation slide shows many benign squamous cells, scattered benign urothelial cells, and rare atypical urothelial cells with increased nuclear:cytoplasmic ratios. There are also occasional inflammatory cells and red blood cells present. Clinical History Hematuria, unspecified Material Received Urine Gross Description Received is 46 cc of slightly cloudy yellow fluid from which a ThinPrep slide is prepared. Date of Service: 12/12/24 CLINICAL HISTORY: R31.9 - Hematuria, unspecified CT abdomen and pelvis with and without contrast Comparison: None Findings: The lung bases are clear. There is scarring of the left kidney with deformed calices. 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 There is a right renal cyst in the midpole measuring 1.7 cm. The gallbladder is normal. The rest of the solid organs are normal. Dilated small bowel loops are seen in the left upper quadrant and pelvis without a discrete site of transition. Rest of the bowel is unremarkable. The patient is status post hysterectomy. Normal appendix. Chronic compression deformities superior endplates of T11 and L1. IMPRESSION: 1. Chronic left renal scarring. Likely chronically deformed left renal calyces. 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 2. Dilated small bowel loops without a discrete zone of transition. Findings likely represent ileus. Date of Service: 11/06/22 EXAMINATION: US RETROPERITONEAL LIMITED (RENAL ONLY) CLINICAL INFORMATION: Calculus of kidney.. COMPARISON: CT kidneys 07/28/2022 TECHNIQUE: Routine grayscale imaging of kidneys is performed. FINDINGS: RIGHT KIDNEY: 12.3 x 5.9 x 5.0 cm (SAG x AP x TRV). The kidney is normal in size, contour, and echogenicity. Renal cortical thickness is normal. No calculi or focal parenchymal lesions. There is mild pelvic fullness. There is an echogenic complex cyst lower pole measuring 1.9 x 2.0 x 2.0 cm and peripheral calcification. LEFT KIDNEY: 9.5 x 4.9 x 4.6 cm (SAG x AP x TRV). The kidney is normal in size, contour, and echogenicity. There is mild cortical thinning unchanged since previous CT kidney exam. No calculi or focal parenchymal lesions. No hydronephrosis. IMPRESSION: Complex cyst lower pole right kidney. Mild pelvic fullness. Mild cortical thickening left kidney. Date of Service: 07/28/22 Indication: Hematuria EXAMINATION: CT of the abdomen pelvis noncontrast. Comparison is made to previous dated 07/21/2019. This CT examination was performed using dose optimization techniques as appropriate, variously including the following: *Automated exposure control *Adjustment of mA and/or kV according to patient size (this includes techniques or standardized protocols for targeted exams where dose is matched to indication/reason for exam; i.e. extremities or head) *Use of iterative reconstruction technique. Axial imaging with coronal and sagittal reformatted images. Radiation dose 863. Findings; The lung bases are grossly clear. Upper abdomen; Liver is grossly within normal limits. Spleen within normal limits. Gallbladder within normal limits. The pancreas is within normal limits. Area the adrenal glands within normal limits. Right kidney is within normal limits. Left kidney does demonstrate hydronephrosis. Prominent ureter. This leads up to calcification in the distal left ureter. This may be several calculi stacked together. Area measures 9 x 3 mm. Left kidney does demonstrate probable scarring and mildly atrophic compared to right kidney. The bowel pattern is nonobstructing. Some diverticular disease but no evidence for diverticulitis. The appendix is normal. The abdominal wall is felt to be within normal limits. Some atherosclerotic disease. No aneurysmal change. There is no bulky adenopathy here. Once again cystic change in the left adnexa. 5.9 x 4.7 cm. Previously 5.2 x 4 cm. No free fluid in the deep pelvis. Review of the bone windows does not demonstrate a suspicious bony finding. IMPRESSION: Mild to moderate hydronephrosis on the left caused by a long calculus or several calculi stacked together in the distal left ureter approximately 1 to 2 cm from the UVJ. ? Cystic left adnexal lesion demonstrating enlargement from previous exam. Ultrasonographic workup recommended. This may be done on an outpatient basis. ? 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 Orders: Orders FISH Bladder Cancer Today R31.29 - Other microscopic hematuria, R31.9 - Hematuria, unspecified, R82.89 - Other abnormal findings on cytological and histological examination of urine AMB Cystoscopy Today R31.9 - Hematuria, unspecified, Z87.442 - Personal history of urinary calculi Patient Instructions: The patient had an opportunity to ask questions regarding treatment plan. The patient expressed understanding and agreement with the above treatment plan. The patient is aware they should contact our office by phone for worsening of their current condition or the appearance of new symptoms. Compliance is encouraged with any medications and followup testing that is ordered. It is a privilege to be allowed the opportunity to participate in the urologic care of your patient. If you have any questions or concerns regarding treatment for the above conditions please do not hesitate to contact me. The office telephone contact is [phone]. This note is constructed in part using voice recognition software. While every effort has been made to ensure accuracy forepart rounder errors may have been included. Yours sincerely, Faith San MD Coding Level of Care Code Procedure Only Diagnoses History of renal calculi Z87.442 Left renal atrophy N26.1 Abnormal urine cytology R82.89 Renal papillary necrosis N17.2 Microscopic hematuria R31.29 CPT Codes Cystoscopy - CPT: [id number] ([id number])
== END 2024-12-23 09:23 | disposition home or self-care (01) ==
LOC: HO.HUSH 07:56
PROVIDERS: PCP Internal Medicine; Visit Provider Urology
DX: R31.29 Other microscopic hematuria (principal); R82.89 Other abnormal findings on cytological and histological examination of urine; Z87.442 Personal history of urinary calculi; N26.1 Atrophy of kidney (terminal); N17.2 Acute kidney failure with medullary necrosis; Z13.9 Encounter for screening, unspecified
CPT/HCPCS: 52000

== ENCOUNTER 2024-12-25 15:12 | Outpatient (AMB) | payer OTHER, SELFPAY ==
--- NOTE | 2024-12-25 15:17 | HO.NEPHOV ---
Vital Signs 12/25/24 15:18 Height 5 ft 4 in Weight 151 lb 6 oz BMI 26.0 BP 104/70 Blood Pressure Location Lt brachial Position Sitting Pulse 88 Pulse Source Pulse Oximeter Pulse Oximetry (%) 100 Oxygen Delivery Method Room Air Intake Visit Reasons: INP: Hematuria Accompanied by: Self / Same As Patient Allergies codeine [CODEINE] Allergy (Intermediate, Verified 12/25/24 15:18) NAUSEA hazelnut [HAZELNUT] Allergy (Unknown, Verified 12/25/24 15:18) UNKNOWN Milk Containing Products (Dairy) [MILK CONTAINING PRODUCTS] Allergy (Unknown, Verified 12/25/24 15:18) UNKNOWN nitrofurantoin [From MACROBID] Allergy (Unknown, Verified 12/25/24 15:18) UNKNOWN Penicillins [PENICILLINS] Allergy (Unknown, Verified 12/25/24 15:18) UNKNOWN sesame seed [SESAME SEED] Allergy (Unknown, Verified 12/25/24 15:18) UNKNOWN Sulfa (Sulfonamide Antibiotics) Allergy (Unknown, Verified 12/25/24 15:18) Unknown sulfamethoxazole [From BACTRIM] Allergy (Unknown, Verified 12/25/24 15:18) UNKNOWN trimethoprim [From BACTRIM] Allergy (Unknown, Verified 12/25/24 15:18) UNKNOWN azithromycin [From Zithromax] Adverse Reaction (Intermediate, Verified 12/25/24 15:18) diarrhea epinephrine [EPINEPHRINE] Adverse Reaction (Intermediate, Verified 12/25/24 15:18) HEART PALPITATIONS beesting Allergy (Unknown, Uncoded 12/16/24 08:06) Unknown HPI Comments Details: I had the privilege of seeing Carole in consultation for H/O persistent microscopic hematuria on a backdrop of renal cyst & H/O renal calculi. She had seen Urology had undergone cystoscopy as well as urine cytology which was negative for high-grade urothelial carcinoma. Cellular specimen consisting of occasional single urothelial cells with degenerative changes, squamous cells, relatively numerous red blood cells and few mixed inflammatory cells. Cystoscopy no suspicious lesions on the bladder mucosa seen. She has history of NAILA baby . She has a history of recurrent urinary tract infections and kidney stones . Recently, she reported increased urinary urgency and frequency. Dr. Edwards confirmed a urinary tract infection and started treatment, yet recommended further evaluation after noting persistent atypical cells in urine cytology. 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 A urine cytology performed previously also revealed rare atypical cells, raising the possibility of malignancy. The patient has a history of exposure to diethylstilbestrol (NAILA), suspecting this exposure contributes to her renal and gynecological issues. She noticed rapid weight loss consequent to a corrective hernia surgery where stomach repositioning alleviated her unexplained weight gain. She has a minimal history of smoking during her college years. She has H/O left hydronephrosis due to obstructing distal ureteral stones. She had 24 hour urine testing & was suggested low oxalate diet & low sodium diet. Recent CT Urogram showed a renal cyst. Her renal function is normal.She has no proteinuria and is normotensive. She is not a diabetic , has no H/O analgesic abuse or H/O sickle cell disease. She does not get macroscopic hematuria during URI. She has no H/O sensori neural deafness or proteinuria. She was found to have low Vitamin D levels. There were no specific complaints at the time of this office visit. [facility] Medical History Microscopic hematuria Hx of hiatal hernia Ureteral stone Renal calculi Sore throat USMAN (obstructive sleep apnea) Cystitis Dysphagia Palpitations Restrictive airway disease Bronchitis BMI 36.0-36.9,adult Multiple allergies Headache Vitamin K deficiency Elevated C-reactive protein (CRP) Elevated sed rate Unexplained night sweats Pelvic cyst Adnexal cyst Abnormal Pap smear of cervix Unexplained endometrial cells on cervical cytology Chronic fatigue GERD (gastroesophageal reflux disease) CAD (coronary artery disease) Microscopic hematuria Renal atrophy Recurrent UTI Left radial head fracture Obesity Surgical History Hx of hysterectomy S/P DONNA-BSO S/P repair of paraesophageal hernia History of esophagogastroduodenoscopy (EGD) History of lithotripsy History of skin graft History of cystoscopy History of ankle surgery History of ovarian cystectomy History of tonsillectomy History of surgery History of colonoscopy History of endoscopy Family History Father Liver failure ETOH abuse Diabetes Hypertension Anxiety Prostate cancer Mother Hypertension Afib CVD (cardiovascular disease) Emphysema lung Melanoma Paternal Aunt Breast cancer Social History Housing: Condominium Alcohol intake: current Alcohol intake frequency: holidays/special occasions only Comment: 2 glasses in a month Patient Tobacco Use Status: Never used Tobacco Tobacco use type: Cigarette Years Smoked: smoked in college. 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 [employer] [facility] [place] Cognitive needs: No Hearing needs: No Vision needs: Yes Review of Systems Const All systems reviewed & are unremarkable except as noted in HPI and below Physical Exam Vital Signs: Last Vital Signs Pulse 88 12/25/24 15:18 BP 104/70 12/25/24 15:18 Pulse Ox 100 12/25/24 15:18 Oxygen Delivery Method Room Air 12/25/24 15:18 BMI result Body Mass Index 26.0 Const General: comfortable and no acute distress Orientation/consciousness: patient oriented x3 HEENT Head: Yes normocephalic Mouth: Normal oral and palatal mucosa present Eyes EOM: EOMs intact bilaterally Neck Neck: Yes supple Resp Auscultation: clear to auscultation bilaterally Cardio Jugular venous distension: no JVD Rate: regular rate GI Palpation (GI): Soft to palpation Auscultation: normal bowel sounds General: Yes no CVA tenderness Back/Spine/Pelvis Back: no CVA tenderness Skin General skin exam: no rashes or lesions noted Neuro General: patient oriented x3 and moves all extremities Extrem General: Yes no pedal edema Results Reviewed Nephrology Results: Hgb 13.8 g/dl (12.0-16.0) 12/11/24 WBC 5.9 X10*3/uL (4.8-10.8) 12/11/24 Plt Count 246 X10*3/uL (160-400) 12/11/24 Sodium 142 mmol/L (135-145) 12/11/24 Potassium 5.3 mmol/L (3.3-5.1) H 12/11/24 Chloride 106 mmol/L (96-108) 12/11/24 Carbon Dioxide 30 mmol/L (22-29) H 12/11/24 BUN 19 mg/dL (9-16) H 12/11/24 Creatinine 0.65 mg/dL (0.5-1.4) 12/11/24 Calcium 9.4 mg/dL (8.4-10.2) 12/11/24 Urine Protein Negative mg/dL (Neg-Trace) 12/11/24 Assessment & Plan Assessment & Plan (1) Microscopic hematuria: Code(s): R31.29 - Other microscopic hematuria Category: Medical (2) Vitamin D deficiency: Code(s): E55.9 - Vitamin D deficiency, unspecified Category: Medical (3) 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 needs ureteroscopy Repeat cytology pending; No H/O analgesic abuse or H/O sickle cell disease DDx- Thin membrane disease , Alport's syndrome, Ig A nephropathy Started Vitamin D for deficiency; Ordered labs; F/U Urology All questions answered. F/U given Orders: Orders UA and rflx microscopic 1 Year R31.29 - Other microscopic hematuria Protein Creatinine Ratio, Ur 1 Year R31.29 - Other microscopic hematuria Medications: New cholecalciferol (vitamin D3) 1,250 mcg PO QWEEK 14 caps 1RF Coding Level of Care Code New Pt Level 4 (31105) Diagnoses Microscopic hematuria R31.29 Vitamin D deficiency E55.9 Renal papillary necrosis N17.2 History of renal calculi Z87.442 Renal cyst N28.1
[2024-12-25 15:18] VITALS: BP 104/70; PULSE 88; O2SAT 100; BMI 26.0
--- OUTSIDE RECORDS SUMMARY | 2024-12-25 18:53 | XMS_ITS | Encounter Summary ---
Author Organization [facility] [employer] and [facility] Address [address] [place] [phone] Care Team Providers Care Web Services Manager Name Role Phone Mary Spencer Primary Care Provider Encounter Details Date Type Department Care Team (Late Contact Info) Description 09/11/2016 Scanned Document [facility] [address] [place] [address] [phone] [place] [address] External, Provider Social History Tobacco Use Types [...] PM EDT Procedure visit [facility] at [address] [place] [address] 01/09/2025 3:45 PM EDT Appointment [facility] [facility] [address] [place] [address] Maggie Obando MD 60 [facility] [address] [place] [address] documented as of this encounter Procedures Procedure Name Priority Date/Time Associated Diagnosis Comments ZZZCTX COLLAGEN C-TELOPEPTIDE (BH) Routine 07/19/2016 documented in this encounter Results * CTX collagen C-telopeptide (BH) (07/19/2016) Blood specimen (specimen) us Provider External LAB BLOOD ORDERABLES Final Res ult Performing Organization Address City/State/[facility] Co de Phone Number [facility] documented in this encounter Visit Diagnoses Not on filedocumented in this encounter Care Teams Web Services Manager Relationship Specialty Start Date End Date Mary Spencer PA PCP - General Internal Medicine 08/03/15 documented as of this encounter
--- OUTSIDE RECORDS SUMMARY | 2024-12-25 18:53 | XMS_ITS | Clinical Summary ---
Author Organization [facility] Address [address] [place] [address] Care Team Providers Care Appraiser Name Role Phone Unavailable Primary Care Provider [...]
--- OUTSIDE RECORDS SUMMARY | 2024-12-25 18:53 | XMS_ITS | Encounter Summary ---
Author Organization [facility] [email or web address] and [facility] Address [address] [place] [phone] Care Team Providers Care Salt Machine Operator Name Role Phone Mary Spencer Primary Care Provider Encounter Details Date Type Department Care Team (Late Contact Info) Description 09/01/2016 Scanned Document [facility] [address] [place] [phone] [address] [place] [address] External, Provider Social History Tobacco Use Types [...] EDT Procedure visit [facility] at [address] [place] [address] 01/09/2025 3:45 PM EDT Appointment [facility] [place] [facility] [address] [place] [address] Maggie Obando MD 60 [facility] [address] [place] [address] documented as of this encounter Procedures Procedure Name Priority Date/Time Associated Diagnosis Comments LAB SCAN Routine 01/21/2014 documented in this encounter Results * Lab Scan (01/21/2014) Blood specimen (specimen) us Provider External LAB BLOOD ORDERABLES Final Res ult Performing Organization Address [facility] Co de Phone Number [facility] documented in this encounter Visit Diagnoses Not on filedocumented in this encounter Care Teams Salt Machine Operator Relationship Specialty Start Date End Date Mary Spencer PA PCP - General Internal Medicine 08/03/15 documented as of this encounter
--- OUTSIDE RECORDS SUMMARY | 2024-12-25 18:53 | XMS_ITS | Encounter Summary ---
Author Organization [facility] [employer] and [facility] Address [address] [place] [phone] Care Team Providers Care Director Of Food And Nutrition Services Name Role Phone Mary Spencer Primary Care Provider Encounter Details Date Type Department Care Team (Late Contact Info) Description 05/11/2016 Scanned Document [facility] [phone] [place] [address] External, Provider Social History Tobacco Use Types [...] PM EDT Procedure visit [facility] at [address] [place] [address] 01/09/2025 3:[address] [facility] [place] [facility] [address] [place] [address] Maggie Obando MD 60 [facility] 201 [place] [address] documented as of this encounter Procedures Procedure Name Priority Date/Time Associated Diagnosis Comments STONERISK(R) DIAGNOSTIC PROF ILE (LMW Q) Routine 07/06/2013 documented in this encounter Results * Stonerisk(R) diagnostic profile (Q) (07/06/2013) Urine specimen (specimen) us Provider External URINE ORDERABLES Final Result Performing Organization Address City/State/[facility] Co de Phone Number [facility] documented in this encounter Visit Diagnoses Not on filedocumented in this encounter Care Teams Director Of Food And Nutrition Services Relationship Specialty Start Date End Date Mary Spencer PA PCP - General Internal Medicine 08/03/15 documented as of this encounter
--- OUTSIDE RECORDS SUMMARY | 2024-12-25 18:53 | XMS_ITS | Encounter Summary ---
Author Organization [facility] [employer] and [facility] Address [address] [place] [phone] Care Team Providers Care Baggage And Mail Agent Name Role Phone Mary Spencer Primary Care Provider Encounter Details Date Type Department Care Team (Late st Contact Info) Description 08/04/2016 Scanned Document [facility] 789 [facility] [address] [place] [address] Kelsey Hutchinson MD [address] [place] [phone] Social History Tobacco Use Types Packs/Day [...] EDT Procedure visit [facility] at [address] [place] [address] 01/09/2025 3:45 PM EDT Appointment [facility] [address] [place] [phone] Maggie Obando MD 60 [facility] 201 [place] [address] documented as of this encounter Procedures Procedure Name Priority Date/Time Associated Diagnosis Comments LAB SCAN Routine 07/17/2016 documented in this encounter Results * Lab Scan (07/17/2016) Blood specimen (specimen) us Kelsey Hutchinson MD LAB BLOOD ORDERABLES Final Resul t Performing Organization Address City/State/[facility] Co de Phone Number [facility] [place], [place], [facility] documented in this encounter Visit Diagnoses Not on filedocumented in this encounter Care Teams Baggage And Mail Agent Relationship Specialty Start Date End Date Mary Spencer PA PCP - General Internal Medicine 08/03/15 documented as of this encounter
--- OUTSIDE RECORDS SUMMARY | 2024-12-25 18:53 | XMS_ITS | Clinical Summary ---
Author Organization [employer] Address [address] [place] [address] Care Team Providers Care Director Business Development Name Role Phone Demetra Pantoja MD Primary Care Provider [phone] Allergies Active Allergy Reactions Criticality Noted Date [...] EDT) Anatomical Region Laterality Modality Endoscopy 04/19/2012 [facility] MD GI PROCEDURE OR DERABLES Final Result from Last 3 Months or Most Recently Relevant to Health Maintenance Insurance [employer] Care Teams Director Business Development Relationship Specialty Start Date End Date Demetra Pantoja MD [address] [place] [phone] PCP - General 10/06/19
--- OUTSIDE RECORDS SUMMARY | 2024-12-25 18:53 | XMS_ITS | Clinical Summary ---
Author Organization [facility] Address [address] [place] [address] Care Team Providers Care Data Center Consultant Name Role Phone Mary Spencer Primary Care [...] EDT Procedure visit [facility] at [address] [address] 01/09/2025 3:45 PM EDT Appointment [facility] [address] [place] [address] Maggie Obando MD 60 [facility] 201 [place] [address] Health Maintenance Due Date Last [...] mammogram for malignant neoplasm of breast CYTOLOGY GIS DEVELOPER CASES () Routine 09/07/2015 8:10 PM EST [...] MAMMOGRAPHY ORDERABLE S Final Result * Cytology carpenter apprentice cases () (09/07/2015 8:10 PM EST) Cytology Payroll Representative Cases ?CYTOLOGY REPORT ? Procedures/Addenda Attached Patient: NANCY CHAVEZ ?MR #: [id number] ?Submitted by: Megan Perez M.D. FINAL DIAGNOSIS SUREPATH PAP SMEAR: ? Primary Diagnosis: ? NEGATIVE FOR INTRAEPITHELIAL LESION OR MALIGNANCY. ? Additional Findings: NO ENDOCERVICAL CELLS SEEN. CYTOLYSIS PRESENT. HIGH RISK HPV CO-TESTING HAS BEEN PERFORMED AND THE RESULT IS NEGATIVE. Specimen Adequacy: THIS SPECIMEN IS SATISFACTORY FOR EVALUATION. ? This specimen was manually screened with the assistance of the [employer] [facility]. Recommendation: According to the current [...] used to evaluate suspected endometrial abnormalities. ??(The [place] System, 2001) ?? 09/10/2015 12:46 ?* Report [...] ? Reported: ? 09/10/2015 ? Pathologist: ? [facility] ? Interpretation Specimen: SUREPATH PAP SMEAR BELOW CUTOFF FOR HIGH RISK HPV HPV types 16, 18, 31, 33, 35, 39, 45, 51, 52, 56, 58, 59, 66, and 68 DNA were either considered NEGATIVE, undetectable,or below the pre-set threshold. This test was performed at [facility] Department of Pathology, [address] [place] [id number], CLIA# [id number] using the Yola christy 4800 HPV Test System and is only approved by the Food and Drug Administration (FDA) for use oncervicalspecimen s collected in Cytyc Preservcyt Solution (ThinPrep). When using ThinPrep liquid based samples for non-cervical specimens, SurePath liquid based samples, or formalin fixed paraffin embedded tissue, the performance characteristics have been determined by [facility]. Although testing on samples that are not cervical in origin, and/or in any other medium besides ThinPrep, has not been cleared or approved by the FDA, the FDA has determined that such clearance or approval is not necessary. ? [facility] 09/07/2015 8:10 PM EST Comment:SUREPATH PAP SMEAR+ HPV us Megan Perez MD PATHOLOGY/CYTOLOGY ORDERABLES Final Result Performing Organization Address City/[facility]/ZIP Co de Phone Number [facility] Department of Pathology [address] [place] [address] [phone] [place] [address] * Glucose ( GH Q YH) (06/03/2013 10:25 AM EDT) Glucose 100 70 - 100 mg/dL [facility] 06/03/2013 10:2 5 AM EDT Narrative [facility] - 06/03/2013 3:45 PM EDT Performed by: [facility] [address] [place] [phone] ??(CLIA #[id number], [id number]) us Jocelin Alcantara MD LAB BLOOD ORDERABLES F inal Result Performing Organization Address City/[facility] Co de Phone Number [facility] [address] [place] [phone] from Last 3 Months or Most Recently Relevant to Health Maintenance Insurance [place] [address] BS Care Teams Data Center Consultant Relationship Specialty Start Date End Date Mary Spencer PA PCP - General Internal Medicine 08/03/15
--- OUTSIDE RECORDS SUMMARY | 2024-12-25 18:53 | XMS_ITS | Continuity of Care Document ---
Author Organization [facility] Address [address] [facility] [address] [place] [address] Phone [phone] Social History Type Date Description Comments Sex Unknown Medical Devices Description No Information Available Encounters Description No Information Available Assessments Description No Information Available Plan of Treatment No Information Available Functional Status Description No Information Available Mental Status Description No Information Available Referrals Description No Information Available
--- OUTSIDE RECORDS SUMMARY | 2024-12-25 18:53 | XMS_ITS | Encounter Summary ---
Author Organization [facility] [employer] and [facility] Address [address] [place] [phone] Care Team Providers Care Application Packaging Specialist Name Role Phone Mary Spencer Primary Care Provider Encounter Details Date Type Department Care Team (Late Contact Info) Description 05/04/2016 Scanned Document [facility] 789 [facility][Note 3] [address] [place] [address] External, Provider Social History Tobacco Use Types [...] PM EDT Procedure visit [facility] at [address] [place] [address] 01/09/2025 3:45 PM EDT Appointment [facility] [place] [facility] [address] [place] [address] Maggie Obando MD 60 [facility] 201 [place] [address] documented as of this encounter Visit Diagnoses Not on filedocumented in this encounter Care Teams Application Packaging Specialist Relationship Specialty Start Date End Date Mary Spencer PA PCP - General Internal Medicine 08/03/15 documented as of this encounter
--- OUTSIDE RECORDS SUMMARY | 2024-12-25 18:53 | XMS_ITS | Data Portability ---
Author Organization [place] - [facility]'s [facility], [facility] Address [address] [place] [address] Assessment No assessment recorded. Plan of Treatment Reminders Order Date Submit Date Provider Last Modified By Organization Details Last Modified Time Details Appointments None recorded. Lab pap, IG + HPV 2023 024 [facility], [address] [place], [address] 4 20:45:04 Referral None recorded. Procedures None recorded. Surgeries None recorded. Imaging MAMMO, screening, digital, bilateral 2023 024 [email or web address] [facility], [address] [place] [address], [address], 4 11:29:47 bone density 2023 024 [email or web address] [facility], [address] [place], [address], 4 11:29:47 Medication Orders Colace 100 mg capsule 2022 024 [id number], [address], TANGELA Turner, [address], 4 13:56:52 tramadol 50 mg tablet 2022 023 [email or web address] [id number], [address], [place]ANG[place], [address], 4 13:56:44 Patient TargetsNo targets recorded. Patient Instructions Encounter Date Encounter Id Patient Instructions Last Modified By Organization Details Last Modified Time 06/19/2023 [id number] Telehealth visit - [employer]. Pt with GERARDO cyst presents [...] would like to proceed. Pt going to [facility] end of Jul through mid Aug. D/w [...] none ililes Not available 06/20/2023 04:45:56 08/22/2023 [id number] Pt presents for preop exam for left ovarian cyst and history of NAILA. Pt had hscopy D&C ealier this year and possible PMB last month. Reviewed with pt that would recommend hysterectomy with bilateral BSO since cyst has been growing and pt with risks for cancer. Discussed laparoscopic procedure. Discussed frozen section during surgery and if positive possible staging with GRADUATE TEACHING ASSISTANT ONC to include possible lymph node biopsy/dissection, [...] minutes ililes Not available 08/27/2023 09:29:30 09/18/2023 [id number] Pt presents for 2wk postop visit after [...] visit ililes Not available 09/18/2023 08:53:01 10/19/2023 [id number] Pt presents for 2wk postop visit after TLH, BSO, CYSTO , recovering well. Pt given benign pathology report and images. - Can resume all activities except intercourse which can resume in 2 weeks - Advised to start slow with exercise RTO in 3 months for annual with vaginal pap ililes Not available 10/19/2023 15:17:17 01/25/2024 [id number] Pt presents for annual exam. No current GRADUATE TEACHING ASSISTANT concerns.. Pt is a NAILA daughter. S/p [...] clinical information: normal None given Not Available [facility] [address], [address], 01/28/2024 20:45:04 01/25/20 24 01/28/2024 THINP REP TIS PAP AND HPV MRNA E6/E7 WITH REFLE X TO HPV 16,18 /45 LMP: normal NONE GIVEN Not Available [facility] [address], [address], 01/28/2024 20:45:04 01/25/20 24 01/28/2024 THINP REP TIS PAP AND HPV MRNA E6/E7 WITH REFLE X TO HPV 16,18 /45 prev. Pap: normal NONE GIVEN Not Available [facility] [address], [address], 01/28/2024 20:45:04 01/25/20 24 01/28/2024 THINP REP TIS PAP AND HPV MRNA E6/E7 WITH REFLE X TO HPV 16,18 /45 prev. BX: normal NONE GIVEN Not Available [facility] [address], [address], 01/28/2024 20:45:04 01/25/20 24 01/28/2024 THINP REP TIS PAP AND HPV MRNA E6/E7 WITH REFLE X TO HPV 16,18 /45 source: normal Vagin a Not Available [facility] [address], [place], [address], 01/28/2024 20:45:04 01/25/20 24 01/28/2024 THINP REP TIS PAP AND HPV MRNA E6/E7 WITH REFLE X TO HPV 16,18 /45 statement of adequacy: normal SATIS FACTO RY FOR EVALU ATION Not Available [facility] [address], [place], [address], 01/28/2024 20:45:04 01/25/20 24 01/28/2024 THINP REP TIS PAP AND HPV MRNA E6/E7 WITH REFLE X TO HPV 16,18 /45 interpretati on/result: normal Cytol ogy Resul ts: Negat jennifer for intra epith elial lesio n or jennifer haley . Not Available [facility] [address], [place], [address], 01/28/2024 20:45:04 01/25/20 24 01/28/2024 THINP REP TIS PAP AND HPV MRNA E6/E7 WITH REFLE X TO HPV 16,18 /45 comment: normal This Pap test has been evalu ated with compu ter david barrington techn ology . Not Available [facility] [address] [place] [address], [address], 01/28/2024 20:45:04 01/25/20 24 01/28/2024 THINP REP TIS PAP AND HPV MRNA E6/E7 WITH REFLE X TO HPV 16,18 /45 cytotechnolo gist: normal GSG, CT( CP) CT scree cristy locat ion: [facility] [address], [place] [address] Not Available [facility] [address], [address], 01/28/2024 20:45:04 01/25/20 24 01/28/2024 THINP REP [...] clini raphael infor thomas n. Not Available [facility] [address], [place], [address], 01/28/2024 20:45:04 01/25/20 24 01/28/2024 THINP REP [...] felder purpo ses only. ) Not Available [facility] [address], [place], [address], 01/28/2024 20:45:04 06/18/20 23 06/18/2023 US, trans vagin al No observ ation record ed. [email or web address] [facility] [address] [address], [place], [address], 06/27/2023 09:02:11 06/18/20 23 06/18/2023 US, trans vagin al No observ ation record ed. [email or web address] [facility] [address], [address], 06/19/2023 13:03:16 01/28/20 24 01/28/2024 MAMMO , scree cristy, digit al, bilat eral No observ ation record ed. [email or web address] [facility] [address] [place] [address], [address], 01/29/2024 08:28:45 Result Notes None recorded. Problems Name Problem SNOMED Code Status Onset Date Resolution Date Notes Provider Name and Address Organization Details Recorded Time History of suspected exposure to biologica l agent 477375869225 06 Active 2015 NAILA exposure MEGAN SULLIVAN MD [address] [facility], [address] [place] [address], [address], [place] - [facility] 6 19:09:19 Obesity 136986854 Active 2015 bmi 36.7 MEGAN SULLIVAN MD [address] [facility], [address] [place] [address], [address], [place] - [facility] 8 09:21:31 Microscop ic hematuria 828930429 Active 2015 MEGAN SULLIVAN MD [address] Floor, [place], [address], [facility] 6 21:36:06 Osteopeni a 123943884 Active 2015 Spine T score -2.4 MEGAN SULLIVAN MD [address] Floor, [place], [address], [facility] 6 21:37:06 Family history of breast cancer 583213680 Active 2016 2 paternal aunts MEGAN SULLIVAN MD [address] Floor, [place], [address], [facility] 7 22:27:43 Exposure to potential ly harmful entity Active 2022 BINA SOLARES MD [address] [facility], [address] [place] [address], [place], [address], [facility] 3 12:48:43 Problem Notes None recorded. Procedures Surgical History Date Name Laterality Status Provider Name and Address Organization Details Recorded Time 09/03/20 Hysterectomy completed BINA SOLARES MD [address] [facility], [address] [place] [address], [address], [facility] 09/18/2023 08:53:36 06/19/20 23 Telemedicine Visit completed BINA SOLARES MD [address] [facility], [address] [place] [address], [place], [address], [facility] 06/19/2023 12:57:31 02/08/20 23 hernia repair completed BINA SOLARES MD 175 [facility], [address] [place] [address], [address], [facility] 08/22/2023 16:15:44 12/30/19 23 Date of Last Mammogram completed Sonya Painter [facility] 05/29/2023 08:54:45 11/13/19 23 H9H-JQSST completed Litzy Guzmna [facility] 11/13/2022 09:30:44 11/13/19 23 P7M-XSS completed Litzy Guzman [place] - [facility] 11/13/2022 09:30:44 11/13/19 23 Date of Last Pap Smear completed Sonya Painter [place] - [facility] 05/29/2023 08:54:03 10/01/19 20 Date of Last Colonoscopy completed Eula White CT - [facility] 10/31/2021 09:00:51 09/12/20 16 [id number]-[id number] completed MEGAN SULLIVAN MD [address], [place], [address], [facility] 09/12/2016 21:29:53 09/12/20 16 N1K-TMA completed MEGAN SULLIVAN MD [address], [place], [address], [facility] 09/12/2016 21:30:04 09/12/20 16 M2S-EUD completed MEGAN SULLIVAN MD [address] Floor, [place], [address], [facility] - [facility] 09/12/2016 21:30:13 09/12/20 16 A5P-KAK completed MEGAN SULLIVAN MD [address] Floor, [place], [address], [facility] - [facility] 09/12/2016 21:30:01 09/12/20 16 Q1I-VMNUZWM completed MEGAN SULLIVAN MD [address] Floor, [place], [address], [facility] 09/12/2016 21:29:50 09/12/20 16 R5W-ELNNYP completed MEGAN SULLIVAN MD [address], [address], [facility] 09/12/2016 21:30:25 Tonsillectomy completed Michelle Sultana CT [facility] 08/29/2016 15:33:34 Ankle arthroscopy/surge ry [facility] 10/31/2021 08:53:50 Laparoscopy completed BINA SOLARES MD [address] [facility], [address] [place] [address], [address], [place] - [facility] 06/08/2023 08:49:59 Breast Biopsy completed [facility] - [facility] 10/31/2021 08:53:50 Imaging Results Imaging Date Name Status LastModified by Organization Details LastModified Time 06/18/2023 US, transvaginal completed [email or web address] [facility] 2 [facility] [address], [place], [address], 06/27/2023 09:02:11 06/18/2023 US, transvaginal completed ililes [facility] 2 [facility], [place], [address], 06/19/2023 13:03:16 01/28/2024 MAMMO, screening, digital, bilateral completed [facility] [address] [place] [address], [address], 01/29/2024 08:28:45 Procedure Notes None recorded. Medical Equipment None Reported. Allergies Allergen ID Allergen Name Allergen Category Reaction Reaction Severity Criticality Documentation Date Start Date Code Code System Note Provider Name and Address Organization Details Recorded Time [id number] metronida zole medicatio n Not available Not available Not available 08/22/2023 6922 RxNorm hives , dry heavi ng BINA SOLARES MD 175 [facility], [address] [facility], [place], [address], [facility] - [facility] 16:24:45 214423 Product containin g penicilli n (product) medicatio n hives itching Not available Not available Not available 08/29/2016 48411 8001 SNOMED had kefle x w/o issue s BINA SOLARES MD [address] [facility], [address] [facility], [place], [address], [facility] 3 16:13:37 874093 Substance with sulfonami de structure and antibacte rial mechanism of action (substanc e) medicatio n fever hives Not available Not available Not available 08/29/2016 99996 8003 SNOMED Michelle Sultana null, [facility] 6 15:18:44 155999 codeine medicatio n vomiting Not available Not available 08/29/2016 2670 RxNorm Michelle Sultana null, [facility] 6 15:18:54 955422 oxycodone medicatio n vomiting Not available Not available 08/29/2016 7804 RxNorm Michelle Sultana null, [facility] 6 15:19:04 Medications Name Sig Start [...] Updated DateTime 08/22/2023 161.29 cm 29.5 kg/m2 02984.11 g 124 mm[Hg] 80 mm[Hg] Jag Goss [facility] 3 15:50:50 Date Recorded Body height Body mass index (BMI) Body weight Systolic blood pressure Diastolic blood pressure Provider Name and Address Organization Details Last Updated DateTime 09/18/2023 161.29 cm 29.1 kg/m2 18031.93 g 130 mm[Hg] 82 mm[Hg] Jag Goss [facility] 3 08:31:43 Date Recorded Body height Systolic blood pressure Diastolic blood pressure Provider Name and Address Organization Details Last Updated DateTime 10/19/2023 161.29 cm 120 mm[Hg] 82 mm[Hg] Sonya Painter [facility] 10/19/2023 14:14:54 Date Recorded Body height Body mass index (BMI) Body weight Systolic blood pressure Diastolic blood pressure Provider Name and Address Organization Details Last Updated DateTime 01/25/2024 161.29 cm 27.9 kg/m2 57474.78 g 100 mm[Hg] 72 mm[Hg] Krys Hand [facility] 13:57:53 Social History Question Answer Notes LastModified by Organizat ion Details LastModified Time Tobacco Smoking Status Never Smoker Michelle Chuaisaias ruby, [facility] 08/29/2016 15:32:56 What Is Your Level Of Alcohol Consumption? Occasional Information not available 08/29/2016 Education Post Graduate Information not available 11/13/2022 What Is The Highest Grade Or Level Of School You Have Completed Or The Highest Degree You Have Received? [id number] Information not available 10/31/2021 What Is Your [...] mL dose 1 completed Sonya Painter null, [facility] 10/19/2023 14:10:26 COVID-19, mRNA, LNP-S, PF, 30 mcg/0.3 mL dose 1 completed Sonya Painter null, [facility] 10/19/2023 14:10:26 SARS-COV-2 (COVID-19) vaccine, UNSPECIFIED 1 completed Sonya Painter null, [facility] 10/19/2023 14:10:26 SARS-COV-2 (COVID-19) vaccine, UNSPECIFIED 1 completed Sonya Painter null, [facility] 10/19/2023 14:10:26 influenza, unspecified formulation 5 completed Sonya Painter null, [facility] 10/19/2023 14:10:26 Influenza, split virus, quadrivalent, preservative 8 completed Sonya Painter [facility], [place] - [facility] 10/19/2023 14:10:25 Past Encounters Encounter ID Performer Location Encounter Start Date Encounter Closed Date Diagnosis/Indication Diagnosis SNOMED-CT Code Diagnosis ICD10 Code Diagnosis Note [id number] MEGAN SULLIVAN MD [facility] [address] [place] [address] 09/12/2016 16:02:21 09/13/2016 11:03:00 Gynecologic examination 05571356 Z01.419 Screening for malignant neoplasm of cervix 512828353 Z12.4 Screening mammography 24 064472 Z12.31 Diet education 55984966 Z71.3 Screening for malignant neoplasm of colon 770058317 Z12.11 History of suspected exposure to biological agent 3042782075 9106 Z77.29 NAILA Microscopic hematuria 19 3522561 R31.21 Obesity 133656295 E66.9 BMI 35.6 Osteopenia 042177794 M85 .80 [id number] MEGAN SULLIVAN MD [facility] [address] [place] [address] 09/18/2017 14:03:13 09/18/2017 16:58:59 Gynecologic examination 67022241 Z01.419 Screening for malignant neoplasm of cervix 669407476 Z12.4 Screening mammography 24 219744 Z12.31 Diet education 24225191 Z71.3 Microscopic hematuria 19 3522456 R31.21 Obesity 393698256 E66.9 BMI 35.6 History of suspected exposure to biological agent 7173376633 9106 Z77.29 NAILA Osteopenia 011703244 M85 .80 Spine and FN Family his tory of breast cancer 764292610 Z80.3 [id number] MEGAN SULLIVAN MD [facility] [address] [place] [address] 09/20/2018 09:01:13 09/30/2018 12:48:46 Gynecologic examination 55788422 Z01.419 Screening for malignant neoplasm of cervix 312393427 Z12.4 Screening mammography 24 066924 Z12.31 Screening for osteoporosis 974673215 Z13.820 Diet education 35059784 Z71.3 Family his tory of breast cancer 954301917 Z80.3 Osteopenia 784408462 M85 .80 Spine and FN History of suspected exposure to biological agent 3860888119 9106 Z77.29 NAILA Obesity 853032404 E66.9 BMI 35.7 [id number] BINA SOLARES MD [facility] [address] [place] [address] 10/31/2021 08:45:30 11/01/2021 09:38:57 Gynecologic examination 33202284 Z01.419 Osteopenia 237030506 M85 .80 Depression screening 171 790405 Z13.31 Obese 408800467 E66.9 Screening mammography 24 351367 Z12.31 Screening for malignant neoplasm of cervix 810069692 Z12.4 Family his tory of breast cancer 2 gene mutation 294772022 Z84.81 Vaginal dryness 77788460 N89.8 Family his tory of breast cancer 402100158 Z80.3 History of suspected exposure to biological agent 0602606916 9106 Z77.29 Microscopic hematuria 19 8516064 R31.29 [id number] BINA SOLARES MD [facility] [address] [place] [address] 11/13/2022 09:26:17 11/15/2022 09:58:48 Gynecologic examination 45966320 Z01.419 Family his tory of breast cancer 2 gene mutation 003206748 Z84.81 Osteopenia 224648385 M85 .80 Depression screening 171 920567 Z13.31 Obese 140296454 E66.9 Screening mammography 24 911145 Z12.31 Vaginal dryness 49669883 N89.8 Family his tory of breast cancer 012686454 Z80.3 Screening for malignant neoplasm of cervix 831254922 Z12.4 History of suspected exposure to biological agent 7203393886 9106 Z77.29 Postmenopausal state 764 71480 Z78.0 Exposure t o potentially harmful entity 535361208 Z77.9 NAILA daughter [id number] BINA SOLARES MD [facility] [address] [place] [address] 06/08/2023 08:18:37 06/10/2023 10:31:08 Cyst of left ovary 6062797759 7220705 N83.202 History of suspected exposure to biological agent 0036783730 9106 Z77.29 Family his tory of breast cancer 597387402 Z80.3 [id number] BINA SOLARES MD [facility] [address] [place] [address] 06/19/2023 09:33:26 06/25/2023 14:17:29 Cyst of left ovary 0532232387 1839066 N83.202 History of suspected exposure to biological agent 2713814777 9106 Z77.29 Family his tory of breast cancer 354273194 Z80.3 Postmenopa usal bleeding 21546558 N95.0 [id number] BINA SOLARES MD [facility] [address] [place] [address] 08/22/2023 15:42:40 08/27/2023 15:17:17 Pre-surgery evaluation 536253032 Z01.818 Postoperative pain 62904 9007 G89.18 Cyst of left ovary 81059 63819 1123772 N83.202 History of suspected exposure to biological agent 7366721533 9106 Z77.29 Family his tory of breast cancer 379942926 Z80.3 Postmenopa usal bleeding 88482617 N95.0 [id number] BINA SOLARES MD [facility] [address] [place] [address] 09/18/2023 08:18:11 09/20/2023 11:27:12 Postoperative visit 144835584 Z09 History of total hysterectomy 320849689 Z90.710 Cyst of left ovary 30247 57664 5779755 N83.202 [id number] BINA SOLARES MD [facility] [address] [place] [address] 10/19/2023 14:05:51 10/22/2023 16:45:39 Postoperative visit 219117626 Z09 History of total hysterectomy 936209003 Z90.710 Cyst of left ovary 30525 69571 7266605 N83.202 [id number] BINA SOLARES MD [facility] [address] [place] [address] 01/25/2024 13:45:42 01/31/2024 11:29:46 Gynecologic examination 06825263 Z01.411 Z01.419 Depression screening 171 937330 Z13.31 Family his tory of breast cancer 2 gene mutation 349338660 Z84.81 Osteopenia 449831832 M85 .80 Obese 382449706 E66.9 Screening mammography 24 544902 Z12.31 Vaginal dryness 28957893 N89.8 Family his tory of breast cancer 955498624 Z80.3 Screening for malignant neoplasm of cervix 519224520 Z12.4 History of suspected exposure to biological agent 3480924196 9106 Z77.29 Postmenopausal state 764 [address] Z78.0 Exposure t o potentially harmful entity 587018354 Z77.9 NAILA daughter History of total hysterectomy 013790949 Z90.710 Health Concerns Section Related Observation LastModified by Organization Detai ls LastModified Time None Recorded Concern Status LastModified by Organization Details LastModified Time None Recorded Advance Directives Directive None Recorded Payers Encounter Date Sequence Insurance Name Policy Number Policy Leggett Covered Member ID Leggett Member ID Guarantor Name 06/19/2023 1 [employer] [place] [id number] Carole A Rynne [id number] 223 Carole Rynne 08/22/2023 1 [employer] [place] [id number] Carole A Rynne [id number] 223 Carole Rynne 09/18/2023 1 [employer] [place] [id number] Carole A Rynne [id number] 223 Carole Rynne 10/19/2023 1 [employer] [place] [id number] Carole A Rynne [id number] 223 Carole Rynne 01/25/2024 1 [employer] [place] [id number] Carole A Rynne [id number] 223 Carole Rynne Notes Date Note Type [...] Oct)CA-125: 11/2022 - 7 BINA SOLARES MD [address] [place] [address], [address] Floor, [place], [address], [place] - [facility] 06/20/2023 04:47:11 08/22/2023 text/html Pt presents [...] cellsOvarian cyst with nml ca 125 per ofotfq36/2023 neg/ HPV neg, + endometrial cells Consult 06/08 Pt with known h/o left ovarian cyst presents to discuss management. US as below. Since last visit US, pt met with GRADUATE TEACHING ASSISTANT in [place]. Per pt had several EMBx for pap with endometrioal cells and ? of polyp. Pt reports going under sedation for removal of endometrial tissue. Pt had rpt US in 12/2022 showing the cyst had grown. She reports having BW with her GRADUATE TEACHING ASSISTANT showing 13% risk which was acceptable. Pt didn't get the tumor markers I had asked her to get previously. Pt wanted to have surgery but needed hiatal hernia repair and GRADUATE TEACHING ASSISTANT would not do ovary at that time. Pt underwent robotic hiatal hernia repair in January 2023 and has recovered. Pt tried to f/u with GRADUATE TEACHING ASSISTANT who wants to repeat the US in [...] ovary with 5.1cm cyst BINA SOLARES MD [address] [place] [address], [address], [place] - [facility] 08/27/2023 09:30:26 09/18/2023 text/html Pt presents 2wks s/p TLH, BS0, cysto. Doing ok. Pain well controlled, abbey PO, ambulating, voiding well. Having regular BM. Denies N/V, fevers, chills. No bleeding. Bowels back to normal. Going back to work on 09/25. Pathology:benign GERARDO cyst (rete), benign uterus and ROV and tube, neg washings BINA SOLARES MD [address] [place] [address], [address], [place] - [facility] 09/18/2023 08:53:13 10/19/2023 text/html Pt presents 6wks s/p TLH, BS0, cysto. Doing ok. Pain well controlled, abbey PO, ambulating, voiding well. Having regular BM. Denies N/V, fevers, chills. No bleeding. Bowels back to normal. Back at work. Pathology:benign GERARDO cyst (rete), benign uterus and ROV and tube, neg washings BINA SOLARES MD [address] [place] [address], [address] [place] [address], [address], [facility] - [facility] 10/19/2023 15:17:20 01/25/2024 text/html Presents for leigh ann ual exam. Denies PMB. Denies additional GRADUATE TEACHING ASSISTANT, , or breast complaints.. 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
--- OUTSIDE RECORDS SUMMARY | 2024-12-25 18:53 | XMS_ITS | Encounter Summary ---
Author Organization [facility] [employer] and [facility] Address [address] [place] [phone] Care Team Providers Care Conventions Reservationist Name Role Phone Mary Spencer Primary Care Provider Encounter Details Date Type Department Care Team (Late Contact Info) Description 06/20/2016 Scanned Document [facility] [phone] [place] [address] External, Provider Social History Tobacco Use Types [...] PM EDT Procedure visit [facility] at [address] [place] [address] 01/09/2025 3:45 PM EDT Appointment [facility] [place] [facility] [address] [place] [address] Maggei Obando MD 60 [facility] 201 [place] [address] documented as of this encounter Procedures Procedure Name Priority Date/Time Associated Diagnosis Comments LAB SCAN Routine 12/09/2015 BONE DENSITY RESULT SCAN Routine 09/28/2015 documented in this encounter Results * Lab Scan (12/09/2015) Blood specimen (specimen) us Provider External LAB BLOOD ORDERABLES Final Res ult Performing Organization Address [facility] Co de Phone Number [facility] * Bone Density Result Scan (09/28/2015) us Provider External IMG SCAN REPORTS Final Result Performing Organization Address [facility] de Phone Number [facility] documented in this encounter Visit Diagnoses Not on filedocumented in this encounter Care Teams Conventions Reservationist Relationship Specialty Start Date End Date Mary Spencer PA PCP - General Internal Medicine 08/03/15 documented as of this encounter
--- OUTSIDE RECORDS SUMMARY | 2024-12-25 18:53 | XMS_ITS | Encounter Summary ---
Author Organization [facility] [employer] [facility] and [facility] Address [address] [place] [phone] Care Team Providers Care Head Of English Name Role Phone Mary Spencer Primary Care Provider Encounter Details Date Type Department Care Team (Late Contact Info) Description 12/10/2015 Scanned Document [facility] [address] [phone] [address] [place] [address] External, Provider Social History Tobacco Use Types [...] PM EDT Procedure visit [facility] at [address] [place] [address] 01/09/2025 3:45 PM EDT Appointment [facility] [address] [place] [address] Maggie Obando MD 60 [facility] 201 [place] [address] documented as of this encounter Visit Diagnoses Not on filedocumented in this encounter Care Teams Head Of English Relationship Specialty Start Date End Date Mary Spencer PA PCP - General Internal Medicine 08/03/15 documented as of this encounter
== END 2024-12-25 16:07 | disposition home or self-care (01) ==
LOC: HO.HKAS 15:12
PROVIDERS: PCP Internal Medicine; Visit Provider Internal Medicine Nephrology
DX: R31.29 Other microscopic hematuria (principal); E55.9 Vitamin D deficiency, unspecified; N17.2 Acute kidney failure with medullary necrosis; Z87.442 Personal history of urinary calculi; N28.1 Cyst of kidney, acquired
CPT/HCPCS: 99204

== ENCOUNTER 2025-01-02 07:56 | Outpatient (REF) | payer OTHER, SELFPAY ==
--- OUTSIDE RECORDS SUMMARY | 2025-01-02 08:57 | XMS_ITS | Clinical Summary ---
Author Organization [facility] Address [address] [place] [address] Care Team Providers Care Numerologist Name Role Phone Demetra Pantoja MD Primary Care Provider [phone] Allergies Active Allergy Reactions Criticality Noted Date [...] EDT) Anatomical Region Laterality Modality Endoscopy 04/19/2012 [facility] Ambulatory MD GI PROCEDURE OR DERABLES Final Result from Last 3 Months or Most Recently Relevant to Health Maintenance Insurance [employer] Care Teams Numerologist Relationship Specialty Start Date End Date Demetra Pantoja MD [address] [place] [phone] PCP - General 10/06/19
--- OUTSIDE RECORDS SUMMARY | 2025-01-02 08:57 | XMS_ITS | Continuity of Care Document ---
Author Organization [facility] Address [address] [facility] [place] [address] [place] [address] Phone [phone] Social History Type Date Description Comments Sex Unknown Medical Devices Description No Information Available Encounters Description No Information Available Assessments Description No Information Available Plan of Treatment No Information Available Functional Status Description No Information Available Mental Status Description No Information Available Referrals Description No Information Available
--- OUTSIDE RECORDS SUMMARY | 2025-01-02 08:57 | XMS_ITS | Encounter Summary ---
Author Organization [facility] [employer] [facility] and [facility] Address [address] [place] [phone] Care Team Providers Care Telecommunications Equipment Installer Name Role Phone Mary Spencer Primary Care Provider Encounter Details Date Type Department Care Team (Late Contact Info) Description 09/01/2016 Scanned Document [facility] [phone] [address] [place] [address] External, Provider Social History Tobacco Use Types [...] PM EDT Procedure visit [facility] at [address] [place] [address] 01/09/2025 3:45 PM EDT Appointment [facility] [address] [place] [address] Maggie Obando MD 60 [facility] 201 [place] [address] documented as of this encounter Procedures Procedure Name Priority Date/Time Associated Diagnosis Comments LAB SCAN Routine 01/21/2014 documented in this encounter Results * Lab Scan (01/21/2014) Blood specimen (specimen) us Provider External LAB BLOOD ORDERABLES Final Res ult Performing Organization Address [facility] Co de Phone Number [facility] documented in this encounter Visit Diagnoses Not on filedocumented in this encounter Care Teams Telecommunications Equipment Installer Relationship Specialty Start Date End Date Mary Spencer PA PCP - General Internal Medicine 08/03/15 documented as of this encounter
--- OUTSIDE RECORDS SUMMARY | 2025-01-02 08:57 | XMS_ITS | Encounter Summary ---
Author Organization [facility] [employer] [facility] and [facility] Address [address] [place] [phone] Care Team Providers Care Director Home Name Role Phone Mary Spencer Primary Care Provider Encounter Details Date Type Department Care Team (Late Contact Info) Description 06/20/2016 Scanned Document [facility] [phone] [place] [address] External, Provider Social History Tobacco Use Types [...] PM EDT Procedure visit [facility] at [address] [place] [address] 01/09/2025 3:45 PM EDT Appointment [facility] [place] [facility] [address] [place] [address] Maggie Obando MD 60 [facility] 201 [place] [address] documented as of this encounter Procedures Procedure Name Priority Date/Time Associated Diagnosis Comments LAB SCAN Routine 12/09/2015 BONE DENSITY RESULT SCAN Routine 09/28/2015 documented in this encounter Results * Lab Scan (12/09/2015) Blood specimen (specimen) us Provider External LAB BLOOD ORDERABLES Final Res ult Performing Organization Address [facility] Co de Phone Number [facility] * Bone Density Result Scan (09/28/2015) us Provider External IMG SCAN REPORTS Final Result Performing Organization Address [facility] de Phone Number [facility] documented in this encounter Visit Diagnoses Not on filedocumented in this encounter Care Teams Director Home Relationship Specialty Start Date End Date Mary Spencer PA PCP - General Internal Medicine 08/03/15 documented as of this encounter
--- OUTSIDE RECORDS SUMMARY | 2025-01-02 08:57 | XMS_ITS | Encounter Summary ---
Author Organization [facility] [employer] [facility] and [facility] Address [address] [place] [phone] Care Team Providers Care Diagnostic Imaging Manager Name Role Phone Mary Spencer Primary Care Provider Encounter Details Date Type Department Care Team (Late st Contact Info) Description 08/04/2016 Scanned Document [facility] 789 [facility] [address] [place] [address] Kelsey Hutchinson MD [address] [place] [phone] Social History Tobacco Use Types Packs/Day [...] PM EDT Procedure visit [facility] at [address] [place] [address] 01/09/2025 3:45 PM EDT Appointment [facility] [address] [place] [phone] Maggie Obando MD 60 [facility] 201 [place] [address] documented as of this encounter Procedures Procedure Name Priority Date/Time Associated Diagnosis Comments LAB SCAN Routine 07/17/2016 documented in this encounter Results * Lab Scan (07/17/2016) Blood specimen (specimen) us Kelsey Hutchinson MD LAB BLOOD ORDERABLES Final Resul t Performing Organization Address City/State/[facility] Co de Phone Number [facility] [place], [place], [facility] documented in this encounter Visit Diagnoses Not on filedocumented in this encounter Care Teams Diagnostic Imaging Manager Relationship Specialty Start Date End Date Mary Spencer PA PCP - General Internal Medicine 08/03/15 documented as of this encounter
--- OUTSIDE RECORDS SUMMARY | 2025-01-02 08:57 | XMS_ITS | Encounter Summary ---
Author Organization [facility] [employer] [facility] and [facility] Address [address] [place] [phone] Care Team Providers Care Regulatory Technician Name Role Phone Mary Spencer Primary Care Provider Encounter Details Date Type Department Care Team (Late Contact Info) Description 12/10/2015 Scanned Document [facility] 789 [facility] [address] [place] [address] External, Provider Social History Tobacco Use Types [...] PM EDT Procedure visit [facility] at [address] [place] [address] 01/09/2025 3:[address] [facility] [place] [facility] 111 [place] [address] Maggie Obando MD 60 [facility] 201 [place] [address] documented as of this encounter Visit Diagnoses Not on filedocumented in this encounter Care Teams Regulatory Technician Relationship Specialty Start Date End Date Mary Spencer PA PCP - General Internal Medicine 08/03/15 documented as of this encounter
--- OUTSIDE RECORDS SUMMARY | 2025-01-02 08:57 | XMS_ITS | Encounter Summary ---
Author Organization [facility] [employer] [facility] and [facility] Address [address] [place] [phone] Care Team Providers Care Cook Frozen Dessert Name Role Phone Mary Spencer Primary Care Provider Encounter Details Date Type Department Care Team (Late Contact Info) Description 05/04/2016 Scanned Document [facility] 789 [facility] [address] [place] [address] External, Provider Social History Tobacco Use Types [...] PM EDT Procedure visit [facility] at [address] [place] [address] 01/09/2025 3:45 PM EDT Appointment [facility] [place] [facility] 111 [place] [address] Maggie Obando MD 60 [facility] 201 [place] [address] documented as of this encounter Visit Diagnoses Not on filedocumented in this encounter Care Teams Cook Frozen Dessert Relationship Specialty Start Date End Date Mary Spencer PA PCP - General Internal Medicine 08/03/15 documented as of this encounter
--- OUTSIDE RECORDS SUMMARY | 2025-01-02 08:57 | XMS_ITS | Clinical Summary ---
Author Organization [facility] Address [address] [place] [address] Care Team Providers Care Insurance Instructor Name Role Phone Unavailable Primary Care Provider [...]
--- OUTSIDE RECORDS SUMMARY | 2025-01-02 08:57 | XMS_ITS | Encounter Summary ---
Author Organization [facility] [employer] [facility] and [facility] Address [address] [place] [phone] Care Team Providers Care Transition Advisor Name Role Phone Mary Spencer Primary Care Provider Encounter Details Date Type Department Care Team (Late Contact Info) Description 05/11/2016 Scanned Document [facility] [phone] [address] [place] [address] External, Provider Social History Tobacco Use Types [...] PM EDT Procedure visit [facility] at [address] [place] [address] 01/09/2025 3:45 PM EDT Appointment [facility] [address] [place] [address] Maggie Obando MD 60 [facility] 201 [place] [address] documented as of this encounter Procedures Procedure Name Priority Date/Time Associated Diagnosis Comments STONERISK(R) DIAGNOSTIC PROF ILE (LMW Q) Routine 07/06/2013 documented in this encounter Results * Stonerisk(R) diagnostic profile (Q) (07/06/2013) Urine specimen (specimen) us Provider External URINE ORDERABLES Final Result Performing Organization Address City/State/[facility] Co de Phone Number [facility] documented in this encounter Visit Diagnoses Not on filedocumented in this encounter Care Teams Transition Advisor Relationship Specialty Start Date End Date Mary Spencer PA PCP - General Internal Medicine 08/03/15 documented as of this encounter
--- OUTSIDE RECORDS SUMMARY | 2025-01-02 08:57 | XMS_ITS | Clinical Summary ---
Author Organization [facility] Address [address] [place] [address] Care Team Providers Care Gopherman Name Role Phone Mary Spencer Primary Care [...] PM EDT Procedure visit [facility] at [address] [address] 01/09/2025 3:45 PM EDT Appointment [facility] 111 [place] [address] Maggie Obando MD 60 [facility] 201 [place] [address] Health Maintenance Due Date Last Done Comments HIV screening 1979 Hepatitis C screening 1984 Tetanus adult (Td q 10,TDAP once) 1986 Lipid disorder screening 2006 Colon cancer screening, Colonoscopy 2011 Pneumococcal Vaccine (50+ years) (1 of 1 - PCV) 2016 Shingles vaccine (Shingrix) (1 of 2 - Shingrix (RZV) 2 Dose Standard Series) 2016 Diabetes screening 06/03/2016 06/03/2013, 04/13/2011 Covid-19 vaccine series ( season) 2024 01/21/2021, 12/30/2020, 12/29/2020, Additional history exists Influenza vaccine 06/01/2025 08/01/2018, , 10/01/2014 Breast cancer screening 01/03/2026 01/04/20, 12/29/2022, 09/19/2021, Additional history exists Cervical cancer screening 11/13/2027 11/13/2022, 05/2015 RSV Immunization (1 - 1-dose 75+ series) 2041 Meningococcal Vaccine Aged Out No malcolm grace eligible based on patient's age to complete this topic Procedures Procedure Name Priority Date/Time Associated Diagnosis Comments MAMMO SCREENING MOMO BILATERAL Routine 01/04/2024 4:02 PM EDT Encounter for screening mammogram for malignant neoplasm of breast CYTOLOGY INSURANCE SPECIAL AGENT CASES () Routine 09/07/2015 8:10 PM EST [...] MAMMOGRAPHY ORDERABLE S Final Result * Cytology fashion marketer cases () (09/07/2015 8:10 PM EST) Cytology Financial Services Specialist Cases ?CYTOLOGY REPORT ? Procedures/Addenda Attached Patient: NANCY CHAVEZ ?MR #: [id number] ?Submitted by: Megan Perez M.D. FINAL DIAGNOSIS SUREPATH PAP SMEAR: ? Primary Diagnosis: ? NEGATIVE FOR INTRAEPITHELIAL LESION OR MALIGNANCY. ? Additional Findings: NO ENDOCERVICAL CELLS SEEN. CYTOLYSIS PRESENT. HIGH RISK HPV CO-TESTING HAS BEEN PERFORMED AND THE RESULT IS NEGATIVE. Specimen Adequacy: THIS SPECIMEN IS SATISFACTORY FOR EVALUATION. ? This specimen was manually screened with the assistance of the [employer] Education(Get[employer]) [employer] Imaging System. Recommendation: According to the current [...] used to evaluate suspected endometrial abnormalities. ??([employer] [place] [facility], 2001) ?? 09/10/2015 12:46 ?* Report [...] ? Reported: ? 09/10/2015 ? Pathologist: ? [facility] ? Interpretation Specimen: SUREPATH PAP SMEAR BELOW CUTOFF FOR HIGH RISK HPV HPV types 16, 18, 31, 33, 35, 39, 45, 51, 52, 56, 58, 59, 66, and 68 DNA were either considered NEGATIVE, undetectable,or below the pre-set threshold. This test was performed at [facility] Department of Pathology, [address] [place] [id number], CLIA# [id number] using the Yola christy 4800 HPV Test System and is only approved by the Food and Drug Administration (FDA) for use oncervicalspecimen s collected in Cytyc Preservcyt Solution (ThinPrep). When using ThinPrep liquid based samples for non-cervical specimens, SurePath liquid based samples, or formalin fixed paraffin embedded tissue, the performance characteristics have been determined by [facility]. Although testing on samples that are not cervical in origin, and/or in any other medium besides ThinPrep, has not been cleared or approved by the FDA, the FDA has determined that such clearance or approval is not necessary. ? [facility] 09/07/2015 8:10 PM EST Comment:SUREPATH PAP SMEAR+ HPV us Megan Perez MD PATHOLOGY/CYTOLOGY ORDERABLES Final Result Performing Organization Address City/[facility]/ZIP Co de Phone Number [facility] Department of Pathology [address] [place] [address] [place] [phone] * Glucose ( GH Q YH) (06/03/2013 10:25 AM EDT) Glucose 100 70 - 100 mg/dL [facility] 06/03/2013 10:2 5 AM EDT Narrative [facility] - 06/03/2013 3:45 PM EDT Performed by: [facility] [address] [place] [address] ??(CLIA #[id number], [id number]) us Jocelin Alcantara MD LAB BLOOD ORDERABLES F inal Result Performing Organization Address City/[facility] Co de Phone Number [facility] [address] [place] [phone] from Last 3 Months or Most Recently Relevant to Health Maintenance Insurance BS Care Teams Gopherman Relationship Specialty Start Date End Date Mary Spencer PA PCP - General Internal Medicine 08/03/15
--- OUTSIDE RECORDS SUMMARY | 2025-01-02 08:57 | XMS_ITS | Encounter Summary ---
Author Organization [facility] [employer] [facility] and [facility] Address [address] [place] [phone] Care Team Providers Care Correctional Officer Lieutenant Name Role Phone Mary Spencer Primary Care Provider Encounter Details Date Type Department Care Team (Late Contact Info) Description 09/11/2016 Scanned Document [facility] [phone] [place] [address] External, Provider Social History Tobacco Use Types [...] PM EDT Procedure visit [facility] at [address] [place] [address] 01/09/2025 3:45 PM EDT Appointment [facility] [place] [facility] [address] [place] [address] Maggie Obando MD 60 [facility] [address] [place] [address] documented as of this encounter Procedures Procedure Name Priority Date/Time Associated Diagnosis Comments ZZZCTX COLLAGEN C-TELOPEPTIDE (BH) Routine 07/19/2016 documented in this encounter Results * CTX collagen C-telopeptide (BH) (07/19/2016) Blood specimen (specimen) us Provider External LAB BLOOD ORDERABLES Final Res ult Performing Organization Address City/State/[facility] Co de Phone Number [facility] documented in this encounter Visit Diagnoses Not on filedocumented in this encounter Care Teams Correctional Officer Lieutenant Relationship Specialty Start Date End Date Mary Spencer PA PCP - General Internal Medicine 08/03/15 documented as of this encounter
== END 2025-01-02 07:57 | disposition home or self-care (01) ==
LOC: HO.LAB 07:56
PROVIDERS: PCP Internal Medicine; Visit Provider Urology
DX: R31.29 Other microscopic hematuria (principal); R82.89 Other abnormal findings on cytological and histological examination of urine
CPT/HCPCS: 51701; 88121

== ENCOUNTER 2025-01-16 08:45 | Outpatient (AMB) | payer OTHER, SELFPAY ==
--- NOTE | 2025-01-16 04:37 | A.OFFVIS_ITS ---
Intake Visit Reasons: follow up/urine test Allergies codeine (CODEINE) Allergy (Intermediate, Verified 12/25/24 15:18) NAUSEA hazelnut (HAZELNUT) Allergy (Unknown, Verified 12/25/24 15:18) UNKNOWN Milk Containing Products (Dairy) (MILK CONTAINING PRODUCTS) Allergy (Unknown, Verified 12/25/24 15:18) UNKNOWN nitrofurantoin (From MACROBID) Allergy (Unknown, Verified 12/25/24 15:18) UNKNOWN Penicillins (PENICILLINS) Allergy (Unknown, Verified 12/25/24 15:18) UNKNOWN sesame seed (SESAME SEED) Allergy (Unknown, Verified 12/25/24 15:18) UNKNOWN Sulfa (Sulfonamide Antibiotics) Allergy (Unknown, Verified 12/25/24 15:18) Unknown sulfamethoxazole (From BACTRIM) Allergy (Unknown, Verified 12/25/24 15:18) UNKNOWN trimethoprim (From BACTRIM) Allergy (Unknown, Verified 12/25/24 15:18) UNKNOWN azithromycin (From Zithromax) Adverse Reaction (Intermediate, Verified 12/25/24 15:18) diarrhea epinephrine (EPINEPHRINE) Adverse Reaction (Intermediate, Verified 12/25/24 15:18) HEART PALPITATIONS beesting Allergy (Unknown, Uncoded 12/16/24 08:06) Unknown HPI Comments Details: 01/16/25--Telehealth FU review urine testing. Carole is a 59-year-old female presenting with microscopic hematuria. History of NAILA baby . She has a history of recurrent urinary tract infections and kidney stones. Discussed Urine FISH - results are negative. Plan follow-up in 11 months we will check renal ultrasound at that time. 12/23/24--Here for office cystoscopy: Repeat urine cytology- 12/16/24-- Negative for high-grade urothelial carcinoma. Cellular specimen consisting of occasional single urothelial cells with degenerative changes, squamous cells, relatively numerous red blood cells and few mixed inflammatory cells. Catheterized urine urine obtained and sent for urine FISH. Cystoscopy findings bladder mucosa no suspicious lesions seen. 12/16/24--Carole is a 59-year-old female presenting with microscopic hematuria. History of NAILA baby . She has a history of recurrent urinary tract infections and kidney stones. Post-hysterectomy, she noted a faint pink discoloration on her sanitary pad but her laborer orchard identified no abnormalities upon examination. Recently, she reported increased urinary urgency and frequency. Dr. Edwards confirmed a urinary tract infection and started treatment, yet recommended further evaluation after noting persistent atypical cells in urine cytology. 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 A urine cytology performed previously also revealed rare atypical cells, raising the possibility of malignancy. The patient has a history of exposure to diethylstilbestrol (NAILA), suspecting this exposure contributes to her renal and gynecological issues. She noticed rapid weight loss consequent to a corrective hernia surgery where stomach repositioning alleviated her unexplained weight gain. She has a minimal history of smoking during her college years. Discussed renal papillary necrosis- a condition where the renal papillae, the areas where urine flows into the ureters, , often due to ischemia (reduced blood flow); can be caused by various factors, including diabetes, analgesic abuse, sickle cell disease, and infections, and can lead to kidney damage and potentially kidney failure.? Urinary Symptoms Review - Microscopic hematuria post-hysterectomy - Increased urinary frequency and urgency recently experienced - Occasional pink tint observed on pads - Initially recurring urinary tract infections - Rare atypical cells noted in urine cytology - Confirmed urinary tract infection treated by Dr. 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 LV--08/21/22--Carole is a 57-year-old female who was evaluated as an inpatient for left hydronephrosis due to obstructing distal ureteral stones. The patient is status post ureteroscopy laser lithotripsy and ureteral stent placement and is here for stent removal. I have reviewed the prior imaging 07/28/22, I have discussed with her that the left kidney had some scarring and was atrophic compared to the right kidney. Also noted was left adnexal cyst which was seen on prior imaging and the patient is aware of this and is following up with her electronics worker. On evaluation - the stent is removed without difficulty and I have discussed plan for metabolic workup including 24 hour urine collection and will get a renal ultrasound in 4 months for follow-up evaluation of the kidneys. 5/3/23-- Discussed 24 hour urine results-- collected 01/03/23--Total volume 2.36 L, Calcium 192 mg; Oxalate 44 mg, Sodium 207, Citrate 1165 mg. Instructed on importance of fluid intake, Low oxalate diet, low sodium diet. Renal US results reviewed?11/06/22-- Findings of 2 cm cyst in the right kidney with peripheral calcification. CTAP results reviewed--07/28/22-- Findings of mild to moderate hydronephrosis on the left caused by a long calculus or several calculi stacked together in the distal left ureter approximately 1 to 2 cm from the UV. Plan: Discussed to consume 2-2.5 liters of fluid including water and juices, avoiding sodas, high sodium or high sugar content drinks. Discussed to consume low sodium diet and avoiding processed food. Discussed low oxalate diet---green leafy vegetable, nuts, and tea in moderation as they are rich in oxalate. Vitamin B6 100 mg QD was ordered. Repeat renal US in 6 months. COUNT INCLUDES THE [facility] Medical History Microscopic hematuria Hx of hiatal hernia Ureteral stone Renal calculi Sore throat USMAN (obstructive sleep apnea) Cystitis Dysphagia Palpitations Restrictive airway disease Bronchitis BMI 36.0-36.9,adult Multiple allergies Headache Vitamin K deficiency Elevated C-reactive protein (CRP) Elevated sed rate Unexplained night sweats Pelvic cyst Adnexal cyst Abnormal Pap smear of cervix Unexplained endometrial cells on cervical cytology Chronic fatigue GERD (gastroesophageal reflux disease) CAD (coronary artery disease) Microscopic hematuria Renal atrophy Recurrent UTI Left radial head fracture Obesity Surgical History Hx of hysterectomy S/P DONNA-BSO S/P repair of paraesophageal hernia History of esophagogastroduodenoscopy (EGD) History of lithotripsy History of skin graft History of cystoscopy History of ankle surgery History of ovarian cystectomy History of tonsillectomy History of surgery History of colonoscopy History of endoscopy Family History Father Liver failure ETOH abuse Diabetes Hypertension Anxiety Prostate cancer Mother Hypertension Afib CVD (cardiovascular disease) Emphysema lung Melanoma Paternal Aunt Breast cancer Social History Housing: Condominium Alcohol intake: current Alcohol intake frequency: holidays/special occasions only Comment: 2 glasses in a month Patient Tobacco Use Status: Never used Tobacco Tobacco use type: Cigarette Years Smoked: smoked in college. 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 [place] Cognitive needs: No Hearing needs: No Vision needs: Yes Review of Systems Const All systems reviewed & are unremarkable except as noted in HPI and below Reports no additional complaints Eyes Reports no additional complaints ENT Reports no additional complaints Card Reports no additional complaints Resp Reports no additional complaints GI Reports no additional complaints Reports as per HPI Musc Reports no additional complaints Skin/Breast Reports system reviewed and no additional complaints, except as documented Neuro Reports no additional complaints Psych Reports no additional complaints Endo Reports no additional complaints Glen/Lymph Reports no additional complaints Aller/Immun Reports no additional complaints Telehealth Telehealth Telehealth Platform: [facility] Location of provider rendering services: practice address Location of patient: address on file Patient Identification confirmed using: Name, : Yes Telehealth method: video Patient verbally consented to treatment: Yes Patient verbally consented to billing insurance company: Yes Patient informed of any privacy concerns related to visit: Yes Results Reviewed Results Reviewed: Collected: 12/16/24 Location: .LAB Received: 12/17/24 Diagnosis Urine: Negative for high-grade urothelial carcinoma. See comment. COMMENT: Cellular specimen consisting of occasional single urothelial cells with degenerative changes, squamous cells, relatively numerous red blood cells and few mixed inflammatory cells. Clinical History Urinary tract infection, site not specified Material Received Urine Gross Description Received is 40 cc of cloudy yellow fluid from which a ThinPrep slide is prepared. Collected: 12/11/24 [facility] Received: 12/11/24 Diagnosis Urine: Rare atypical urothelial cells. COMMENT: Examination of a monolayer preparation slide shows many benign squamous cells, scattered benign urothelial cells, and rare atypical urothelial cells with increased nuclear:cytoplasmic ratios. There are also occasional inflammatory cells and red blood cells present. Clinical History Hematuria, unspecified Material Received Urine Gross Description Received is 46 cc of slightly cloudy yellow fluid from which a ThinPrep slide is prepared. Date of Service: 12/12/24 CLINICAL HISTORY: R31.9 - Hematuria, unspecified CT abdomen and pelvis with and without contrast Comparison: None Findings: The lung bases are clear. There is scarring of the left kidney with deformed calices. 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 There is a right renal cyst in the midpole measuring 1.7 cm. The gallbladder is normal. The rest of the solid organs are normal. Dilated small bowel loops are seen in the left upper quadrant and pelvis without a discrete site of transition. Rest of the bowel is unremarkable. The patient is status post hysterectomy. Normal appendix. Chronic compression deformities superior endplates of T11 and L1. IMPRESSION: 1. Chronic left renal scarring. Likely chronically deformed left renal calyces. 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 2. Dilated small bowel loops without a discrete zone of transition. Findings likely represent ileus. Date of Service: 11/06/22 EXAMINATION: US RETROPERITONEAL LIMITED (RENAL ONLY) CLINICAL INFORMATION: Calculus of kidney.. COMPARISON: CT kidneys 07/28/2022 TECHNIQUE: Routine grayscale imaging of kidneys is performed. FINDINGS: RIGHT KIDNEY: 12.3 x 5.9 x 5.0 cm (SAG x AP x TRV). The kidney is normal in size, contour, and echogenicity. Renal cortical thickness is normal. No calculi or focal parenchymal lesions. There is mild pelvic fullness. There is an echogenic complex cyst lower pole measuring 1.9 x 2.0 x 2.0 cm and peripheral calcification. LEFT KIDNEY: 9.5 x 4.9 x 4.6 cm (SAG x AP x TRV). The kidney is normal in size, contour, and echogenicity. There is mild cortical thinning unchanged since previous CT kidney exam. No calculi or focal parenchymal lesions. No hydronephrosis. IMPRESSION: Complex cyst lower pole right kidney. Mild pelvic fullness. Mild cortical thickening left kidney. Date of Service: 07/28/22 Indication: Hematuria EXAMINATION: CT of the abdomen pelvis noncontrast. Comparison is made to previous dated 07/21/2019. This CT examination was performed using dose optimization techniques as appropriate, variously including the following: *Automated exposure control *Adjustment of mA and/or kV according to patient size (this includes techniques or standardized protocols for targeted exams where dose is matched to indication/reason for exam; i.e. extremities or head) *Use of iterative reconstruction technique. Axial imaging with coronal and sagittal reformatted images. Radiation dose 863. Findings; The lung bases are grossly clear. Upper abdomen; Liver is grossly within normal limits. Spleen within normal limits. Gallbladder within normal limits. The pancreas is within normal limits. Area the adrenal glands within normal limits. Right kidney is within normal limits. Left kidney does demonstrate hydronephrosis. Prominent ureter. This leads up to calcification in the distal left ureter. This may be several calculi stacked together. Area measures 9 x 3 mm. Left kidney does demonstrate probable scarring and mildly atrophic compared to right kidney. The bowel pattern is nonobstructing. Some diverticular disease but no evidence for diverticulitis. The appendix is normal. The abdominal wall is felt to be within normal limits. Some atherosclerotic disease. No aneurysmal change. There is no bulky adenopathy here. Once again cystic change in the left adnexa. 5.9 x 4.7 cm. Previously 5.2 x 4 cm. No free fluid in the deep pelvis. Review of the bone windows does not demonstrate a suspicious bony finding. IMPRESSION: Mild to moderate hydronephrosis on the left caused by a long calculus or several calculi stacked together in the distal left ureter approximately 1 to 2 cm from the UVJ. ? Cystic left adnexal lesion demonstrating enlargement from previous exam. Ultrasonographic workup recommended. This may be done on an outpatient basis. ? 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 The patient expressed understanding and agreement with the above treatment plan. The patient is aware they should contact our office by phone for worsening of their current condition or the appearance of new symptoms. Compliance is encouraged with any medications and followup testing that is ordered. It is a privilege to be allowed the opportunity to participate in the urologic care of your patient. If you have any questions or concerns regarding treatment for the above conditions please do not hesitate to contact me. The office telephone contact is [phone]. This note is constructed in part using voice recognition software. While every effort has been made to ensure accuracy nuisance wildlife specialist errors may have been included. Yours sincerely, Faith San MD Coding Level of Care Code Tele Est Pt Level 3 (70879) Diagnoses Microscopic hematuria R31.29 History of renal calculi Z87.442 Renal papillary necrosis N17.2
--- OUTSIDE RECORDS SUMMARY | 2025-01-16 09:08 | XMS_ITS | Clinical Summary ---
Author Organization [facility] Address [address] [place] [address] Care Team Providers Care Transformer Repairer Name Role Phone Unavailable Primary Care Provider Unavailabl e Social History Tobacco Use Types Packs/Day Years Used Date Smoking Tobacco: Never Assessed Comments Unknown Sex and Gender Information Value Date Recorded Sex Assigned at Not on file Legal Sex Female 12:55 PM EDT Gender Identity Not on file Sexual Orientation Not on file Plan of Treatment Health Maintenance Due Date Last Done Comments Hepatitis C Virus Screening 1966 HIV Screening 1979 DTaP/Tdap/Td Vaccines (1 - Tdap) 1985 Hepatitis B Vaccines (1 of 3 - 19+ 3-dose series) 1985 Pneumococcal Vaccines 50+ (1 of 1 - PCV) 2016 Zoster (Shingles) Vaccine (1 of 2) 2016 COVID-19 Vaccine (2023-2 5 season) 2024 Pneumococcal Vaccine: Pediat ally (0-5 Years) and At-Risk Patients (6 to 49 Years) Aged Out No longer eligible b ased on patient's age to complete this topic
--- OUTSIDE RECORDS SUMMARY | 2025-01-16 09:08 | XMS_ITS | Clinical Summary ---
Author Organization [facility] [address] [facility] Address [address] [place] [address] Care Team Providers Care Senior Software Qa Analyst Name Role Phone Mary Spencer Primary Care [...] Problem Noted Date Diagnosed Date Osteopenia 05/11/2016 Encounters Date Type Department Care Team Description 01/09/2025 3:21 PM EDT - 01/09/2025 11:59 PM EDT Hospital Encounter [facility] [address] [place] [address] Maggie Obando MD Encounter for screening mammogram for malignant neoplasm of breast Discharge Disposition: Home or Self Care from Last 3 Months Family History Medical History Relation Name Comments [...] Care Team (Late st Contact Info) Description 02/02/2025 1:15 PM EDT Procedure visit [facility] [address] [address] Health Maintenance Due Date Last Done Comments HIV screening 1979 Hepatitis C screening 1984 Lipid disorder screening 2006 Colon cancer screening, Colonoscopy 2011 Pneumococcal Vaccine (50+ years) (1 of 1 - PCV) 2016 Shingles vaccine (Shingrix) (1 of 2 - Shingrix (RZV) 2 Dose Standard Series) 2016 Diabetes screening 06/03/2016 06/03/2013, 04/13/2011 Tetanus adult (Td q 10,TDAP once) 08/22/2016 08/22/2006 Covid-19 vaccine series ( season) 2024 01/21/2021, 12/30/2020, 12/29/2020, Additional history exists Influenza vaccine 06/01/2025 08/01/2018, , 10/01/2014 Breast cancer screening 01/09/2027 01/10/20, 01/04/2024, 12/29/2022, Additional history exists Cervical cancer screening 01/24/20292023, 11/13/2022, 09/07/2015 RSV Immunization (1 - 1-dose 75+ series) 2041 Meningococcal Vaccine Aged Out No malcolm grace eligible based on patient's age to complete this topic Procedures Procedure Name Priority Date/Time Associated Diagnosis Comments MAMMO SCREENING MOMO BILATERAL Routine 01/09/2025 3:45 PM EDT Encounter for screening mammogram for malignant neoplasm of breast CYTOLOGY AVIONIC TECHNICIAN CASES (Y) Routine 09/07/2015 8:10 PM EST GLUCOSE (BH GH LMW Q YH) Routine 06/03/2013 10:25 AM EDT from Last 3 Months or Most Recently Relevant to Health Maintenance Results * Mammography Screening Momo Bilateral (01/09/2025 3:45 PM EDT) Anatomical Region Laterality Modality Breast Bilateral Mammography Impressions 01/12/2025 12:26 AM EDT BI-RADS 1 - Negative RECOMMENDATION: Screening mammography in 1 year is recommended. The patient was informed by letter of the results. Ignacio Ennis MD [facility] Narrative 01/12/2025 12:26 AM EDT EXAM: Mammography Screening Momo Bilateral on 01/09/25 INDICATION: Screening TECHNIQUE: Digital breast tomosynthesis was performed and used in the interpretation of images. C-View (synthesized 2D) mammography was utilized. Current study was evaluated with a Computer Aided Detection (CAD) system. COMPARISON: 01/04/2024 Mammography Screening Momo Bilateral, 01/22/2023 US Breast Left Limited, 12/29/2022 Mammography Screening Momo Bilateral, 09/19/2021 Mammography Screening Momo Bilateral, and 08/27/2020 Mammography Screening Momo Bilateral BREAST DENSITY: There are scattered areas of fibroglandular density. FINDINGS: Mammography Screening Momo Bilateral Bilateral There is no evidence of suspicious masses, calcifications, or other abnormal findings. There is a biopsy clip in the left breast. us Maggie Obando MD IMG MAMMOGRAPHY ORDERABLE S Final Result * Cytology streetcar starter cases () (09/07/2015 8:10 PM EST) Cytology Lead Quality Control Technician Cases ?CYTOLOGY REPORT ? Procedures/Addenda Attached Patient: NANCY CHAVEZ ?MR #: [id number] ?Submitted by: Megan Perez M.D. FINAL DIAGNOSIS SUREPATH PAP SMEAR: ? Primary Diagnosis: ? NEGATIVE FOR INTRAEPITHELIAL LESION OR MALIGNANCY. ? Additional Findings: NO ENDOCERVICAL CELLS SEEN. CYTOLYSIS PRESENT. HIGH RISK HPV CO-TESTING HAS BEEN PERFORMED AND THE RESULT IS NEGATIVE. Specimen Adequacy: THIS SPECIMEN IS SATISFACTORY FOR EVALUATION. ? This specimen was manually screened with the assistance of the [employer](StartMe Imaging System. Recommendation: According to the current [...] used to evaluate suspected endometrial abnormalities. ??(The [employer] System, 2001) ?? 09/10/2015 12:46 ?* Report [...] ? Reported: ? 09/10/2015 ? Pathologist: ? [facility] ? Interpretation Specimen: SUREPATH PAP SMEAR BELOW CUTOFF FOR HIGH RISK HPV HPV types 16, 18, 31, 33, 35, 39, 45, 51, 52, 56, 58, 59, 66, and 68 DNA were either considered NEGATIVE, undetectable,or below the pre-set threshold. This test was performed at [facility] Department of Pathology, [address] [place] [id number], CLIA# [id number] using the Yola christy 4800 HPV Test System and is only approved by the Food and Drug Administration (FDA) for use oncervicalspecimen s collected in Cytyc Preservcyt Solution (ThinPrep). When using ThinPrep liquid based samples for non-cervical specimens, SurePath liquid based samples, or formalin fixed paraffin embedded tissue, the performance characteristics have been determined by [facility]. Although testing on samples that [...] Result [facility] Department of Pathology [address] [place] [address] [address] [place], [place] [id number] * Glucose ( GH Q YH) (06/03/2013 10:25 AM EDT) Glucose 100 70 - 100 mg/dL [facility] 06/03/2013 10:2 5 AM EDT Narrative [facility] - 06/03/2013 3:45 PM EDT Performed by: [facility] [address] [place] [address] ??(CLIA #[id number], [id number]) Jocelin Alcantara MD LAB BLOOD ORDERABLES F inal Result Performing Organization Address City/[facility]/ZIP Co de Phone Number [facility] [address] [place] [phone] from Last 3 Months or Most Recently Relevant to Health Maintenance Insurance [facility] Care Teams Senior Software Qa Analyst Relationship Specialty Start Date End Date Mary Spencer PA PCP - General Internal Medicine 08/03/15
--- OUTSIDE RECORDS SUMMARY | 2025-01-16 09:08 | XMS_ITS | Clinical Summary ---
Author Organization [facility] Address [address] [place] [address] Care Team Providers Care Mysql Database Administrator Name Role Phone Demetra Pantoja MD Primary Care Provider [phone] Allergies Active Allergy Reactions Criticality Noted Date [...] 5 season) 2024 01/21/2021, 12/29/2020 Influenza Vaccine (Season Ended) 2025 10/01/2014 HIB Vaccines Aged Out No longer [...] EDT) Anatomical Region Laterality Modality Endoscopy 04/19/2012 [facility] MD GI PROCEDURE OR DERABLES Final Result from Last 3 Months or Most Recently Relevant to Health Maintenance Insurance [employer] Care Teams Mysql Database Administrator Relationship Specialty Start Date End Date Demetra Pantoja MD [address] [place] [id number] PCP - General 10/06/19
--- OUTSIDE RECORDS SUMMARY | 2025-01-16 09:09 | XMS_ITS | Encounter Summary ---
Author Organization [facility] [employer] [facility] and [facility] Address [address] [place] [phone] Care Team Providers Care Electrical Logging Engineer Name Role Phone Mary Spencer Primary Care Provider Encounter Details Date Type Department Care Team (Late st Contact Info) Description 08/04/2016 Scanned Document [facility] [phone] [place] [address] Kelsey Hutchinson MD [address] [place] [phone] Social History Tobacco Use Types Packs/Day [...] EDT Procedure visit [facility] at [address] [address] documented as of this encounter Procedures Procedure Name Priority Date/Time Associated Diagnosis Comments LAB SCAN Routine 07/17/2016 documented in this encounter Results * Lab Scan (07/17/2016) Blood specimen (specimen) us Kelsey Hutchinson MD LAB BLOOD ORDERABLES Final Resul t Performing Organization Address City/State/[facility] Co de Phone Number [facility] documented in this encounter Visit Diagnoses Not on filedocumented in this encounter Care Teams Electrical Logging Engineer Relationship Specialty Start Date End Date Mary Spencer PA PCP - General Internal Medicine 08/03/15 documented as of this encounter
--- OUTSIDE RECORDS SUMMARY | 2025-01-16 09:09 | XMS_ITS | Encounter Summary ---
Author Organization [facility] and [facility] Address [address] [place] [phone] Care Team Providers Care Director Of Curriculum Name Role Phone Mary Spencer Primary Care Provider Encounter Details Date Type Department Care Team (Late Contact Info) Description 05/11/2016 Scanned Document [facility] [phone] [address] [place] [address] External, Provider Social History Tobacco Use Types [...] Department Care Team (Late Contact Info) Description 02/02/2025 1:15 PM EDT Procedure visit [facility] at [address] [address] documented as of this encounter Procedures Procedure Name Priority Date/Time Associated Diagnosis Comments STONERISK(R) DIAGNOSTIC PROF ILE (LMW Q) Routine 07/06/2013 documented in this encounter Results * Stonerisk(R) diagnostic profile (Q) (07/06/2013) Urine specimen (specimen) us Provider External URINE ORDERABLES Final Result Performing Organization Address City/State/[facility] Co de Phone Number [facility] documented in this encounter Visit Diagnoses Not on filedocumented in this encounter Care Teams Director Of Curriculum Relationship Specialty Start Date End Date Mary Spencer PA PCP - General Internal Medicine 08/03/15 documented as of this encounter
--- OUTSIDE RECORDS SUMMARY | 2025-01-16 09:09 | XMS_ITS | Encounter Summary ---
Author Organization [facility] and [facility] Address [address] [place] [phone] Care Team Providers Care Ticket Sorter Name Role Phone Mary Spencer Primary Care Provider Encounter Details Date Type Department Care Team (Late st Contact Info) Description 05/04/2016 Scanned Document [facility] [address] [place] [address] External, Provider Social History Tobacco Use Types [...] Description 02/02/2025 1:15 PM EDT Procedure [facility] at [address] [address] documented as of this encounter Visit Diagnoses Not on filedocumented in this encounter Care Teams Ticket Sorter Relationship Specialty Start Date End Date Mary Spencer PA PCP - General Internal Medicine 08/03/15 documented as of this encounter
--- OUTSIDE RECORDS SUMMARY | 2025-01-16 09:09 | XMS_ITS | Encounter Summary ---
Author Organization [facility] Address [address] [place] [phone] Care Team Providers Care Forming Machine Operator Name Role Phone Mary Spencer Primary Care Provider Encounter Details Date Type Department Care Team (Late Contact Info) Description 06/20/2016 Scanned Document [facility] [phone] [address] [place] [address] External, Provider Social History Tobacco Use Types [...] EDT Procedure visit [facility] at [address] [place] [address] documented as of this encounter Procedures Procedure Name Priority Date/Time Associated Diagnosis Comments LAB SCAN Routine 12/09/2015 BONE DENSITY RESULT SCAN Routine 09/28/2015 documented in this encounter Results * Lab Scan (12/09/2015) Blood specimen (specimen) us Provider External LAB BLOOD ORDERABLES Final Res ult Performing Organization Address [facility] Co de Phone Number [facility] * Bone Density Result Scan (09/28/2015) us Provider External IMG SCAN REPORTS Final Result Performing Organization Address [facility] Co de Phone Number [facility] documented in this encounter Visit Diagnoses Not on filedocumented in this encounter Care Teams Forming Machine Operator Relationship Specialty Start Date End Date Mary Spencer PA PCP - General Internal Medicine 08/03/15 documented as of this encounter
--- OUTSIDE RECORDS SUMMARY | 2025-01-16 09:09 | XMS_ITS | Encounter Summary ---
Author Organization [facility] [employer] [facility] and [facility] Address [address] [place] [phone] Care Team Providers Care Timber Cutter Name Role Phone Mary Spencer Primary Care Provider Encounter Details Date Type Department Care Team (Late Contact Info) Description 09/11/2016 Scanned Document [facility] [phone] [address] [place] [address] External, Provider Social History Tobacco Use Types [...] PM EDT Procedure visit [facility] at [address] [place] [address] documented as of this encounter Procedures Procedure Name Priority Date/Time Associated Diagnosis Comments ZZZCTX COLLAGEN C-TELOPEPTIDE (BH) Routine 07/19/2016 documented in this encounter Results * CTX collagen C-telopeptide (BH) (07/19/2016) Blood specimen (specimen) us Provider External LAB BLOOD ORDERABLES Final Res ult Performing Organization Address City/State/[facility] Co de Phone Number [facility] documented in this encounter Visit Diagnoses Not on filedocumented in this encounter Care Teams Timber Cutter Relationship Specialty Start Date End Date Mary Spencer PA PCP - General Internal Medicine 08/03/15 documented as of this encounter
--- OUTSIDE RECORDS SUMMARY | 2025-01-16 09:09 | XMS_ITS | Continuity of Care Document ---
Author Organization [facility] Address [address] [facility] [address] [place] [address] Phone [phone] Social History Type Date Description Comments Sex Unknown Medical Devices Description No Information Available Encounters Description No Information Available Assessments Description No Information Available Plan of Treatment No Information Available Functional Status Description No Information Available Mental Status Description No Information Available Referrals Description No Information Available
--- OUTSIDE RECORDS SUMMARY | 2025-01-16 09:09 | XMS_ITS | Encounter Summary ---
Author Organization [facility] and [facility] Address [address] [place] [phone] Care Team Providers Care Math And Science Instructor Name Role Phone Mary Spencer Primary Care Provider Encounter Details Date Type Department Care Team (Late st Contact Info) Description 12/10/2015 Scanned Document [facility] [phone] [place] [address] External, Provider Social History Tobacco Use Types [...] EDT Procedure visit [facility] at [address] [address] documented as of this encounter Visit Diagnoses Not on filedocumented in this encounter Care Teams Math And Science Instructor Relationship Specialty Start Date End Date Mary Spencer PA PCP - General Internal Medicine 08/03/15 documented as of this encounter
--- OUTSIDE RECORDS SUMMARY | 2025-01-16 09:09 | XMS_ITS | Encounter Summary ---
Author Organization [facility] and [facility] Address [address] [place] [phone] Care Team Providers Care Mica Laminating Machine Feeder Name Role Phone Mary Spencer Primary Care Provider Encounter Details Date Type Department Care Team (Late Contact Info) Description 09/01/2016 Scanned Document [facility] [phone] [place] [address] External, Provider Social History Tobacco Use Types [...] EDT Procedure visit [facility] at [address] [address] documented as of this encounter Procedures Procedure Name Priority Date/Time Associated Diagnosis Comments LAB SCAN Routine 01/21/2014 documented in this encounter Results * Lab Scan (01/21/2014) Blood specimen (specimen) us Provider External LAB BLOOD ORDERABLES Final Res ult [facility] [place], [place], [facility] documented in this encounter Visit Diagnoses Not on filedocumented in this encounter Care Teams Mica Laminating Machine Feeder Relationship Specialty Start Date End Date Mary Spencer PA PCP - General Internal Medicine 08/03/15 documented as of this encounter
== END 2025-01-16 09:46 | disposition home or self-care (01) ==
LOC: HO.HUSH 08:45
PROVIDERS: PCP Internal Medicine; Visit Provider Urology
DX: R31.29 Other microscopic hematuria (principal); Z87.442 Personal history of urinary calculi; N17.2 Acute kidney failure with medullary necrosis
CPT/HCPCS: 99213

== ENCOUNTER → 2025-01-16 08:45 | Outpatient (BNVA) | payer OTHER, SELFPAY | PROVIDERS: PCP Internal Medicine; Visit Provider Urology | DX: N17.2 Acute kidney failure with medullary necrosis (principal); R31.29 Other microscopic hematuria; Z87.442 Personal history of urinary calculi ==

== ENCOUNTER 2025-01-29 08:11 | Outpatient (REF) | payer OTHER, SELFPAY ==
--- NOTE | ~2025-01-29 | MM_ITS ---
EXAMINATION: DXA BONE DENSITY AXIAL HISTORY: M81.0 - Age-related osteoporosis without current pathological fracture TECHNIQUE: [employer] Dual energy absorptiometry (DEXA) of the lumbar spine, total left hip, and femoral neck was performed. COMPARISON: There are no prior studies for comparison. FINDINGS: The bone mineral density of the lumbar spine is 0.775 with a T-score of -3.4, and a Z-score of -2.4. This is indicative of osteoporosis. The bone mineral density of the left total hip is 0.697 with a T-score of -2.5, and a Z-score of -1.7. This is indicative of osteoporosis. The bone mineral density of the left femoral neck is 0.713 with a T-score of -2.3, and a Z-score of -1.2. This is indicative of osteopenia. MM/XR DEXA axial skeleton IMPRESSION: Based on bone mineral density, and according to World Health Organization (WHO) criteria, the diagnosis is consistent with osteoporosis. All bone density values are in grams per centimeter squared (g/cm2). Statistically, 68% of repeat scans fall within 1 SD (+/- 0.010 g/cm2 for AP spine L1-L4) and 1 SD (+/- 0.012 g/cm2 for femur total) FRAX is a trademark of the [employer]'s [place] for Metabolic Bone Disease, a World Health Organization (WHO) Collaborating Center. Electronically signed by: Anjum Grey MD 01/29/2025 09:10 AM EDT
--- OUTSIDE RECORDS SUMMARY | 2025-01-29 08:21 | XMS_ITS | Clinical Summary ---
Author Organization [employer] Address [address] [place] [address] Care Team Providers Care Account Executive Sales Representative Name Role Phone Demetra Pantoja MD Primary Care Provider [phone] Allergies Active Allergy Reactions Criticality Noted Date [...] EDT) Anatomical Region Laterality Modality Endoscopy 04/19/2012 [facility] MD GI PROCEDURE OR DERABLES Final Result from Last 3 Months or Most Recently Relevant to Health Maintenance Insurance [employer] Care Teams Account Executive Sales Representative Relationship Specialty Start Date End Date Demetra Pantoja MD [address] [place] [address] PCP - General 10/06/19
--- OUTSIDE RECORDS SUMMARY | 2025-01-29 08:22 | XMS_ITS | Encounter Summary ---
Author Organization [facility] and [facility] Address [address] [place] [phone] Care Team Providers Care Stave Mill Hand Name Role Phone Mary Spencer Primary Care Provider Encounter Details Date Type Department Care Team (Late st Contact Info) Description 05/04/2016 Scanned Document [facility] [address] [place] [address] External, Provider Social History Tobacco Use Types [...] EDT Procedure visit [facility] at [address] [address] documented as of this encounter Visit Diagnoses Not on filedocumented in this encounter Care Teams Stave Mill Hand Relationship Specialty Start Date End Date Mary Spencer PA PCP - General Internal Medicine 08/03/15 documented as of this encounter
--- OUTSIDE RECORDS SUMMARY | 2025-01-29 08:22 | XMS_ITS | Encounter Summary ---
Author Organization [facility] and [facility] Address [address] [place] [phone] Care Team Providers Care Statistical Typist Name Role Phone Mary Spencer Primary Care Provider Encounter Details Date Type Department Care Team (Late Contact Info) Description 09/01/2016 Scanned Document [facility] [phone] [address] [place] [address] External, Provider Social History Tobacco Use Types [...] Procedure visit [facility] [address] [address] documented as of this encounter Procedures Procedure Name Priority Date/Time Associated Diagnosis Comments LAB SCAN Routine 01/21/2014 documented in this encounter Results * Lab Scan (01/21/2014) Blood specimen (specimen) us Provider External LAB BLOOD ORDERABLES Final Res ult [facility] [place], [place], [facility] documented in this encounter Visit Diagnoses Not on filedocumented in this encounter Care Teams Statistical Typist Relationship Specialty Start Date End Date Mary Spencer PA PCP - General Internal Medicine 08/03/15 documented as of this encounter
--- OUTSIDE RECORDS SUMMARY | 2025-01-29 08:22 | XMS_ITS | Clinical Summary ---
Author Organization [facility] [address] Address [address] [place] [address] Care Team Providers Care Trimmer Machine Operator Name Role Phone Mary Spencer [...] - 01/09/2025 11:59 PM EDT Hospital Encounter [facility] Mammography [address] [place] [address] Maggie Obando MD Encounter for screening mammogram [...] PM EDT Procedure visit [facility] at [address] [address] Health Maintenance Due Date Last Done Comments [...] mammogram for malignant neoplasm of breast CYTOLOGY AVIONICS SAFETY INSPECTOR CASES (Y) Routine 09/07/2015 8:10 PM EST [...] letter of the results. Ignacio Ennis MD [facility] Narrative 01/12/2025 12:26 [...] MAMMOGRAPHY ORDERABLE S Final Result * Cytology technical support engineer cases () (09/07/2015 8:10 PM EST) Cytology Neurosurgical Nurse Cases ?CYTOLOGY REPORT ? Procedures/Addenda Attached Patient: NANCY CHAVEZ ?MR #: [id number] ?Submitted by: Megan Perez M.D. FINAL DIAGNOSIS SUREPATH PAP SMEAR: ? Primary Diagnosis: ? NEGATIVE FOR INTRAEPITHELIAL LESION OR MALIGNANCY. ? Additional Findings: NO ENDOCERVICAL CELLS SEEN. CYTOLYSIS PRESENT. HIGH RISK HPV CO-TESTING HAS BEEN PERFORMED AND THE RESULT IS NEGATIVE. Specimen Adequacy: THIS SPECIMEN IS SATISFACTORY FOR EVALUATION. ? This specimen was manually screened with the assistance of the [employer](bContext Imaging System. Recommendation: According to the current [...] used to evaluate suspected endometrial abnormalities. ??([facility], 2001) ?? 09/10/2015 12:46 ?* Report [...] ? Reported: ? 09/10/2015 ? Pathologist: ? [facility] ? Interpretation Specimen: SUREPATH PAP SMEAR BELOW CUTOFF FOR HIGH RISK HPV HPV types 16, 18, 31, 33, 35, 39, 45, 51, 52, 56, 58, 59, 66, and 68 DNA were either considered NEGATIVE, undetectable,or below the pre-set threshold. This test was performed at [facility] Department of Pathology, [address] [place] [id number], CLIA# [id number] using the Yola christy 4800 HPV Test System and is only approved by the Food and Drug Administration (FDA) for use oncervicalspecimen s collected in Cytyc Preservcyt Solution (ThinPrep). When using ThinPrep liquid based samples for non-cervical specimens, SurePath liquid based samples, or formalin fixed paraffin embedded tissue, the performance characteristics have been determined by [facility]. Although testing on samples that are not cervical in origin, and/or in any other medium besides ThinPrep, has not been cleared or approved by the FDA, the FDA has determined that such clearance or approval is not necessary. ? [facility] 09/07/2015 8:10 PM EST Comment:SUREPATH PAP SMEAR+ HPV us Megan Perez MD PATHOLOGY/CYTOLOGY ORDERABLES Final Result [facility] Department of Pathology [address] [place] [address] [place], [place] [address] * Glucose ( GH Q YH) (06/03/2013 10:25 AM EDT) Glucose 100 70 - 100 mg/dL [facility] 06/03/2013 10:2 5 AM EDT Narrative [facility] - 06/03/2013 3:45 PM EDT Performed by: [facility] [address] [place] [address] ??(CLIA #[id number], [id number]) Jocelin Alcantara MD LAB BLOOD ORDERABLES F inal Result Performing Organization Address City/[facility]/ZIP Co de Phone Number [facility] [address] [place] [phone] from Last 3 Months or Most Recently Relevant to Health Maintenance Insurance [facility] Care Teams Trimmer Machine Operator Relationship Specialty Start Date End Date Mary Spencer PA PCP - General Internal Medicine 08/03/15
--- OUTSIDE RECORDS SUMMARY | 2025-01-29 08:22 | XMS_ITS | Clinical Summary ---
Author Organization [facility] Address [address] [place] [address] Care Team Providers Care Sample Examiner Name Role Phone Unavailable Primary Care Provider [...] (1 of 3 - 19+ 3-dose series) 03/01 Pneumococcal Vaccines 50+ (1 of 1 - PCV) 2016 Zoster (Shingles) Vaccine (1 of 2) 2016 COVID-19 Vaccine ( - 2023- season) 2024
--- OUTSIDE RECORDS SUMMARY | 2025-01-29 08:22 | XMS_ITS | Continuity of Care Document ---
Author Organization [facility] Address [address] [facility] [address] [place] [address] Phone [phone] Social History Type Date Description Comments Sex Unknown Medical Devices Description No Information Available Encounters Description No Information Available Assessments Description No Information Available Plan of Treatment No Information Available Functional Status Description No Information Available Mental Status Description No Information Available Referrals Description No Information Available
--- OUTSIDE RECORDS SUMMARY | 2025-01-29 08:22 | XMS_ITS | Encounter Summary ---
Author Organization [facility] and [facility] Address [address] [place] [phone] Care Team Providers Care Casing Running Machine Tender Name Role Phone Mary Spencer Primary Care Provider Encounter Details Date Type Department Care Team (Late st Contact Info) Description 12/10/2015 Scanned Document [facility] [phone] [place] [address] External, Provider Social History Tobacco Use Types [...] EDT Procedure visit [facility] at [address] [address] documented as of this encounter Visit Diagnoses Not on filedocumented in this encounter Care Teams Casing Running Machine Tender Relationship Specialty Start Date End Date Mary Spencer PA PCP - General Internal Medicine 08/03/15 documented as of this encounter
--- OUTSIDE RECORDS SUMMARY | 2025-01-29 08:22 | XMS_ITS | Data Portability ---
Author Organization [place] - [facility], [facility] Address [address] [place] [address] Assessment No assessment recorded. Plan of Treatment Reminders Order Date Submit Date Provider Last Modified By Organization Details Last Modified Time Details Appointments None recorded. Lab pap, IG + HPV 2023 024 [facility], [address] [place], [address] 4 20:45:04 Referral None recorded. Procedures None recorded. Surgeries None recorded. Imaging MAMMO, screening, digital, bilateral 2023 024 [email or web address] [facility], [address] [place] [address], [address], 4 11:29:47 bone density 2023 024 [email or web address] [facility], [address] [place], [address], 4 11:29:47 Medication Orders Colace 100 mg capsule 2022 024 [facility][id number], [address], [place], [address], 4 13:56:52 tramadol 50 mg tablet 2022 023 [email or web address] [id number], [address], [place], [address], 4 13:56:44 Patient TargetsNo targets recorded. Patient Instructions Encounter Date Encounter Id Patient Instructions Last Modified By Organization Details Last Modified Time 06/19/2023 [id number] Telehealth visit - [employer] video platform. Pt with GERARDO cyst presents [...] would like to proceed. [place] going [place] end of Jul through mid Aug. D/w [...] none ililes Not available 06/20/2023 04:45:56 08/22/2023 [id number] Pt presents for preop exam for left ovarian cyst and history of NAILA. Pt had hscopy D&C ealier this year and possible PMB last month. Reviewed with pt that would recommend hysterectomy with bilateral BSO since cyst has been growing and pt with risks for cancer. Discussed laparoscopic procedure. Discussed frozen section during surgery and if positive possible staging with [facility]IST ONC to include possible lymph node biopsy/dissection, [...] minutes ililes Not available 08/27/2023 09:29:30 09/18/2023 [id number] Pt presents for 2wk postop visit after [...] visit ililes Not available 09/18/2023 08:53:01 10/19/2023 [id number] Pt presents for 2wk postop visit after TLH, BSO, CYSTO , recovering well. Pt given benign pathology report and images. - Can resume all activities except intercourse which can resume in 2 weeks - Advised to start slow with exercise RTO in 3 months for annual with vaginal pap ililes Not available 10/19/2023 15:17:17 01/25/2024 [id number] Pt presents for annual exam. No current [employer]IST concerns.. Pt is a NAILA daughter. S/p [...] clinical information: normal None given Not Available [facility] [address], [address], 01/28/2024 20:45:04 01/25/20 24 01/28/2024 THINP REP TIS PAP AND HPV MRNA E6/E7 WITH REFLE X TO HPV 16,18 /45 LMP: normal NONE GIVEN Not Available [facility] [address], [address], 01/28/2024 20:45:04 01/25/20 24 01/28/2024 THINP REP TIS PAP AND HPV MRNA E6/E7 WITH REFLE X TO HPV 16,18 /45 prev. Pap: normal NONE GIVEN Not Available [facility] [address], [address], 01/28/2024 20:45:04 01/25/20 24 01/28/2024 THINP REP TIS PAP AND HPV MRNA E6/E7 WITH REFLE X TO HPV 16,18 /45 prev. BX: normal NONE GIVEN Not Available [facility] [address], [address], 01/28/2024 20:45:04 01/25/20 24 01/28/2024 THINP REP TIS PAP AND HPV MRNA E6/E7 WITH REFLE X TO HPV 16,18 /45 source: normal Vagin a Not Available [facility] [address], [place], [address], 01/28/2024 20:45:04 01/25/20 24 01/28/2024 THINP REP TIS PAP AND HPV MRNA E6/E7 WITH REFLE X TO HPV 16,18 /45 statement of adequacy: normal SATIS FACTO RY FOR EVALU ATION Not Available [facility] [address], [place], [address], 01/28/2024 20:45:04 01/25/20 24 01/28/2024 THINP REP TIS PAP AND HPV MRNA E6/E7 WITH REFLE X TO HPV 16,18 /45 interpretati on/result: normal Cytol ogy Resul ts: Negat jennifer for intra epith elial lesio n or jennifer haley . Not Available [facility] [address], [place], [address], 01/28/2024 20:45:04 01/25/20 24 01/28/2024 THINP REP TIS PAP AND HPV MRNA E6/E7 WITH REFLE X TO HPV 16,18 /45 comment: normal This Pap test has been evalu ated with compu ter david barrington techn ology . Not Available [facility] [address] [place] [address], [address], 01/28/2024 20:45:04 01/25/20 24 01/28/2024 THINP REP TIS PAP AND HPV MRNA E6/E7 WITH REFLE X TO HPV 16,18 /45 cytotechnolo gist: normal GSG, CT( CP) CT scree cristy locat ion: [facility] [address], [place] [address] Not Available [facility] [address], [address], 01/28/2024 20:45:04 01/25/20 24 01/28/2024 THINP REP [...] clini raphael infor thomas n. Not Available [facility] [address], [place], [address], 01/28/2024 20:45:04 01/25/20 24 01/28/2024 THINP REP [...] provi ded for infor thomas flores/ raisa serna ses only. ) Not Available [facility] [address], [place], [address], 01/28/2024 20:45:04 06/18/20 23 06/18/2023 US, trans vagin al No observ ation record ed. [email or web address] [facility] 2 [facility] [address], [place], [address], 06/27/2023 09:02:11 06/18/20 23 06/18/2023 US, trans vagin al No observ ation record ed. [email or web address] [facility] [address], [address], 06/19/2023 13:03:16 01/28/20 24 01/28/2024 MAMMO , scree cristy, digit al, bilat eral No observ ation record ed. [email or web address] [facility] [address] [place] [address], [address], 01/29/2024 08:28:45 01/13/20 25 01/09/2025 MAMMO , scree cristy, digit al, bilat eral No observ ation record ed. [facility] [address] [place] [address], [address], 01/12/2025 11:05:26 Result Notes None recorded. Problems Name Problem SNOMED Code Status Onset Date Resolution Date Notes Provider Name and Address Organization Details Recorded Time History of suspected exposure to biologica l agent 282386079387 06 Active 2015 NAILA exposure MEGAN SULLIVAN MD [address] [place] [address], [address] Floor, [place], [address], [place] [facility] 6 19:09:19 Obesity 172679610 Active 2015 bmi 36.7 MEGAN SULLIVAN MD 175 [facility], [address] [place] [address], [place], [address], [facility] 8 09:21:31 Microscop ic hematuria 155256294 Active 2015 MEGAN SULLIVAN MD 175 [facility], [address] [place] [address], [address] [place] [address] 4, [facility] 6 21:36:06 Osteopeni a 040175117 Active 2015 Spine T score -2.4 MEGAN SULLIVAN MD 175 [facility], [address] [place] [address], [address] [place] [address] 4, [facility] 6 21:37:06 Family history of breast cancer 792703716 Active 2016 2 paternal aunts MEGAN SULLIVAN MD 175 [facility], [address] [place] [address], [address] [place] [address] 4, [facility] 7 22:27:43 Exposure to potential ly harmful entity Active 2022 BINA SOLARES MD 175 [facility], [address] [place] [address], [address] [place] [address] 4, [facility] 3 12:48:43 Problem Notes None recorded. Procedures Surgical History Date Name Laterality Status Provider Name and Address Organization Details Recorded Time 09/03/20 23 Hysterectomy completed BINA SOLARES MD 175 [facility], [address] [place] [address], [address], [facility] 09/18/2023 08:53:36 06/19/20 23 Telemedicine Visit completed BINA SOLARES MD 175 [facility], [address] [place] [address], [address], [facility] 06/19/2023 12:57:31 02/08/20 23 hernia repair completed BINA SOLARES MD 175 [facility], [address] [place] [address], [address], [facility] 08/22/2023 16:15:44 12/30/19 23 Date of Last Mammogram completed Sonya Painter CT - [facility] 05/29/2023 08:54:45 11/13/19 23 H7H-QTYUR completed Litzy Guzman CT - [facility] 11/13/2022 09:30:44 11/13/19 23 M4C-ARO completed Litzy Guzman CT - [facility] 11/13/2022 09:30:44 11/13/19 23 Date of Last Pap Smear completed Sonya Painter CT - [facility] 05/29/2023 08:54:03 10/01/19 20 Date of Last Colonoscopy completed Eula Christopher CT - [facility] 10/31/2021 09:00:51 09/12/20 16 [id number]-[id number] completed MEGAN SULLIVAN MD 175 [facility], [address] [place] [address], [address], [facility] - [facility] 09/12/2016 21:29:53 09/12/20 16 U5C-QFU completed MEGAN SULLIVAN MD 175 [facility], [address] [place] [address], [address], [facility] - [facility] 09/12/2016 21:30:04 09/12/20 16 E8E-EWE completed MEGAN SULLIVAN MD [address] [facility], [address] [place] [address], [address], [facility] - [facility] 09/12/2016 21:30:13 09/12/20 16 F4J-LGK completed MEGAN SULLIVAN MD [address] [facility] [place], [address], [facility] - [facility] 09/12/2016 21:30:01 09/12/20 16 H6S-WLNGKJB completed MEGAN SULLIVAN MD 175 [facility], [place], [address], [facility] - [facility] 09/12/2016 21:29:50 12/13/20 16 T5J-KBIPUJ completed MEGAN SULLIVAN MD 175 [facility], 3rd Floor, [place], [address], [place] - [facility] 09/12/2016 21:30:25 Tonsillectomy completed Michelle Sultana CT - [facility] 08/29/2016 15:33:34 Ankle arthroscopy/surge ry completed Megan Lee CT - [facility] 10/31/2021 08:53:50 Laparoscopy completed BINA SOLARES MD 175 [facility], 3rd Floor, [place], [address], [place] - [facility] 06/08/2023 08:49:59 Breast Biopsy completed Megan Hugginstomasa [place] - [facility] 10/31/2021 08:53:50 Imaging Results Imaging Date Name Status LastModified by Organization Details LastModified Time 06/18/2023 US, transvaginal completed [email or web address] [facility] [address], [address], 06/27/2023 09:02:11 06/18/2023 US, transvaginal completed [email or web address] [facility] [address], [address], 06/19/2023 13:03:16 01/28/2024 MAMMO, screening, digital, bilateral completed [email or web address] [facility] [address] [place] [address], [address], 01/29/2024 08:28:45 01/09/2025 MAMMO, screening, digital, bilateral active LEONARD [facility] [address] [place] [address], [address], 01/12/2025 11:05:26 Procedure Notes None recorded. Medical Equipment None Reported. Allergies Allergen ID Allergen Name Allergen Category Reaction Reaction Severity Criticality Documentation Date Start Date Code Code System Note Provider Name and Address Organization Details Recorded Time 8790886 metronida zole medicatio n Not available Not available Not available 08/22/2023 6922 RxNorm hives , dry heavi ng BINA SOLARES MD 175 [facility], 3rd Floor, [place], [address], [facility] 3 16:24:45 905492 Product containin g penicilli n (product) medicatio n hives itching Not available Not available Not available 08/29/2016 95187 8001 SNOMED had kefle x w/o issue s BINA SOLARES MD 175 [facility], 3rd Floor, [place], [address], [facility] 3 16:13:37 726305 Substance with sulfonami de structure and antibacte rial mechanism of action (substanc e) medicatio n fever hives Not available Not available Not available 08/29/2016 92268 8003 SNOMED Michelle Sultana null, [facility] 6 15:18:44 477260 codeine medicatio n vomiting Not available Not available 08/29/2016 2670 RxNorm Michelle Sultana null, [facility] 6 15:18:54 190969 oxycodone medicatio n vomiting Not available Not available 08/29/2016 7804 RxNorm Michelle Sultana null, [facility] 6 15:19:04 Medications Name Sig Start Date [...] Updated DateTime 08/22/2023 161.29 cm 29.5 kg/m2 25676.11 g 124 mm[Hg] 80 mm[Hg] Jag Goss [place] - [facility] 15:50:50 Date Recorded Body height Body mass index (BMI) Body weight Systolic blood pressure Diastolic blood pressure Provider Name and Address Organization Details Last Updated DateTime 09/18/2023 161.29 cm 29.1 kg/m2 66245.93 g 130 mm[Hg] 82 mm[Hg] Jag Goss [facility] 3 08:31:43 Date Recorded Body height Systolic blood pressure Diastolic blood pressure Provider Name and Address Organization Details Last Updated DateTime 10/19/2023 161.29 cm 120 mm[Hg] 82 mm[Hg] Sonya Painter [facility] 10/19/2023 14:14:54 Date Recorded Body height Body mass index (BMI) Body weight Systolic blood pressure Diastolic blood pressure Provider Name and Address Organization Details Last Updated DateTime 01/25/2024 161.29 cm 27.9 kg/m2 57576.78 g 100 mm[Hg] 72 mm[Hg] Krys Hand [facility] 4 13:57:53 Social History Question Answer Notes LastModified by Organizat ion Details LastModified Time Tobacco Smoking Status [facility]/29/2016 15:32:56 What Is Your Level Of Alcohol Consumption? Occasional Information not available 08/29/2016 Education Post Graduate Information not available 11/13/2022 What Is The Highest Grade Or Level Of School You Have Completed Or The Highest Degree You Have Received? [id number] Information not available 10/31/2021 What Is Your [...] N Blood clots N Breast Cancer N Colon cancer N Benign breast disease N Lung Disease N Depression N Defects [...] mcg/0.3 mL dose 1 completed [facility] 10/19/2023 14:10:26 COVID-19, mRNA, LNP-S, PF, 30 mcg/0.3 mL dose 1 completed [facility] 10/19/2023 14:10:26 SARS-COV-2 (COVID-19) vaccine, UNSPECIFIED 1 completed Sonya Painter null, [place] - [facility] 10/19/2023 14:10:26 SARS-COV-2 (COVID-19) vaccine, UNSPECIFIED 1 completed Sonya Painter null, [place] - [facility] 10/19/2023 14:10:26 influenza, unspecified formulation 5 completed Sonya Painter null, [place] - [facility] 10/19/2023 14:10:26 Influenza, split virus, quadrivalent, preservative 8 completed Sonya Painter null, [facility] 10/19/2023 14:10:25 Past Encounters Encounter ID Performer Location Encounter Start Date Encounter Closed Date Diagnosis/Indication Diagnosis SNOMED-CT Code Diagnosis ICD10 Code Diagnosis Note [id number] MEGAN SULLIVAN MD [facility] [address] [place] [address] 09/12/2016 16:02:21 09/13/2016 11:03:00 Gynecologic examination 44657793 Z01.419 Screening for malignant neoplasm of cervix 561542831 Z12.4 Screening mammography 24 191245 Z12.31 Diet education 39857700 Z71.3 Screening for malignant neoplasm of colon 411853111 Z12.11 History of suspected exposure to biological agent 7943588375 9106 Z77.29 NAILA Microscopic hematuria 19 1265076 R31.21 Obesity 135438063 E66.9 BMI 35.6 Osteopenia 029235897 M85 .80 [id number] MEGAN SULLIVAN MD [facility] [address] [place] [address] 09/18/2017 14:03:13 09/18/2017 16:58:59 Gynecologic examination 13261282 Z01.419 Screening for malignant neoplasm of cervix 877365063 Z12.4 Screening mammography 24 132083 Z12.31 Diet education 79192145 Z71.3 Microscopic hematuria 19 4637624 R31.21 Obesity 256143926 E66.9 BMI 35.6 History of suspected exposure to biological agent 3116632725 9106 Z77.29 NAILA Osteopenia 081867664 M85 .80 Spine and FN Family his tory of breast cancer 804942459 Z80.3 [id number] MEGAN SULLIVAN MD [facility] [address] [place] [address] 09/20/2018 09:01:13 09/30/2018 12:48:46 Gynecologic examination 00016570 Z01.419 Screening for malignant neoplasm of cervix 783042590 Z12.4 Screening mammography 24 852740 Z12.31 Screening for osteoporosis 154281112 Z13.820 Diet education 01444096 Z71.3 Family his tory of breast cancer 653581529 Z80.3 Osteopenia 141098154 M85 .80 Spine and FN History of suspected exposure to biological agent 1351286458 9106 Z77.29 NAILA Obesity 938580523 E66.9 BMI 35.7 [id number] BINA SOLARES MD [facility] [address] [place] [address] 10/31/2021 08:45:30 11/01/2021 09:38:57 Gynecologic examination 01551048 Z01.419 Osteopenia 171793461 M85 .80 Depression screening 171 705941 Z13.31 Obese 863936296 E66.9 Screening mammography 24 140299 Z12.31 Screening for malignant neoplasm of cervix 684664647 Z12.4 Family his tory of breast cancer 2 gene mutation 253407531 Z84.81 Vaginal dryness 04891286 N89.8 Family his tory of breast cancer 252251160 Z80.3 History of suspected exposure to biological agent 2511870270 9106 Z77.29 Microscopic hematuria 19 9689633 R31.29 [id number] BINA SOLARES MD [facility] [address] [place] [address] 11/13/2022 09:26:17 11/15/2022 09:58:48 Gynecologic examination 87773723 Z01.419 Family his tory of breast cancer 2 gene mutation 391140066 Z84.81 Osteopenia 332858930 M85 .80 Depression screening 171 400414 Z13.31 Obese 486704344 E66.9 Screening mammography 24 162951 Z12.31 Vaginal dryness 60524748 N89.8 Family his tory of breast cancer 026183966 Z80.3 Screening for malignant neoplasm of cervix 077146891 Z12.4 History of suspected exposure to biological agent 1278010908 9106 Z77.29 Postmenopausal state 764 [address] Z78.0 Exposure t o potentially harmful entity 194607248 Z77.9 NAILA daughter [id number] BINA SOLARES MD [facility] [address] [place] [address] 06/08/2023 08:18:37 06/10/2023 10:31:08 Cyst of left ovary 5190945378 7350915 N83.202 History of suspected exposure to biological agent 1856896872 9106 Z77.29 Family his tory of breast cancer 131049039 Z80.3 [id number] BINA SOLARES MD [facility] [address] [place] [address] 06/19/2023 09:33:26 06/25/2023 14:17:29 Cyst of left ovary 5869697537 3611131 N83.202 History of suspected exposure to biological agent 5326826341 9106 Z77.29 Family his tory of breast cancer 718892812 Z80.3 Postmenopa usal bleeding 03093164 N95.0 [id number] BINA SOLARES MD [facility] [address] [place] [address] 08/22/2023 15:42:40 08/27/2023 15:17:17 Pre-surgery evaluation 581233856 Z01.818 Postoperative pain 40295 9007 G89.18 Cyst of left ovary 01276 06389 6464842 N83.202 History of suspected exposure to biological agent 1743439918 9106 Z77.29 Family his tory of breast cancer 880483381 Z80.3 Postmenopa usal bleeding 87333576 N95.0 [id number] BINA SOLARES MD [facility] [address] [place] [address] 09/18/2023 08:18:11 09/20/2023 11:27:12 Postoperative visit 108588629 Z09 History of total hysterectomy 850918839 Z90.710 Cyst of left ovary 42211 18217 3823355 N83.202 [id number] BINA SOLARES MD [facility] [address] [place] [address] 10/19/2023 14:05:51 10/22/2023 16:45:39 Postoperative visit 631083969 Z09 History of total hysterectomy 807667231 Z90.710 Cyst of left ovary 15610 47518 3159529 N83.202 [id number] BINA SOLARES MD [facility] [address] [place] [address] 01/25/2024 13:45:42 01/31/2024 11:29:46 Gynecologic examination 58197139 Z01.411 Z01.419 Depression screening 171 841003 Z13.31 Family his tory of breast cancer 2 gene mutation 077624348 Z84.81 Osteopenia 469718323 M85 .80 Obese 218790431 E66.9 Screening mammography 24 265023 Z12.31 Vaginal dryness 20634676 N89.8 Family his tory of breast cancer 192345434 Z80.3 Screening for malignant neoplasm of cervix 484039369 Z12.4 History of suspected exposure to biological agent 0632832936 9106 Z77.29 Postmenopausal state 764 [address] Z78.0 Exposure t o potentially harmful entity 812256532 Z77.9 NAILA daughter History of total hysterectomy 860131358 Z90.710 Health Concerns Section Related Observation LastModified by Organization Detai ls LastModified Time None Recorded Concern Status LastModified by Organization Details LastModified Time None Recorded Advance Directives Directive None Recorded Payers Encounter Date Sequence Insurance Name Policy Number Policy Leggett Covered Member ID Leggett Member ID Guarantor Name 06/19/2023 1 [employer] [place] [id number] Carole Darby [id number] 223 Carole Rynne 08/22/2023 1 [employer] [place] [id number] Carole Darby [id number] 223 Carole Rynne 09/18/2023 1 [employer] [place] [id number] Carole Blancoe [id number] 223 Carole Rynne 10/19/2023 1 [employer] [place] [id number] Carole Covington Rynne [id number] 223 Carole Rynne 01/25/2024 1 [employer] [place] [id number] Carole Guevaranne [id number] 223 Carole Rynne Notes Date Note Type [...] Oct)CA-125: 11/2022 - 7 BINA SOLARES MD [address] [place] [address], [address] Floor, [place], [address], [place] [facility] cellsOvarian cyst with nml ca 125 per nsiase15/2023 neg/ HPV neg, + endometrial cells Consult 06/08 Pt with known h/o left ovarian cyst presents to discuss management. US as below. Since last visit US, pt met with [facility] in [place]. Per pt had several EMBx for pap with endometrioal cells and ? of polyp. Pt reports going under sedation for removal of endometrial tissue. Pt had rpt US in 12/2022 showing the cyst had grown. She reports having BW with her [facility] showing 13% risk which was acceptable. Pt didn't get the tumor markers I had asked her to get previously. Pt wanted to have surgery but needed hiatal hernia repair and [facility] would not do ovary at that time. Pt underwent robotic hiatal hernia repair in January 2023 and has recovered. Pt tried to f/u with [facility] who wants to repeat the US in [...] ovary with 5.1cm cyst BINA SOLARES MD 175 [facility], [address] [place] [address], [address], [place] - [facility] 08/27/2023 09:30:26 09/18/2023 text/html Pt presents 2wks s/p TLH, BS0, cysto. Doing ok. Pain well controlled, abbey PO, ambulating, voiding well. Having regular BM. Denies N/V, fevers, chills. No bleeding. Bowels back to normal. Going back to work on 09/25. Pathology:benign GERARDO cyst (rete), benign uterus and ROV and tube, neg washings BINA SOLARES MD 175 [facility], [address] [place] [address], [place], [address], [place] - [facility] 09/18/2023 08:53:13 10/19/2023 text/html Pt presents 6wks s/p TLH, BS0, cysto. Doing ok. Pain well controlled, abbey PO, ambulating, voiding well. Having regular BM. Denies N/V, fevers, chills. No bleeding. Bowels back to normal. Back at work. Pathology:benign GERARDO cyst (rete), benign uterus and ROV and tube, neg washings BINA SOLARES MD [address] [place] [address], [address] [place] [address], [address], [place] - [facility] 10/19/2023 15:17:20 01/25/2024 text/html Presents for leigh ann ual exam. Denies PMB. Denies additional [employer], , or breast complaints.. 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
--- OUTSIDE RECORDS SUMMARY | 2025-01-29 08:22 | XMS_ITS | Encounter Summary ---
Author Organization [facility] Address [address] [place] [phone] Care Team Providers Care Rn Camp Name Role Phone Mary Spencer Primary Care Provider Encounter Details Date Type Department Care Team (Late Contact Info) Description 05/11/2016 Scanned Document [facility] [phone] [address] [place] [address] External, Provider Social History Tobacco Use Types [...] EDT Procedure visit [facility] at [address] [address] documented as of this encounter Procedures Procedure Name Priority Date/Time Associated Diagnosis Comments STONERISK(R) DIAGNOSTIC PROF ILE (LMW Q) Routine 07/06/2013 documented in this encounter Results * Stonerisk(R) diagnostic profile (Q) (07/06/2013) Urine specimen (specimen) us Provider External URINE ORDERABLES Final Result Performing Organization Address City/State/[facility] Co de Phone Number [facility] documented in this encounter Visit Diagnoses Not on filedocumented in this encounter Care Teams Rn Camp Relationship Specialty Start Date End Date Mary Spencer PA PCP - General Internal Medicine 08/03/15 documented as of this encounter
--- OUTSIDE RECORDS SUMMARY | 2025-01-29 08:22 | XMS_ITS | Encounter Summary ---
Author Organization [facility] and [facility] Address [address] [place] [phone] Care Team Providers Care Senior Mechanical Technician Name Role Phone Mary Spencer Primary Care Provider Encounter Details Date Type Department Care Team (Late st Contact Info) Description 08/04/2016 Scanned Document [facility] [phone] [place] [address] Kelsey Hutchinson MD [address] [place] [phone] Social History Tobacco Use Types Packs/Day [...] EDT Procedure visit [facility] at [address] [address] documented as of this encounter Procedures Procedure Name Priority Date/Time Associated Diagnosis Comments LAB SCAN Routine 07/17/2016 documented in this encounter Results * Lab Scan (07/17/2016) Blood specimen (specimen) us Kelsey Hutchinson MD LAB BLOOD ORDERABLES Final Resul t Performing Organization Address City/State/[facility] Co de Phone Number [facility] documented in this encounter Visit Diagnoses Not on filedocumented in this encounter Care Teams Senior Mechanical Technician Relationship Specialty Start Date End Date Mary Spencer PA PCP - General Internal Medicine 08/03/15 documented as of this encounter
--- OUTSIDE RECORDS SUMMARY | 2025-01-29 08:23 | XMS_ITS | Encounter Summary ---
Author Organization [facility] Address [address] [place] [phone] Care Team Providers Care Abalone Fisherman Name Role Phone Mary Spencer Primary Care Provider Encounter Details Date Type Department Care Team (Late Contact Info) Description 06/20/2016 Scanned Document [facility] [phone] [address] [place] [address] External, Provider Social History Tobacco Use Types [...] EDT Procedure visit [facility] at [address] [place] [address] documented as of this encounter Procedures Procedure Name Priority Date/Time Associated Diagnosis Comments LAB SCAN Routine 12/09/2015 BONE DENSITY RESULT SCAN Routine 09/28/2015 documented in this encounter Results * Lab Scan (12/09/2015) Blood specimen (specimen) us Provider External LAB BLOOD ORDERABLES Final Res ult Performing Organization Address [facility] Co de Phone Number [facility] * Bone Density Result Scan (09/28/2015) us Provider External IMG SCAN REPORTS Final Result Performing Organization Address [facility] Co de Phone Number [facility] documented in this encounter Visit Diagnoses Not on filedocumented in this encounter Care Teams Abalone Fisherman Relationship Specialty Start Date End Date Mary Spencer PA PCP - General Internal Medicine 08/03/15 documented as of this encounter
--- OUTSIDE RECORDS SUMMARY | 2025-01-29 08:23 | XMS_ITS | Encounter Summary ---
Author Organization [email or web address] Address [address] [place] [phone] Care Team Providers Care Cook Box Filler Name Role Phone Mary Spencer Primary Care Provider Encounter Details Date Type Department Care Team (Late Contact Info) Description 09/11/2016 Scanned Document [facility] [address] [phone] [address] [place] [address] External, Provider Social History Tobacco Use Types [...] PM EDT Procedure visit [facility] at [address] [place] [address] documented as of this encounter Procedures Procedure Name Priority Date/Time Associated Diagnosis Comments ZZZCTX COLLAGEN C-TELOPEPTIDE (BH) Routine 07/19/2016 documented in this encounter Results * CTX collagen C-telopeptide (BH) (07/19/2016) Blood specimen (specimen) us Provider External LAB BLOOD ORDERABLES Final Res ult Performing Organization Address City/State/[facility] Co de Phone Number [facility] documented in this encounter Visit Diagnoses Not on filedocumented in this encounter Care Teams Cook Box Filler Relationship Specialty Start Date End Date Mary Spencer PA PCP - General Internal Medicine 08/03/15 documented as of this encounter
== END 2025-01-29 08:12 | disposition home or self-care (01) ==
LOC: HO.MAMMO 08:11
PROVIDERS: PCP Internal Medicine; Visit Provider Internal Medicine
DX: M81.0 Age-related osteoporosis without current pathological fracture (principal); M85.80 Other specified disorders of bone density and structure, unspecified site
CPT/HCPCS: 77080

== ENCOUNTER → 2025-01-29 08:15 | Outpatient (BNV) | payer OTHER, SELFPAY | PROVIDERS: PCP Internal Medicine; Visit Provider Radiology Diagnostic Radiology | DX: E28.39 Other primary ovarian failure (principal) | CPT/HCPCS: 77080 ==

== ENCOUNTER 2025-05-11 12:42 | Outpatient (AMB) | payer OTHER, SELFPAY ==
--- OUTSIDE RECORDS SUMMARY | 2025-05-11 12:44 | XMS_ITS | Clinical Summary ---
Author Organization [facility] Address [address] [place] [address] Phone Care Team Providers Care Bus Aide Name Role Phone Veronica Fields NP Primary Care Provider Social History Tobacco Use Types Packs/Day Years Used Date Smoking Tobacco: Never Assessed Education Answer Date Recorded Are you interested in more education? Not on rae e 01/27/2023 Are you concerned about learning? Not on file 01/27/2023 No 01/27/2023 No 01/27/2023 Digital Access Answer Date Recorded No 02/27/2023 No 02/27/2023 Reliable internet access at home? Not on file 02/27/2023 Device with a working camera? Not on file Comments Unknown Sex and Gender Information Value Date Recorded Sex Assigned at Not on file Legal Sex Female 10:15 AM EDT Gender Identity Not on file Sexual Orientation Not on file Plan of Treatment Health Maintenance Due Date Last Done Comments Adult Td,Tdap Booster 1966 LIPID PANEL 1966 DEPRESSION SCREENING 1978 SMOKING Hx and SMOKELESS TOB ACCO SCREENING 1979 HEPATITIS C SCREENING 1984 HIV ONE-TIME SCREENING (18-6 5 YEARS) 1984 PAP SMEAR 1987 MAMMOGRAM 2006 COLOGUARD 2011 COLONOSCOPY 2011 COLORECTAL CANCER SCREENING 2011 FIT TEST 2011 FOBT 2011 SIGMOIDOSCOPY 2011 VIRTUAL COLONOSCOPY 2011 PNEUMOCOCCAL VACCINES (50+ y ears) (1 of 1 - PCV) 2016 ZOSTER VACCINES (1 of 2) 2016 COVID-19 VACCINE (2023-2 5 season) 2024 HEPATITIS A VACCINES Aged Out No long er eligible based on patient's age to complete this topic HIB VACCINES Aged Out No longer eligi ble based on patient's age to complete this topic MENINGOCOCCAL VACCINES (ACWY) Aged Out No longer eligible based on patient's age to complete this topic MENINGOCOCCAL VACCINES (B) Aged Out N o longer eligible based on patient's age to complete this topic Medical Devices Not on file Insurance [employer] [facility] [employer] [place] [address] [facility] [employer]MIN[employer] [facility] [employer] [facility] [employer] Member Subscriber Plan / Payer ( fective 2019-Present) Name:Carole Darby Relation to Subscriber:Self Name:Manuel Darbyia Payer ID:[id number] (NAIC) Type:PPO Address: [address] [facility] [employer] [facility] [employer] Member Subscriber Plan / Payer ( fective 2019-Present) Name:Carole Darby Relation to Subscriber:Self Name:Carole Darby Payer ID:[id number] (NAIC) Type:PPO Address: [place] [id number] [facility] [employer] [facility] [employer] [facility] [employer] Member Subscriber Plan / Payer ( fective 2019-Present) Name:Wilner Carole Relation to Subscriber:Self Name:Wilner Carole Payer ID:[id number] (NAIC) Type:PPO Address: [place] [phone] [facility] [employer]MIN[employer]ATORS Care Teams Bus Aide Relationship Specialty Start Date End Date Veronica Fields NP PCP - General Family Medicine 06/24/21 Additional Source Comments The information contained in this document represents components of the legal health record. It is not the complete legal health record.[facility]
--- OUTSIDE RECORDS SUMMARY | 2025-05-11 12:44 | XMS_ITS | Continuity of Care Document ---
Author Organization [facility] Address [address] [facility] [address] [place] [address] Phone [phone] Social History Type Date Description Comments Sex Female Sex Unknown Medical Devices Description No Information Available Encounters Description No Information Available Assessments Description No Information Available Plan of Treatment No Information Available Functional Status Description No Information Available Mental Status Description No Information Available Referrals Description No Information Available
--- OUTSIDE RECORDS SUMMARY | 2025-05-11 12:44 | XMS_ITS | Clinical Summary ---
Author Organization [facility] Address [address] [place] [address] Care Team Providers Care Oracle Database Manager Name Role Phone Unavailable Primary Care Provider [...]
--- OUTSIDE RECORDS SUMMARY | 2025-05-11 12:44 | XMS_ITS | Clinical Summary ---
Author Organization [facility] Address [address] [place] [address] Care Team Providers Care Grain Picker Name Role Phone Mary Spencer Primary Care [...] 71 09/03/2023 2:30 PM EST Temperature 36.7 C (98 F) 09/03/2023 2:30 PM EST Respiratory Rate 18 09/03/2023 2:30 PM EST Oxygen Saturation 98% 09/03/2023 2:30 PM EST Inhaled Oxygen Concentration - - Weight 77.1 kg (170 lb) 09/03/2023 6:51 AM EST Height 162.6 cm (5' 4 ) 09/03/2023 6:51 AM EST Body Mass Index 29.18 09/03/2023 6:51 AM EST Plan of Treatment Health Maintenance Due Date [...] screening mammogram for malignant neoplasm of breast [facility] GEOPHYS[facility] LABORATORY CHIEF CASES (Y) Routine 09/07/2015 8:10 PM EST [...] letter of the results. Ignacio Ennis MD [facility] Narrative 01/12/2025 12:26 [...] MAMMOGRAPHY ORDERABLE S Final Result * Cytology toggler cases () (09/07/2015 8:10 PM EST) Cytology Barrel Repairer Cases CYTOLOGY REPORT Procedures/Addend a Attached Patient: NANCY CHAVEZ MR #: [id number] Submitted by: Megan Perez M.D. FINAL DIAGNOSIS SUREPATH PAP SMEAR: Primary Diagnosis: NEGATIVE FOR INTRAEPITHELIAL LESION OR MALIGNANCY. Additional Findings: NO ENDOCERVICAL CELLS SEEN. CYTOLYSIS PRESENT. HIGH RISK HPV CO-TESTING HAS BEEN PERFORMED AND THE RESULT IS NEGATIVE. Specimen Adequacy: THIS SPECIMEN IS SATISFACTORY FOR EVALUATION. This specimen was manually screened with the assistance of the [employer] Imaging System. Recommendation: According to the current [...] with cytology and high risk HPV cotesting. (Massad et al. J Low Genital Tract Disease. 2013; 17: S1) NOTE: Cervical/vaginal cytology is a screening tool for cervical carcinoma and its precursor lesions with an inherent false negative rate. It is an inaccurate test for detection of endometrial lesions and should not be used to evaluate suspected endometrial abnormalities. (The [employer]ones System, 2001) 09/10/2015 12:46 * Report Electronically Signed Out * This electronic signature indicates that the pathologist has personally reviewed the available gross and/or microscopic material and has based the diagnosis on that evaluation. Specimen(s) Received: SUREPATH PAP SMEAR Clinical History and Impression: {Not Available} Procedures/Addenda MOLECULAR DX: HR HPV SCREENING Ordered: 09/07/2015 Status: Signed Out Reported: 09/10/2015 Pathologist: [facility] Interpretation Specimen: SUREPATH PAP SMEAR BELOW CUTOFF FOR HIGH RISK HPV HPV types 16, 18, 31, 33, 35, 39, 45, 51, 52, 56, 58, 59, 66, and 68 DNA were either considered NEGATIVE, undetectable,or below the pre-set threshold. This test was performed at [facility] Department of Pathology, [address] [place] [address], [id number], [place] [address], CLIA# [id number] using the [employer]ola christy 4800 HPV Test System and is only approved by the Food and Drug Administration (FDA) for use oncervicalspecimen s collected in Cytyc Preservcyt Solution (ThinPrep). When using ThinPrep liquid based samples for non-cervical specimens, SurePath liquid based samples, or formalin fixed paraffin embedded tissue, the performance characteristics have been determined by [facility]. Although testing on samples that are not cervical in origin, and/or in any other medium besides ThinPrep, has not been cleared or approved by the FDA, the FDA has determined that such clearance or approval is not necessary. [facility] 09/07/2015 8:10 PM EST Comment:SUREPATH PAP SMEAR+ HPV us Megan Perez MD PATHOLOGY/CYTOLOGY ORDERABLES Final Result [facility] Department of Pathology [address] [place] [id number] * Glucose ( GH Q YH) (06/03/2013 10:25 AM EDT) Glucose 100 70 - 100 mg/dL [facility] 06/03/2013 10:2 5 AM EDT Narrative [facility] - 06/03/2013 3:45 PM EDT Performed by: [facility] [address] [place] [address] (CLIA #[id number], [id number]) us Jocelin Alcantara MD LAB BLOOD ORDERABLES F inal Result [facility] [address] [place] [phone] from Last 3 Months or Most Recently Relevant to Health Maintenance Insurance Care Teams Grain Picker Relationship Specialty Start Date End Date Mary Spencer PA PCP - General Internal Medicine 08/03/15
--- OUTSIDE RECORDS SUMMARY | 2025-05-11 12:44 | XMS_ITS | Clinical Summary ---
Author Organization [facility] Address [address] [place] [address] Care Team Providers Care Long Winder Tender Name Role Phone Demetra Pantoja MD Primary Care Provider [phone] Allergies Active Allergy Reactions Criticality Noted Date [...] 87 04/04/2021 9:41 AM EDT Temperature 36.8 C (98.2 F) 04/04/2021 9:41 AM EDT Respiratory Rate - - Oxygen Saturation 97% [...] season) 2024 01/21/2021, 12/29/2020 Influenza Vaccine (#1) 2025 10/01/2014 HIB Vaccines Aged Out No longer eligi ble based on patient's age to complete this topic HPV Vaccines (No Doses Required) Completed Hepatitis A Vaccines Aged Out No long [...] EDT) Anatomical Region Laterality Modality Endoscopy 04/19/2012 [facility] Ambulatory MD GI PROCEDURE OR DERABLES Final Result from Last 3 Months or Most Recently Relevant to Health Maintenance Insurance [facility] Care Teams Long Winder Tender Relationship Specialty Start Date End Date Demetra Pantoja MD [address] [place] [phone] PCP - General 10/06/19
--- OUTSIDE RECORDS SUMMARY | 2025-05-11 12:44 | XMS_ITS ---
Author Name [facility] Organization Unknown History of Medication Use Medication Directions Dispensed Refills Start Date End Date Stat us Colace 100 mg capsule Take 1 capsule twice a day by oral route for 30 days. 08/22/2023 active tramadol 50 mg tablet Take 1 tablet every 6 hours by oral route as needed. 08/22/2023 active pravastatin 20 mg tablet TAKE 1 TABLET BY MOUTH AT BEDTIME 3 completed acetaminophen 500 mg/15 mL oral liquid 1000 MG/30 ML BY MOUTH EVERY 6 HOURS NEEDED FOR PAIN -- DO NOT EXCEED 120 ML IN A 24 HR PERIOD 3 completed azithromycin 250 mg tablet TAKE 2 TABLETS BY MOUTH TODAY, THEN TAKE 1 TABLET DAILY FOR 4 DAYS 3 completed codeine 10 mg-guaifenesin 100 mg/5 mL oral liquid TAKE 2 TEASPOONSFUL BY MOUTH EVERY 4 TO 6 HOURS NEEDED FOR COUGH FOR 10 DAYS 3 completed cyclobenzaprine 5 mg tablet 3 completed epinephrine 0.3 mg/0.3 mL injection, auto-injector PLEASE SEE ATTACHED FOR DETAILED DIRECTIONS 3 completed oxybutynin chloride ER 10 mg tablet,extended release 24 hr 2 completed ciprofloxacin 250 mg tablet 8 completed amoxicillin 500 mg capsule 7 completed dexamethasone 1 mg tablet 6 completed Prepopik 10 mg-3.5 gram-12 gram oral powder packet 6 completed pyridoxine (vitamin B6) 50 mg tablet TAKE 2 TABLETS BY MOUTH EVERY DAY active Protonix 40 mg tablet,delayed release Take 1 tablet every day by oral route. Take 1 tablet every day by oral route. completed Allergies Allergen Reaction Severity Comment Documented Date Source Statu s CODEINE VOMITING [facility] MEDICINAL PRODUCT CONTAINING PENICILLIN AND ACTING ANTIBACTERIAL AGENT (PRODUCT) ITCHING [facility] METRONIDAZOLE [facility] OXYCODONE VOMITING [facility] PENICILLINS ITCHING [facility] SUBSTANCE WITH SULFONAMIDE STRUCTURE AND ANTIBACTERIAL MECHANISM OF ACTION (SUBSTANCE) HIVES [facility] SULFA (SULFONAMIDE ANTIBIOTICS) HIVES [facility] Problems Problem Status Onset Date Problem Type Date of Resoluti on Source History of suspected exposure to biological agent active 2016-07-23 ProblemAct [facility] Obesity active 2016-09-12 ProblemAct [facility] Microscopic hematuria active 2016-09-12 ProblemAct [facility] Osteopenia active 2016-09-12 ProblemAct [facility] Family history of breast cancer active 2017-09-18 ProblemAct [facility] Immunizations Vaccine Date Source Lot Number Status COVID-19, mRNA, LNP-S, PF, 30 mcg/0.3 mL dose 01/21/2021 [id number] completed SARS-COV-2 (COVID-19) vaccine, UNSPECIFIED 12/30/2020 [facility] completed COVID-19, mRNA, LNP-S, PF, 30 mcg/0.3 mL dose 12/29/2020 [facility] [id number] completed SARS-COV-2 (COVID-19) vaccine, UNSPECIFIED 11/29/2020 [facility] completed influenza, injectable, quadrivalent 08/01/2018 [facility] completed influenza, unspecified formulation 10/01/2014 [facility] completed Encounters Encounter Type Encounter Reason Primary Diagnosis Location Date Ambulatory Encntr for f/u exam aft trtmt for cond oth than malig neoplm Encntr for f/u exam aft trtmt for cond oth than malig neoplm [facility] 01/25/2024 Ambulatory Encntr for f/u exam aft trtmt for cond oth than malig neoplm [facility] 10/19/2023 Ambulatory Unspecified ovarian cyst, left side [facility] 09/18/2023 Ambulatory Other and unspecified ovarian cyst Other and unspecified ovarian cyst [facility] 09/03/2023 Ambulatory Unspecified ovarian cyst, left side [facility] 09/03/2023 Ambulatory Unspecified ovarian cyst, left side [facility] 08/22/2023 Ambulatory Unspecified ovarian cyst, left side [facility] 06/19/2023 Ambulatory 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
--- NOTE | 2025-05-11 12:45 | MHC.OFFVIS ---
Vital Signs 05/11/25 12:52 Height 5 ft 4 in Weight 147 lb 11.355 oz BMI 25.4 BP 107/74 Blood Pressure Location Lt brachial Position Sitting Pulse 85 Intake Visit Reasons: 1 year follow up Intake Note: Carole presents in the office as a 1 year follow up. CC: She states that she went on a trip to [place] and she was fine but then she came home and had diarrhea for the first week. April 18-. She states that everything seems to have gone back to normal. Supervisor Looping Required: No Allergies codeine (CODEINE) Allergy (Intermediate, Verified 05/11/25 12:53) NAUSEA hazelnut (HAZELNUT) Allergy (Unknown, Verified 05/11/25 12:53) UNKNOWN Milk Containing Products (Dairy) (MILK CONTAINING PRODUCTS) Allergy (Unknown, Verified 05/11/25 12:53) UNKNOWN nitrofurantoin (From MACROBID) Allergy (Unknown, Verified 05/11/25 12:53) UNKNOWN Penicillins (PENICILLINS) Allergy (Unknown, Verified 05/11/25 12:53) UNKNOWN sesame seed (SESAME SEED) Allergy (Unknown, Verified 05/11/25 12:53) UNKNOWN Sulfa (Sulfonamide Antibiotics) Allergy (Unknown, Verified 05/11/25 12:53) Unknown sulfamethoxazole (From BACTRIM) Allergy (Unknown, Verified 05/11/25 12:53) UNKNOWN trimethoprim (From BACTRIM) Allergy (Unknown, Verified 05/11/25 12:53) UNKNOWN azithromycin (From Zithromax) Adverse Reaction (Intermediate, Verified 05/11/25 12:53) diarrhea epinephrine (EPINEPHRINE) Adverse Reaction (Intermediate, Verified 05/11/25 12:53) HEART PALPITATIONS beesting Allergy (Unknown, Uncoded 05/11/25 12:53) Unknown HPI Comments Details: This is of 57-year-old female with PMH of erosive GERD with HH s/p fundoplication 01/2023 who is here to follow-up for lower abd sx. 05/12/24: Here for follow up. Reports LLQ pain after eating salads. With that also gets massive diarrhea within 20-30 mins. reports bloating with this. As soon as she has BM sx resolves. Has been noticing this on and off for almost a year. Avoiding salads for the past 6 months. Last colonoscopy 2019: Hyperplastic rectal polyp. 05/11/25: Here for follow up. Went [place] earlier this year and some diarrhea after for a week. This has now resolved. Notes occ L sided cramping after salads containign leafy greens, often accompanied by large BM. Otherwise has been doing well post HH surgery. USMAN is gone. No further reflux. [facility] Medical History Microscopic hematuria Hx of hiatal hernia Ureteral stone Renal calculi Sore throat USMAN (obstructive sleep apnea) Cystitis Dysphagia Palpitations Restrictive airway disease Bronchitis BMI 36.0-36.9,adult Multiple allergies Headache Vitamin K deficiency Elevated C-reactive protein (CRP) Elevated sed rate Unexplained night sweats Pelvic cyst Adnexal cyst Abnormal Pap smear of cervix Unexplained endometrial cells on cervical cytology Chronic fatigue GERD (gastroesophageal reflux disease) CAD (coronary artery disease) Microscopic hematuria Renal atrophy Recurrent UTI Left radial head fracture Obesity Surgical History Hx of hysterectomy S/P DONNA-BSO S/P repair of paraesophageal hernia History of esophagogastroduodenoscopy (EGD) History of lithotripsy History of skin graft History of cystoscopy History of ankle surgery History of ovarian cystectomy History of tonsillectomy History of surgery History of colonoscopy History of endoscopy Family History Father Liver failure ETOH abuse Diabetes Hypertension Anxiety Prostate cancer Mother Hypertension Afib CVD (cardiovascular disease) Emphysema lung Melanoma Paternal Aunt Breast cancer Social History Housing: Condominium Alcohol intake: current Alcohol intake frequency: holidays/special occasions only Comment: 2 glasses in a month Patient Tobacco Use Status: Never used Tobacco Tobacco use type: Cigarette Years Smoked: smoked in college. 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 [employer] [facility] [place] needs: No Hearing needs: No Vision needs: Yes Review of Systems Const All systems reviewed & are unremarkable except as noted in HPI and below Physical Exam Exam Exam: No apparent distress Nonicteric Abdomen soft, nondistended Alert and oriented x3, normal gait Vital Signs: Last Vital Signs Pulse 85 05/11/25 12:52 BP 107/74 05/11/25 12:52 BMI result Body Mass Index 25.4 Assessment & Plan Assessment & Plan (1) GERD (gastroesophageal reflux disease): Code(s): K21.9 - Gastro-esophageal reflux disease without esophagitis Category: Medical (2) S/P repair of paraesophageal hernia: Comment: January 2023 Randall Fundoplication Code(s): Z98.890 - Other specified postprocedural states; Z87.19 - Personal history of other diseases of the digestive system Category: Surgical (3) Diarrhea: Code(s): R19.7 - Diarrhea, unspecified Category: Medical Plan No further issues with reflux are pulmonary issues since hiatal hernia repair. Has been doing very well. BMI has normalized. In terms of diarrhea, likely had self-limiting traveler's diarrhea, versus change in diet and routine. This has since resolved. Next colonoscopy for routine colorectal cancer screening due in 2028 (had hyperplastic rectal polyp in 2019). P.r.n. follow-up in the meantime. Coding Level of Care Code Est Pt Level 4 (17660) Diagnoses GERD (gastroesophageal reflux disease) K21.9 S/P repair of paraesophageal hernia Z98.890; Z87.19 Diarrhea R19.7
[2025-05-11 12:52] VITALS: BP 107/74; PULSE 85; BMI 25.4
== END 2025-05-11 13:33 | disposition home or self-care (01) ==
LOC: HO.HGI 12:42
PROVIDERS: PCP Internal Medicine; Visit Provider Internal Medicine
DX: K21.9 Gastro-esophageal reflux disease without esophagitis (principal); Z98.890 Other specified postprocedural states; Z87.19 Personal history of other diseases of the digestive system; R19.7 Diarrhea, unspecified
CPT/HCPCS: 99214

== ENCOUNTER 2025-06-02 13:54 | Outpatient (AMB) | payer OTHER, SELFPAY ==
[2025-06-02 14:01] VITALS: BP 132/70; PULSE 78; BMI 25.7
--- NOTE | 2025-06-02 14:01 | A.OFFVIS_ITS ---
Vital Signs 06/02/25 14:01 Height 5 ft 4 in Weight 149 lb 14.629 oz BMI 25.7 BP 132/70 Blood Pressure Location Lt brachial Position Sitting Pulse 78 Intake Visit Reasons: 2 yrs followup w/ekg dx: cad Intake Note: 2 year follow-up with ekg has been having some right side palpations Agricultural Equipment Sales Manager Required: No Allergies codeine (CODEINE) Allergy (Intermediate, Verified 05/11/25 12:53) NAUSEA hazelnut (HAZELNUT) Allergy (Unknown, Verified 05/11/25 12:53) UNKNOWN Milk Containing Products (Dairy) (MILK CONTAINING PRODUCTS) Allergy (Unknown, Verified 05/11/25 12:53) UNKNOWN nitrofurantoin (From MACROBID) Allergy (Unknown, Verified 05/11/25 12:53) UNKNOWN Penicillins (PENICILLINS) Allergy (Unknown, Verified 05/11/25 12:53) UNKNOWN sesame seed (SESAME SEED) Allergy (Unknown, Verified 05/11/25 12:53) UNKNOWN Sulfa (Sulfonamide Antibiotics) Allergy (Unknown, Verified 05/11/25 12:53) Unknown sulfamethoxazole (From BACTRIM) Allergy (Unknown, Verified 05/11/25 12:53) UNKNOWN trimethoprim (From BACTRIM) Allergy (Unknown, Verified 05/11/25 12:53) UNKNOWN azithromycin (From Zithromax) Adverse Reaction (Intermediate, Verified 05/11/25 12:53) diarrhea epinephrine (EPINEPHRINE) Adverse Reaction (Intermediate, Verified 05/11/25 12:53) HEART PALPITATIONS beesting Allergy (Unknown, Uncoded 05/11/25 12:53) Unknown Medication List - Last Reconciled 06/02/25 by Taj Caruso MD cholecalciferol (vitamin D3) 1,250 mcg PO QWEEK olopatadine 0.2% (Pataday Once Daily Relief) 1 drp ophthalmic (eye) DAILY PRN HPI Comments Details: Carole comes for follow-up after 2 years. Stopped taking his statin therapy because she ran out of would prescriptions. She comes for follow-up. She says over the last month she has been noticing increasing symptoms of palpitations where she notices rapid heart racing. She says that she has increased job related stress and that might be driving her symptoms. She does not know if this is anxiety/panic attack. She denies any exertional chest pain or shortness of breath. Exercise on regular basis. Denies any lightheadedness, syncope. Denies any shortness of breath, orthopnea, PND. [facility] Medical History Microscopic hematuria Hx of hiatal hernia Ureteral stone Renal calculi Sore throat USMAN (obstructive sleep apnea) Cystitis Dysphagia Palpitations Restrictive airway disease Bronchitis BMI 36.0-36.9,adult Multiple allergies Headache Vitamin K deficiency Elevated C-reactive protein (CRP) Elevated sed rate Unexplained night sweats Pelvic cyst Adnexal cyst Abnormal Pap smear of cervix Unexplained endometrial cells on cervical cytology Chronic fatigue GERD (gastroesophageal reflux disease) CAD (coronary artery disease) Microscopic hematuria Renal atrophy Recurrent UTI Left radial head fracture Obesity Surgical History Hx of hysterectomy S/P DONNA-BSO S/P repair of paraesophageal hernia History of esophagogastroduodenoscopy (EGD) History of lithotripsy History of skin graft History of cystoscopy History of ankle surgery History of ovarian cystectomy History of tonsillectomy History of surgery History of colonoscopy History of endoscopy Family History Father Liver failure ETOH abuse Diabetes Hypertension Anxiety Prostate cancer Mother Hypertension Afib CVD (cardiovascular disease) Emphysema lung Melanoma Paternal Aunt Breast cancer Social [facility] Alcohol intake: current Alcohol intake frequency: holidays/special occasions only Comment: 2 glasses in a month Patient Tobacco Use Status: Never used Tobacco Tobacco use type: Cigarette Years Smoked: smoked in college. 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 [employer] [place] Cognitive needs: No Hearing needs: No Vision needs: Yes Review of Systems Const Denies chills, Denies fatigue, Denies fever(s), Denies frequent falls, Denies weakness, Denies weight gain and Denies weight loss ENT Denies dizziness Card Reports chest pain, Denies leg edema, Denies lightheadedness, Reports palpitations, Denies dyspnea, Denies dyspnea on exertion, Denies orthopnea and Denies other (loss of consciousness) Resp Denies cough, Denies dyspnea and Denies dyspnea on exertion GI Denies hematochezia and Denies change in stool character Musc Denies abnormal gait, Denies muscle weakness, Denies numbness, Denies radiating pain into limb and Denies tingling Neuro Denies Abnormal speech present, Denies abnormal gait, Denies dizziness, Denies frequent falls, Denies numbness, Denies tingling and Denies weakness Endo Denies fatigue and Reports palpitations Physical Exam Vital Signs: Last Vital Signs Pulse 78 06/02/25 14:01 BP 132/70 06/02/25 14:01 BMI result Body Mass Index 25.7 Const General: cooperative, comfortable, no acute distress, alert, awake, Physically active and well groomed Nutritional Appearance: overweight Orientation/consciousness: patient oriented x3 Limitations: no limitations Neck Neck: Yes trachea midline, Yes supple and Yes no JVD Resp Effort & Inspection: normal respiratory effort Auscultation: clear to auscultation bilaterally Cardio Jugular venous distension: no JVD Palpation: normal PMI Rate: regular rate Rhythm: regular rhythm Heart sounds: S1 normal heart sound present, S2 normal heart sound present, no click, no gallops, no murmurs and no rubs Neuro General: patient oriented x3 and no focal motor deficits Speech: No Abnormal speech present Extrem General: Yes no clubbing, cyanosis or edema Office Procedures EKG Details: EKG shows normal sinus rhythm with rightward axis otherwise normal EKG [id number], Complete Assessment & Plan Assessment & Plan (1) Palpitations: Code(s): R00.2 - Palpitations Plan: Symptoms of palpitation with rapid heart rate with increased stress. Could be related to anxiety/panic attack. Other forms of the arrhythmias such as SVT and/or AFib needs to be ruled out. Will suggest a 30 day event monitor to assess for the same. Advised to participate in stress mitigation strategies. Will avoid pharmacotherapy till we establish with diagnose. This was discussed with her. She understands agrees. Avoidance of stimulants was discussed. (2) CAD (coronary artery disease): Comment: Elevated coronary calcium score in the LAD of 17 suggestive underlying atherosclerosis. Nonobstructive as a stress test is normal Code(s): I25.10 - Atherosclerotic heart disease of inupiat coronary artery without angina pectoris Category: Medical Plan: Nonobstructive CAD without any obvious symptoms at this point time. Discussed with her about management. She is willing to restart statin therapy. Have given her a prescription for rosuvastatin 10 mg daily. Continue with aggressive lifestyle modification with regular physical activity as well as diet. Follow- up lipid panel in 3 months time. Advised to call me with any new symptoms. Goals of therapy were discussed. Will follow up in the clinic in 2 years time, sooner PRN. Thank you for allowing me to partake in her care Orders: Orders Lipid Panel 3 Months Taj Caruso MD I25.10 - Atherosclerotic heart disease of inupiat coronary artery without angina pectoris ECG 30 day event monitor Today Taj Caruso MD R00.2 - Palpitations Medications: New rosuvastatin 10 mg PO DAILY 90 tabs 2RF Taj Caruso MD I25.10 - Atherosclerotic heart disease of inupiat coronary artery without angina pectoris Changed From olopatadine 0.2% (Pataday Once Daily Relief) 1 drp ophthalmic (eye) DAILY 2.5 mL 0RF H04.123 - Dry eye syndrome of bilateral lacrimal glands To olopatadine 0.2% (Pataday Once Daily Relief) 1 drp ophthalmic (eye) DAILY PRN H04.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
--- OUTSIDE RECORDS SUMMARY | 2025-06-02 15:09 | XMS_ITS | Encounter Summary ---
Author Organization [facility] and [facility] Address [address] [place] [phone] Care Team Providers Care Whiting Can Worker Name Role Phone Mary Spencer Primary Care Provider Encounter Details Date Type Department Care Team (Late st Contact Info) Description 09/11/2016 Scanned Document [facility] 789 [facility] [address] [facility] [place] [address] External, Provider Social History Tobacco Use Types [...] as of this encounter Plan of Treatment Not on file documented as of this encounter Procedures Procedure Name Priority Date/Time Associated Diagnosis Comments ZZZCTX COLLAGEN C-TELOPEPTIDE (BH) Routine 07/19/2016 documented in this encounter Results * CTX collagen C-telopeptide (BH) (07/19/2016) Blood specimen (specimen) us Provider External LAB BLOOD ORDERABLES Final Res ult [facility] [place], [place], [facility] documented in this encounter Visit Diagnoses Not on filedocumented in this encounter Care Teams Whiting Can Worker Relationship Specialty Start Date End Date Mary Spencer PA PCP - General Internal Medicine 08/03/15 documented as of this encounter
--- OUTSIDE RECORDS SUMMARY | 2025-06-02 15:09 | XMS_ITS | Encounter Summary ---
Author Organization [facility] and [facility] Address [address] [place] [phone] Care Team Providers Care Senior Web Architect Name Role Phone Mary Spencer Primary Care Provider Encounter Details Date Type Department Care Team (Late st Contact Info) Description 12/10/2015 Scanned Document [facility] 789 [facility] [address] [place] [address] External, Provider Social History Tobacco Use Types [...] on file documented as of this encounter Visit Diagnoses Not on filedocumented in this encounter Care Teams Senior Web Architect Relationship Specialty Start Date End Date Mary Spencer PA PCP - General Internal Medicine 08/03/15 documented as of this encounter
--- OUTSIDE RECORDS SUMMARY | 2025-06-02 15:09 | XMS_ITS | Encounter Summary ---
Author Organization [facility] and [facility] Address [address] [place] [phone] Care Team Providers Care Brake Repairer Railroad Name Role Phone Mary Spencer Primary Care Provider Encounter Details Date Type Department Care Team (Late st Contact Info) Description 05/04/2016 Scanned Document [facility] [address] [facility] [address] [place] [address] External, Provider Social History Tobacco Use Types [...] on filedocumented in this encounter Care Teams Brake Repairer Railroad Relationship Specialty Start Date End Date Mary Spencer PA PCP - General Internal Medicine 08/03/15 documented as of this encounter
--- OUTSIDE RECORDS SUMMARY | 2025-06-02 15:09 | XMS_ITS | Continuity of Care Document ---
Author Organization [facility] Address [address] [facility] [address] [place] [address] Phone [phone] Social History Type Date Description Comments Sex Female Sex Unknown Medical Devices Description No Information Available Encounters Description No Information Available Assessments Description No Information Available Plan of Treatment No Information Available Functional Status Description No Information Available Mental Status Description No Information Available Referrals Description No Information Available
--- OUTSIDE RECORDS SUMMARY | 2025-06-02 15:09 | XMS_ITS | Encounter Summary ---
Author Organization [facility] and [facility] Address [address] [place] [phone] Care Team Providers Care Dental Coordinator Name Role Phone Mary Spencer Primary Care Provider Encounter Details Date Type Department Care Team (Late st Contact Info) Description 06/20/2016 Scanned Document [facility] 789 [facility] [address] [facility] [place] [address] External, Provider Social History Tobacco Use Types [...] External LAB BLOOD ORDERABLES Final Res ult [facility] [place], [place], [place] * Bone Density Result Scan (09/28/2015) us Provider External IMG SCAN REPORTS Final Result [facility] [place], [place], [facility] documented in this encounter Visit Diagnoses Not on filedocumented in this encounter Care Teams Dental Coordinator Relationship Specialty Start Date End Date Mary Spencer PA PCP - General Internal Medicine 08/03/15 documented as of this encounter
--- OUTSIDE RECORDS SUMMARY | 2025-06-02 15:09 | XMS_ITS | Clinical Summary ---
Author Organization [facility] Address [address] [place] [address] Care Team Providers Care Electric Wheelchair Repairer Name Role Phone Unavailable Primary Care [...]
--- OUTSIDE RECORDS SUMMARY | 2025-06-02 15:09 | XMS_ITS | Clinical Summary ---
Author Organization [facility] Address [address] [place] [address] Phone Care Team Providers Care Flour Inspector Name Role Phone Veronica Fields NP Primary [...] topic Medical Devices Not on file Insurance [place] [employer] Check ADMINISTRATORS [facility] ArmorText ADMINISTRATORS [facility] StayTuned ADMINISTRATORS [facility] Training [employer] [facility] ADMINISTRATORS Member Subscriber Plan / Payer ( fective 2019-Present) Name:Carole Darby Relation to Subscriber:Self Name:Manuel Darbyia Payer ID:[id number] (NAIC) Type:PPO Address: [address] [facility] Training [employer] [facility] ADMINISTRATORS Member Subscriber Plan / Payer ( fective 2019-Present) Name:Carole Darby Relation to Subscriber:Self Name:Carole Darby Payer ID:[id number] (NAIC) Type:PPO Address: [place] [phone] [facility] ADMINISTRATORS [facility] ADMINISTRATORS [facility] ADMINISTRATORS Member Subscriber Plan / Payer ( fective 2019-Present) Name:Wilner Carole Relation to Subscriber:Self Name:Wilner Carole Payer ID:[id number] (NAIC) Type:PPO Address: [place] [phone] [facility] BENEFITS ADMINISTRATORS Care Teams Flour Inspector Relationship Specialty Start Date End Date Veronica Fields NP PCP - General Family Medicine 06/24/21 Additional Source Comments The information contained in this document represents components of the legal health record. It is not the complete legal health record.[facility]
--- OUTSIDE RECORDS SUMMARY | 2025-06-02 15:09 | XMS_ITS | Encounter Summary ---
Author Organization [facility] and [facility] Address [address] [place] [phone] Care Team Providers Care Cancer Center Director Name Role Phone Mary Spencer Primary Care Provider Encounter Details Date Type Department Care Team (Late st Contact Info) Description 05/11/2016 Scanned Document [facility] 789 [facility] [place] [address] External, Provider Social History Tobacco Use Types [...] us Provider External URINE ORDERABLES Final Result [facility] [place], [place], [facility] documented in this encounter Visit Diagnoses Not on filedocumented in this encounter Care Teams Cancer Center Director Relationship Specialty Start Date End Date Mary Spencer PA PCP - General Internal Medicine 08/03/15 documented as of this encounter
--- OUTSIDE RECORDS SUMMARY | 2025-06-02 15:09 | XMS_ITS | Clinical Summary ---
Author Organization [employer] [facility] Address [address] [place] [phone] Care Team Providers Care Dentures Lab Technician Name Role Phone Demetra Pantoja MD Primary Care Provider [phone] Allergies Active Allergy Reactions Criticality Noted Date [...] EDT) Anatomical Region Laterality Modality Endoscopy 04/19/2012 [facility] MD GI PROCEDURE OR DERABLES Final Result from Last 3 Months or Most Recently Relevant to Health Maintenance Insurance [facility] Care Teams Dentures Lab Technician Relationship Specialty Start Date End Date Demetra Pantoja MD [address] [place] [id number] PCP - General 10/06/19
--- OUTSIDE RECORDS SUMMARY | 2025-06-02 15:09 | XMS_ITS | Encounter Summary ---
Author Organization [facility] [employer] [facility] and [facility] Address [address] [place] [phone] Care Team Providers Care Brake Reliner Name Role Phone Mary Spencer Primary Care Provider Encounter Details Date Type Department Care Team (Late st Contact Info) Description 08/04/2016 Scanned Document [facility] 789 [facility] 789 [facility] [place] [address] Kelsey Hutchinson MD [address] [place] [phone] Social History Tobacco Use Types Packs/Day [...] MD LAB BLOOD ORDERABLES Final Resul t [facility] [place], [place], [facility] documented in this encounter Visit Diagnoses Not on filedocumented in this encounter Care Teams Brake Reliner Relationship Specialty Start Date End Date Mary Spencer PA PCP - General Internal Medicine 08/03/15 documented as of this encounter
--- OUTSIDE RECORDS SUMMARY | 2025-06-02 15:09 | XMS_ITS | Encounter Summary ---
Author Organization [facility] and [facility] Address [address] [place] [phone] Care Team Providers Care Academic Affairs Coordinator Name Role Phone Mary Spnecer Primary Care Provider Encounter Details Date Type Department Care Team (Late st Contact Info) Description 09/01/2016 Scanned Document [facility] [address] [place] [phone] [place] [address] External, Provider Social History Tobacco Use Types [...] External LAB BLOOD ORDERABLES Final Res ult [facility] [place], [place], [facility] documented in this encounter Visit Diagnoses Not on filedocumented in this encounter Care Teams Academic Affairs Coordinator Relationship Specialty Start Date End Date Mary Spencer PA PCP - General Internal Medicine 08/03/15 documented as of this encounter
--- OUTSIDE RECORDS SUMMARY | 2025-06-02 15:09 | XMS_ITS | Clinical Summary ---
Author Organization [facility] Address [address] [place] [address] Care Team Providers Care Chemical Plant Manager Name Role Phone Mary Spencer Primary [...] (1 - 1-dose 75+ series) 2041 Meningococcal B Vaccine Aged Out No l onger eligible based on patient's age to complete this topic Meningococcal Vaccine Aged Out No malcolm grace eligible based on patient's age to complete this topic Procedures Procedure Name Priority Date/Time Associated Diagnosis Comments MAMMO SCREENING MOMO BILATERAL Routine 01/09/2025 3:45 PM EDT Encounter for screening mammogram for malignant neoplasm of breast ZZZCYTOLOGY OUTREACH ANALYST CASES (Y) Routine 09/07/2015 8:10 PM EST [...] letter of the results. Ignacio Ennis MD [facility] Narrative 01/12/2025 12:26 [...] the left breast. us Maggie Obando MD IM MAMMOGRAPHY ORDERABLE S Final Result * Cytology supervisor landscape cases () (09/07/2015 8:10 PM EST) Cytology Circular Tank Cooper Cases CYTOLOGY REPORT Procedures/Addend a Attached Patient: NANCY CHAVEZ MR #: [id number] Submitted by: Megan Perez M.D. FINAL DIAGNOSIS SUREPATH PAP SMEAR: Primary Diagnosis: NEGATIVE FOR INTRAEPITHELIAL LESION OR MALIGNANCY. Additional Findings: NO ENDOCERVICAL CELLS SEEN. CYTOLYSIS PRESENT. HIGH RISK HPV CO-TESTING HAS BEEN PERFORMED AND THE RESULT IS NEGATIVE. Specimen Adequacy: THIS SPECIMEN IS SATISFACTORY FOR EVALUATION. This specimen was manually screened with the assistance of the Layer([employer] Imaging System. Recommendation: According to the current [...] with cytology and high risk HPV cotesting. (Massrussell et al. J Low Genital Tract Disease. 2013; 17: S1) NOTE: Cervical/vaginal cytology is a screening tool for cervical carcinoma and its precursor lesions with an inherent false negative rate. It is an inaccurate test for detection of endometrial lesions and should not be used to evaluate suspected endometrial abnormalities. (The Sherwood System, 2001) 09/10/2015 12:46 * Report Electronically Signed Out * This electronic signature indicates that the pathologist has personally reviewed the available gross and/or microscopic material and has based the diagnosis on that evaluation. Specimen(s) Received: SUREPATH PAP SMEAR Clinical History and Impression: {Not Available} Procedures/Addenda MOLECULAR DX: HR HPV SCREENING Ordered: 09/07/2015 Status: Signed Out Reported: 09/10/2015 Pathologist: [facility] Interpretation Specimen: SUREPATH PAP SMEAR BELOW CUTOFF FOR HIGH RISK HPV HPV types 16, 18, 31, 33, 35, 39, 45, 51, 52, 56, 58, 59, 66, and 68 DNA were either considered NEGATIVE, undetectable,or below the pre-set threshold. This test was performed at [facility] Department of Pathology, [address] [place] [address], CLIA# [id number] using the Yola christy 4800 HPV Test System and is only approved by the Food and Drug Administration (FDA) for use oncervicalspecimen s collected in Cytyc Preservcyt Solution (ThinPrep). When using ThinPrep liquid based samples for non-cervical specimens, SurePath liquid based samples, or formalin fixed paraffin embedded tissue, the performance characteristics have been determined by [facility]. Although testing on samples that are not cervical in origin, and/or in any other medium besides ThinPrep, has not been cleared or approved by the FDA, the FDA has determined that such clearance or approval is not necessary. [facility] 09/07/2015 8:10 PM EST Comment:SUREPATH PAP SMEAR+ HPV us Megan Perez MD PATHOLOGY/CYTOLOGY ORDERABLES Final Result [facility] Department of Pathology [address] [place] [id number] * Glucose ( GH Q YH) (06/03/2013 10:25 AM EDT) Glucose 100 70 - 100 mg/dL [facility] 06/03/2013 10:2 5 AM EDT Narrative [facility] - 06/03/2013 3:45 PM EDT Performed by: [facility] [address] [place] [address] (CLIA #[id number], [id number]) Jocelin Alcantara MD LAB BLOOD ORDERABLES F inal Result [facility] [address] [place] [phone] from Last 3 Months or Most Recently Relevant to Health Maintenance Insurance Care Teams Chemical Plant Manager Relationship Specialty Start Date End Date Mary Spencer PA PCP - General Internal Medicine 08/03/15
== END 2025-06-02 14:31 | disposition home or self-care (01) ==
LOC: HO.HCS 13:55
PROVIDERS: PCP Internal Medicine; Visit Provider Internal Medicine Cardiovascular Disease
DX: R00.2 Palpitations (principal); I25.10 Atherosclerotic heart disease of native coronary artery without angina pectoris
CPT/HCPCS: 93010; 99214

== ENCOUNTER → 2025-06-02 13:54 | Outpatient (BNVA) | payer OTHER, SELFPAY | PROVIDERS: PCP Internal Medicine; Visit Provider Internal Medicine Cardiovascular Disease | DX: R00.2 Palpitations (principal) | CPT/HCPCS: 93005 ==

== ENCOUNTER → 2025-06-10 14:00 | Outpatient (REF) | payer OTHER, SELFPAY ==
--- NOTE | 2025-06-10 14:04 | HM_ITS ---
Cardiac event monitor Indication: Palpitations Technique: Patient was hooked up to cardiac event monitor from 06/10/2025 to 07/10/2025 for total period of 30 days. Total wear time was 28.2 days Findings: Baseline was normal sinus rhythm 99.31% of the time. Average heart rate of 77 beats per minute. Lowest heart rate in sinus rhythm at 50 beats per minute and the fastest heart rate of 159 beats per minute. There were no significant pauses or av conduction abnormalities noted There were rare PACs noted and occasional PVCs noted. There were short runs of SVE, longest lasting 6 beats. Patient triggered 42 strips. Reported 15 symptoms with those strips with symptoms of fast heart rate or palpitations. Some of the symptoms correlated with isolated PACs or short SVE run or sinus tachycardia. Conclusion: 1. Baseline was normal sinus rhythm with no pauses 2. Rare PACs and occasional PVCs noted with rare short runs of SVE. 3. Some of the patient triggered symptoms correlated with PACs or sinus tachycardia or short run of SVE MTDD
--- OUTSIDE RECORDS SUMMARY | 2025-06-10 17:13 | XMS_ITS | Encounter Summary ---
Author Organization [facility] Address [address] [place] [phone] Care Team Providers Care Marketing Rotation Associate Name Role Phone Mary Spencer Primary Care Provider Encounter Details Date Type Department Care Team (Late st Contact Info) Description 05/11/2016 Scanned Document [facility] [address] [facility] 789 [facility] [place] [address] External, Provider Social History Tobacco Use Types [...] us Provider External URINE ORDERABLES Final Result [facility] [place], [place], [facility] documented in this encounter Visit Diagnoses Not on filedocumented in this encounter Care Teams Marketing Rotation Associate Relationship Specialty Start Date End Date Mary Spencer PA PCP - General Internal Medicine 08/03/15 documented as of this encounter
--- OUTSIDE RECORDS SUMMARY | 2025-06-10 17:13 | XMS_ITS | Clinical Summary ---
Author Organization [facility] Address [address] [place] [address] Phone Care Team Providers Care Loader Malt [place] Name Role Phone Veronica Fields NP Primary [...] 2016 ZOSTER VACCINES (1 of 2) 2016 INFLUENZA VACCINE (#1) 2025 07/28/2019 COVID-19 VACCINE (2023-2 5 season) 2025 HEPATITIS A VACCINES Aged Out No long [...] topic Medical Devices Not on file Insurance [employer]IST[employer]AT[employer]AT[employer] [facility] [employer] ADMINISTRATORS [facility] [employer] ADMINISTRATORS [facility] [employer] ADMINISTRATORS [facility] [email or web address] [facility] ADMINISTRATORS [facility] [email or web address] [facility] ADMINISTRATORS [facility] [email or web address] [facility] ADMINISTRATORS [facility] BENEFITS ADMINISTRATORS Care Teams Loader Malt House Relationship Specialty Start Date End Date Veronica Fields NP PCP - General Family Medicine 06/24/21 Additional Source Comments The information contained in this document represents components of the legal health record. It is not the complete legal health record.[facility]
--- OUTSIDE RECORDS SUMMARY | 2025-06-10 17:13 | XMS_ITS | Continuity of Care Document ---
Author Organization [facility] Address [address] [facility] [address] [place] [address] Phone [phone] Social History Type Date Description Comments Sex Female Sex Unknown Medical Devices Description No Information Available Encounters Description No Information Available Assessments Description No Information Available Plan of Treatment No Information Available Functional Status Description No Information Available Mental Status Description No Information Available Referrals Description No Information Available
--- OUTSIDE RECORDS SUMMARY | 2025-06-10 17:13 | XMS_ITS | Clinical Summary ---
Author Organization [facility] Address [address] [place] [address] Care Team Providers Care Social Work Supervisor Name Role Phone Unavailable Primary Care Provider [...] of 2) 2016 COVID-19 Vaccine ( - season) 2025
--- OUTSIDE RECORDS SUMMARY | 2025-06-10 17:13 | XMS_ITS | Encounter Summary ---
Author Organization [facility] and [facility] Address [address] [place] [phone] Care Team Providers Care Quality Assurance Name Role Phone Mary Spencer Primary Care Provider Encounter Details Date Type Department Care Team (Late st Contact Info) Description 09/01/2016 Scanned Document [facility] [address] [place] [id number] [place] [address] External, Provider Social History Tobacco Use Types [...] External LAB BLOOD ORDERABLES Final Res ult [facility] [place], [place], [facility] documented in this encounter Visit Diagnoses Not on filedocumented in this encounter Care Teams Quality Assurance Relationship Specialty Start Date End Date Mary Spencer PA PCP - General Internal Medicine 08/03/15 documented as of this encounter
--- OUTSIDE RECORDS SUMMARY | 2025-06-10 17:13 | XMS_ITS | Encounter Summary ---
Author Organization [facility] and [facility] Address [address] [place] [phone] Care Team Providers Care Geophysics Teacher Name Role Phone Mary Spencer Primary Care Provider Encounter Details Date Type Department Care Team (Late st Contact Info) Description 05/04/2016 Scanned Document [facility] 789 [facility] [address] [place] [address] External, Provider Social History Tobacco Use Types [...] on filedocumented in this encounter Care Teams Geophysics Teacher Relationship Specialty Start Date End Date Mary Spencer PA PCP - General Internal Medicine 08/03/15 documented as of this encounter
--- OUTSIDE RECORDS SUMMARY | 2025-06-10 17:13 | XMS_ITS | Encounter Summary ---
Author Organization [facility] and [facility] Address [address] [place] [phone] Care Team Providers Care Alum Plant Operator Name Role Phone Mary Spencer Primary Care Provider Encounter Details Date Type Department Care Team (Late st Contact Info) Description 06/20/2016 Scanned Document [facility] 789 [facility] 789 [facility] [place] [address] External, Provider Social History Tobacco Use Types [...] External LAB BLOOD ORDERABLES Final Res ult [facility] [place], [place], [place] * Bone Density Result Scan (09/28/2015) us Provider External IMG SCAN REPORTS Final Result [facility] [place], [place], [facility] documented in this encounter Visit Diagnoses Not on filedocumented in this encounter Care Teams Alum Plant Operator Relationship Specialty Start Date End Date Mary Spencer PA PCP - General Internal Medicine 08/03/15 documented as of this encounter
--- OUTSIDE RECORDS SUMMARY | 2025-06-10 17:13 | XMS_ITS | Encounter Summary ---
Author Organization [facility] and [facility] Address [address] [place] [phone] Care Team Providers Care Paper Bags Sewing Machine Operator Name Role Phone Mary Spencer Primary Care Provider Encounter Details Date Type Department Care Team (Late st Contact Info) Description 08/04/2016 Scanned Document [facility] 789 [facility] 7[address] [facility] [place] [address] Kelsey Hutchinson MD [address] [place] [phone] Social History Tobacco Use Types Packs/Day [...] MD LAB BLOOD ORDERABLES Final Resul t [facility] [place], [place], [facility] documented in this encounter Visit Diagnoses Not on filedocumented in this encounter Care Teams Paper Bags Sewing Machine Operator Relationship Specialty Start Date End Date Mary Spencer PA PCP - General Internal Medicine 08/03/15 documented as of this encounter
--- OUTSIDE RECORDS SUMMARY | 2025-06-10 17:13 | XMS_ITS | Clinical Summary ---
Author Organization [facility] Address [address] [place] [address] Care Team Providers Care Editing Computer Publisher Name Role Phone Demetra Pantoja MD Primary Care Provider [phone] Allergies Active Allergy Reactions Criticality Noted Date [...] Cancer Screening 04/19/2022 COVID-19 Vaccine (3 - 2024-2 6 season) 2025 01/21/2021, 12/29/2020 Influenza Vaccine (#1) 2025 10/01/2014 [...] EDT) Anatomical Region Laterality Modality Endoscopy 04/19/2012 [facility] MD GI PROCEDURE OR DERABLES Final Result from Last 3 Months or Most Recently Relevant to Health Maintenance Insurance [facility] Care Teams Editing Computer Publisher Relationship Specialty Start Date End Date Demetra Pantoja MD [address] [place] [phone] PCP - General 10/06/19
--- OUTSIDE RECORDS SUMMARY | 2025-06-10 17:13 | XMS_ITS | Clinical Summary ---
Author Organization [facility] Address [address] [place] [address] Care Team Providers Care Hide Selector Name Role Phone Mary Spencer Primary Care [...] mammogram for malignant neoplasm of breast ZZZCYTOLOGY NUCLEAR PHYSICIAN CASES (Y) Routine 09/07/2015 8:10 PM EST [...] letter of the results. Ignacio Ennis MD [facility] Narrative 01/12/2025 12:26 [...] MAMMOGRAPHY ORDERABLE S Final Result * Cytology slurry blender cases () (09/07/2015 8:10 PM EST) Cytology Interactive Digital Media Specialist Cases CYTOLOGY REPORT Procedures/Addend a Attached Patient: NANCY CHAVEZ MR #: [id number] Submitted by: Megan Perez M.D. FINAL DIAGNOSIS SUREPATH PAP SMEAR: Primary Diagnosis: NEGATIVE FOR INTRAEPITHELIAL LESION OR MALIGNANCY. Additional Findings: NO ENDOCERVICAL CELLS SEEN. CYTOLYSIS PRESENT. HIGH RISK HPV CO-TESTING HAS BEEN PERFORMED AND THE RESULT IS NEGATIVE. Specimen Adequacy: THIS SPECIMEN IS SATISFACTORY FOR EVALUATION. This specimen was manually screened with the assistance of the [employer] Imaging System. Recommendation: According to the current [...] used to evaluate suspected endometrial abnormalities. (The Brant System, 2001) 09/10/2015 12:46 * Report Electronically Signed Out * This electronic signature indicates that the pathologist has personally reviewed the available gross and/or microscopic material and has based the diagnosis on that evaluation. Specimen(s) Received: SUREPATH PAP SMEAR Clinical History and Impression: {Not Available} Procedures/Addenda MOLECULAR DX: HR HPV SCREENING Ordered: 09/07/2015 Status: Signed Out Reported: 09/10/2015 Pathologist: [facility] Interpretation Specimen: SUREPATH PAP SMEAR BELOW CUTOFF FOR HIGH RISK HPV HPV types 16, 18, 31, 33, 35, 39, 45, 51, 52, 56, 58, 59, 66, and 68 DNA were either considered NEGATIVE, undetectable,or below the pre-set threshold. This test was performed at [facility] Department of Pathology, [address] [place] [address], CLIA# [id number] using the Yola christy 4800 HPV Test System and is only approved by the Food and Drug Administration (FDA) for use oncervicalspecimen s collected in Cytyc Preservcyt Solution (ThinPrep). When using ThinPrep liquid based samples for non-cervical specimens, SurePath liquid based samples, or formalin fixed paraffin embedded tissue, the performance characteristics have been determined by [facility]. Although testing on samples that are not cervical in origin, and/or in any other medium besides ThinPrep, has not been cleared or approved by the FDA, the FDA has determined that such clearance or approval is not necessary. [facility] 09/07/2015 8:10 PM EST Comment:SUREPATH PAP SMEAR+ HPV us Megan Perez MD PATHOLOGY/CYTOLOGY ORDERABLES Final Result [facility] Department of Pathology [address] [place] [id number] * Glucose ( GH Q YH) (06/03/2013 10:25 AM EDT) Glucose 100 70 - 100 mg/dL [facility] 06/03/2013 10:2 5 AM EDT Narrative [facility] - 06/03/2013 3:45 PM EDT Performed by: [facility] [address] [place] [address] (CLIA #[id number], [id number]) Jocelin Alcantara MD LAB BLOOD ORDERABLES F inal Result [facility] [address] [place] [phone] from Last 3 Months or Most Recently Relevant to Health Maintenance Insurance Care Teams Hide Selector Relationship Specialty Start Date End Date Mary Spencer PA PCP - General Internal Medicine 08/03/15
--- OUTSIDE RECORDS SUMMARY | 2025-06-10 17:13 | XMS_ITS | Encounter Summary ---
Author Organization [facility] Address [address] [place] [phone] Care Team Providers Care Electrical Controls Engineer Name Role Phone Mary Spencer Primary Care Provider Encounter Details Date Type Department Care Team (Late st Contact Info) Description 09/11/2016 Scanned Document [facility] 789 [facility] [facility] [place] [address] External, Provider Social History Tobacco Use Types [...] External LAB BLOOD ORDERABLES Final Res ult [facility] [place], [place], [facility] documented in this encounter Visit Diagnoses Not on filedocumented in this encounter Care Teams Electrical Controls Engineer Relationship Specialty Start Date End Date Mary Spencer PA PCP - General Internal Medicine 08/03/15 documented as of this encounter
--- OUTSIDE RECORDS SUMMARY | 2025-06-10 17:13 | XMS_ITS | Encounter Summary ---
Author Organization [facility] and [facility] Address [address] [place] [phone] Care Team Providers Care Telecommunications Network Engineer Name Role Phone Mary Spencer Primary Care Provider Encounter Details Date Type Department Care Team (Late st Contact Info) Description 12/10/2015 Scanned Document [facility] [facility] [address] [place] [address] External, Provider Social History Tobacco Use Types [...] filedocumented in this encounter Care Teams Telecommunications Network Engineer Relationship Specialty Start Date End Date Mary Spencer PA PCP - General Internal Medicine 08/03/15 documented as of this encounter
== END ==
LOC: HO.CARD 14:00
PROVIDERS: PCP Internal Medicine; Visit Provider Internal Medicine Cardiovascular Disease
DX: R00.2 Palpitations (principal)
CPT/HCPCS: 93270

== ENCOUNTER → 2025-06-10 14:04 | Outpatient (BNV) | payer OTHER, SELFPAY | PROVIDERS: PCP Internal Medicine; Visit Provider Internal Medicine Cardiovascular Disease | DX: I49.1 Atrial premature depolarization (principal); I49.3 Ventricular premature depolarization | CPT/HCPCS: 93272 ==

== ENCOUNTER 2025-08-14 10:09 | Outpatient (AMB) | payer OTHER, SELFPAY ==
--- NOTE | 2025-08-14 10:16 | MHC.PC.OV ---
Vital Signs 08/14/25 10:17 Height 5 ft 4 in Weight 147 lb 2 oz BMI 25.3 BP 110/70 Blood Pressure Location Lt brachial Position Sitting Pulse 74 Pulse Source Pulse Oximeter Temp 96.2 F L Temp Source Temporal Artery Scan Pulse Oximetry (%) 97 Oxygen Delivery Method Room Air Intake Visit Reasons: Diverticulitis flare up Intake Note: Patient is here to follow up on Diverticulitis flare up. Customer Trainer Required: No International Project Engineer: Not Required per policy Accompanied by: Self / Same As Patient Allergies codeine (CODEINE) Allergy (Intermediate, Verified 08/14/25 10:16) NAUSEA hazelnut (HAZELNUT) Allergy (Unknown, Verified 08/14/25 10:16) UNKNOWN Milk Containing Products (Dairy) (MILK CONTAINING PRODUCTS) Allergy (Unknown, Verified 08/14/25 10:16) UNKNOWN nitrofurantoin (From MACROBID) Allergy (Unknown, Verified 08/14/25 10:16) UNKNOWN Penicillins (PENICILLINS) Allergy (Unknown, Verified 08/14/25 10:16) UNKNOWN sesame seed (SESAME SEED) Allergy (Unknown, Verified 08/14/25 10:16) UNKNOWN Sulfa (Sulfonamide Antibiotics) Allergy (Unknown, Verified 08/14/25 10:16) Unknown sulfamethoxazole (From BACTRIM) Allergy (Unknown, Verified 08/14/25 10:16) UNKNOWN trimethoprim (From BACTRIM) Allergy (Unknown, Verified 08/14/25 10:16) UNKNOWN azithromycin (From Zithromax) Adverse Reaction (Intermediate, Verified 08/14/25 10:16) diarrhea epinephrine (EPINEPHRINE) Adverse Reaction (Intermediate, Verified 08/14/25 10:16) HEART PALPITATIONS beesting Allergy (Unknown, Uncoded 08/14/25 10:16) Unknown Medication List - Last Reconciled 08/14/25 by Halle Adams, KIKA alendronate (Fosamax) 70 mg PO QWEEK amoxicillin-pot clavulanate 875-125 mg 1 tab PO BID 5 days cholecalciferol (vitamin D3) 1,250 mcg PO QWEEK fluconazole 150 mg PO ONCE rosuvastatin 10 mg PO DAILY Tobacco use date assessed: 08/14/25 Dental Screening Dental Screen Date: 11/07/24 HPI HPI Comments History of Present Illness Details 60-year-old female presents for same-day visit with diarrhea and LLQ abdominal cramping that began yesterday. She reports she ate chicken and broccoli last night and ?immediately felt sick and nauseous.? She had several episodes of diarrhea overnight, with last bowel movement at 6 AM today. Continues to have LLQ abdominal pain, bloating, nausea, and dry heaving. She has not eaten this morning due to fear of worsening symptoms. She has a known history of diverticulitis and typically requires antibiotics during flares. She believes today?s symptoms resemble prior diverticulitis episodes. She also reports a similar episode in May after returning from [place], when GI diagnosed her with traveler?s diarrhea; that episode resolved without antibiotics. Denies fever, chills, vomiting. Endorses nausea. No hematochezia or melena reported. [facility] Medical History Microscopic hematuria Hx of hiatal hernia Ureteral stone Renal calculi Sore throat USMAN (obstructive sleep apnea) Cystitis Dysphagia Palpitations Restrictive airway disease Bronchitis BMI 36.0-36.9,adult Multiple allergies Headache Vitamin K deficiency Elevated C-reactive protein (CRP) Elevated sed rate Unexplained night sweats Pelvic cyst Adnexal cyst Abnormal Pap smear of cervix Unexplained endometrial cells on cervical cytology Chronic fatigue GERD (gastroesophageal reflux disease) CAD (coronary artery disease) Microscopic hematuria Renal atrophy Recurrent UTI Left radial head fracture Obesity Surgical History Hx of hysterectomy S/P DONNA-BSO S/P repair of paraesophageal hernia History of esophagogastroduodenoscopy (EGD) History of lithotripsy History of skin graft History of cystoscopy History of ankle surgery History of ovarian cystectomy History of tonsillectomy History of surgery History of colonoscopy History of endoscopy Family History Father Liver failure ETOH abuse Diabetes Hypertension Anxiety Prostate cancer Mother Hypertension Afib CVD (cardiovascular disease) Emphysema lung Melanoma Paternal Aunt Breast cancer Social History Housing: Condominium Alcohol intake: current Alcohol intake frequency: holidays/special occasions only Comment: 2 glasses in a month Patient Tobacco Use Status: Never used Tobacco Tobacco use type: Cigarette Years Smoked: smoked in college. 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 [employer] Cognitive needs: No Hearing needs: No Vision needs: Yes Questionnaire Thrive Questionnaire Date Thrive assessed: 12/10/24 I am a: Patient What is your living situation today?: I have a steady place to live Within the past 12 months, did the food you bought not last and you didn't have the money to get more?: Never true Within the past 12 months, did you worry whether your food would run out before you got money to buy more?: Never true Do you have trouble paying for medicines?: No Do you have trouble getting transportation to medical appointments?: No Do you have trouble paying your heating and electricity bill?: No Do you have trouble taking care of your child, family member or friend?: No Do you have trouble with day-to-day activities such as bathing, preparing meals, shopping, managing finances, etc.?: No Are you currently unemployed and looking for a job?: No Are you interested in more education?: No Please select the resources that you would like help with: None Currently or been in a relationship where the following occur: No concerns reported THRIVE Score: 0 JANETH-7 AMB Questionnaire JANETH-7 Date JANETH - 7 assessed: 12/10/24 Source: Developed by Drs. Anjum Spivey, Rose Maher, Bright Nguyen and colleagues, with an educational rodri from [employer]. Review of Systems Const All systems reviewed & are unremarkable except as noted in HPI and below Physical exam (Primary Care) Vital Signs: Last Vital Signs Temp 96.2 F L 08/14/25 10:17 Pulse 74 08/14/25 10:17 BP 110/70 08/14/25 10:17 Pulse Ox 97 08/14/25 10:17 Oxygen Delivery Method Room Air 08/14/25 10:17 BMI result Body Mass Index 25.3 Tobacco/Smoking Status: Tobacco use Status Tobacco use date assessed 08/14/25 08/14/25 10:22 Patient Tobacco Use Status Never used Tobacco 08/14/25 10:22 Tobacco use type Cigarette 08/14/25 10:22 e-Cigarette/Vaping Use Never Used 08/14/25 10:22 Thrive Assessment: Date of Thrive Assessment Date Thrive assessed 12/10/24 08/14/25 10:22 Currently or been in a relationship where the following occur: No concerns reported Const General: no acute distress Nutritional Appearance: well nourished Orientation/consciousness: patient oriented x3 Resp Effort & Inspection: normal respiratory effort Cardio Rate: regular rate GI Palpation (GI): Soft to palpation, not firm, Tenderness to palpation present (GI) in the LLQ, no guarding, not rigid, No hepatosplenomegaly present and no hernias Auscultation: Hyperactive bowel sounds present Rectal Exam - Female: deferred Neuro General: patient oriented x3, gait normal and moves all extremities Psych Speech and movement: Normal speech and movement present Coding Level of Care Code Est Pt Level 4 (46853) Diagnoses Diarrhea R19.7 Assessment & Plan Assessment & Plan (1) Diarrhea: Code(s): R19.7 - Diarrhea, unspecified Category: Medical Plan: LLQ abdominal pain ? Symptoms consistent with possible recurrent diverticulitis, especially given history and typical symptom pattern. No reported fever, but persistent LLQ tenderness, bloating, nausea, and change in bowel habits raise suspicion. Diarrhea, acute ? Could be infectious gastroenteritis vs foodborne illness given onset shortly after meal; however, symptoms are also consistent with her typical diverticulitis flares. Ordered Augmentin BID for 5 days. clinical exam supports diverticulitis. Clear liquid diet for 24?48 hours, advance as tolerated. Encourage hydration with electrolyte solutions. Reviewed red flags such as worsening abdominal pain, fever, persistent vomiting, inability to tolerate fluids, blood in stool. F/U with GI or PCP Medications: New fluconazole 150 mg PO ONCE 2 tabs 0RF N89.8 - Other specified noninflammatory disorders of vagina amoxicillin-pot clavulanate 875-125 mg 1 tab PO BID 10 tabs 0RF DIVERTICULITIS 5 days R19.7 - Diarrhea, unspecified Refilled cholecalciferol (vitamin D3) 1,250 mcg PO QWEEK 14 caps 1RF
[2025-08-14 10:17] VITALS: BP 110/70; PULSE 74; TEMP 35.7; O2SAT 97; BMI 25.3
--- OUTSIDE RECORDS SUMMARY | 2025-08-14 12:27 | XMS_ITS | Encounter Summary ---
Author Organization [facility] Address [address] [place] [phone] Care Team Providers Care Medical Aides Teacher Name Role Phone Mary Spencer Primary Care Provider Encounter Details Date Type Department Care Team (Late st Contact Info) Description 05/04/2016 Scanned Document [facility] 789 [facility] [address] [place] [address] External, Provider Social History Tobacco Use Types [...] on filedocumented in this encounter Care Teams Medical Aides Teacher Relationship Specialty Start Date End Date Mary Spencer PA PCP - General Internal Medicine 08/03/15 documented as of this encounter
--- OUTSIDE RECORDS SUMMARY | 2025-08-14 12:27 | XMS_ITS | Encounter Summary ---
Author Organization [facility] [place] Address [address] [place] [phone] Care Team Providers Care Porter Bath Name Role Phone Mary Spencer Primary Care Provider Encounter Details Date Type Department Care Team (Late st Contact Info) Description 12/10/2015 Scanned Document [facility] [address] [facility] [address] [place] [address] External, Provider Social History Tobacco Use Types [...] on filedocumented in this encounter Care Teams Porter Bath Relationship Specialty Start Date End Date Mary Spencer PA PCP - General Internal Medicine 08/03/15 documented as of this encounter
--- OUTSIDE RECORDS SUMMARY | 2025-08-14 12:27 | XMS_ITS | Clinical Summary ---
Author Organization [facility] Address [address] [place] [phone] Care Team Providers Care Retail Operations Specialist Name Role Phone Demetra Pantoja MD Primary Care Provider [phone] Allergies Active Allergy Reactions Criticality Noted Date [...] EDT) Anatomical Region Laterality Modality Endoscopy 04/19/2012 [facility]ulatory MD GI PROCEDURE OR DERABLES Final Result from Last 3 Months or Most Recently Relevant to Health Maintenance Insurance [facility] Care Teams Retail Operations Specialist Relationship Specialty Start Date End Date Demetra Pantoja MD [address] [place] [phone] PCP - General 10/06/19
--- OUTSIDE RECORDS SUMMARY | 2025-08-14 12:27 | XMS_ITS | Clinical Summary ---
Author Organization [facility] [address] [facility] Address [address] [place] [address] Care Team Providers Care Insurance Policy Clerk Name Role Phone Mary Spencer Primary Care [...] adult (Td q 10,TDAP once) 08/22/2016 08/22/2006 Influenza vaccine 05/01/2025 08/01/2018, , 10/01/2014 Covid-19 vaccine series ( season) 2025 01/21/2021, 12/30/2020, 12/29/2020, Additional history exists Breast cancer screening 01/09/2027 01/10/20, 01/04/2024, 12/29/2022, [...] mammogram for malignant neoplasm of breast [facility]TOLOG[facility] ENGRA[facility] OPTICAL FRAMES CASES (Y) Routine 09/07/2015 8:10 PM EST [...] letter of the results. Ignacio Ennis MD [facility] Narrative 01/12/2025 12:26 [...] MAMMOGRAPHY ORDERABLE S Final Result * Cytology meter/relay craftsman cases () (09/07/2015 8:10 PM EST) Cytology Therapy Technician Cases CYTOLOGY REPORT Procedures/Addend a Attached Patient: NANCY CHAVEZ MR #: [id number] Submitted by: Megan Perez M.D. FINAL DIAGNOSIS SUREPATH PAP SMEAR: Primary Diagnosis: NEGATIVE FOR INTRAEPITHELIAL LESION OR MALIGNANCY. Additional Findings: NO ENDOCERVICAL CELLS SEEN. CYTOLYSIS PRESENT. HIGH RISK HPV CO-TESTING HAS BEEN PERFORMED AND THE RESULT IS NEGATIVE. Specimen Adequacy: THIS SPECIMEN IS SATISFACTORY FOR EVALUATION. This specimen was manually screened with the assistance of the [employer](Dataloop.IO Imaging System. Recommendation: According to the current [...] used to evaluate suspected endometrial abnormalities. ([employer] System, 2001) 09/10/2015 12:46 * Report Electronically Signed Out * This electronic signature indicates that the pathologist has personally reviewed the available gross and/or microscopic material and has based the diagnosis on that evaluation. Specimen(s) Received: SUREPATH PAP SMEAR Clinical History and Impression: {Not Available} Procedures/Addenda MOLECULAR DX: HR HPV SCREENING Ordered: 09/07/2015 Status: Signed Out Reported: 09/10/2015 Pathologist: [facility] Interpretation Specimen: SUREPATH PAP SMEAR BELOW CUTOFF FOR HIGH RISK HPV HPV types 16, 18, 31, 33, 35, 39, 45, 51, 52, 56, 58, 59, 66, and 68 DNA were either considered NEGATIVE, undetectable,or below the pre-set threshold. This test was performed at [facility] Department of Pathology, [address] [place] [id number], CLIA# [id number] using the Yola christy 4800 HPV Test System and is only approved by the Food and Drug Administration (FDA) for use oncervicalspecimen s collected in Cytyc Preservcyt Solution (ThinPrep). When using ThinPrep liquid based samples for non-cervical specimens, SurePath liquid based samples, or formalin fixed paraffin embedded tissue, the performance characteristics have been determined by [facility]. Although testing on samples that are not cervical in origin, and/or in any other medium besides ThinPrep, has not been cleared or approved by the FDA, the FDA has determined that such clearance or approval is not necessary. [facility] 09/07/2015 8:10 PM EST Comment:SUREPATH PAP SMEAR+ HPV us Megan Perez MD PATHOLOGY/CYTOLOGY ORDERABLES Final Result [facility] Department of Pathology [address] [place] [id number] * Glucose ( GH Q YH) (06/03/2013 10:25 AM EDT) Glucose 100 70 - 100 mg/dL [facility] 06/03/2013 10:2 5 AM EDT Narrative [facility] - 06/03/2013 3:45 PM EDT Performed by: [facility] [address] [place] [address] (CLIA #[id number], [id number]) Jocelin Alcantara MD LAB BLOOD ORDERABLES F inal Result [facility] [address] [place] [phone] from Last 3 Months or Most Recently Relevant to Health Maintenance Insurance Care Teams Insurance Policy Clerk Relationship Specialty Start Date End Date Mary Spencer PA PCP - General Internal Medicine 08/03/15
--- OUTSIDE RECORDS SUMMARY | 2025-08-14 12:27 | XMS_ITS | Clinical Summary ---
Author Organization [facility] Address [address] [place] [address] Phone Care Team Providers Care Brazer Assembler Name Role Phone Veronica Fields NP Primary [...] INFLUENZA VACCINE (#1) 2025 07/28/2019 COVID-19 VACCINE (1 - 2024-2 6 season) 2025 RSV VACCINE (1 - 1-dose 75+ series) 2041 HEPATITIS A VACCINES Aged Out No long er eligible based on patient's age to complete this topic HIB VACCINES Aged Out No longer eligi ble based on patient's age to complete this topic IPV VACCINES Aged Out No longer eligi ble based on patient's age to complete this topic MENINGOCOCCAL VACCINES (ACWY) Aged Out No longer eligible based on patient's age to complete this topic MENINGOCOCCAL VACCINES (B) Aged Out N o longer eligible based on patient's age to complete this topic Medical Devices Not on file Insurance [employer] Member Subscriber Plan / Payer (Ef fective 2019-Present) Name:Carole Darby Relation to Subscriber:Self Name:Carole Darby Payer ID:[id number] (NAIC) Type:PPO Address: [place] [phone] Member Subscriber Plan / Payer ( fective 2019-Present) Name:Ismaelmalbeth Carole Relation to Subscriber:Self Name:IsmaelmalCarole campos Payer ID:[id number] (NAIC) Type:PPO Address: [address], [place] [id number] [facility] [employer] [facility] ADMINISTRATORS [facility] [employer] Member Subscriber Plan / Payer (Ef fective 2019-Present) Name:Ismaelmalbeth Carole Relation to Subscriber:Self Name:IsmaelmalCarole campos Payer ID:[id number] (NAIC) Type:PPO Address: [place] [phone] [facility] [employer] [facility] ADMINISTRATORS [facility] [employer] [facility] [employer] [facility] [employer] ADMINISTRATORS Care Teams Brazer Assembler Relationship Specialty Start Date End Date Veronica Fields NP PCP - General Family Medicine 06/24/21 Additional Source Comments The information contained in this document represents components of the legal health record. It is not the complete legal health record.[facility]
--- OUTSIDE RECORDS SUMMARY | 2025-08-14 12:27 | XMS_ITS | Encounter Summary ---
Author Organization [facility] Address [address] [place] [phone] Care Team Providers Care Custom Furrier Name Role Phone Mary Spencer Primary Care Provider Encounter Details Date Type Department Care Team (Late st Contact Info) Description 05/11/2016 Scanned Document [facility] 789 [facility] [place] [address] External, Provider Social History Tobacco Use Types [...] us Provider External URINE ORDERABLES Final Result [facility] [place], [place], [facility] documented in this encounter Visit Diagnoses Not on filedocumented in this encounter Care Teams Custom Furrier Relationship Specialty Start Date End Date Mary Spencer PA PCP - General Internal Medicine 08/03/15 documented as of this encounter
--- OUTSIDE RECORDS SUMMARY | 2025-08-14 12:28 | XMS_ITS | Encounter Summary ---
Author Organization [facility] Address [address] [place] [phone] Care Team Providers Care Billing Department Supervisor Name Role Phone Mary Spencer Primary Care Provider Encounter Details Date Type Department Care Team (Late st Contact Info) Description 06/20/2016 Scanned Document [facility] 789 [facility] 789 [facility] [place] [address] External, Provider Social History Tobacco Use Types [...] External LAB BLOOD ORDERABLES Final Res ult [facility] [place], [place], [place] * Bone Density Result Scan (09/28/2015) us Provider External IMG SCAN REPORTS Final Result [facility] [place], [facility] documented in this encounter Visit Diagnoses Not on filedocumented in this encounter Care Teams Billing Department Supervisor Relationship Specialty Start Date End Date Mary Spencer PA PCP - General Internal Medicine 08/03/15 documented as of this encounter
--- OUTSIDE RECORDS SUMMARY | 2025-08-14 12:28 | XMS_ITS | Encounter Summary ---
Author Organization [facility] [employer] [facility] Address [address] [place] [phone] Care Team Providers Care Department Traffic Freight Router Name Role Phone Mary Spencer Primary Care Provider Encounter Details Date Type Department Care Team (Late st Contact Info) Description 08/04/2016 Scanned Document [facility] 789 [facility] 789 [facility] [place] [address] Kelsey Hutchinson MD [address] [place] [phone] Social History Tobacco Use Types Packs/Day [...] MD LAB BLOOD ORDERABLES Final Resul t [facility] [place], [place], [facility] documented in this encounter Visit Diagnoses Not on filedocumented in this encounter Care Teams Department Traffic Freight Router Relationship Specialty Start Date End Date Mary Spencer PA PCP - General Internal Medicine 08/03/15 documented as of this encounter
--- OUTSIDE RECORDS SUMMARY | 2025-08-14 12:28 | XMS_ITS | Continuity of Care Document ---
Author Organization [facility] Address [address] [facility] [address] [place] [address] Phone [phone] Social History Type Date Description Comments Sex Female Sex Unknown Medical Devices Description No Information Available Encounters Description No Information Available Assessments Description No Information Available Plan of Treatment No Information Available Functional Status Description No Information Available Mental Status Description No Information Available Referrals Description No Information Available
--- OUTSIDE RECORDS SUMMARY | 2025-08-14 12:28 | XMS_ITS | Encounter Summary ---
Author Organization [facility] Address [address] [place] [phone] Care Team Providers Care Municipal Services Manager Name Role Phone Mary Spencer Primary Care Provider Encounter Details Date Type Department Care Team (Late st Contact Info) Description 09/11/2016 Scanned Document [facility] 789 [facility] 789 [facility] [place] [address] External, Provider Social History Tobacco Use Types [...] External LAB BLOOD ORDERABLES Final Res ult [facility] [place], [place], [facility] documented in this encounter Visit Diagnoses Not on filedocumented in this encounter Care Teams Municipal Services Manager Relationship Specialty Start Date End Date Mary Spencer PA PCP - General Internal Medicine 08/03/15 documented as of this encounter
--- OUTSIDE RECORDS SUMMARY | 2025-08-14 12:28 | XMS_ITS | Encounter Summary ---
Author Organization [facility] Address [address] [place] [phone] Care Team Providers Care Ripsaw Matcher Name Role Phone Mary Spencer Primary Care Provider Encounter Details Date Type Department Care Team (Late st Contact Info) Description 09/01/2016 Scanned Document [facility] [address] [place] [phone] [address] [place] [address] External, Provider Social History Tobacco Use Types [...] External LAB BLOOD ORDERABLES Final Res ult [facility] [place], [place], [facility] documented in this encounter Visit Diagnoses Not on filedocumented in this encounter Care Teams Ripsaw Matcher Relationship Specialty Start Date End Date Mary Spencer PA PCP - General Internal Medicine 08/03/15 documented as of this encounter
== END 2025-08-14 10:43 | disposition home or self-care (01) ==
LOC: HO.HMCH 10:09
PROVIDERS: PCP Internal Medicine; Visit Provider Nurse Practitioner Family
DX: R19.7 Diarrhea, unspecified (principal)

== ENCOUNTER 2025-08-20 08:56 | Outpatient (REF) | payer OTHER, SELFPAY ==
[2025-08-20 09:37] LABS: Appearance Urine Clear; Glucose Urine UA Negative (Negative); PH 7.0 (5.0-9.0); Specific Gravity - Urine 1.015 (1.005-1.025); UMIC TRIGGER UACC YES
[2025-08-20 10:25] LABS: HBS Num1 59.32 mIU/mL (0-7.99); HBc Num1 0.07 S/CO (0.00-0.79); HBsAGNum1 0.31 S/CO (0.00-0.99); Hepatitis B Surface Antigen Negative (Negative); ~HepC Num1 0.13 S/CO (0.00-0.79); ~Hepatitis B Surface Antibody REACTIVE (Nonreactive); ~Hepatitis C Antibody Nonreactive (Nonreactive)
[2025-08-21 06:48] LABS: Rubeola IgG (Measles) 68.70 AU/mL
[2025-08-23 07:54] LABS: TS Negative Control Passed; TS Panel A 0; TS Panel B 0; TS Positive Control Passed; TSpotTB Negative (Negative)
== END 2025-08-20 08:57 | disposition home or self-care (01) ==
LOC: HO.LAB 08:56
PROVIDERS: PCP Internal Medicine; Visit Provider Internal Medicine
DX: Z01.84 Encounter for antibody response examination (principal); Z11.1 Encounter for screening for respiratory tuberculosis; I25.10 Atherosclerotic heart disease of native coronary artery without angina pectoris; R79.89 Other specified abnormal findings of blood chemistry
CPT/HCPCS: 36415; 81001; 86481; 86704; 86706; 86735; 86762; 86765; 86787; 86803; 87340

== ENCOUNTER 2025-08-25 16:07 | Outpatient (AMB) | payer OTHER, SELFPAY ==
[2025-08-25 16:26] VITALS: BP 118/80; PULSE 94; TEMP 36.3; O2SAT 98; BMI 25.6
--- NOTE | 2025-08-25 16:26 | A.OFFPC_ITS ---
Vital Signs 08/25/25 16:26 Height 5 ft 4 in Weight 149 lb 6 oz BMI 25.6 BP 118/80 Blood Pressure Location Lt brachial Position Sitting Pulse 94 Pulse Source Pulse Oximeter Temp 97.3 F Temp Source Temporal Artery Scan Pulse Oximetry (%) 98 Oxygen Delivery Method Room Air Intake Visit Reasons: rash Accompanied by: Self / Same As Patient Allergies codeine (CODEINE) Allergy (Intermediate, Verified 08/25/25 16:26) NAUSEA hazelnut (HAZELNUT) Allergy (Unknown, Verified 08/25/25 16:26) UNKNOWN Milk Containing Products (Dairy) (MILK CONTAINING PRODUCTS) Allergy (Unknown, Verified 08/25/25 16:26) UNKNOWN nitrofurantoin (From MACROBID) Allergy (Unknown, Verified 08/25/25 16:26) UNKNOWN Penicillins (PENICILLINS) Allergy (Unknown, Verified 08/25/25 16:26) UNKNOWN sesame seed (SESAME SEED) Allergy (Unknown, Verified 08/25/25 16:26) UNKNOWN Sulfa (Sulfonamide Antibiotics) Allergy (Unknown, Verified 08/25/25 16:26) Unknown sulfamethoxazole (From BACTRIM) Allergy (Unknown, Verified 08/25/25 16:26) UNKNOWN trimethoprim (From BACTRIM) Allergy (Unknown, Verified 08/25/25 16:26) UNKNOWN azithromycin (From Zithromax) Adverse Reaction (Intermediate, Verified 08/25/25 16:26) diarrhea epinephrine (EPINEPHRINE) Adverse Reaction (Intermediate, Verified 08/25/25 16:26) HEART PALPITATIONS beesting Allergy (Unknown, Uncoded 08/14/25 10:16) Unknown Tobacco use date assessed: 08/25/25 Dental Screening Dental Screen Date: 08/25/25 Did you have a dental visit in the last 12 months?: Yes Did you have a dental problem in the last 6 months where you did not have access to dental care?: No HPI HPI Comments History of Present Illness Details Patient is a 60-year-old female presenting today for a rash that started an hour prior to visit. Rash occurs on her chest, abdomen and bilateral forearms, that is itchy. In an attempt to figure out a possible trigger for the rash, patient mentions that she had eaten Radha for lunch today. She is also on Augmentin for recent colitis episode. She has taken the medication for 2 days then stop then resumed again yesterday. [facility] History Microscopic hematuria Hx of hiatal hernia Ureteral stone Renal calculi Sore throat USMAN (obstructive sleep apnea) Cystitis Dysphagia Palpitations Restrictive airway disease Bronchitis BMI 36.0-36.9,adult Multiple allergies Headache Vitamin K deficiency Elevated C-reactive protein (CRP) Elevated sed rate Unexplained night sweats Pelvic cyst Adnexal cyst Abnormal Pap smear of cervix Unexplained endometrial cells on cervical cytology Chronic fatigue GERD (gastroesophageal reflux disease) CAD (coronary artery disease) Microscopic hematuria Renal atrophy Recurrent UTI Left radial head fracture Obesity Surgical History Hx of hysterectomy S/P DONNA-BSO S/P repair of paraesophageal hernia History of esophagogastroduodenoscopy (EGD) History of lithotripsy History of skin graft History of cystoscopy History of ankle surgery History of ovarian cystectomy History of tonsillectomy History of surgery History of colonoscopy History of endoscopy Family History Father Liver failure ETOH abuse Diabetes Hypertension Anxiety Prostate cancer Mother Hypertension Afib CVD (cardiovascular disease) Emphysema lung Melanoma Paternal Aunt Breast cancer Social History Housing: Condominium Alcohol intake: current Alcohol intake frequency: holidays/special occasions only Comment: 2 glasses in a month Patient Tobacco Use Status: Never used Tobacco Tobacco use type: Cigarette Years Smoked: smoked in college. 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 [employer] [facility] Cognitive needs: No Hearing needs: No Vision needs: Yes Questionnaire Thrive Questionnaire Date Thrive assessed: 12/10/24 JANETH-7 AMB Questionnaire JANETH-7 Date JANETH - 7 assessed: 12/10/24 Source: Developed by Drs. Anjum Spivey, Rose Maher, Bright Nguyen and colleagues, with an educational rodri from [employer]. Physical exam (Primary Care) Vital Signs: Last Vital Signs Temp 97.3 F 08/25/25 16:26 Pulse 94 08/25/25 16:26 BP 118/80 08/25/25 16:26 Pulse Ox 98 08/25/25 16:26 Oxygen Delivery Method Room Air 08/25/25 16:26 Skin: Diffuse, erythematous maculopapular rash on trunk, abdomen bilaterally and bilateral forearms, ill-defined borders without vesicles, pustules or blisters. BMI result Body Mass Index 25.6 Tobacco/Smoking Status: Tobacco use Status Tobacco use date assessed 08/25/25 08/25/25 16:37 Patient Tobacco Use Status Never used Tobacco 08/25/25 16:37 Tobacco use type Cigarette 08/25/25 16:37 e-Cigarette/Vaping Use Never Used 08/25/25 16:37 Thrive Assessment: Date of Thrive Assessment Date Thrive assessed 12/10/24 08/25/25 16:37 Coding Level of Care Code Est Pt Level 3 (90276) Diagnoses Rash R21 Assessment & Plan Assessment & Plan (1) Rash: Code(s): R21 - Rash and other nonspecific skin eruption Plan: Patient presenting with diffuse erythematous maculopapular rash on chest, abdomen bilaterally in bilateral forearms without vesicles, pustules or blisters, likely urticarial allergic reaction with possible triggers including Radha or antibiotic. Plan is to take Benadryl 50 mg tonight and for next few days until symptoms resolve. Patient carries EpiPen that is not currently with hertz at home, advised to take when she arrives home if she develops any chest pain or trouble breathing. Her vitals are within normal limits with stable blood pressure and oxygen saturation. A prescription for Topical diphenhydramine to apply twice daily as needed for pruritus. Medications: New diphenhydramine-zinc acetate 1-0.1 % (Anti-Itch (diphenhydramine) with Zinc) 1 appl topical BID PRN 28 grams 0RF itching
--- OUTSIDE RECORDS SUMMARY | 2025-08-25 19:26 | XMS_ITS | Encounter Summary ---
Author Organization [facility] and [facility] Address [address] [place] [phone] Care Team Providers Care Cake Icer And Packer Name Role Phone Mary Spencer Primary Care Provider Encounter Details Date Type Department Care Team (Late st Contact Info) Description 06/20/2016 Scanned Document [facility] 789 [facility] 789 [facility] [place] [address] External, Provider Social History Tobacco Use Types [...] External LAB BLOOD ORDERABLES Final Res ult [facility] [place], [place], [place] * Bone Density Result Scan (09/28/2015) us Provider External IMG SCAN REPORTS Final Result [facility] [place], [place], [facility] documented in this encounter Visit Diagnoses Not on filedocumented in this encounter Care Teams Cake Icer And Packer Relationship Specialty Start Date End Date Mary Spencer PA PCP - General Internal Medicine 08/03/15 documented as of this encounter
--- OUTSIDE RECORDS SUMMARY | 2025-08-25 19:26 | XMS_ITS | Encounter Summary ---
Author Organization [facility] Address [address] [place] [phone] Care Team Providers Care Him Clerk Name Role Phone Mary Spencer Primary Care Provider Encounter Details Date Type Department Care Team (Late st Contact Info) Description 05/11/2016 Scanned Document [facility] 789 [facility] 789 [facility] [place] [address] External, Provider Social History Tobacco Use Types [...] Final Result [facility] [place], [place], [facility] documented in this encounter Visit Diagnoses Not on filedocumented in this encounter Care Teams Him Clerk Relationship Specialty Start Date End Date Mary Spencer PA PCP - General Internal Medicine 08/03/15 documented as of this encounter
--- OUTSIDE RECORDS SUMMARY | 2025-08-25 19:26 | XMS_ITS | Clinical Summary ---
Author Organization [facility] Address [address] [place] [address] Care Team Providers Care Factory Manager Name Role Phone Mary Spencer Primary [...] mammogram for malignant neoplasm of breast ZZZCYTOLOGY MODEL ENGINE MECHANIC CASES (Y) Routine 09/07/2015 8:10 PM EST [...] letter of the results. Ignacio Ennis MD [facility] Narrative 01/12/2025 [...] MAMMOGRAPHY ORDERABLE S Final Result * Cytology road freight firer cases () (09/07/2015 8:10 PM EST) Cytology Fabric Worker Cases CYTOLOGY REPORT Procedures/Addend a Attached Patient: NANCY CHAVEZ MR #: [id number] Submitted by: Megan Perez M.D. FINAL DIAGNOSIS SUREPATH PAP SMEAR: Primary Diagnosis: NEGATIVE FOR INTRAEPITHELIAL LESION OR MALIGNANCY. Additional Findings: NO ENDOCERVICAL CELLS SEEN. CYTOLYSIS PRESENT. HIGH RISK HPV CO-TESTING HAS BEEN PERFORMED AND THE RESULT IS NEGATIVE. Specimen Adequacy: THIS SPECIMEN IS SATISFACTORY FOR EVALUATION. This specimen was manually screened with the assistance of the [employer] System. Recommendation: According to the current [...] used to evaluate suspected endometrial abnormalities. ([employer] System, 2001) 09/10/2015 12:46 * Report Electronically Signed Out * This electronic signature indicates that the pathologist has personally reviewed the available gross and/or microscopic material and has based the diagnosis on that evaluation. Specimen(s) Received: SUREPATH PAP SMEAR Clinical History and Impression: {Not Available} Procedures/Addenda MOLECULAR DX: HR HPV SCREENING Ordered: 09/07/2015 Status: Signed Out Reported: 09/10/2015 Pathologist: [facility] Interpretation Specimen: SUREPATH PAP SMEAR BELOW CUTOFF FOR HIGH RISK HPV HPV types 16, 18, 31, 33, 35, 39, 45, 51, 52, 56, 58, 59, 66, and 68 DNA were either considered NEGATIVE, undetectable,or below the pre-set threshold. This test was performed at [facility] Department of Pathology, [address] [place] [id number], CLIA# [id number] using the Yola christy 4800 HPV Test System and is only approved by the Food and Drug Administration (FDA) for use oncervicalspecimen s collected in Cytyc Preservcyt Solution (ThinPrep). When using ThinPrep liquid based samples for non-cervical specimens, SurePath liquid based samples, or formalin fixed paraffin embedded tissue, the performance characteristics have been determined by [facility]. Although testing on samples that are not cervical in origin, and/or in any other medium besides ThinPrep, has not been cleared or approved by the FDA, the FDA has determined that such clearance or approval is not necessary. [facility] 09/07/2015 8:10 PM EST Comment:SUREPATH PAP SMEAR+ HPV us Megan Perez MD PATHOLOGY/CYTOLOGY ORDERABLES Final Result [facility] Department of Pathology [address] [place] [id number] * Glucose ( GH Q YH) (06/03/2013 10:25 AM EDT) Glucose 100 70 - 100 mg/dL [facility] 06/03/2013 10:2 5 AM EDT Narrative [facility] - 06/03/2013 3:45 PM EDT Performed by: [facility] [address] [place] [address] (CLIA #[id number], [id number]) Jocelin Alcantara MD LAB BLOOD ORDERABLES F inal Result [facility] [address] [place] [phone] from Last 3 Months or Most Recently Relevant to Health Maintenance Insurance Care Teams Factory Manager Relationship Specialty Start Date End Date Mary Spencer PA PCP - General Internal Medicine 08/03/15
--- OUTSIDE RECORDS SUMMARY | 2025-08-25 19:26 | XMS_ITS | Encounter Summary ---
Author Organization [facility] and [facility] Address [address] [place] [phone] Care Team Providers Care Alternative Energy Technician Name Role Phone Mary Spencer Primary Care Provider Encounter Details Date Type Department Care Team (Late st Contact Info) Description 08/04/2016 Scanned Document [facility] 789 [facility] 789 [facility] [place] [address] Kelsey Hutchinson MD [address] [place] [phone] Social History Tobacco Use Types Packs/Day [...] MD LAB BLOOD ORDERABLES Final Resul t [facility] [place], [place], [facility] documented in this encounter Visit Diagnoses Not on filedocumented in this encounter Care Teams Alternative Energy Technician Relationship Specialty Start Date End Date Mary Spencer PA PCP - General Internal Medicine 08/03/15 documented as of this encounter
--- OUTSIDE RECORDS SUMMARY | 2025-08-25 19:26 | XMS_ITS | Clinical Summary ---
Author Organization [facility] Address [address] [place] [address] Phone Care Team Providers Care Mixer Crane Operator Name Role Phone Veronica Fields NP Primary [...] INFLUENZA VACCINE (#1) 2025 07/28/2019 COVID-19 VACCINE ( - 2024-2 6 season) 2025 RSV VACCINE [...] topic Medical Devices Not on file Insurance [employer] Member Subscriber Plan / Payer (Ef fective 2019-Present) Name:Carole Darby Relation to Subscriber:Self Name:Carole Darby Payer ID:[id number] (NAIC) Type:PPO Address: [address] [employer] Member Subscriber Plan / Payer (Ef fective 2019-Present) Name:Carole Darby Relation to Subscriber:Self Name:Carole Darby Payer ID:[id number] (NAIC) Type:PPO Address: [address] [facility] [employer] ADMINISTRATORS [facility] [employer] ADMINISTRATORS [employer] ADMINISTRATORS [facility] [employer] ADMINISTRATORS [facility] ADMINISTRATORS Member Subscriber Plan / Payer (Ef fective 2019-Present) Name:Ismaelmalbeth Carole Relation to Subscriber:Self Name:IsmaelmalCarole campos Payer ID:[id number] (NAIC) Type:PPO Address: [address] [facility] ADMINISTRATORS Member Subscriber Plan / Payer (Ef fective 2019-Present) Name:Ismaelmalbeth Carole Relation to Subscriber:Self Name:IsmaelmalCarole campos Payer ID:[id number] (NAIC) Type:PPO Address: [address] [id number] [employer] [address] Care Teams Mixer Crane Operator Relationship Specialty Start Date End Date Veronica Fields NP PCP - General Family Medicine 06/24/21 Additional Source Comments The information contained in this document represents components of the legal health record. It is not the complete legal health record.[facility]
--- OUTSIDE RECORDS SUMMARY | 2025-08-25 19:26 | XMS_ITS | Encounter Summary ---
Author Organization [facility] Address [address] [place] [phone] Care Team Providers Care Fiber Optics Technician Name Role Phone Mary Spencer Primary Care Provider Encounter Details Date Type Department Care Team (Late st Contact Info) Description 12/10/2015 Scanned Document [facility] 789 [facility] [address] [place] [address] External, Provider Social History Tobacco Use Types [...] on filedocumented in this encounter Care Teams Fiber Optics Technician Relationship Specialty Start Date End Date Mary Spencer PA PCP - General Internal Medicine 08/03/15 documented as of this encounter
--- OUTSIDE RECORDS SUMMARY | 2025-08-25 19:26 | XMS_ITS | Encounter Summary ---
Author Organization [facility] and [facility] Address [address] [place] [phone] Care Team Providers Care Vp Ad Sales West Name Role Phone Mary Spencer Primary Care Provider Encounter Details Date Type Department Care Team (Late st Contact Info) Description 05/04/2016 Scanned Document [facility] 789 [facility] [address] [place] [address] External, Provider Social History Tobacco Use Types [...] on filedocumented in this encounter Care Teams Vp Ad Sales West Relationship Specialty Start Date End Date Mary Spencer PA PCP - General Internal Medicine 08/03/15 documented as of this encounter
--- OUTSIDE RECORDS SUMMARY | 2025-08-25 19:26 | XMS_ITS | Continuity of Care Document ---
Author Organization [facility] Address [address] [facility] [address] [place] [address] Phone [phone] Social History Type Date Description Comments Sex Female Sex Unknown Medical Devices Description No Information Available Encounters Description No Information Available Assessments Description No Information Available Plan of Treatment No Information Available Functional Status Description No Information Available Mental Status Description No Information Available Referrals Description No Information Available
--- OUTSIDE RECORDS SUMMARY | 2025-08-25 19:26 | XMS_ITS | Encounter Summary ---
Author Organization [facility] Address [address] [place] [phone] Care Team Providers Care Veterinary Microbiologist Name Role Phone Mary Spencer Primary Care Provider Encounter Details Date Type Department Care Team (Late st Contact Info) Description 09/11/2016 Scanned Document [facility] 789 [facility] 789 [facility] [place] [address] External, Provider Social History Tobacco Use Types [...] External LAB BLOOD ORDERABLES Final Res ult [facility] [place], [place], [facility] documented in this encounter Visit Diagnoses Not on filedocumented in this encounter Care Teams Veterinary Microbiologist Relationship Specialty Start Date End Date Mary Spencer PA PCP - General Internal Medicine 08/03/15 documented as of this encounter
--- OUTSIDE RECORDS SUMMARY | 2025-08-25 19:26 | XMS_ITS | Clinical Summary ---
Author Organization [facility] Address [address] [place] [phone] Care Team Providers Care Learning And Development Administrator Name Role Phone Demetra Pantoja MD Primary Care Provider [phone] Allergies Active Allergy Reactions Criticality Noted Date [...] EDT) Anatomical Region Laterality Modality Endoscopy 04/19/2012 [facility] MD GI PROCEDURE OR DERABLES Final Result from Last 3 Months or Most Recently Relevant to Health Maintenance Insurance [facility] Care Teams Learning And Development Administrator Relationship Specialty Start Date End Date Demetra Pantoja MD [address] [place] [phone] PCP - General 10/06/19
--- OUTSIDE RECORDS SUMMARY | 2025-08-25 19:26 | XMS_ITS | Encounter Summary ---
Author Organization [facility] and [facility] Address [address] [place] [phone] Care Team Providers Care Artificial Insemination Technician Name Role Phone Mary Spencer Primary Care Provider Encounter Details Date Type Department Care Team (Late st Contact Info) Description 09/01/2016 Scanned Document [facility] [address] [place] [id number] [address] [place] [address] External, Provider Social History Tobacco Use Types [...] External LAB BLOOD ORDERABLES Final Res ult [facility] [place], [place] documented in this encounter Visit Diagnoses Not on filedocumented in this encounter Care Teams Artificial Insemination Technician Relationship Specialty Start Date End Date Mary Spencer PA PCP - General Internal Medicine 08/03/15 documented as of this encounter
== END 2025-08-25 16:59 | disposition home or self-care (01) ==
LOC: HO.HMCH 16:07
PROVIDERS: PCP Internal Medicine; Visit Provider Student in an Organized Health Care Education/Training Program
DX: R21 Rash and other nonspecific skin eruption (principal)

== ENCOUNTER 2025-08-31 07:54 | Outpatient (RCR) | payer OTHER, SELFPAY ==
--- NOTE | 2025-07-17 10:19 | MHC.PT.EP ---
[facility] [place] [facility] [place] [facility] [place] [facility] [address] Samuel Dwyer [address] [phone] F: [phone] F: [phone] F: [phone] F: [phone] Physical Therapy Plan of Care Date of Evaluation: 07/17/25 Date of Surgery: Diagnosis: lumbago with sciaitica B Assessment: 60 y/o female with s/s consistent with sciatica R side resulting in pain and difficulty with rolling in bed, sit to stand transitions, walking, sleeping and lifting R leg. Examination shows increased R buttock pain, significant [place] with gait, TTP, decreased hip/core strength, decreased lumbar ROM, and impaired gait pattern. Frequency and Duration: The patient will be seen 2x/week for 6 weeks Short Term Goals: Pt will be I with HEP to promote self management of symptoms Pt will demonstrate improvements in postural awareness noted throughout the day Pt will perform sit<>stands with proper technique with pain < 3/10 Longterm Goals: Pt will achieve full, pain-free ROM all planes of lumbar spine Pt will be able to sleep through the night with pain < 3/10 Pt will demonstrate improvements in function as evidenced by statistically significant improvement in Modified Oswestry Low Back Pain Disability Index Questionnaire Treatment Plan: Modalities to reduce pain, spasms and effusion. Manual therapy to restore motion and function. Therapeutic exercise to improve strength and flexibility. Neuromuscular re-education for posture and balance. Therapeutic activities to return to functional activities of daily living. Electronically signed by: Elisa Dorsey PT Please sign and return to therapist. Thank you for your referral.
--- NOTE | 2025-09-21 13:48 | MHC.PT.DC ---
[facility] [place] Office [place] Office [place] Office [address] Samuel Dwyer [address] [phone] F: [phone] F: [phone] F: [phone] F: [phone] Physical Therapy Discharge Report Diagnosis: lumbago with sciaitica B Date of Surgery: Date of Evaluation: 07/17/25 Date of Discharge: 09/21/25 Treatments to Date: 12 Cancellations to Date: 0 No Shows to Date: 0 Discharge Status: Improved Function Independent with HEP Discharge Summary: Significant improvement in functional mobility and reports less pain overall. She is I with HEP and is appropriate for d/c at this time Electronically signed by: Elisa Dorsey PT Please sign and return to therapist. Thank you for your referral.
== END 2025-09-21 13:48 | disposition home or self-care (01) ==
LOC: HO.PT 07:54
PROVIDERS: PCP Internal Medicine; Visit Provider Internal Medicine
DX: M54.42 Lumbago with sciatica, left side (principal); M54.41 Lumbago with sciatica, right side
CPT/HCPCS: 97014; 97110; 97112; 97140; 97162; 97530

== ENCOUNTER 2025-08-31 16:41 | Outpatient (AMB) | payer OTHER, SELFPAY ==
--- NOTE | 2025-08-31 16:41 | AM.OFFVISNUR ---
Intake Visit Reasons: Tdap Allergies codeine (CODEINE) Allergy (Intermediate, Verified 08/25/25 16:26) NAUSEA hazelnut (HAZELNUT) Allergy (Unknown, Verified 08/25/25 16:26) UNKNOWN Milk Containing Products (Dairy) (MILK CONTAINING PRODUCTS) Allergy (Unknown, Verified 08/25/25 16:26) UNKNOWN nitrofurantoin (From MACROBID) Allergy (Unknown, Verified 08/25/25 16:26) UNKNOWN Penicillins (PENICILLINS) Allergy (Unknown, Verified 08/25/25 16:26) UNKNOWN sesame seed (SESAME SEED) Allergy (Unknown, Verified 08/25/25 16:26) UNKNOWN Sulfa (Sulfonamide Antibiotics) Allergy (Unknown, Verified 08/25/25 16:26) Unknown sulfamethoxazole (From BACTRIM) Allergy (Unknown, Verified 08/25/25 16:26) UNKNOWN trimethoprim (From BACTRIM) Allergy (Unknown, Verified 08/25/25 16:26) UNKNOWN azithromycin (From Zithromax) Adverse Reaction (Intermediate, Verified 08/25/25 16:26) diarrhea epinephrine (EPINEPHRINE) Adverse Reaction (Intermediate, Verified 08/25/25 16:26) HEART PALPITATIONS beesting Allergy (Unknown, Uncoded 08/14/25 10:16) Unknown Immunizations Boostrix Tdap 2.5 Lf unit-8 mcg-5 Lf/0.5 mL intramuscular syringe Performing Provider: Tirso Edwards MD [facility] Administered by: Marleni Lamar CMA on 08/31/25 16:42 Dose Route Admin Location Dispensed Lot Number Expiration Date [facility] Laundry Or Dry Cleaners Counter Clerk 0.5 mL IM Left Deltoid 0.5 mL [id number] 03/16/28 70868-022-57 [employer] Total Dispensed Waste 0.5 mL 0 % VIS Given Date VIS Provided VIS Publication Date 08/31/25 Single Vaccine 21 Eligibility Eligibility Date Funding Source Not [facility] Eligible 08/31/25 Private Assessment & Plan Assessment & Plan Orders: Orders TDaP Immunization Today Z23 - Encounter for immunization Coding
--- OUTSIDE RECORDS SUMMARY | 2025-08-31 18:49 | XMS_ITS | Encounter Summary ---
Author Organization [facility] and [facility] Address [address] [place] [phone] Care Team Providers Care Partridge Farmer Name Role Phone Mary Spencer Primary Care Provider Encounter Details Date Type Department Care Team (Late st Contact Info) Description 09/11/2016 Scanned Document [facility] 789 [facility] 789 [facility] [place] [address] External, Provider Social History Tobacco Use Types [...] External LAB BLOOD ORDERABLES Final Res ult [facility] [place], [place], [facility] documented in this encounter Visit Diagnoses Not on filedocumented in this encounter Care Teams Partridge Farmer Relationship Specialty Start Date End Date Mary Spencer PA PCP - General Internal Medicine 08/03/15 documented as of this encounter
--- OUTSIDE RECORDS SUMMARY | 2025-08-31 18:49 | XMS_ITS | Clinical Summary ---
Author Organization [facility] Address [address] [place] [address] Care Team Providers Care Talent Sourcing Specialist Name Role Phone Mary Spencer Primary [...] mammogram for malignant neoplasm of breast [facility]CYTOLOGY ICT MANAGERS CASES (Y) Routine 09/07/2015 8:10 PM EST [...] letter of the results. Ignacio Ennis MD [facility] Narrative 01/12/2025 12:26 [...] MAMMOGRAPHY ORDERABLE S Final Result * Cytology process development associate cases () (09/07/2015 8:10 PM EST) Cytology Manager Of Radiology Cases CYTOLOGY REPORT Procedures/Addend a Attached Patient: NANCY CHAVEZ MR #: [id number] Submitted by: Megan Perez M.D. FINAL DIAGNOSIS SUREPATH PAP SMEAR: Primary Diagnosis: NEGATIVE FOR INTRAEPITHELIAL LESION OR MALIGNANCY. Additional Findings: NO ENDOCERVICAL CELLS SEEN. CYTOLYSIS PRESENT. HIGH RISK HPV CO-TESTING HAS BEEN PERFORMED AND THE RESULT IS NEGATIVE. Specimen Adequacy: THIS SPECIMEN IS SATISFACTORY FOR EVALUATION. This specimen was manually screened with the assistance of the [employer] Imaging System. Recommendation: According to the current [...] used to evaluate suspected endometrial abnormalities. (The [employer]res System, 2001) 09/10/2015 12:46 * Report Electronically Signed Out * This electronic signature indicates that the pathologist has personally reviewed the available gross and/or microscopic material and has based the diagnosis on that evaluation. Specimen(s) Received: SUREPATH PAP SMEAR Clinical History and Impression: {Not Available} Procedures/Addenda MOLECULAR DX: HR HPV SCREENING Ordered: 09/07/2015 Status: Signed Out Reported: 09/10/2015 Pathologist: [facility] Interpretation Specimen: SUREPATH PAP SMEAR BELOW CUTOFF FOR HIGH RISK HPV HPV types 16, 18, 31, 33, 35, 39, 45, 51, 52, 56, 58, 59, 66, and 68 DNA were either considered NEGATIVE, undetectable,or below the pre-set threshold. This test was performed at [facility] Department of Pathology, [address] [place] [id number], CLIA# [id number] using the Yola christy 4800 HPV Test System and is only approved by the Food and Drug Administration (FDA) for use oncervicalspecimen s collected in Cytyc Preservcyt Solution (ThinPrep). When using ThinPrep liquid based samples for non-cervical specimens, SurePath liquid based samples, or formalin fixed paraffin embedded tissue, the performance characteristics have been determined by [facility]. Although testing on samples that are not cervical in origin, and/or in any other medium besides ThinPrep, has not been cleared or approved by the FDA, the FDA has determined that such clearance or approval is not necessary. [facility] 09/07/2015 8:10 PM EST Comment:SUREPATH PAP SMEAR+ HPV us Megan Perez MD PATHOLOGY/CYTOLOGY ORDERABLES Final Result [facility] Department of Pathology [address] [place] [id number] * Glucose ( GH Q YH) (06/03/2013 10:25 AM EDT) Glucose 100 70 - 100 mg/dL [facility] 06/03/2013 10:2 5 AM EDT Narrative [facility] - 06/03/2013 3:45 PM EDT Performed by: [facility] [address] [place] [address] (CLIA #[id number], [id number]) Jocelin Alcantara MD LAB BLOOD ORDERABLES F inal Result [facility] [address] [place] [phone] from Last 3 Months or Most Recently Relevant to Health Maintenance Insurance Care Teams Talent Sourcing Specialist Relationship Specialty Start Date End Date Mary Spencer PA PCP - General Internal Medicine 08/03/15
--- OUTSIDE RECORDS SUMMARY | 2025-08-31 18:49 | XMS_ITS | Encounter Summary ---
Author Organization [facility] Address [address] [place] [phone] Care Team Providers Care Excelsior Machine Operator Name Role Phone Mary Spencer Primary Care Provider Encounter Details Date Type Department Care Team (Late st Contact Info) Description 05/04/2016 Scanned Document [facility] [facility] [address] [place] [address] External, Provider Social History Tobacco Use Types [...] on filedocumented in this encounter Care Teams Excelsior Machine Operator Relationship Specialty Start Date End Date Mary Spencer PA PCP - General Internal Medicine 08/03/15 documented as of this encounter
--- OUTSIDE RECORDS SUMMARY | 2025-08-31 18:49 | XMS_ITS | Encounter Summary ---
Author Organization [facility] and [facility] Address [address] [place] [phone] Care Team Providers Care Metal Engraver Name Role Phone Mary Spencer Primary Care Provider Encounter Details Date Type Department Care Team (Late st Contact Info) Description 12/10/2015 Scanned Document [facility] 789 [facility] [address] [place] [address] External, Provider Social History Tobacco Use Types [...] on filedocumented in this encounter Care Teams Metal Engraver Relationship Specialty Start Date End Date Mary Spencer PA PCP - General Internal Medicine 08/03/15 documented as of this encounter
--- OUTSIDE RECORDS SUMMARY | 2025-08-31 18:49 | XMS_ITS | Clinical Summary ---
Author Organization [employer] [facility] Address [address] [place] [address] Care Team Providers Care Weathercaster Name Role Phone Demetra Pantoja MD Primary Care Provider [phone] Allergies Active Allergy Reactions Criticality Noted Date [...] EDT) Anatomical Region Laterality Modality Endoscopy 04/19/2012 [facility] MD GI PROCEDURE OR DERABLES Final Result from Last 3 Months or Most Recently Relevant to Health Maintenance Insurance [facility] Care Teams Weathercaster Relationship Specialty Start Date End Date Demetra Pantoja MD [address] [place] [phone] PCP - General 10/06/19
--- OUTSIDE RECORDS SUMMARY | 2025-08-31 18:49 | XMS_ITS | Continuity of Care Document ---
Author Organization [facility] Address [address] [facility] [address] [place] [address] Phone [phone] Social History Type Date Description Comments Sex Female Sex Unknown Medical Devices Description No Information Available Encounters Description No Information Available Assessments Description No Information Available Plan of Treatment No Information Available Functional Status Description No Information Available Mental Status Description No Information Available Referrals Description No Information Available
--- OUTSIDE RECORDS SUMMARY | 2025-08-31 18:49 | XMS_ITS | Encounter Summary ---
Author Organization [facility] Address [address] [place] [phone] Care Team Providers Care Hebrew Professor Name Role Phone Mary Spencer Primary Care Provider Encounter Details Date Type Department Care Team (Late st Contact Info) Description 06/20/2016 Scanned Document [facility] [address] [facility] 7[address] [facility] [place] [address] External, Provider Social History Tobacco Use Types [...] External LAB BLOOD ORDERABLES Final Res ult [facility] [place], [place], [place] * Bone Density Result Scan (09/28/2015) us Provider External IMG SCAN REPORTS Final Result [facility] [place], [place], [facility] documented in this encounter Visit Diagnoses Not on filedocumented in this encounter Care Teams Hebrew Professor Relationship Specialty Start Date End Date Mary Spencer PA PCP - General Internal Medicine 08/03/15 documented as of this encounter
--- OUTSIDE RECORDS SUMMARY | 2025-08-31 18:49 | XMS_ITS | Encounter Summary ---
Author Organization [facility] Address [address] [place] [phone] Care Team Providers Care Asphalt Blender Name Role Phone Mary Spencer Primary Care Provider Encounter Details Date Type Department Care Team (Late st Contact Info) Description 08/04/2016 Scanned Document [facility] 789 [facility] [place] [address] Kelsey Hutchinson MD [address] [place] [phone] Social History Tobacco Use Types Packs/Day [...] MD LAB BLOOD ORDERABLES Final Resul t [facility] [place], [place], [facility] documented in this encounter Visit Diagnoses Not on filedocumented in this encounter Care Teams Asphalt Blender Relationship Specialty Start Date End Date Mary Spencer PA PCP - General Internal Medicine 08/03/15 documented as of this encounter
--- OUTSIDE RECORDS SUMMARY | 2025-08-31 18:49 | XMS_ITS | Clinical Summary ---
Author Organization [facility] Address [address] [place] [address] Phone Care Team Providers Care Work Manager Name Role Phone Veronica Fields NP Primary [...] topic Medical Devices Not on file Insurance [employer] Member Subscriber Plan / Payer (Ef fective 2019-Present) Name:Carole Darby Relation to Subscriber:Self Name:Carole Darby Payer ID:[id number] (NAIC) Type:PPO Address: [address] [employer] Member Subscriber Plan / Payer (Ef fective 2019-Present) Name:Carole Darby Relation to Subscriber:Self Name:Carole Darby Payer ID:[id number] (NAIC) Type:PPO Address: [address] [facility] [employer] [facility] [employer] [place] [employer]MIN[employer] [facility] [employer] ADMINIST[employer] [facility] [employer] [facility] ADMINISTRATORS Member Subscriber Plan / Payer (Ef fective 2019-Present) Name:Ismaelmalbeth Carole Relation to Subscriber:Self Name:IsmaelmalCarole campos Payer ID:[id number] (NAIC) Type:PPO Address: [address] [facility] [employer] [facility] ADMINISTRATORS Member Subscriber Plan / Payer (Ef fective 2019-Present) Name:Ismaelmalbeth Carole Relation to Subscriber:Self Name:IsmaelmalCarole campos Payer ID:[id number] (NAIC) Type:PPO Address: [address] [place] [id number] [place] [employer] Care Teams Work Manager Relationship Specialty Start Date End Date Veronica Fields NP PCP - General Family Medicine 06/24/21 Additional Source Comments The information contained in this document represents components of the legal health record. It is not the complete legal health record.[facility]
--- OUTSIDE RECORDS SUMMARY | 2025-08-31 18:49 | XMS_ITS | Encounter Summary ---
Author Organization [facility] Address [address] [place] [phone] Care Team Providers Care Fine Grade Operator Name Role Phone Mary Spencer Primary Care Provider Encounter Details Date Type Department Care Team (Late st Contact Info) Description 09/01/2016 Scanned Document [facility] [address] [place] [phone] [address] [place] [address] External, Provider Social History Tobacco Use Types [...] External LAB BLOOD ORDERABLES Final Res ult [facility] [place], [place], [facility] documented in this encounter Visit Diagnoses Not on filedocumented in this encounter Care Teams Fine Grade Operator Relationship Specialty Start Date End Date Mary Spencer PA PCP - General Internal Medicine 08/03/15 documented as of this encounter
--- OUTSIDE RECORDS SUMMARY | 2025-08-31 18:49 | XMS_ITS | Encounter Summary ---
Author Organization [facility] Address [address] [place] [phone] Care Team Providers Care Enamel Buffer Name Role Phone Mary Spencer Primary Care Provider Encounter Details Date Type Department Care Team (Late st Contact Info) Description 05/11/2016 Scanned Document [facility] [address] [facility] [facility] [place] [address] External, Provider Social History Tobacco Use Types [...] us Provider External URINE ORDERABLES Final Result [facility] [place], [place], [facility] documented in this encounter Visit Diagnoses Not on filedocumented in this encounter Care Teams Enamel Buffer Relationship Specialty Start Date End Date Mary Spencer PA PCP - General Internal Medicine 08/03/15 documented as of this encounter
== END 2025-08-31 16:43 | disposition home or self-care (01) ==
LOC: HO.HMCH 16:41
PROVIDERS: PCP Internal Medicine; Visit Provider Internal Medicine
DX: Z23 Encounter for immunization (principal)

== ENCOUNTER → 2025-08-31 16:41 | Outpatient (BNVA) | payer OTHER, SELFPAY | PROVIDERS: PCP Internal Medicine; Visit Provider Internal Medicine | DX: Z23 Encounter for immunization (principal) | CPT/HCPCS: 90471; 90715 ==

== ENCOUNTER 2025-09-03 10:08 | Outpatient (AMB) | payer OTHER, SELFPAY ==
[2025-09-03 10:09] VITALS: BP 110/62; PULSE 69; O2SAT 98; BMI 24.9
--- NOTE | 2025-09-03 10:09 | A.OFFPC_ITS ---
Vital Signs 09/03/25 10:09 Height 5 ft 4 in Weight 145 lb BMI 24.9 BP 110/62 Blood Pressure Location Lt brachial Position Sitting Pulse 69 Pulse Source Pulse Oximeter Pulse Oximetry (%) 98 Oxygen Delivery Method Room Air Intake Visit Reasons: Upset stomach Allergies codeine (CODEINE) Allergy (Intermediate, Verified 09/03/25 10:10) NAUSEA hazelnut (HAZELNUT) Allergy (Unknown, Verified 09/03/25 10:10) UNKNOWN Milk Containing Products (Dairy) (MILK CONTAINING PRODUCTS) Allergy (Unknown, Verified 09/03/25 10:10) UNKNOWN nitrofurantoin (From MACROBID) Allergy (Unknown, Verified 09/03/25 10:10) UNKNOWN Penicillins (PENICILLINS) Allergy (Unknown, Verified 09/03/25 10:10) UNKNOWN sesame seed (SESAME SEED) Allergy (Unknown, Verified 09/03/25 10:10) UNKNOWN Sulfa (Sulfonamide Antibiotics) Allergy (Unknown, Verified 09/03/25 10:10) Unknown sulfamethoxazole (From BACTRIM) Allergy (Unknown, Verified 09/03/25 10:10) UNKNOWN trimethoprim (From BACTRIM) Allergy (Unknown, Verified 09/03/25 10:10) UNKNOWN azithromycin (From Zithromax) Adverse Reaction (Intermediate, Verified 09/03/25 10:10) diarrhea epinephrine (EPINEPHRINE) Adverse Reaction (Intermediate, Verified 09/03/25 1 0:10) HEART PALPITATIONS beesting Allergy (Unknown, Uncoded 09/03/25 10:10) Unknown Tobacco use date assessed: 08/25/25 Dental Screening Dental Screen Date: 08/25/25 HPI HPI Comments History of Present Illness Details History of Present Illness The patient is a 60 year old female presenting with an acute problem of rash and diarrhea. She reports having diarrhea for six days, which is not formed. She has also experienced two episodes of a rash, which she was seen for in August 2025 on her chest, abdomen, and forearms. The most recent episode of itching and rash occurred after eating loco and was treated with an ineffective dose of Belén, followed by Benadryl, after which she slept for 13.5 hours. The itching recurred after eating a brownie, though she denies a known egg allergy. She has lost 4 pounds in 5 days and notes extreme weakness, but denies that anxiety is a contributing factor. Her gastrointestinal history is significant for diverticulitis, for which she recently took Augmentin. She describes her diverticulitis flares as causing pain that requires her to bear down and rock to defecate. She reports a history of a tortuous colon, a milk allergy, and that eating salads used to trigger her symptoms. She has a history of paraesophageal hernia status post repair in January 2023, with no further reflux issues. Her last EGD was in November 2022 and colonoscopy was in August 2019. Her cardiac history includes non-obstructive coronary artery disease with a calcium score of 17, hypercholesterolemia, and a history of palpitations. An event monitor in June showed normal sinus rhythm with rare short runs of supraventricular tachycardia, occasional premature atrial contractions, and sinus tachycardia. Labs from December 11 showed an LDL of 109 mg/dL and triglycerides of 57 mg/dL. Other past medical history includes polycystic ovary syndrome, osteoporosis, and nephrolithiasis. She is managed for osteoporosis with alendronate, calcium, and vitamin D. Her nephrolithiasis is under surveillance with bilateral renal ultrasounds, and a urinalysis in August showed hematuria. Her vitamin D has been low. Health Maintenance The patient is due for a mammogram, which she will schedule for December. Her next screening colonoscopy is scheduled for 2028. She will continue surveillance for nephrolithiasis with a bilateral renal ultrasound, with the next one scheduled for November. Social History - Diet: Reports a minimal appetite and i s currently consuming a diet of chicken noodle soup, squash soup, helio rosales, and crackers. - Allergies/Intolerances: Has a milk all ergy and reports that salads have previously triggered gastrointestinal symptoms. - Hydration: Reports trying to drink up to 40 ounces of water daily. - Activity: Has been advised to continue being active. Results - Labs (December 11): CBC was within normal limits, renal function was good, LDL was 109, triglycerides were 57, and vitamin D was low. - Labs (August 20): Urinalysis showed hematuria. - Tests and Diagnostics (June): Valeria nt monitor showed baseline normal sinus rhythm, rare short runs of SVT, occasional PACs, and sinus tachycardia. A calcium score was 17, indicating nonobstructive coronary artery disease. - Procedures: Last EGD was in November 2022 . Last colonoscopy was in August 2019. [facility] Medical History Microscopic hematuria Hx of hiatal hernia Ureteral stone Renal calculi Sore throat USMAN (obstructive sleep apnea) Cystitis Dysphagia Palpitations Restrictive airway disease Bronchitis BMI 36.0-36.9,adult Multiple allergies Headache Vitamin K deficiency Elevated C-reactive protein (CRP) Elevated sed rate Unexplained night sweats Pelvic cyst Adnexal cyst Abnormal Pap smear of cervix Unexplained endometrial cells on cervical cytology Chronic fatigue GERD (gastroesophageal reflux disease) CAD (coronary artery disease) Microscopic hematuria Renal atrophy Recurrent UTI Left radial head fracture Obesity Surgical History Hx of hysterectomy S/P DONNA-BSO S/P repair of paraesophageal hernia History of esophagogastroduodenoscopy (EGD) History of lithotripsy History of skin graft History of cystoscopy History of ankle surgery History of ovarian cystectomy History of tonsillectomy History of surgery History of colonoscopy History of endoscopy Family History Father Liver failure ETOH abuse Diabetes Hypertension Anxiety Prostate cancer Mother Hypertension Afib CVD (cardiovascular disease) Emphysema lung Melanoma Paternal Aunt Breast cancer Social History Housing: Condominium Alcohol intake: current Alcohol intake frequency: holidays/special occasions only Comment: 2 glasses in a month Patient Tobacco Use Status: Never used Tobacco Tobacco use type: Cigarette Years Smoked: smoked in college. 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 [employer] [facility] Cognitive needs: No Hearing needs: No Vision needs: Yes Questionnaire Thrive Questionnaire Date Thrive assessed: 12/10/24 JANETH-7 AMB Questionnaire JANETH-7 Date JANETH - 7 assessed: 12/10/24 Source: Developed by Drs. Anjum Spivey, Rose Maher, Bright Nguyen and colleagues, with an educational rodri from [employer]. Review of Systems Narrative Review of Systems - Constitutional: Reports significant weakness and a 4-pound weight loss over 5 days. - Integumentary: Reports recurrent episodes of generalized rash and itching. - Cardiovascular: Reports a history of palpitations. - Respiratory: Reports shortness of breath. - Gastrointestinal: Reports six days of unformed diarrhea and decreased appetite. Denies abdominal pain and blood in stool. Physical exam (Primary Care) Vital Signs: Last Vital Signs Pulse 69 09/03/25 10:09 BP 110/62 09/03/25 10:09 Pulse Ox 98 09/03/25 10:09 Oxygen Delivery Method Room Air 09/03/25 10:09 BMI result Body Mass Index 24.9 Tobacco/Smoking Status: Tobacco use Status Tobacco use date assessed 08/25/25 09/03/25 10:10 Patient Tobacco Use Status Never used Tobacco 09/03/25 10:10 Tobacco use type Cigarette 09/03/25 10:10 e-Cigarette/Vaping Use Never Used 09/03/25 10:10 Thrive Assessment: Date of Thrive Assessment Date Thrive assessed 12/10/24 09/03/25 10:10 Narrative Physical Exam - Abdomen: Non-tender to palpation throughout. Bowel sounds are quiet on auscultation. 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 Nonobstructive as a stress test is normal Code(s): I25.10 - Atherosclerotic heart disease of pauma coronary artery without angina pectoris Category: Medical Plan: Control the cholesterol, weight, blood pressure, (2) Osteoporosis: Comment: Code(s): M81.0 - Age-related osteoporosis without current pathological fracture Category: Medical Plan: Continue with being active, continue with calcium and vitamin-D. On alendronate. (3) GERD (gastroesophageal reflux disease): Code(s): K21.9 - Gastro-esophageal reflux disease without esophagitis Category: Medical Plan: Avoid the foods that causes that usually spicy foods, tomato products, juices, coffee, soda and foods that your sensitive to. After eating do not lie down, allow 3-4 hours before in lie down. And keep the head of bed above 30 degrees to avoid the acid from going up. 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 (5) Diarrhea: Code(s): R19.7 - Diarrhea, unspecified Category: Medical Plan: discussed about fiver like metamucil/psylium , keep well hydrated Plan Plan Patient was informed and verbally consented to the use of an ambient scribe for clinic note documentation during this visit. 1. Diarrhea And Diverticulitis The patient's current diarrhea is thought to be related to a recent diverticulitis flare and a lack of dietary fiber, especially given her history of a tortuous colon. It was recommended that she increase her fiber intake to add bulk to her stool. She was advised to use an bbyh-cip-oobwnkj fiber supplement such as Metamucil (psyllium) in either wafers, powder, or capsule form. The patient also plans to restart a probiotic. Continue to maintain adequate hydration. 2. Osteoporosis Continue current management plan. She will continue weekly alendronate, and she was reminded that this medication can cause stomach upset. She will also continue her calcium and vitamin D supplementation and was encouraged to remain active. 3. Coronary Artery Disease And Hypercholesterolemia Given her history of atherosclerosis, the patient was advised to continue efforts to maintain the lowest possible cholesterol levels. This includes continuing to avoid foods like cakes and cookies. Discussion Notes I discussed with the patient that her persistent diarrhea is likely due to insufficient fiber in her diet, especially following a recent diverticulitis flare and considering her history of a tortuous colon. I recommended she begin an lmba-mfi-sfqtzew fiber supplement, such as Metamucil or psyllium, to help add bulk to her stool and improve regularity. We reviewed her health maintenance schedule, confirming she is due for a mammogram, which she plans to schedule, and that her next colonoscopy is not due until 2028. I also reminded her that alendronate, which she takes for osteoporosis, can sometimes cause stomach upset. We touched on the importance of continued cholesterol management through diet to minimize risks associated with her non-obstructive coronary artery disease. Patient Instructions - To help with the diarrhea, start taking an tsac-enx-kiturrr fiber supplement like Metamucil or psyllium. This will add bulk to your stool. You can find this in powder, wafer, or capsule form. - You can also restart taking a probiotic supplement. - Make sure to drink plenty of water, aiming for about 40 ounces each day. - Continue taking alendronate once a week for your osteoporosis. Be aware that this medicine can sometimes cause an upset stomach. - Continue your calcium and vitamin D supplements. - Continue to stay active. - Remember to schedule your yearly mammogram. - Proceed with your scheduled kidney ultrasound in November.
--- OUTSIDE RECORDS SUMMARY | 2025-09-03 12:09 | XMS_ITS | Encounter Summary ---
Author Organization [facility] [employer] and [facility] Address [address] [place] [phone] Care Team Providers Care Manager Baby Name Role Phone Mary Spencer Primary Care Provider Encounter Details Date Type Department Care Team (Late st Contact Info) Description 08/04/2016 Scanned Document [facility] 789 [facility] 789 [facility] [place] [address] Kelsey Hutchinson MD [address] [place] [phone] Social History Tobacco Use Types Packs/Day [...] MD LAB BLOOD ORDERABLES Final Resul t [facility] [place], [place], [facility] documented in this encounter Visit Diagnoses Not on filedocumented in this encounter Care Teams Manager Baby Relationship Specialty Start Date End Date Mary Spencer PA PCP - General Internal Medicine 08/03/15 documented as of this encounter
--- OUTSIDE RECORDS SUMMARY | 2025-09-03 12:09 | XMS_ITS | Encounter Summary ---
Author Organization [facility] and [facility] Address [address] [place] [phone] Care Team Providers Care Dissolver Operator Name Role Phone Mary Spencer Primary Care Provider Encounter Details Date Type Department Care Team (Late st Contact Info) Description 12/10/2015 Scanned Document [facility] 789 [facility] [address] [place] [address] External, Provider Social History Tobacco Use Types [...] on filedocumented in this encounter Care Teams Dissolver Operator Relationship Specialty Start Date End Date Mary Spencer PA PCP - General Internal Medicine 08/03/15 documented as of this encounter
--- OUTSIDE RECORDS SUMMARY | 2025-09-03 12:09 | XMS_ITS | Clinical Summary ---
Author Organization [facility] Address [address] [place] [address] Phone Care Team Providers Care Gamma Facilities Operator Name Role Phone Veronica Fields NP [...] topic Medical Devices Not on file Insurance [employer] Member Subscriber Plan / Payer (Ef fective 2019-Present) Name:Carole Darby Relation to Subscriber:Self Name:Carole Darby Payer ID:[id number] (NAIC) Type:PPO Address: [address] [employer] Member Subscriber Plan / Payer (Ef fective 2019-Present) Name:Carole Darby Relation to Subscriber:Self Name:Carole Darby Payer ID:[id number] (NAIC) Type:PPO Address: [address] [facility] [employer] [facility] [employer] ADMIN[employer] [place] [email or web address]MINISTRATORS [facility] [employer]MIN[employer] [facility] [employer] [facility] [employer] Member Subscriber Plan / Payer (Ef fective 2019-Present) Name:Ismaelmalbeth Carole Relation to Subscriber:Self Name:IsmaelmalCarole campos Payer ID:[id number] (NAIC) Type:PPO Address: [address] [facility] [employer] [facility] [employer] Member Subscriber Plan / Payer (Ef fective 2019-Present) Name:Ismaelmalbeth Carole Relation to Subscriber:Self Name:IsmaelmalCarole campos Payer ID:[id number] (NAIC) Type:PPO Address: [address] [place] [id number] [place] [email or web address]RAT[employer] Care Teams Gamma Facilities Operator Relationship Specialty Start Date End Date Veronica Fields NP PCP - General Family Medicine 06/24/21 Additional Source Comments The information contained in this document represents components of the legal health record. It is not the complete legal health record.[facility]
--- OUTSIDE RECORDS SUMMARY | 2025-09-03 12:09 | XMS_ITS | Encounter Summary ---
Author Organization [facility] and [facility] Address [address] [place] [phone] Care Team Providers Care Tray Setter Name Role Phone Mary Spencer Primary Care Provider Encounter Details Date Type Department Care Team (Late st Contact Info) Description 05/11/2016 Scanned Document [facility] [address] [facility] 789 [facility] [place] [address] External, Provider Social History Tobacco Use Types [...] us Provider External URINE ORDERABLES Final Result [facility] [place], [place], [facility] documented in this encounter Visit Diagnoses Not on filedocumented in this encounter Care Teams Tray Setter Relationship Specialty Start Date End Date Mary Spencer PA PCP - General Internal Medicine 08/03/15 documented as of this encounter
--- OUTSIDE RECORDS SUMMARY | 2025-09-03 12:09 | XMS_ITS | Clinical Summary ---
Author Organization [employer] [facility] Address [address] [place] [phone] Care Team Providers Care Binder Stripper Machine Name Role Phone Demetra Pantoja MD Primary Care Provider [phone] Allergies Active Allergy Reactions Criticality Noted Date [...] Most Recently Relevant to Health Maintenance Insurance [facility] Care Teams Binder Stripper Machine Relationship Specialty Start Date End Date Demetra Pantoja MD [address] [place] [phone] PCP - General 10/06/19
--- OUTSIDE RECORDS SUMMARY | 2025-09-03 12:09 | XMS_ITS | Encounter Summary ---
Author Organization [facility] and [facility] Address [address] [place] [phone] Care Team Providers Care Printing Pressman Name Role Phone Mary Spencer Primary Care Provider Encounter Details Date Type Department Care Team (Late st Contact Info) Description 05/04/2016 Scanned Document [facility] 789 [facility] [address] [place] [address] External, Provider Social History Tobacco Use Types [...] on filedocumented in this encounter Care Teams Printing Pressman Relationship Specialty Start Date End Date Mary Spencer PA PCP - General Internal Medicine 08/03/15 documented as of this encounter
--- OUTSIDE RECORDS SUMMARY | 2025-09-03 12:09 | XMS_ITS | Continuity of Care Document ---
Author Organization [facility] Address [address] [facility] [address] [place] [address] Phone [phone] Social History Type Date Description Comments Sex Female Sex Unknown Medical Devices Description No Information Available Encounters Description No Information Available Assessments Description No Information Available Plan of Treatment No Information Available Functional Status Description No Information Available Mental Status Description No Information Available Referrals Description No Information Available
--- OUTSIDE RECORDS SUMMARY | 2025-09-03 12:09 | XMS_ITS | Encounter Summary ---
Author Organization [facility] and [facility] Address [address] [place] [phone] Care Team Providers Care Sap Bi Developer Name Role Phone Mary Spencer Primary Care Provider Encounter Details Date Type Department Care Team (Late st Contact Info) Description 09/11/2016 Scanned Document [facility] 789 [facility] 789 [facility] [place] [address] External, Provider Social History Tobacco Use Types [...] External LAB BLOOD ORDERABLES Final Res ult [facility] [place], [place], [facility] [[email or web address] documented in this encounter Visit Diagnoses Not on filedocumented in this encounter Care Teams Sap Bi Developer Relationship Specialty Start Date End Date Mary Spencer PA PCP - General Internal Medicine 08/03/15 documented as of this encounter
--- OUTSIDE RECORDS SUMMARY | 2025-09-03 12:09 | XMS_ITS | Encounter Summary ---
Author Organization [facility] and [facility] Address [address] [place] [phone] Care Team Providers Care Back Shoe Operator Name Role Phone Mary Spencer Primary Care Provider Encounter Details Date Type Department Care Team (Late st Contact Info) Description 09/01/2016 Scanned Document [facility] 7[address] [place] [id number] [address] [place] [address] External, Provider Social History Tobacco Use Types [...] External LAB BLOOD ORDERABLES Final Res ult [facility] [place], [place], [facility] documented in this encounter Visit Diagnoses Not on filedocumented in this encounter Care Teams Back Shoe Operator Relationship Specialty Start Date End Date Mary Spencer PA PCP - General Internal Medicine 08/03/15 documented as of this encounter
--- OUTSIDE RECORDS SUMMARY | 2025-09-03 12:09 | XMS_ITS | Clinical Summary ---
Author Organization [facility] Address [address] [place] [address] Care Team Providers Care Field Crop Harvest Worker Name Role Phone Mary Spencer Primary [...] mammogram for malignant neoplasm of breast [facility] (Y) Routine 09/07/2015 8:10 PM EST [...] letter of the results. Ignacio Ennis MD [facility] Narrative 01/12/2025 12:26 [...] MAMMOGRAPHY ORDERABLE S Final Result * Cytology rn orthopaedic cases () (09/07/2015 8:10 PM EST) Cytology Prosthetic Lab Technician Cases CYTOLOGY REPORT Procedures/Addend a Attached Patient: NANCY CHAVEZ MR #: [id number] Submitted by: Megan Perez M.D. FINAL DIAGNOSIS SUREPATH PAP SMEAR: Primary Diagnosis: NEGATIVE FOR INTRAEPITHELIAL LESION OR MALIGNANCY. Additional Findings: NO ENDOCERVICAL CELLS SEEN. CYTOLYSIS PRESENT. HIGH RISK HPV CO-TESTING HAS BEEN PERFORMED AND THE RESULT IS NEGATIVE. Specimen Adequacy: THIS SPECIMEN IS SATISFACTORY FOR EVALUATION. This specimen was manually screened with the assistance of the PlayWith(MatchMate.Me Imaging System. Recommendation: According to the current [...] used to evaluate suspected endometrial abnormalities. (The Mayer System, 2001) 09/10/2015 12:46 * Report Electronically Signed Out * This electronic signature indicates that the pathologist has personally reviewed the available gross and/or microscopic material and has based the diagnosis on that evaluation. Specimen(s) Received: SUREPATH PAP SMEAR Clinical History and Impression: {Not Available} Procedures/Addenda MOLECULAR DX: HR HPV SCREENING Ordered: 09/07/2015 Status: Signed Out Reported: 09/10/2015 Pathologist: [facility] Interpretation Specimen: SUREPATH PAP SMEAR BELOW CUTOFF FOR HIGH RISK HPV HPV types 16, 18, 31, 33, 35, 39, 45, 51, 52, 56, 58, 59, 66, and 68 DNA were either considered NEGATIVE, undetectable,or below the pre-set threshold. This test was performed at [facility] Department of Pathology, [address] [place] [id number], CLIA# [id number] using the Yola christy 4800 HPV Test System and is only approved by the Food and Drug Administration (FDA) for use oncervicalspecimen s collected in Cytyc Preservcyt Solution (ThinPrep). When using ThinPrep liquid based samples for non-cervical specimens, SurePath liquid based samples, or formalin fixed paraffin embedded tissue, the performance characteristics have been determined by [facility]. Although testing on samples that are not cervical in origin, and/or in any other medium besides ThinPrep, has not been cleared or approved by the FDA, the FDA has determined that such clearance or approval is not necessary. [facility] CYTOLOGY 09/07/2015 8:10 PM EST Comment:SUREPATH PAP SMEAR+ HPV us Megan Perez MD PATHOLOGY/CYTOLOGY ORDERABLES Final Result [facility] CYTOLOGY Department of Pathology [address] [place] [id number] * Glucose ( GH Q YH) (06/03/2013 10:25 AM EDT) Glucose 100 70 - 100 mg/dL [facility] 06/03/2013 10:2 5 AM EDT Narrative [facility] - 06/03/2013 3:45 PM EDT Performed by: Laboratory [address] [place] [address] (CLIA #[id number], [id number]) Jocelin Alcantara MD LAB BLOOD ORDERABLES F inal Result [facility] [address] [place] [phone] from Last 3 Months or Most Recently Relevant to Health Maintenance Insurance Care Teams Field Crop Harvest Worker Relationship Specialty Start Date End Date Mary Spencer PA PCP - General Internal Medicine 08/03/15
== END 2025-09-03 11:07 | disposition home or self-care (01) ==
LOC: HO.HMCH 10:08
PROVIDERS: PCP Internal Medicine; Visit Provider Internal Medicine
DX: I25.10 Atherosclerotic heart disease of native coronary artery without angina pectoris (principal); M81.0 Age-related osteoporosis without current pathological fracture; K21.9 Gastro-esophageal reflux disease without esophagitis; N17.2 Acute kidney failure with medullary necrosis; R19.7 Diarrhea, unspecified